=== PATIENT | female | born 1935 | race Caucasian/White ===

== ENCOUNTER → 2018-10-18 | Outpatient (CLI) | payer MEDICARE ==
[~2018-10-18] MED LIST: AML5T; AMLO10TA82 PO; ASP325T PO; ATRV10T; ATRV10T PO; FRSM40T; FURO40TA4 PO; HYDR-34 PO; HYDR-3583 PO; HYDR118S10 PO; LISI40TA PO; LSNP20T; LVT.05T; LVT.05T PO; MTF500T; MTF500T PO; MULT-608 PO; MULT1TAB63; NAPR-243 PO; OXYC-12 PO; POLY119P PO; SIMV20TA3 PO; VIT1TABL26 PO; WRF2.5T; WRF5T; [UNRECOGNIZED DRUG - OTHER]
== END ==
LOC: CARD 11:52
PROVIDERS: ATTEND Internal Medicine Cardiovascular Disease
DX: I25.10 Atherosclerotic heart disease of native coronary artery without angina pectoris (principal); I42.0 Dilated cardiomyopathy; E11.9 Type 2 diabetes mellitus without complications; R00.2 Palpitations; I10 Essential (primary) hypertension; I08.1 Rheumatic disorders of both mitral and tricuspid valves
CPT/HCPCS: 93306

== ENCOUNTER 2019-08-16 13:39 | Outpatient (RCR) | payer MEDICARE | END 2019-09-18 | disposition home or self-care (01) | PROVIDERS: ATTEND Family Medicine | DX: M51.36 Other intervertebral disc degeneration, lumbar region (principal); R29.898 Other symptoms and signs involving the musculoskeletal system ==

== ENCOUNTER 2020-03-29 12:17 | Emergency (ER) | payer MEDICARE ==
[~2020-03-29] VITALS: Ht 160 cm; Wt 87.5 kg
--- NOTE | 2020-03-29 12:36 | ED Back Pain ---
General Stated Complaint: BACK PAIN Source of Information: Patient Exam Limitations: No Limitations History of Present Illness Date Seen by Provider: Mar 29, 2020 Time Seen by Provider: 12:33 Initial Comments To ER with left flank pain sudden in onset about 3 or 4 hours ago while walking back from the bathroom. Pain is worsened by movement. Does not radiate down her legs. No history with bowel or bladder incontinence. Location: Paraspinous Muscles Timing/Duration: 1-3 Hours Severity: Moderate Pain/Injury Location: Back Method of Injury: Unknown Associated Symptoms: denies symptoms Allergies and Home Medications Allergies Coded Allergies: Erythromycin Base (Verified Allergy, Unknown, 07/06/07) Home Medications Amlodipine Besylate 10 Mg Tablet, 10 MG PO DAILY, (Reported) Aspirin 325 Mg Tab, 325 MG PO DAILY, (Reported) Furosemide 40 Mg Tablet, 40 MG PO DAILY, (Reported) Hydrocodone/Acetaminophen 1 Each Tablet, 3.75 MG PO HS, (Reported) 1/2 TAB AT HS Hydrocodone/Acetaminophen 1 Each Tablet, 1 EACH PO Q4H PRN for PAIN Prescribed by: YANE RASHEED on 01/25/14 1611 Levothyroxine Sodium 50 Mcg Tablet, 50 MG PO DAILY, (Reported) Lisinopril 40 Mg Tablet, 40 MG PO DAILY, (Reported) Metformin Hcl 500 Mg Tablet, 500 MG PO BID WITH MEALS RESUME IN AM ON 01/12/14 Prescribed by: SKIP LOPEZ on 01/09/14 1504 Multivitamins 1 Tab Tablet, 1 TAB PO DAILY, (Reported) Polyethylene Glycol 119 Gm Btl, 0 PO PRN, (Reported) 17 GM Simvastatin 20 Mg Tablet, 20 MG PO DAILY, (Reported) Vit A,C & E/Lutein/Minerals 1 Each Tablet, 1 EACH PO DAILY, (Reported) Patient Home Medication List Home Medication List Reviewed: Yes Review of Systems Constitutional: see HPI EENTM: see HPI Respiratory: no symptoms reported Cardiovascular: no symptoms reported Genitourinary: no symptoms reported Musculoskeletal: see HPI Skin: no symptoms reported Psychiatric/Neurological: No Symptoms Reported Past Htqphqe-Prljne-Vvunrq Hx Patient Social History 2nd Hand Smoke Exposure: No Recent Hopitalizations: Yes Immunizations Up To Date Date of Influenza Vaccine: Jun 06, 2011 Past Medical History Surgeries: Yes (KNEE REPLACEMENT X3, CATARACT, HEART CATH) Respiratory: No Cardiac: No Neurological: No Reproductive Disorders: No Sexually Transmitted Disease: No Gastrointestinal: Yes (constipation) Musculoskeletal: Yes (BILAT KNEES) Endocrine: Yes Cancer: No Psychosocial: No Blood Disorders: No Family Medical History No Pertinent Family Hx Physical Exam Vital Signs Vital Signs - First Documented 03/29/20 12:25 Temp 36.8 Pulse 78 Resp 19 B/P (MAP) 165/114 (131) Pulse Ox 96 O2 Delivery Room Air Capillary Refill : Height, Weight, BMI Height: 5'3.00" Weight: 205lbs. oz. 92.351470cg; 36.31 BMI Method:Stated General Appearance: No Apparent Distress, WD/WN Neck: Full Range of Motion, Normal Inspection Respiratory: Normal Breath Sounds, No Accessory Muscle Use, No Respiratory Distress Extremity: Normal Capillary Refill, Normal Inspection Neurologic/Psychiatric: Alert, Oriented x3 Skin: Normal Color, Warm/Dry Lymphatic: Other (tender to palpation posterior left lower ribs without overlying erythema or ecchymosis or rash.) Progress/Results/Core Measures Results/Orders Lab Results Laboratory Tests Test 03/29/20 12:50 Range/Units Urine Color YELLOW Urine Clarity CLEAR Urine pH 6.5 5-9 Urine Specific [place] 1.010 L 1.016-1.022 Urine Protein NEGATIVE NEGATIVE Urine Glucose (UA) NEGATIVE NEGATIVE Urine Ketones NEGATIVE NEGATIVE Urine Nitrite NEGATIVE NEGATIVE Urine Bilirubin NEGATIVE NEGATIVE Urine Urobilinogen 0.2 < = 1.0 MG/DL Urine Leukocyte Esterase TRACE H NEGATIVE Urine RBC (Auto) NEGATIVE NEGATIVE Urine RBC NONE /HPF Urine WBC NONE /HPF Urine Squamous Epithelial Cells RARE /HPF Urine Crystals NONE /LPF Urine Bacteria NEGATIVE /HPF Urine Casts NONE /LPF Urine Mucus NEGATIVE /LPF Urine Culture Indicated NO My Orders Orders - ИРИНА PECK APRN Ct Abd/Pelvis Wo(Kidney Stone) (03/29/20 12:31) Ua Culture If Indicated (03/29/20 12:31) Ketorolac Injection (Toradol Injection) (03/29/20 12:45) Orphenadrine Inj (Ed Only) (Norflex Inje (03/29/20 12:45) Medications Given in ED Current Medications Medications Dose Ordered Sig/Ziggy Route Start Time Stop Time Status Last Admin Dose Admin Ketorolac Tromethamine 30 mg ONCE ONCE IM 03/29/20 12:45 03/29/20 12:46 DC 03/29/20 12:45 30 MG Orphenadrine Citrate 60 mg ONCE ONCE IM 03/29/20 12:45 03/29/20 12:46 DC 03/29/20 12:48 60 MG Vital Signs/I&O 03/29/20 12:25 Temp 36.8 Pulse 78 Resp 19 B/P (MAP) 165/114 (131) Pulse Ox 96 O2 Delivery Room Air Departure Communication (Admissions) 1350-feeling better after IM toradol+norflex. Impression Primary Impression: Left flank pain Disposition: HOME, SELF-CARE Condition: Stable Departure-Patient Inst. Decision time for Depature: 13:49 Referrals: SAVANNAH PENA DO (PCP) Primary Care Physician Patient Instructions: Flank Pain (DC) Add. Discharge Instructions: 1. return to er for any concerns 2. Muscle relaxer as directed 3. follow up with dr pena next week Scripts Methocarbamol (Robaxin-750) 750 Mg Tablet 750 MG PO Q4H PRN for PAIN-MODERATE (5-7), #14 TAB Prov: ИРИНА PECK APRN 03/29/20 ИРИНА PECK APRN Mar 29, 2020 12:35
[2020-03-29] MEDS ORDERED: ORPHENADRINE 60 MG/2 ML (NORFLEX) AMP (ED ONLY) IM ONE (12:45)
[2020-03-29] MEDS ORDERED: KETOROLAC 30 MG/ML VIAL IM ONE (12:45)
[2020-03-29 13:00] LABS: BILIRUBIN,URINE NEGATIVE (NEGATIVE); CLARITY,URINE CLEAR; COLOR,URINE YELLOW; GLUCOSE, URINE (UA) NEGATIVE (NEGATIVE); KETONES,URINE NEGATIVE (NEGATIVE); LEUKOCYTE ESTERASE ,URINE TRACE (NEGATIVE); NITRITE,URINE NEGATIVE (NEGATIVE); PH,URINE 6.5 (5-9); PROTEIN,URINE NEGATIVE (NEGATIVE)
[2020-03-29 13:12] LABS: BACTERIA,URINE NEGATIVE /HPF; SQUAMOUS EPITHELIAL CELL,UR RARE /HPF
--- NOTE | 2020-03-29 13:33 | NUR ---
Pt reports pain relief after injections.
[2020-03-29] MEDS ORDERED: METH-313 PO (13:53)
--- NOTE | 2020-03-29 13:53 | Diagnostic Imaging Report ---
PROCEDURE: CT urinary tract, rule out kidney stone. TECHNIQUE: Multiple contiguous axial images were obtained through the abdomen and pelvis without the use of intravenous contrast. Auto Exposure Controls were utilized during the CT exam to meet ALARA standards for radiation dose reduction. INDICATION: Left flank pain. COMPARISON: There are no prior CT abdomen/pelvis exams available for comparison. FINDINGS: There is no evidence for nephrolithiasis or urolithiasis and the kidneys do not appear to be obstructed. The urinary bladder is only partially filled and consequently difficult to assess. There is no pelvic mass or free fluid collection evident. There is diverticulosis of the sigmoid and descending colon but there is no sign of acute diverticulitis. There is also a fair amount of fecal material throughout the colon. The appendix was visualized and is not abnormally thickened. The uterus does not appear to be enlarged. There are two calcifications within the uterus which may be related to uterine fibroids. These calcifications measure less than 1 cm. There is a defect in the anterior abdominal wall near the umbilicus. A portion of the mesenteric fat has extended through this defect but there is no incarceration or obstruction of the bowel. There is a 9 mm calculus in this area. The liver, pancreas, adrenals, aorta, and inferior vena cava show no sign of an acute abnormality. There are calcifications within the spleen. 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 The gallbladder is not well visualized and I suspect it is surgically absent. The stomach is not well distended and difficult to evaluate as well. The lung bases are generally clear. The heart is enlarged but stable. In the interval, since the prior study, a left-sided defibrillator device has been inserted. The bone windows show no evidence for a fracture or for a destructive lesion. 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 IMPRESSION: 1. There is no evidence for nephrolithiasis or urolithiasis and the kidneys do not appear to be obstructed. 2. There is no acute abnormality of the abdomen and pelvis noted, otherwise. 3. There is diverticulosis of the sigmoid and descending colon without evidence for acute diverticulitis. 4. There is a fair amount of fecal material throughout the colon. 5. There is a defect in the anterior abdominal wall near the umbilicus. Mesenteric fat has extended through this area but there is no incarceration or obstruction of the bowel. 6. 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 7. There has been interval insertion of a defibrillator device. 8. These results were discussed with Dr. Cong Pollard in the ER. Dictated by: Dictated on workstation # [id number]
[2020-03-29 13:59] VITALS: BP 186/113
== END 2020-03-29 14:00 | disposition home or self-care (01) ==
LOC: EDUNIT# 12:17 → ER 12:18
DX: R10.9 Unspecified abdominal pain (principal); Z88.1 Allergy status to other antibiotic agents; Z79.82 Long term (current) use of aspirin; Z79.84 Long term (current) use of oral hypoglycemic drugs; Z95.9 Presence of cardiac and vascular implant and graft, unspecified
CPT/HCPCS: 74176; 81000

== ENCOUNTER 2021-05-14 17:19 | Inpatient (IN) | payer MEDICARE ==
[~2021-05-14] VITALS: Ht 160 cm; Wt 92.2 kg
[~2021-05-14 17:19] MED LIST changes: +METH-313 PO
[2021-05-14] MEDS ORDERED: fentaNYL INJ 100 MCG/2 ML AMP IVP ONE (18:30)
--- NOTE | 2021-05-14 18:33 | ED Lower Extremity ---
General Chief Complaint: Trauma-Non Activation Stated Complaint: FALL Nursing Triage Note: PT TO ROOM 04 [facility] WITH C/O LEFT KNEE PAIN AFTER FALLING. PT STATES SHE WAS ATTEMPTING TO HAND SOME CLOTHES ON THE BACK OF A ROCKING CHAIR AND THE CHAIR MOVED AND SHE FELL. PT DENIES HEAD, NECK, BACK PAIN. PT DENIES LOC. PT REPORTS LEFT KNEE REPLACEMENT IN 1995. Source: patient, family (son) Exam Limitations: no limitations History of Present Illness Date Seen by Provider: May 14, 2021 Time Seen by Provider: 18:05 Initial Comments Patient to the ER by EMS from home with chief complaint of a fall just prior to arrival landing on her left side while twisting to the left and feeling a popping sensation and significant pain in the left knee. She had both knees replaced previously. She sees a metal pickling equipment operator Dr. Camejo and Dr. Berkowitz locally. Dr. Parker is her primary care doctor. 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 She has no loss of sensation. She denies loss of consciousness. She says she did strike the back of her head against the rocking chair she was playing some close over likely. She was using her cane at the time. She denied having any pain in her hips. She received some fentanyl on route by EMS which she said helped with her starting to wear off. No nausea fever chills cough shortness of air dysuria or diarrhea Allergies and Home Medications Allergies Coded Allergies: Erythromycin Base (Verified Allergy, Unknown, 07/06/07) Patient Home Medication List Home Medication List Reviewed: Yes Amlodipine Besylate (Norvasc Tablet) 10 Mg Tablet, 10 MG PO DAILY, (Reported) Entered as Reported by: GIANNI CONRAD on 03/12/11 0954 Aspirin (Aspirin 325 Mg Tab) 325 Mg Tab, 325 MG PO DAILY, (Reported) Entered as Reported by: GIANNI CONRAD on 03/12/11 0954 Furosemide (Furosemide) 40 Mg Tablet, 40 MG PO DAILY, (Reported) Entered as Reported by: GIANNI CONRAD on 03/12/11 0954 Hydrocodone/Acetaminophen (Hydrocodon-Acetamin 7.5-325/15) 1 Each Tablet, 3.75 MG PO HS, (Reported) Entered as Reported by: LEE BRODERICK on 12/07/13 1105 Hydrocodone/Acetaminophen (Hydrocodon-Acetamin 7.5-325/15) 1 Each Tablet, 1 EACH PO Q4H PRN for PAIN Prescribed by: YANE RASHEED on 01/25/14 1611 Levothyroxine Sodium (Levothyroxine 50 Mcg Tab) 50 Mcg Tablet, 50 MG PO DAILY, (Reported) Entered as Reported by: GIANNI CONRAD on 03/12/11 0954 Lisinopril (Zestril) 40 Mg Tablet, 40 MG PO DAILY, (Reported) Entered as Reported by: GIANNI CONRAD on 03/12/11 0954 Metformin Hcl (Metformin 500 Mg) 500 Mg Tablet, 500 MG PO BID WITH MEALS Prescribed by: SKIP LOPEZ on 01/09/14 1504 Methocarbamol (Robaxin-750) 750 Mg Tablet, 750 MG PO Q4H PRN for PAIN-MODERATE (5-7) Prescribed by: ИРИНА PECK on 03/29/20 1353 Multivitamins (Multiple Vitamin) 1 Tab Tablet, 1 TAB PO DAILY, (Reported) Entered as Reported by: GIANNI CONRAD on 03/12/11 0954 Polyethylene Glycol (Miralax Btl) 119 Gm Btl, 0 PO PRN, (Reported) Entered as Reported by: LEE BRODERICK on 11/11/11 1037 Simvastatin (Simvastatin) 20 Mg Tablet, 20 MG PO DAILY, (Reported) Entered as Reported by: LEE BRODERICK on 11/11/11 1037 Vit A,C & E/Lutein/Minerals (Ocuvite Tablet) 1 Each Tablet, 1 EACH PO DAILY, (Reported) Entered as Reported by: LEE BRODERICK on 12/07/13 1105 Review of Systems Constitutional: No chills, No diaphoresis EENTM: No ear discharge, No ear pain Respiratory: No cough, No short of breath Cardiovascular: No edema; other (Pacemaker) Gastrointestinal: No abdominal pain, No constipation, No diarrhea, No nausea, No vomiting Genitourinary: No dysuria, No frequency Musculoskeletal: No back pain, No joint pain All Other Systems Reviewed Negative Unless Noted: Yes Past Smxctcc-Rkgylp-Bnvqne Hx Patient Social History Tobacco Use?: No Smoking Status: Never a Smoker Substance use?: No Alcohol Use?: No Immunizations Up To Date First/Initial COVID19 Vaccinat: 09/2020 Second COVID19 Vaccination Bubba: 10/2020 COVID19 Vaccine Combination Technician: GEORGE Past Medical History Surgeries: Yes (KNEE REPLACEMENT X3, CATARACT, HEART CATH) Gallbladder Respiratory: No Cardiac: No Neurological: No Reproductive Disorders: No Sexually Transmitted Disease: No Gastrointestinal: Yes (constipation) 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 oz. 92.449695xk; 35.00 BMI Method:Stated General Appearance: WD/WN, mild distress HEENT: PERRL/EOMI, pharynx normal Neck: full range of motion, normal inspection Cardiovascular: normal peripheral pulses, regular rate, rhythm Respiratory: lungs clear, normal breath sounds, no respiratory distress, no accessory muscle use Gastrointestinal: normal bowel sounds, non tender, soft Legs: bilateral leg non-tender, bilateral leg normal range of motion, bilateral leg swelling (Chronic lymphedema with wounds on the posterior calf and heel) Knees: right knee non-tender; bilateral knee normal inspection; right knee normal range of motion Ankles: bilateral ankle non-tender, bilateral ankle normal range of motion, bilateral ankle swelling Neurologic/Tendon: normal sensation, normal motor functions, normal tendon functions, responds to pain, no evidence tendon injury Neurologic/Psychiatric: waistline joiner lockstitch II-XII nml as tested, no motor/sensory deficits, alert, normal mood/affect, oriented x 3 Skin: normal color, warm/dry Progress/Results/Core Measures Results/Orders Lab Results Laboratory Tests Test 05/14/21 18:36 05/14/21 18:57 Range/Units White Blood Count 9.8 4.3-11.0 10^3/uL Red Blood Count 3.18 L 3.80-5.11 10^6/uL Hemoglobin 10.0 L 11.5-16.0 g/dL Hematocrit 33 L 35-52 % Mean Corpuscular Volume 102 H 80-99 fL Mean Corpuscular Hemoglobin 31 25-34 pg Mean Corpuscular Hemoglobin Concent 31 L 32-36 g/dL Red Cell Distribution Width 12.5 10.0-14.5 % Platelet Count 210 130-400 10^3/uL Mean Platelet Volume 9.6 9.0-12.2 fL Immature Granulocyte % (Auto) 1 % Neutrophils (%) (Auto) 72 42-75 % Lymphocytes (%) (Auto) 16 12-44 % Monocytes (%) (Auto) 10 0-12 % Eosinophils (%) (Auto) 1 0-10 % Basophils (%) (Auto) 1 0-10 % Neutrophils # (Auto) 7.1 1.8-7.8 10^3/uL Lymphocytes # (Auto) 1.5 1.0-4.0 10^3/uL Monocytes # (Auto) 0.9 0.0-1.0 10^3/uL Eosinophils # (Auto) 0.1 0.0-0.3 10^3/uL Basophils # (Auto) 0.1 0.0-0.1 10^3/uL Immature Granulocyte # (Auto) 0.1 0.0-0.1 10^3/uL Sodium Level 138 135-145 MMOL/L Potassium Level 5.1 H 3.6-5.0 MMOL/L Chloride Level 101 98-107 MMOL/L Carbon Dioxide Level 26 21-32 MMOL/L Anion Gap 11 5-14 MMOL/L Blood Urea Nitrogen 31 H 7-18 MG/DL Creatinine 1.47 H 0.60-1.30 MG/DL Estimat Glomerular Filtration Rate 34 BUN/Creatinine Ratio 21 Glucose Level 149 H 70-105 MG/DL Calcium Level 9.3 8.5-10.1 MG/DL Corrected Calcium 9.5 8.5-10.1 MG/DL Total Bilirubin 1.1 H 0.1-1.0 MG/DL Aspartate Amino Transf (AST/SGOT) 23 5-34 U/L Alanine Aminotransferase (ALT/SGPT) 16 0-55 U/L Alkaline Phosphatase 55 40-136 U/L Total Protein 6.5 6.4-8.2 GM/DL Albumin 3.8 3.2-4.5 GM/DL Urine Color YELLOW Urine Clarity CLEAR Urine pH 7.0 5-9 Urine Specific [place] 1.015 L 1.016-1.022 Urine Protein NEGATIVE NEGATIVE Urine Glucose (UA) NEGATIVE NEGATIVE Urine Ketones TRACE H NEGATIVE Urine Nitrite NEGATIVE NEGATIVE Urine Bilirubin NEGATIVE NEGATIVE Urine Urobilinogen 0.2 < = 1.0 MG/DL Urine Leukocyte Esterase NEGATIVE NEGATIVE Urine RBC (Auto) NEGATIVE NEGATIVE Urine RBC NONE /HPF Urine WBC RARE /HPF Urine Crystals PRESENT H /LPF Urine Amorphous Sediment RARE MINE PHOSPHATE H /LPF Urine Bacteria NEGATIVE /HPF Urine Casts NONE /LPF Urine Mucus NEGATIVE /LPF Urine Culture Indicated NO My Orders Orders - WILL HO Ct Head/Cervical Spine Wo (05/14/21 18:17) Knee, Left, 3 Views (05/14/21 18:17) Hip, Left, 2 Views (05/14/21 18:17) Fentanyl Inj (Sublimaze Injection) (05/14/21 18:30) Cbc With Automated Diff (05/14/21 18:17) Comprehensive Metabolic Panel (05/14/21 18:17) Ua Culture If Indicated (05/14/21 18:17) Ed Iv/Invasive Line Start (05/14/21 19:16) Ns Iv 500 Ml (Sodium Chloride 0.9%) (05/14/21 19:30) Ct Extremity Lower Left Wo (05/14/21 19:53) Medications Given in ED Current Medications Medications Dose Ordered Sig/Ziggy Route Start Time Stop Time Status Last Admin Dose Admin Fentanyl Citrate 50 mcg ONCE ONCE IVP 05/14/21 18:30 05/14/21 18:31 DC 05/14/21 18:35 50 MCG Sodium Chloride 500 ml @ 0 mls/hr Q0M ONCE IV 05/14/21 19:30 05/14/21 19:31 DC 05/14/21 19:38 999 MLS/HR Vital Signs/I&O 05/14/21 17:23 Temp 37.1 Pulse 70 Resp 16 B/P (MAP) 144/75 (98) O2 Delivery Room Air Blood Pressure Mean: 98 Diagnostic Imaging Diagonstic Imaging: Xray Plain Films/CT/US/NM/MRI: knee (l) Comments [facility] [place] [place] NAME: HONGKALLI Linton MED REC#: [id number] PT STATUS: REG ER : 1935 PHYSICIAN: WILL HO MD ADMIT DATE: 05/14/21/ER Draft Date of Exam:05/14/21 KNEE, LEFT, 3 VIEWS EXAM: Knee, left, 3 views. INDICATION: Fall. Left knee pain. COMPARISON: None. FINDINGS: Left total knee arthroplasty. Components appear intact. Linear lucency in the anterior lateral tibial metaphysis suspicious for fracture. There is also a lucency seen in the lateral proximal fibular metaphysis suspicious for fracture. Demineralization. IMPRESSION: Linear lucencies in both the proximal left tibial and fibular metaphyses suspicious for fracture. Exam is limited by demineralization. Recommend further evaluation with CT. Dictated on workstation # [id number] Dict: 05/14/211926 Trans: 05/14/211931 [facility] [id number] Interpreted by: MARILYN FIGUEROA MD Electronically signed by: Reviewed: Reviewed by Az Diagonstic Imaging: Xray Plain Films/CT/US/NM/MRI: hip (left) Comments [facility] [place] [place] NAME: KALLI PITTS MED REC#: [id number] PT STATUS: REG ER : 1935 PHYSICIAN: WILL HO MD ADMIT DATE: 05/14/21/ER Draft Date of Exam:05/14/21 HIP, LEFT, 2 VIEWS EXAM: Hip, left, 2 views. INDICATION: Left hip pain. COMPARISON: None. FINDINGS/ IMPRESSION: No fracture or malalignment is identified. No suspicious radiopaque foreign body. The lateral view is obscured by overlapping tissues and demineralization. Dictated on workstation # [id number] Dict: 05/14/211929 Trans: 05/14/211933 [facility] [id number] Interpreted by: MARILYN FIGUEROA MD Electronically signed by: Reviewed: Reviewed by Az Diagonstic Imaging: CT Plain Films/CT/US/NM/MRI: c-spine, head Comments [facility] [place] [place] NAME: KALLI PITTS MED REC#: [id number] PT STATUS: REG ER : 1935 PHYSICIAN: WILL HO MD ADMIT DATE: 05/14/21/ER Draft Date of Exam:05/14/21 CT HEAD/CERVICAL SPINE WO PROCEDURE: CT head and CT cervical spine without contrast. TECHNIQUE: Multiple contiguous axial images were obtained through the brain and cervical spine without the use of intravenous contrast. Sagittal and coronal reformations through the cervical spine were then performed. Auto Exposure Controls were utilized during the CT exam to meet ALARA standards for radiation dose reduction. INDICATION: Fall. Trauma to head and neck. COMPARISON: None. FINDINGS: CT head: Advanced generalized parenchymal volume loss. Advanced leukoaraiosis. No CT evidence of a territorial infarction. Intracranial vascular calcifications. No intracranial hemorrhage, mass effect, hydrocephalus or extra-axial fluid collection. Osseous structures are intact. Visualized paranasal sinuses and mastoids are clear. CT cervical spine: Grade 1 anterolisthesis of C7 on T1. Vertebral body heights are preserved. No fracture is identified. Moderate diffuse degenerative endplate changes and facet arthropathy. No high-grade spinal canal stenosis is evident on soft tissue windows. Moderate atherosclerotic calcifications in the carotid bifurcation. IMPRESSION: No acute intracranial or cervical spine CT finding. Chronic findings as above. Dictated on workstation # [id number] Dict: 05/14/211909 Trans: 05/14/21[address] [facility] [id number] Interpreted by: MARILYN FIGUEROA MD Electronically signed by: Reviewed: Reviewed by Az Diagonstic Imaging: CT Comments [facility] [place] [place] NAME: HONGKALLI Royer [facility] REC#: [id number] PT STATUS: REG ER : 1935 PHYSICIAN: WILL HO MD ADMIT DATE: 05/14/21/ER Draft Date of Exam:05/14/21 CT EXTREMITY LOWER LEFT WO PROCEDURE: CT left lower extremity without contrast. TECHNIQUE: Multiple contiguous axial images were obtained through the left lower extremity without the use of intravenous contrast. Sagittal and coronal reformations were then performed. Auto Exposure Controls were utilized during the CT exam to meet ALARA standards for radiation dose reduction. INDICATION: Knee pain after fall. COMPARISON: Knee radiograph of earlier the same day. FINDINGS: CT confirms the presence of an acute periprosthetic fracture involving the proximal tibia. There are nondisplaced hairline fractures located in both the medial and lateral tibial plateaus. The fracture orientation is sagittal in both regards and there is no separation of the metaphysis from the tibial plateaus. No fracture in the distal femur. Lipohemarthrosis is present. A nondisplaced fracture of the proximal fibula head is also present. IMPRESSION: 1. CT confirms the presence of nondisplaced periprosthetic fractures in the medial and lateral tibial plateaus abutting the tibial tray. This results in moderate size lipohemarthrosis due to intra-articular nature of the fracture. 2. Nondisplaced fracture in the fibular head. Dictated on workstation # [id number] Dict: 05/14/212039 Trans: 05/14/212047 [facility] [id number] Interpreted by: LELA SCANLON MD Electronically signed by: Reviewed: Reviewed by Me Consults : Consulting Physician: BLAYNE CHOW MD Consults Notes Discussed the case with the orthopedic surgeon and he states he does not immediately need surgery and would likely do well with outpatient follow-up. He says he is willing to follow her as a [employer] consultant if she needs to be admitted for placement or pain management. He would recommend a knee immobilizer with toe- touch as tolerated weightbearing. Departure Communication (Admissions) Time/Spoke to Admitting Phy: 21:30 Discussed the case with Dr. Parker and she agrees to observe the patient with wound care, pain management, social service manager and immobilization of the left knee. 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 Referrals: SAVANNAH PARKER DO (PCP) Primary Care Physician WILL HO May 14, 2021 18:32
[2021-05-14 18:43] LABS: BASOPHILS # (AUTO) 0.1 10^3/uL (0.0-0.1); BASOPHILS % (AUTO) 1 % (0-10); EOSINOPHILS # (AUTO) 0.1 10^3/uL (0.0-0.3); EOSINOPHILS % (AUTO) 1 % (0-10); HEMATOCRIT 33 % (35-52); LYMPHOCYTES # (AUTO) 1.5 10^3/uL (1.0-4.0); LYMPHOCYTES % (AUTO) 16 % (12-44); MEAN CORPUSCULAR HEMOGLOBIN 31 pg (25-34); MEAN CORPUSCULAR HGB CONC 31 g/dL (32-36); MEAN CORPUSCULAR VOLUME 102 fL (80-99); MEAN PLATELET VOLUME 9.6 fL (9.0-12.2); MONOCYTES # (AUTO) 0.9 10^3/uL (0.0-1.0); MONOCYTES % (AUTO) 10 % (0-12); NEUTROPHILS # (AUTO) 7.1 10^3/uL (1.8-7.8); NEUTROPHILS % (AUTO) 72 % (42-75); PLATELET COUNT 210 10^3/uL (130-400); WHITE BLOOD COUNT 9.8 10^3/uL (4.3-11.0)
[2021-05-14 19:00] LABS: ALBUMIN 3.8 GM/DL (3.2-4.5); POTASSIUM 5.1 MMOL/L (3.6-5.0)
[2021-05-14 19:01] LABS: CALCIUM 9.3 MG/DL (8.5-10.1)
[2021-05-14 19:03] LABS: BILIRUBIN,URINE NEGATIVE (NEGATIVE); CLARITY,URINE CLEAR; COLOR,URINE YELLOW; GLUCOSE, URINE (UA) NEGATIVE (NEGATIVE); KETONES,URINE TRACE (NEGATIVE); LEUKOCYTE ESTERASE ,URINE NEGATIVE (NEGATIVE); NITRITE,URINE NEGATIVE (NEGATIVE); PROTEIN,URINE NEGATIVE (NEGATIVE)
[2021-05-14 19:03] LABS: TOTAL PROTEIN 6.5 GM/DL (6.4-8.2)
[2021-05-14 19:04] LABS: BILIRUBIN,TOTAL 1.1 MG/DL (0.1-1.0)
[2021-05-14 19:06] LABS: CREATININE SERUM 1.47 MG/DL (0.60-1.30)
[2021-05-14 19:17] LABS: BACTERIA,URINE NEGATIVE /HPF
[2021-05-14 19:18] LABS: AMORPHOUS SEDIMENT,UR RARE AMOR PHOSPHATE /LPF; WBC,URINE RARE /HPF
--- NOTE | 2021-05-14 19:27 | Diagnostic Imaging Report ---
PROCEDURE: CT head and CT cervical spine without contrast. TECHNIQUE: Multiple contiguous axial images were obtained through the brain and cervical spine without the use of intravenous contrast. Sagittal and coronal reformations through the cervical spine were then performed. Auto Exposure Controls were utilized during the CT exam to meet ALARA standards for radiation dose reduction. INDICATION: Fall. Trauma to head and neck. COMPARISON: None. FINDINGS: CT head: Advanced generalized parenchymal volume loss. Advanced leukoaraiosis. No CT evidence of a territorial infarction. Intracranial vascular calcifications. No intracranial hemorrhage, mass effect, hydrocephalus or extra-axial fluid collection. Osseous structures are intact. Visualized paranasal sinuses and mastoids are clear. CT cervical spine: Grade 1 anterolisthesis of C7 on T1. Vertebral body heights are preserved. No fracture is identified. Moderate diffuse degenerative endplate changes and facet arthropathy. No high-grade spinal canal stenosis is evident on soft tissue windows. Moderate atherosclerotic calcifications in the carotid bifurcation. IMPRESSION: No acute intracranial or cervical spine CT finding. Chronic findings as above. Dictated by: Dictated on workstation # [id number]
[2021-05-14] MEDS ORDERED: NS IV 500 ML 500 ML IV ONE (19:30)
--- NOTE | 2021-05-14 19:32 | Diagnostic Imaging Report ---
EXAM: Knee, left, 3 views. INDICATION: Fall. Left knee pain. COMPARISON: None. FINDINGS: Left total knee arthroplasty. Components appear intact. Linear lucency in the anterior lateral tibial metaphysis suspicious for fracture. There is also a lucency seen in the lateral proximal fibular metaphysis suspicious for fracture. Demineralization. IMPRESSION: Linear lucencies in both the proximal left tibial and fibular metaphyses suspicious for fracture. Exam is limited by demineralization. Recommend further evaluation with CT. Dictated by: Dictated on workstation # [id number]
--- NOTE | 2021-05-14 19:35 | Diagnostic Imaging Report ---
EXAM: Hip, left, 2 views. INDICATION: Left hip pain. COMPARISON: None. FINDINGS/ IMPRESSION: No fracture or malalignment is identified. No suspicious radiopaque foreign body. The lateral view is obscured by overlapping tissues and demineralization. Dictated by: Dictated on workstation # [id number]
--- NOTE | 2021-05-14 20:50 | Diagnostic Imaging Report ---
PROCEDURE: CT left lower extremity without contrast. TECHNIQUE: Multiple contiguous axial images were obtained through the left lower extremity without the use of intravenous contrast. Sagittal and coronal reformations were then performed. Auto Exposure Controls were utilized during the CT exam to meet ALARA standards for radiation dose reduction. INDICATION: Knee pain after fall. COMPARISON: Knee radiograph of earlier the same day. FINDINGS: CT confirms the presence of an acute periprosthetic fracture involving the proximal tibia. There are nondisplaced hairline fractures located in both the medial and lateral tibial plateaus. The fracture orientation is sagittal in both regards and there is no separation of the metaphysis from the tibial plateaus. No fracture in the distal femur. Lipohemarthrosis is present. A nondisplaced fracture of the proximal fibula head is also present. IMPRESSION: 1. CT confirms the presence of nondisplaced periprosthetic fractures in the medial and lateral tibial plateaus abutting the tibial tray. This results in moderate size lipohemarthrosis due to intra-articular nature of the fracture. 2. Nondisplaced fracture in the fibular head. Dictated by: Dictated on workstation # [id number]
[2021-05-14 22:55] VITALS: BP 150/71
[2021-05-14] MEDS ORDERED: fentaNYL INJ 100 MCG/2 ML AMP IVP PRN (23:00)
[2021-05-15] VITALS: BP 150/71
[2021-05-15 04:59] VITALS: BP 126/56
[2021-05-15 05:42] LABS: BASOPHILS # (AUTO) 0.1 10^3/uL (0.0-0.1); BASOPHILS % (AUTO) 1 % (0-10); EOSINOPHILS % (AUTO) 0 % (0-10); HEMATOCRIT 29 % (35-52); HEMOGLOBIN 8.9 g/dL (11.5-16.0); LYMPHOCYTES # (AUTO) 1.1 10^3/uL (1.0-4.0); LYMPHOCYTES % (AUTO) 14 % (12-44); MEAN CORPUSCULAR HEMOGLOBIN 31 pg (25-34); MEAN CORPUSCULAR HGB CONC 31 g/dL (32-36); MEAN CORPUSCULAR VOLUME 102 fL (80-99); MEAN PLATELET VOLUME 9.7 fL (9.0-12.2); MONOCYTES # (AUTO) 0.8 10^3/uL (0.0-1.0); MONOCYTES % (AUTO) 10 % (0-12); NEUTROPHILS % (AUTO) 75 % (42-75); PLATELET COUNT 179 10^3/uL (130-400)
[2021-05-15 05:55] LABS: POTASSIUM 4.4 MMOL/L (3.6-5.0)
[2021-05-15 05:56] LABS: CALCIUM 8.8 MG/DL (8.5-10.1)
[2021-05-15 06:00] LABS: CREATININE SERUM 1.1 MG/DL (0.60-1.30)
--- NOTE | 2021-05-15 07:51 | Progress Note ---
Standard Progress Note Progress Notes/Assess & Plan Date Seen by a Provider: May 15, 2021 Time Seen by a Provider: 07:50 Progress/Assessment & Plan patient seen and evaluated consult dictated 50% WB LLE and brace when ambulating Non op treatment BLAYNE CHOW MD May 15, 2021 07:51
[2021-05-15 08:00] VITALS: BP 134/63
--- NOTE | 2021-05-15 08:25 | CONSULTATION REPORT ---
DATE OF SERVICE: INPATIENT CONSULTATION REASON FOR CONSULTATION: Left tibia periprosthetic fracture. HISTORY OF PRESENT ILLNESS: The patient is an 85-year-old independently living female who underwent a left total knee arthroplasty in the mid 90s. She is being treated for chronic lymphedema of left lower extremity with weeping wound on her posterior calf. She fell last evening and ultimately was found to have a nondisplaced tibial metaphyseal fracture, which extended posteromedially and the periprosthetic region, but does not appear to extend beyond the prosthesis. This was seen on CT scan and is nondisplaced. The patient was placed in a knee immobilizer and admitted for pain management and physical therapy. PHYSICAL EXAMINATION: Her left lower extremity demonstrates diffuse lymphedema with weeping wound posteriorly at her distal calf. She is mildly tender along her proximal tibia. There is no gross varus or valgus laxity. Sensation is intact distally with intact dorsiflexion, plantar flexion, toes with symmetric pulses. IMPRESSION: Nondisplaced left tibia periprosthetic fracture. PLAN: Nonoperative conservative measures with knee immobilizer while ambulating. She can take the immobilizer off while at rest and in bed. I would recommend 50% weightbearing on the left lower extremity. The patient is a poor surgical candidate regardless due to her lymphedema. Thank you for the consultation. We will follow the patient as an outpatient in two weeks. Job ID: [id number] DocumentID: [id number] Dictated Date: 05/15/2021 07:49:31 Cellar Supervisor Date: 05/15/2021 08:24:42 Dictated By: BLAYNE CHOW MD
--- NOTE | 2021-05-15 09:05 | Physical Therapy Evaluation ---
PT Evaluation-General Medical Diagnosis Admission Date May 14, 2021 at 21:35 Medical Diagnosis: Left tibia periprosthetic fracture. Onset Date: May 14, 2021 Therapy Diagnosis Therapy Diagnosis: Gait deficit, strength deficit Height/Weight Height (Feet): 5 Height (Inches): 3.00 Weight (Pounds): 205 Precautions Precautions/Isolations: Fall Prevention, Standard Precautions Weight Bear Status Right Lower Extremity: Right Full Weight Bearing Left Lower Extremity: Left Partial Weight Bearing 50% with Left knee immobilizer donned Referral Physician: Dr. Mcknight Reason for Referral: Evaluation/Treatment Social History Home: Single Level Current Living Status: Alone Entry Into Home: Stairs With Railing PT Steps Into Home: 2 Prior Prior Level of Function SCALE: Activities may be completed with or without assistive devices. 9-Grxvkubttn-mzerwmg completes the activity by him/herself with no assistance from a helper. 5-Set-up or Clean-up Assistance-helper sets up or cleans up; patient completes activity. [place] assists only prior to or following the activity. 4-Supervision or Touching Assistance-helper provides verbal cues and/or touching/steadying and/or contact guard assistance as patient completes activity. Assistance may be provided throughout the activity or intermittently. 3-Partial/Moderate Assistance-helper does LESS THAN HALF the effort. [place] lifts, holds or supports trunk or limbs, but provides less than half the effort. 2-Substantial/Maximal Assistance-helper does MORE THAN HALF the effort. [place] lifts or holds trunk or limbs and provides more than half the effort. 6-Ebxktqcth-yjjzse does ALL the effort. Patient does none of the effort to complete the activity. Or, the assistance of 2 or more helpers is required for the patient to complete the activity. If activity was not attempted, code reason: 7-Patient Refused. 9-Not Applicable-not attempted and the patient did not perform the activity before the current illness, exacerbation or injury. 10-Not Attempted due to Environmental Limitations-(lack of equipment, weather restraints, etc.). 88-Not Attempted due to Medical Conditions or Safety Concerns. Bed Mobility: 6 Transfers (B,C,W/C): 6 Gait: 6 Stairs: 6 Indoor Mobility (Ambulation): Independent Stairs: Independent Prior Devices Use: Walker Prior Device Use: Cane, FWW PT Evaluation-Current Subjective Patient lying supine in bed upon PT arrival, agreeable to treatment. Patient rates pain at 0/10 currently at rest. Reports yesterday she was putting some clothes up and her left leg "just gave out." She experienced immediate pain and had to roll on her side to get her phone to call for help. Pt/Family Goals Get stronger and return home. Objective Patient Orientation: Person, Place, Time, Situation Attachments: Lopez Catheter ROM/Strength ROM Lower Extremities Left knee in immobilizer, all other left LE motions appear WFLs. Right LE WFLs all planes Strength Lower Extremities Right LE grossly 3/5, Left hip and left ankle Grossly 3/5; left knee N/A Sensory Sensation Right Lower Extremit: Intact Sensation Left Lower Extremity: Intact Transfers Roll Left to Right (QC): 3 Sit to Lying (QC): 3 Lying to Sitting/Side of Bed(Q: 3 Sit to Stand (QC): 3 Chair/Psg-xg-Zumrj Xfer(QC): 3 Gait Does the Patient Walk?: Yes Mode of Locomotion: Walk Anticipated Mode of Locomotion: Walk Walk 10 feet (QC): 88 Distance: 3 feet Gait Assistive Device: FWW Balance Sitting Static: Fair Sitting Dynamic: Fair Standing Static: Poor Standing Dynamic: Poor Assessment/Needs Patient lying supine in bed upon PT arrival, agreeable to treatment. Patient educated on 50% weight bearing in left knee immobilizer, proper transfers and use of FWW with appropriate gait pattern. Patient performs all bed mobility and transfers with mod A. Requires extra assistance with left LE due to pain and weakness. Patient able to perform sit to stand and maintain 50% weight bearing reasonably well. Patient ambulates 3 feet to the chair with mod A, verbal cues for posture, safety, performance and weight bearing. Patient in chair post treatment with all needs met, nursing notified, call light in reach. Patient will require post acute placement after D/C Rehab Potential: Fair PT Short Term Goals Short Term Goals Time Frame: May 29, 2021 Roll Left & Right: 4 Sit to lyin Lying to sitting on side of be: 4 Sit to stand: 4 Chair/aol-mf-dfrrf transfer: 4 Toilet transfer: 4 Walk 10 feet: 4 Walk 50 feet with two turns: 4 PT Correction Goals Senior Report Developer Goals PT Senior Report Developer Goals Time Frame: Jun 12, 2021 Roll Left & Right (QC): 5 Sit to Lying (QC): 5 Lying-Sitting on Side/Bed(QC): 5 Sit to Stand (QC): 5 Chair/Pvu-dd-Efkar Xfer(QC): 5 Toilet Transfer (QC): 5 Car Transfer (QC): 5 Does the Patient Walk: Yes Walk 10 feet (QC): 5 Walk 50ft with 2 Turns (QC): 5 Walk 150 ft (QC): 5 1 Step (curb) (QC): 4 4 Steps (QC): 4 PT Plan Problem List Problem List: Activity Tolerance, Functional Strength, Safety, Balance, Gait, Transfer, Bed Mobility, ROM Treatment/Plan Treatment Plan: Continue Plan of Care Treatment Plan: Bed Mobility, Education, Functional Activity Rehan, Functional Strength, Group Therapy, Gait, Safety, Therapeutic Exercise, Transfers Treatment Duration: Jul 30, 2021 Frequency: 6 times per week Estimated Hrs Per Day: .25 hour per day Patient and/or Family Agrees t: Yes Safety Risks/Education Patient Education: Gait Training, Transfer Techniques, Reviewed Precautions, Safety Issues Teaching Recipient: Patient Teaching Methods: Demonstration, Discussion Response to Teaching: Verbalize Understanding, Return Demonstration, Reinforcement Needed Time/GCodes Time In: 832 Time Out: 905 Total Billed Treatment Time: 33 Total Billed Treatment Visit, Camron Thompson JOHN A PT May 15, 2021 09:05
[2021-05-15] MEDS ORDERED: IBUP-2185 PO (11:02)
[2021-05-15] MEDS ORDERED: HYDR-3820 PO (11:02)
[2021-05-15] MEDS ORDERED: MULT-1136 PO (11:02)
[2021-05-15] MEDS ORDERED: METF-865 PO (11:02)
[2021-05-15] MEDS ORDERED: CHOL20002 PO (11:02)
[2021-05-15] MEDS ORDERED: SPIR25TA5 PO (11:02)
[2021-05-15] MEDS ORDERED: POTA10TA36 PO (11:02)
[2021-05-15] MEDS ORDERED: C,E,1CAP PO (11:02)
[2021-05-15] MEDS ORDERED: FOLI1TAB33 PO (11:02)
[2021-05-15] MEDS ORDERED: LEVO50TA6 PO (11:02)
[2021-05-15] MEDS ORDERED: GLIP5TAB13 PO (11:02)
[2021-05-15] MEDS ORDERED: ASPI-1238 PO (11:02)
[2021-05-15] MEDS ORDERED: SIMV20TA26 PO (11:02)
[2021-05-15] MEDS ORDERED: FURO80TA3 PO (11:02)
[2021-05-15] MEDS ORDERED: CARV25TA PO (11:02)
[2021-05-15] MEDS ORDERED: LISI40TA9 PO (11:02)
[2021-05-15] MEDS ORDERED: CYAN-23 PO (11:02)
[2021-05-15 12:00] VITALS: BP 121/78
[2021-05-15] MEDS: ENOXAPARIN 40 MG/0.4 ML (LOVENOX) SYR SC SCH (13:00)
--- NOTE | 2021-05-15 15:46 | Physical Therapy Daily Note ---
PT Daily Note-Current Subjective Patient sitting in chair upon PT arrival, agreeable to treatment. Rates pain at 0/10 while sitting. Transfers SCALE: Activities may be completed with or without assistive devices. 9-Opjysnpooi-wzdswwy completes the activity by him/herself with no assistance from a helper. 5-Set-up or Clean-up Assistance-helper sets up or cleans up; patient completes activity. [place] assists only prior to or following the activity. 4-Supervision or Touching Assistance-helper provides verbal cues and/or touching/steadying and/or contact guard assistance as patient completes activity. Assistance may be provided throughout the activity or intermittently. 3-Partial/Moderate Assistance-helper does LESS THAN HALF the effort. [place] lifts, holds or supports trunk or limbs, but provides less than half the effort. 2-Substantial/Maximal Assistance-helper does MORE THAN HALF the effort. [place] lifts or holds trunk or limbs and provides more than half the effort. 3-Yotgnuala-ghbzxs does ALL the effort. Patient does none of the effort to complete the activity. Or, the assistance of 2 or more helpers is required for the patient to complete the activity. If activity was not attempted, code reason: 7-Patient Refused. 9-Not Applicable-not attempted and the patient did not perform the activity before the current illness, exacerbation or injury. 10-Not Attempted due to Environmental Limitations-(lack of equipment, weather restraints, etc.). 88-Not Attempted due to Medical Conditions or Safety Concerns. Roll Left & Right (QC): 3 Sit to Lying (QC): 3 Lying to Sitting/Side of Bed(Q: 3 Sit to Stand (QC): 3 Chair/Ylv-av-Nlgej Xfer(QC): 3 Weight Bearing Right Lower Extremity: Right Full Weight Bearing Left Lower Extremity: Left Partial Weight Bearing 50% with Left knee immobilizer donned Gait Training Does the Patient Walk?: Yes Distance: 6 Walk 10 feet (QC): 88 Gait Persons Needed: 1 Gait Assistive Device: FWW Treatments Patient unable to fully ambulate around the bed, only ~ 6 feet. Patient required max A from PT to sit on the bed and max A for bed mobility and positioning. Upon transferring to supine in bed, patient was incontinent of BM. Patient required max assistance x 2 from PT and nurse for mobility and cleaning. Assessment Current Status: Fair Progress Patient tolerated treatment fair. Requires max A for gait training to the bed as at ~ 6 foot, patient reports, "I cant' go any further." Patient required max A for transfer to the bed and then max A for bed mobility. Upon transferring to supine in bed, patient was incontinent of BM. Patient required max assistance x 2 from PT and nurse for mobility and cleaning. Patient in bed post treatment with all needs met, nursing notified, call light in reach, nurse and family in the room. PT Short Term Goals Short Term Goals Time Frame: May 29, 2021 Roll Left & Right: 4 Sit to lyin Lying to sitting on side of be: 4 Sit to stand: 4 Chair/lyq-vk-qszsw transfer: 4 Toilet transfer: 4 Walk 10 feet: 4 Walk 50 feet with two turns: 4 PT Access Nurse Goals Mcc Goals PT Mcc Goals Time Frame: Jun 12, 2021 Roll Left & Right (QC): 5 Sit to Lying (QC): 5 Lying-Sitting on Side/Bed(QC): 5 Sit to Stand (QC): 5 Chair/Kfh-ji-Woiwz Xfer(QC): 5 Toilet Transfer (QC): 5 Car Transfer (QC): 5 Does the Patient Walk: Yes Walk 10 feet (QC): 5 Walk 50ft with 2 Turns (QC): 5 Walk 150 ft (QC): 5 1 Step (curb) (QC): 4 4 Steps (QC): 4 PT Plan Treatment/Plan Treatment Plan: Continue Plan of Care Treatment Plan: Bed Mobility, Education, Functional Activity Rehan, Functional Strength, Group Therapy, Gait, Safety, Therapeutic Exercise, Transfers Treatment Duration: Jul 30, 2021 Frequency: 6 times per week Estimated Hrs Per Day: .25 hour per day Patient and/or Family Agrees t: Yes Safety Risks/Education Patient Education: Gait Training, Transfer Techniques, Reviewed Precautions Teaching Recipient: Patient, Family Teaching Methods: Demonstration, Discussion Response to Teaching: Verbalize Understanding, Reinforcement Needed Time/GCodes Time In: 1500 Time Out: 1530 Total Billed Treatment Time: 30 Total Billed Treatment Visit, MART Lyon JOHN A PT May 15, 2021 15:46
[2021-05-15 15:53] VITALS: BP 136/65
--- NOTE | 2021-05-15 16:20 | Wound Care Assessment ---
Wound Care Assessment Date Seen by Provider: May 15, 2021 Time Seen by Provider: 16:00 Chief Complaint L calf ulcer. HPI The patient is an 85 year old female with L lower calf posterior ulcer, present before recent leg fracture, for which she has been placed in knee splint. The splint rubs on the ulcer. The patient has long-standing massive lymphedema from sedentary life-style and obesity. Will protect ulcer with ABD pad changed BID. The patient is urged to lelvate the leg to reduce the lymphedema. Smoking Status: Never a Smoker Review of Systems Musculoskeletal: leg pain Exam Vital Signs Date Time Temp Pulse Resp B/P (MAP) Pulse Ox O2 Delivery O2 Flow Rate FiO2 05/15/21 15:53 36.6 80 18 136/65 (88) 97 Room Air Capillary Refill : Less Than 3 Seconds Extremities: other (Ulcer L posterior calf.) Results Laboratory Tests 05/14/21 18:36: White Blood Count 9.8, Red Blood Count 3.18L, Hemoglobin 10.0L, Hematocrit 33L, Mean Corpuscular Volume 102H, Mean Corpuscular Hemoglobin 31, Mean Corpuscular Hemoglobin Concent 31L, Red Cell Distribution Width 12.5, Platelet Count 210, Mean Platelet Volume 9.6, Immature Granulocyte % (Auto) 1, Neutrophils (%) (Auto) 72, Lymphocytes (%) (Auto) 16, Monocytes (%) (Auto) 10, Eosinophils (%) (Auto) 1, Basophils (%) (Auto) 1, Neutrophils # (Auto) 7.1, Lymphocytes # (Auto) 1.5, Monocytes # (Auto) 0.9, Eosinophils # (Auto) 0.1, Basophils # (Auto) 0.1, Immature Granulocyte # (Auto) 0.1, Sodium Level 138, Potassium Level 5.1H, Chloride Level 101, Carbon Dioxide Level 26, Anion Gap 11, Blood Urea Nitrogen 31H, Creatinine 1.47H, Estimat Glomerular Filtration Rate 34, BUN/Creatinine Ratio 21, Glucose Level 149H, Calcium Level 9.3, Corrected Calcium 9.5, Total Bilirubin 1.1H, Aspartate Amino Transf (AST/SGOT) 23, Alanine Aminotransferase (ALT/SGPT) 16, Alkaline Phosphatase 55, Total Protein 6.5, Albumin 3.8 05/14/21 18:57: Urine Color YELLOW, Urine Clarity CLEAR, Urine pH 7.0, Urine Specific [place] 1.015L, Urine Protein NEGATIVE, Urine Glucose (UA) NEGATIVE, Urine Ketones TRACEH, Urine Nitrite NEGATIVE, Urine Bilirubin NEGATIVE, Urine Urobilinogen 0.2, Urine Leukocyte Esterase NEGATIVE, Urine RBC (Auto) NEGATIVE, Urine RBC NONE, Urine WBC RARE, Urine Crystals PRESENTH, Urine Amorphous Sediment RARE MINE PHOSPHATEH, Urine Bacteria NEGATIVE, Urine Casts NONE, Urine Mucus NEGATIVE, Urine Culture Indicated NO 05/15/21 05:20: White Blood Count 8.0, Red Blood Count 2.84L, Hemoglobin 8.9L, Hematocrit 29L, Mean Corpuscular Volume 102H, Mean Corpuscular Hemoglobin 31, Mean Corpuscular Hemoglobin Concent 31L, Red Cell Distribution Width 12.4, Platelet Count 179, Mean Platelet Volume 9.7, Immature Granulocyte % (Auto) 0, Neutrophils (%) (Auto) 75, Lymphocytes (%) (Auto) 14, Monocytes (%) (Auto) 10, Eosinophils (%) (Auto) 0, Basophils (%) (Auto) 1, Neutrophils # (Auto) 6.0, Lymphocytes # (Auto) 1.1, Monocytes # (Auto) 0.8, Eosinophils # (Auto) 0.0, Basophils # (Auto) 0.1, Immature Granulocyte # (Auto) 0.0, Sodium Level 140, Potassium Level 4.4, Chloride Level 106, Carbon Dioxide Level 24, Anion Gap 10, Blood Urea Nitrogen 23H, Creatinine 1.10, Estimat Glomerular Filtration Rate 47, BUN/Creatinine Ratio 21, Glucose Level 135H, Calcium Level 8.8 Assessment/Plan/Dx 1. Lymphedema. 2. L calf ulcer. Plan: As per orders. BLAYNE LICONA MD May 15, 2021 16:19
[2021-05-15] MEDS: metFORMIN XR 500 MG (GLUCOPHAGE XR) TAB PO SCH (18:13)
--- NOTE | 2021-05-15 18:17 | History & Physical ---
History of Present Illness History of Present Illness Reason for visit/HPI This is an 85 year old female with a history of limited mobility due to lumbar spinal stenosis and diabetic neuropathy who sustained a fall at home and felt a pop in her left leg and then had pain in her left knee. She was brought to the emergency room where she was found to have metaphyseal fractures of both of her proximal tibia and fibula. She will be placed in a knee immobilizer with only 50% weight beearing per ortho consult and pain control. She will need placement as she is already limited in her mobility and is a high fall risk. Date of Admission May 14, 2021 at 21:35 Date Seen by a Provider: May 15, 2021 Time Seen by a Provider: 12:45 I consulted on this patient on 05/15/21 18:12 Attending Physician Savannah Parker DO Admitting Physician Savannah Parker DO Consult BLAYNE CHOW MD Allergies and Home Medications Allergies Coded Allergies: erythromycin base (Verified Allergy, Unknown, 07/06/07) Patient Home Medication List Home Medication List Reviewed: Yes Aspirin (Aspirin EC) 81 Mg Tablet.dr, 81 MG PO HS, (Reported) Entered as Reported by: GINETTE RYAN on 05/15/211101 Last Action: Reviewed C,E,Zinc,Copper 11/Fliqq9b/Lut (Ocuvite Adult 50 Plus Softgel) 1 Each Capsule, 1 EACH PO 1200, (Reported) Entered as Reported by: GINETTE RYAN on 05/15/211101 Last Action: Reviewed Carvedilol (Carvedilol) 25 Mg Tablet, 25 MG PO BID, (Reported) Entered as Reported by: GINETTE RYAN on 05/15/211101 Last Action: Converted Cholecalciferol (Vitamin D3) (Vitamin D3) 50 Mcg Capsule, 50 MCG PO 1200, (Reported) Entered as Reported by: GINETTE RYAN on 05/15/211101 Last Action: Converted Cyanocobalamin (Vitamin B-12) (Vitamin B-12) 1,000 Mcg Capsule, 1,000 MCG PO 1200, (Reported) Entered as Reported by: GINETTE RYAN on 05/15/211101 Last Action: Reviewed Folic Acid (Folic Acid) 1 Mg Tablet, 1 MG PO 1200, (Reported) Entered as Reported by: GINETTE RYAN on 05/15/211101 Last Action: Reviewed Furosemide (Furosemide) 80 Mg Tablet, 80 MG PO DAILY, (Reported) Entered as Reported by: GINETTE RYAN on 05/15/211101 Last Action: Reviewed Glipizide (Glipizide) 5 Mg Tablet, 2.5 MG PO DAILY, (Reported) Entered as Reported by: GINETTE RYAN on 05/15/211101 Last Action: Reviewed Hydrocodone/Acetaminophen (Hydrocodone-Acetamin 10-325 mg) 1 Each Tablet, 1 EACH PO QID PRN for PAIN-MODERATE (5-7), (Reported) Entered as Reported by: GINETTE RYAN on 05/15/211101 Last Action: Reviewed Ibuprofen (Ibuprofen) 200 Mg Capsule, 400 MG PO Q8H PRN for PAIN-MILD (1-4), (Reported) Entered as Reported by: GINETTE RYAN on 05/15/211101 Last Action: Reviewed Levothyroxine Sodium (Levothyroxine Sodium) 50 Mcg Tablet, 50 MCG PO DAILY, (Reported) Entered as Reported by: GINETTE RYAN on 05/15/211101 Last Action: Continued Lisinopril (Lisinopril) 40 Mg Tablet, 40 MG PO HS, (Reported) Entered as Reported by: GINETTE RYAN on 05/15/211101 Last Action: Reviewed Metformin HCl (Metformin HCl ER) 500 Mg Tab.er.24h, 500 MG PO BID, (Reported) Entered as Reported by: GINETTE RYAN on 05/15/211101 Last Action: Continued Multivitamin (Multivitamin) 1 Each Tablet, 1 EACH PO 1200, (Reported) Entered as Reported by: GINETTE RYAN on 05/15/211101 Last Action: Reviewed Potassium Chloride (Potassium Chloride) 10 Meq Tab.er.prt, 10 MEQ PO DAILY, (Reported) Entered as Reported by: GINETTE RYAN on 05/15/211101 Last Action: Reviewed Simvastatin (Simvastatin) 20 Mg Tablet, 20 MG PO HS, (Reported) Entered as Reported by: GINETTE RYAN on 05/15/211101 Last Action: Continued Spironolactone (Spironolactone) 25 Mg Tablet, 25 MG PO DAILY, (Reported) Entered as Reported by: GINETTE RYAN on 05/15/21 1102 Last Action: Reviewed Discontinued Medications Amlodipine Besylate (Norvasc Tablet) 10 Mg Tablet, 10 MG PO DAILY, (Reported) Discontinued Reason: Duplicate Order Entered as Reported by: GIANNI CONRAD on 03/12/11953 Last Action: Discontinued Aspirin (Aspirin 325 Mg Tab) 325 Mg Tab, 325 MG PO DAILY, (Reported) Discontinued Reason: Duplicate Order Entered as Reported by: GIANNI CONRAD on 03/12/11953 Last Action: Discontinued Furosemide (Furosemide) 40 Mg Tablet, 40 MG PO DAILY, (Reported) Discontinued Reason: Duplicate Order Entered as Reported by: GIANNI CONRAD on 03/12/11953 Last Action: Discontinued Hydrocodone/Acetaminophen (Hydrocodon-Acetamin 7.5-325/15) 1 Each Tablet, 3.75 MG PO HS, (Reported) Discontinued Reason: Duplicate Order Entered as Reported by: LEE BRODERICK on 12/07/13 1105 Last Action: Discontinued Hydrocodone/Acetaminophen (Hydrocodon-Acetamin 7.5-325/15) 1 Each Tablet, 1 EACH PO Q4H PRN for PAIN Discontinued Reason: Duplicate Order Prescribed by: YANE RASHEED on 01/25/14 1611 Last Action: Discontinued Levothyroxine Sodium (Levothyroxine 50 Mcg Tab) 50 Mcg Tablet, 50 MG PO DAILY, (Reported) Discontinued Reason: Duplicate Order Entered as Reported by: GIANNI CONRAD on 03/12/11953 Last Action: Discontinued Lisinopril (Zestril) 40 Mg Tablet, 40 MG PO DAILY, (Reported) Discontinued Reason: Duplicate Order Entered as Reported by: GIANNI CONRAD on 03/12/11953 Last Action: Discontinued Metformin Hcl (Metformin 500 Mg) 500 Mg Tablet, 500 MG PO BID WITH MEALS Discontinued Reason: Duplicate Order Prescribed by: SKIP LOPEZ on 01/09/14 1504 Last Action: Discontinued Methocarbamol (Robaxin-750) 750 Mg Tablet, 750 MG PO Q4H PRN for PAIN-MODERATE (5-7) Discontinued Reason: Duplicate Order Prescribed by: ИРИНА PECK on 03/29/20 1353 Last Action: Discontinued Multivitamins (Multiple Vitamin) 1 Tab Tablet, 1 TAB PO DAILY, (Reported) Discontinued Reason: Duplicate Order Entered as Reported by: GIANNI CONRAD on 03/12/11 0954 Last Action: Discontinued Polyethylene Glycol (Miralax Btl) 119 Gm Btl, 0 PO PRN, (Reported) Discontinued Reason: Duplicate Order Entered as Reported by: LEE BRODERICK on 11/11/11 1037 Last Action: Discontinued Simvastatin (Simvastatin) 20 Mg Tablet, 20 MG PO DAILY, (Reported) Discontinued Reason: Duplicate Order Entered as Reported by: LEE BRODERICK on 11/11/11 1037 Last Action: Discontinued Vit A,C & E/Lutein/Minerals (Ocuvite Tablet) 1 Each Tablet, 1 EACH PO DAILY, (Reported) Discontinued Reason: Duplicate Order Entered as Reported by: LEE BRODERICK on 12/07/13 1105 Last Action: Discontinued Past Owwsocd-Dzdtrr-Sifugf Hx Patient Social History Employed/Student: retired Tobacco Use?: No Smoking Status: Never a Smoker Use of E-Cig and/or Vaping dev: No Substance use?: No Alcohol Use?: No Pt feels they are or have been: No Immunizations Up To Date Date of Influenza Vaccine: Jun 06, 2011 First/Initial COVID19 Vaccinat: 09/2020 Second COVID19 Vaccination Ubbba: 10/2020 Current Status status: No status: No Advance Directives: Yes Communicates: Verbally Primary Language: Cymraes Preferred Spoken Language: Cymraes Is interpretation needed?: No Sensory deficits: Vision impairment Implanted or Applied Medical D: Pacemaker Past Medical History Surgeries: Gallbladder Sexually Transmitted Disease: No Diabetes, Non-Insulin dep Blood Disorders: No Family Medical History No Pertinent Family Hx Review of Systems Constitutional: weakness EENTM: No see HPI, No no symptoms reported, No ear discharge, No hearing loss, No ear pain, No blurred vision, No double vision, No eye pain, No tearing, No vision loss, No dental problems, No hoarseness, No mouth pain, No mouth swelling, No epistaxis, No nose congestion, No nose pain, No throat pain, No throat swelling, No other Respiratory: No no symptoms reported, No see HPI, No cough, No dyspnea on ex ertion, No hemoptysis, No orthopnea, No phlegm, No short of breath, No stridor, No wheezing, No other Cardiovascular: edema Gastrointestinal: No RUQ, No LUQ, No RLQ, No LLQ, No no symptoms reported, No see HPI, No abdominal pain, No constipation, No diarrhea, No dysphagia, No hematemesis, No heartburn, No jaundice, No loss of appetite, No melena, No nausea, No vomiting, No other Genitourinary: No no symptoms reported, No see HPI, No decreased output, No discharge, No dysuria, No frequency, No hematuria, No hesitancy, No incontinence, No nocturia, No pain, No other Musculoskeletal: back pain, muscle weakness Skin: rash (lower legs) Psychiatric/Neurological: Paresthesia, Weakness Physical Exam Vital Signs Vital Signs - First Documented 05/14/21 05/14/21 17:23 22:06 Temp 37.1 Pulse 70 Resp 16 B/P (MAP) 144/75 (98) Pulse Ox 99 O2 Delivery Room Air Capillary Refill : Less Than 3 Seconds Height, Weight, BMI Height: 5'3.00" Weight: 205lbs. oz. 92.578676gm; 36.01 BMI Method:Stated General Appearance: No Apparent Distress Neck: Supple Respiratory: Lungs Clear Cardiovascular: Regular Rate, Rhythm, Systolic Murmur Gastrointestinal: Normal Bowel Sounds, Non Tender, Soft Rectal: Deferred Back: No CVA Tenderness Extremity: Inflammation (left ankle/lower leg), Pedal Edema Neurologic/Psychiatric: Alert, Oriented x3 Skin: Other (stasis dermatitis/ulcers to backs of both legs) Comments Laboratory Tests 05/14/21 18:36: White Blood Count 9.8, Red Blood Count 3.18L, Hemoglobin 10.0L, Hematocrit 33L, Mean Corpuscular Volume 102H, Mean Corpuscular Hemoglobin 31, Mean Corpuscular Hemoglobin Concent 31L, Red Cell Distribution Width 12.5, Platelet Count 210, Mean Platelet Volume 9.6, Immature Granulocyte % (Auto) 1, Neutrophils (%) (Auto) 72, Lymphocytes (%) (Auto) 16, Monocytes (%) (Auto) 10, Eosinophils (%) (Auto) 1, Basophils (%) (Auto) 1, Neutrophils # (Auto) 7.1, Lymphocytes # (Auto) 1.5, Monocytes # (Auto) 0.9, Eosinophils # (Auto) 0.1, Basophils # (Auto) 0.1, Immature Granulocyte # (Auto) 0.1, Sodium Level 138, Potassium Level 5.1H, Chloride Level 101, Carbon Dioxide Level 26, Anion Gap 11, Blood Urea Nitrogen 31H, Creatinine 1.47H, Estimat Glomerular Filtration Rate 34, BUN/Creatinine Ratio 21, Glucose Level 149H, Calcium Level 9.3, Corrected Calcium 9.5, Total Bilirubin 1.1H, Aspartate Amino Transf (AST/SGOT) 23, Alanine Aminotransferase (ALT/SGPT) 16, Alkaline Phosphatase 55, Total Protein 6.5, Albumin 3.8 05/14/21 18:57: Urine Color YELLOW, Urine Clarity CLEAR, Urine pH 7.0, Urine Specific [place] 1.015L, Urine Protein NEGATIVE, Urine Glucose (UA) NEGATIVE, Urine Ketones TRACEH, Urine Nitrite NEGATIVE, Urine Bilirubin NEGATIVE, Urine Urobilinogen 0.2, Urine Leukocyte Esterase NEGATIVE, Urine RBC (Auto) NEGATIVE, Urine RBC NONE, Urine WBC RARE, Urine Crystals PRESENTH, Urine Amorphous Sediment RARE MINE PHOSPHATEH, Urine Bacteria NEGATIVE, Urine Casts NONE, Urine Mucus NEGATIVE, Urine Culture Indicated NO 05/15/21 05:20: White Blood Count 8.0, Red Blood Count 2.84L, Hemoglobin 8.9L, Hematocrit 29L, Mean Corpuscular Volume 102H, Mean Corpuscular Hemoglobin 31, Mean Corpuscular Hemoglobin Concent 31L, Red Cell Distribution Width 12.4, Platelet Count 179, Mean Platelet Volume 9.7, Immature Granulocyte % (Auto) 0, Neutrophils (%) (Auto) 75, Lymphocytes (%) (Auto) 14, Monocytes (%) (Auto) 10, Eosinophils (%) (Auto) 0, Basophils (%) (Auto) 1, Neutrophils # (Auto) 6.0, Lymphocytes # (Auto) 1.1, Monocytes # (Auto) 0.8, Eosinophils # (Auto) 0.0, Basophils # (Auto) 0.1, Immature Granulocyte # (Auto) 0.0, Sodium Level 140, Potassium Level 4.4, Chloride Level 106, Carbon Dioxide Level 24, Anion Gap 10, Blood Urea Nitrogen 23H, Creatinine 1.10, Estimat Glomerular Filtration Rate 47, BUN/Creatinine Ratio 21, Glucose Level 135H, Calcium Level 8.8 Assessment/Plan Assessment and Plan 1. Fall with Left metaphyseal tib/fib fracture--immobilize leg with knee brace, partial weight bearing up to 50%, pain control, PT/OT, will need NH placement 2. Chronic Edema of LEs with venous stasis and stasis ulcers 3. Hypertension 4. DMII--start Accuchecks with SSI 5. History of nonischemic cardiomyopathy with defibrillator Admission Diagnosis Admission Status: Observation SAVANNAH PARKER DO May 15, 2021 18:17
[2021-05-15 20:02] VITALS: BP 113/69
[2021-05-15] MEDS: inSUlin ASPART (NovoLOG) 1 UNIT/0.01 ML (CHARGE PER UNIT) SC SCH (20:29)
[2021-05-15] MEDS: SIMvastatin 20 MG (ZOCOR) TAB PO SCH (20:53)
[2021-05-15] MEDS: FAMOTIDINE 20 MG (PEPCID) TABLET PO SCH (20:53)
[2021-05-15] MEDS ORDERED: NON-FORMULARY MEDICATION 1 EA EA (Carvedilol 25 MG) PO SCH (21:00)
[2021-05-15] MEDS ORDERED: FAMOTIDINE 20 MG (PEPCID) TABLET PO SCH (21:00)
[2021-05-16] VITALS (7 sets, daily range): BP systolic 110–150; BP diastolic 54–80
[2021-05-16 05:04] LABS: HEMATOCRIT 27 % (35-52); HEMOGLOBIN 8.3 g/dL (11.5-16.0); MEAN CORPUSCULAR HEMOGLOBIN 31 pg (25-34); MEAN CORPUSCULAR HGB CONC 30 g/dL (32-36); MEAN CORPUSCULAR VOLUME 104 fL (80-99); MEAN PLATELET VOLUME 9.9 fL (9.0-12.2); PLATELET COUNT 170 10^3/uL (130-400); WHITE BLOOD COUNT 7.5 10^3/uL (4.3-11.0)
[2021-05-16 05:18] LABS: POTASSIUM 4.4 MMOL/L (3.6-5.0)
[2021-05-16 05:20] LABS: CALCIUM 8.7 MG/DL (8.5-10.1)
[2021-05-16 05:24] LABS: CREATININE SERUM 1.01 MG/DL (0.60-1.30)
[2021-05-16] MEDS: LEVOTHYROXINE 50 MCG (LEVOTHROID) TAB PO SCH (06:01)
[2021-05-16] MEDS: inSUlin ASPART (NovoLOG) 1 UNIT/0.01 ML (CHARGE PER UNIT) SC SCH ×4 (06:02→20:24)
[2021-05-16] MEDS: metFORMIN XR 500 MG (GLUCOPHAGE XR) TAB PO SCH ×2 (08:34→18:06)
--- NOTE | 2021-05-16 09:36 | Physical Therapy Daily Note ---
PT Daily Note-Current Subjective Patient sitting upright in bed eating breakfast upon PT arrival, agreeable to treatment. Patient reports she is done with her breakfast, but she feels like she is going to vomit. Patient spit up some water into the emesis basin, but notes she still feels like she has to vomit. Mental Status Patient Orientation: Person, Place, Time, Situation Transfers SCALE: Activities may be completed with or without assistive devices. 5-Bjiqjvwqno-vionqvs completes the activity by him/herself with no assistance fr om a helper. 5-Set-up or Clean-up Assistance-helper sets up or cleans up; patient completes activity. [place] assists only prior to or following the activity. 4-Supervision or Touching Assistance-helper provides verbal cues and/or touching/steadying and/or contact guard assistance as patient completes activity. Assistance may be provided throughout the activity or intermittently. 3-Partial/Moderate Assistance-helper does LESS THAN HALF the effort. [place] lifts, holds or supports trunk or limbs, but provides less than half the effort. 2-Substantial/Maximal Assistance-helper does MORE THAN HALF the effort. [place] lifts or holds trunk or limbs and provides more than half the effort. 9-Sdbfttulw-dxkcxy does ALL the effort. Patient does none of the effort to complete the activity. Or, the assistance of 2 or more helpers is required for the patient to complete the activity. If activity was not attempted, code reason: 7-Patient Refused. 9-Not Applicable-not attempted and the patient did not perform the activity before the current illness, exacerbation or injury. 10-Not Attempted due to Environmental Limitations-(lack of equipment, weather restraints, etc.). 88-Not Attempted due to Medical Conditions or Safety Concerns. Roll Left & Right (QC): 3 Sit to Lying (QC): 3 Lying to Sitting/Side of Bed(Q: 3 Sit to Stand (QC): 3 Chair/Bhd-yd-Dfycd Xfer(QC): 3 Weight Bearing Right Lower Extremity: Right Full Weight Bearing Left Lower Extremity: Left Partial Weight Bearing 50% with Left knee immobilizer donned Gait Training Does the Patient Walk?: Yes Distance: 5 Walk 10 feet (QC): 88 Gait Persons Needed: 1 Gait Assistive Device: FWW Wheelchair Training Does the Pt Use a Wheelchair?: No Exercises Supine Ex: Ankle pumps, Quad Set, Glut sets Supine Reps: 20 Assessment Current Status: Fair Progress Patient performs all bed mobility and transfers with mod A and verbal cues for safety. Patient transfers to the chair with mod A. Patient is able to ambulate ~ 5 feet with FWW, with mod A, however due to strength deficit in UEs and right LE, patient demonstrates significant difficulty moving the FWW safely and maintaining 50% weight bearing in left LE. Patient request to transfer to the BSC and is transferred there with mod A. Patient on BSC post treatment with all needs met, nursing notified, call light in hand. PT Short Term Goals Short Term Goals Time Frame: May 29, 2021 Roll Left & Right: 4 Sit to lyin Lying to sitting on side of be: 4 Sit to stand: 4 Chair/vtz-qc-cvzug transfer: 4 Toilet transfer: 4 Walk 10 feet: 4 Walk 50 feet with two turns: 4 PT Jail Goals Jail Goals PT Jail Goals Time Frame: Jun 12, 2021 Roll Left & Right (QC): 5 Sit to Lying (QC): 5 Lying-Sitting on Side/Bed(QC): 5 Sit to Stand (QC): 5 Chair/Knk-kh-Lqabk Xfer(QC): 5 Toilet Transfer (QC): 5 Car Transfer (QC): 5 Does the Patient Walk: Yes Walk 10 feet (QC): 5 Walk 50ft with 2 Turns (QC): 5 Walk 150 ft (QC): 5 1 Step (curb) (QC): 4 4 Steps (QC): 4 PT Plan Treatment/Plan Treatment Plan: Continue Plan of Care Treatment Plan: Bed Mobility, Education, Functional Activity Rehan, Functional Strength, Group Therapy, Gait, Safety, Therapeutic Exercise, Transfers Treatment Duration: Jul 30, 2021 Frequency: 6 times per week Estimated Hrs Per Day: .25 hour per day Patient and/or Family Agrees t: Yes Safety Risks/Education Patient Education: Gait Training, Transfer Techniques Teaching Recipient: Patient Teaching Methods: Demonstration, Discussion Response to Teaching: Reinforcement Needed Time/GCodes Time In: 0843 Time Out: 906 Total Billed Treatment Time: 23 Total Billed Treatment Visit, MART Lyon JOHN A PT May 16, 2021 09:36
[2021-05-16] MEDS ORDERED: FUROSEMIDE 20 MG (LASIX) TAB PO ONE (10:45)
[2021-05-16] MEDS ORDERED: KCL 8 MEQ (MICRO K) TABLET PO ONE (10:45)
--- NOTE | 2021-05-16 10:46 | Progress Note ---
Subjective Date Seen by a Provider: May 16, 2021 Time Seen by a Provider: 10:40 Subjective/Events-last exam Fwup superior left metaphyseal Tib/Fib fracture, lumbar spinal stenosis, diabetic neuropathy, venous stasis with stasis ulcers, HTN, nonischemic cardiomyopathy. Pain controlled at rest. Patient states only hurts when moves leg. Objective Exam Vital Signs Date Time Temp Pulse Resp B/P (MAP) Pulse Ox O2 Delivery O2 Flow Rate FiO2 05/16/21 09:00 Room Air 05/16/21 07:44 37.0 65 18 145/78 (100) 96 Room Air 05/16/21 04:00 37.2 70 18 138/64 (88) 96 Room Air 05/16/21 00:00 37.0 74 20 112/54 (73) 96 Room Air 05/15/21 21:00 Room Air 05/15/21 20:02 37.1 80 18 113/69 (84) 96 Room Air 05/15/21 15:53 36.6 80 18 136/65 (88) 97 Room Air 05/15/21 12:00 36.8 77 18 121/78 (92) 96 Room Air I & O 05/16/21 06:59 Intake Total 1030 ml Output Total 1350 ml Balance -320 ml Capillary Refill : Less Than 3 Seconds General Appearance: No Apparent Distress Neck: Supple Respiratory: Lungs Clear Cardiovascular: Regular Rate, Rhythm, Systolic Murmur, Gallop/S4 Gastrointestinal: normal bowel sounds, non tender, soft Extremity: Inflammation (lower legs), Pedal Edema Neurologic/Psychiatric: Alert, Oriented x3 Skin: Erythema (lower legs/venous stasis) Results Lab Laboratory Tests 05/15/21 20:16: Glucometer 188H 05/16/21 04:20: White Blood Count 7.5, Red Blood Count 2.64L, Hemoglobin 8.3L, Hematocrit 27L, Mean Corpuscular Volume 104H, Mean Corpuscular Hemoglobin 31, Mean Corpuscular Hemoglobin Concent 30L, Red Cell Distribution Width 12.9, Platelet Count 170, Mean Platelet Volume 9.9, Sodium Level 139, Potassium Level 4.4, Chloride Level 107, Carbon Dioxide Level 26, Anion Gap 6, Blood Urea Nitrogen 19H, Creatinine 1.01, Estimat Glomerular Filtration Rate 52, BUN/Creatinine Ratio 19, Glucose Level 129H, Calcium Level 8.7 Assessment/Plan Assessment/Plan Assess & Plan/Chief Complaint 1. Left Superior Metaphyseal Tib/Fib Fracture--knee immobilizer with 50% weight bearing with PT/OT, pain control, DVT prophylaxis with lovenox, NH placement on Wednesday 2. Lumbar Spinal stenosis--pain control 3. Diabetic neuropathy--metformin restarted and on accuchecks with SSI A, add low dose cymbalta which may help mood as well 4. Hypertension--resumed coreg 5. Nonischemic cardiomyopathy--resume low dose lasix with potassium, has d efibrillator 6. Acute Anemia--on pepcid, will check iron studies and start iron if needed, is on lovenox so may need to hold if continues to drop but is high risk for blood clot due to edema and immobilizer 7. Chronic Venous Stasis of legs with stasis ulcers--using ABDs for protection as patient does not tolerate dressings or compression very well Clinical Quality Measures Admission Status Admission Dx 1. Fall with Left metaphyseal tib/fib fracture--immobilize leg with knee brace, partial weight bearing up to 50%, pain control, PT/OT, will need NH placement 2. Chronic Edema of LEs with venous stasis and stasis ulcers 3. Hypertension 4. DMII--start Accuchecks with SSI 5. History of nonischemic cardiomyopathy with defibrillator SAVANNAH DIAZ DO May 16, 2021 10:46
[2021-05-16] MEDS: VITAMIN D3 25 MCG (1,000 UNITS) TABLET PO SCH (11:07)
[2021-05-16] MEDS ORDERED: NON-FORMULARY MEDICATION 1 EA EA (Cholecalciferol (Vitamin D3) (Vitamin D3) 50 MCG) PO SCH (12:00)
[2021-05-16] MEDS: ENOXAPARIN 40 MG/0.4 ML (LOVENOX) SYR SC SCH (13:08)
--- NOTE | 2021-05-16 15:44 | Physical Therapy Daily Note ---
PT Daily Note-Current Subjective Pt in recliner upon arrival and agrees to tx. Pt states pain in L LE and that she doesn't think she can walk today. Pt expresses concern for advancing L LE into bed in sit to supine. Pain Location: Left Location Body Site: Knee Mental Status Patient Orientation: Person, Place, Situation Transfers SCALE: Activities may be completed with or without assistive devices. 9-Bhumkegikp-owuruhh completes the activity by him/herself with no assistance from a helper. 5-Set-up or Clean-up Assistance-helper sets up or cleans up; patient completes activity. [place] assists only prior to or following the activity. 4-Supervision or Touching Assistance-helper provides verbal cues and/or touch ing/steadying and/or contact guard assistance as patient completes activity. Assistance may be provided throughout the activity or intermittently. 3-Partial/Moderate Assistance-helper does LESS THAN HALF the effort. [place] lifts, holds or supports trunk or limbs, but provides less than half the effort. 2-Substantial/Maximal Assistance-helper does MORE THAN HALF the effort. [place] lifts or holds trunk or limbs and provides more than half the effort. 9-Iwdhloelv-vhmcdw does ALL the effort. Patient does none of the effort to complete the activity. Or, the assistance of 2 or more helpers is required for the patient to complete the activity. If activity was not attempted, code reason: 7-Patient Refused. 9-Not Applicable-not attempted and the patient did not perform the activity before the current illness, exacerbation or injury. 10-Not Attempted due to Environmental Limitations-(lack of equipment, weather restraints, etc.). 88-Not Attempted due to Medical Conditions or Safety Concerns. Weight Bearing Right Lower Extremity: Right Full Weight Bearing Left Lower Extremity: Left Partial Weight Bearing 50% with Left knee immobilizer donned Exercises Supine Ex: Ankle pumps, Heel Slides, Short Arc Quads, Straight leg raise Supine Reps: 10 Treatments Pt in recliner and completes supine ex w/ legs of chair up. Pt only completed ankle pumps on L LE d/t knee immobilizer. Pt then states she is concerned about getting in and out of bed. VAPOR COATER demonstrates use of other LE to lift L LE into bed, as well as using towel under foot to lift into bed. Pt states she will try them both later when she returns to bed. Pt left in recliner w/ all needs met, call light in hand. Assessment Current Status: Good Progress Pt limited d/t precautions,pain, and weakness. PT Short Term Goals Short Term Goals Time Frame: May 29, 2021 Roll Left & Right: 4 Sit to lyin Lying to sitting on side of be: 4 Sit to stand: 4 Chair/iue-ls-vgbbl transfer: 4 Toilet transfer: 4 Walk 10 feet: 4 Walk 50 feet with two turns: 4 PT Mold Burner Goals Mold Burner Goals PT Detention Goals Time Frame: Jun 12, 2021 Roll Left & Right (QC): 5 Sit to Lying (QC): 5 Lying-Sitting on Side/Bed(QC): 5 Sit to Stand (QC): 5 Chair/Jff-bt-Zdkik Xfer(QC): 5 Toilet Transfer (QC): 5 Car Transfer (QC): 5 Does the Patient Walk: Yes Walk 10 feet (QC): 5 Walk 50ft with 2 Turns (QC): 5 Walk 150 ft (QC): 5 1 Step (curb) (QC): 4 4 Steps (QC): 4 PT Plan Treatment/Plan Treatment Plan: Continue Plan of Care Treatment Plan: Bed Mobility, Education, Functional Activity Rehan, Functional Strength, Group Therapy, Gait, Safety, Therapeutic Exercise, Transfers Treatment Duration: Jul 30, 2021 Frequency: 6 times per week Estimated Hrs Per Day: .25 hour per day Patient and/or Family Agrees t: Yes Time/GCodes Time In: 1507 Time Out: 1520 Total Billed Treatment Time: 13 Total Billed Treatment 1, Ex RADHA VICTORIA VAPOR COATER May 16, 2021 15:44
[2021-05-16] MEDS: DULoxetine 30 MG (CYMBALTA) CAP PO SCH (20:13)
[2021-05-16] MEDS: SIMvastatin 20 MG (ZOCOR) TAB PO SCH (20:13)
[2021-05-16] MEDS: FAMOTIDINE 20 MG (PEPCID) TABLET PO SCH (20:13)
[2021-05-16] MEDS: SENNA W/DOCUSATE (SENOKOT S) TABLET PO SCH (20:13)
[2021-05-17 04:37] VITALS: BP 137/74
[2021-05-17] MEDS: KCL 8 MEQ (MICRO K) TABLET PO SCH (06:13)
[2021-05-17] MEDS: LEVOTHYROXINE 50 MCG (LEVOTHROID) TAB PO SCH (06:13)
[2021-05-17] MEDS: inSUlin ASPART (NovoLOG) 1 UNIT/0.01 ML (CHARGE PER UNIT) SC SCH ×4 (06:14→20:35)
[2021-05-17 06:26] LABS: HEMATOCRIT 27 % (35-52); HEMOGLOBIN 8.1 g/dL (11.5-16.0); MEAN CORPUSCULAR HEMOGLOBIN 31 pg (25-34); MEAN CORPUSCULAR HGB CONC 30 g/dL (32-36); MEAN CORPUSCULAR VOLUME 104 fL (80-99); MEAN PLATELET VOLUME 9.6 fL (9.0-12.2); PLATELET COUNT 153 10^3/uL (130-400); WHITE BLOOD COUNT 8.4 10^3/uL (4.3-11.0)
[2021-05-17 06:46] LABS: POTASSIUM 4.4 MMOL/L (3.6-5.0)
[2021-05-17 06:48] LABS: CALCIUM 8.6 MG/DL (8.5-10.1)
[2021-05-17 06:52] LABS: CREATININE SERUM 0.93 MG/DL (0.60-1.30)
[2021-05-17 08:00] VITALS: BP 126/67
[2021-05-17] MEDS: SENNA W/DOCUSATE (SENOKOT S) TABLET PO SCH ×2 (08:37→20:36)
[2021-05-17] MEDS: metFORMIN XR 500 MG (GLUCOPHAGE XR) TAB PO SCH ×2 (08:37→17:48)
[2021-05-17] MEDS: FUROSEMIDE 20 MG (LASIX) TAB PO SCH (08:37)
--- NOTE | 2021-05-17 11:19 | Progress Note - Hospitalist ---
Subjective HPI/CC On Admission Date Seen by Provider: May 17, 2021 Time Seen by Provider: 11:14 Subjective/Events-last exam pt reports doing ok. Pain controlled. NO complaints. RN states she is having some diarrhea. Objective Exam Vital Signs Vital Signs Date Time Temp Pulse Resp B/P (MAP) Pulse Ox O2 Delivery O2 Flow Rate FiO2 05/17/21 08:00 36.9 66 18 126/67 (86) 94 Room Air Capillary Refill : Less Than 3 Seconds General Appearance: No Apparent Distress, Chronically ill, Obese Respiratory: Lungs Clear, No Respiratory Distress Cardiovascular: Regular Rate, Rhythm, No Murmur Neurologic/Psychiatric: Alert, Oriented x3 Results/Procedures Lab Laboratory Tests 05/17/21 05:55 Patient resulted labs reviewed. Assessment/Plan Assessment and Plan Assess & Plan/Chief Complaint 1. Left Superior Metaphyseal Tib/Fib Fracture--knee immobilizer with 50% weight bearing with PT/OT, pain control, DVT prophylaxis with lovenox, NH placement on Wednesday 2. Lumbar Spinal stenosis--pain control, doing well 3. Diabetic neuropathy--metformin and on accuchecks with SSI A, continue low dose cymbalta which may help mood as well, BS relatively well controlled 4. Hypertension--continue coreg 5. Nonischemic cardiomyopathy--continue low dose lasix with potassium, has defibrillator 6. Acute Anemia--on pepcid, iron studies show iron deficiency, will replace with infed tomorrow prior to DC to NH, is on lovenox so may need to hold if continues to drop but is high risk for blood clot due to edema and immobilizer 7. Chronic Venous Stasis of legs with stasis ulcers--using ABDs for protection as patient does not tolerate dressings or compression very well 8. PADMA with hyperkalemia, POA,- resolved PRABHAKAR JIMENEZ MD May 17, 2021 11:19
--- NOTE | 2021-05-17 11:30 | Physical Therapy Daily Note ---
PT Daily Note-Current Subjective Pt. in bed, agrees to sit up in chair. At edge of bed, states she needs to use commode for BM. Pt. verbalizes understanding of WB on L. Mental Status Patient Orientation: Person, Place, Time, Situation Transfers SCALE: Activities may be completed with or without assistive devices. 9-Ordqpwhuaf-msfhopo completes the activity by him/herself with no assistance from a helper. 5-Set-up or Clean-up Assistance-helper sets up or cleans up; patient completes activity. [place] assists only prior to or following the activity. 4-Supervision or Touching Assistance-helper provides verbal cues and/or touching/steadying and/or contact guard assistance as patient completes activity. Assistance may be provided throughout the activity or intermittently. 3-Partial/Moderate Assistance-helper does LESS THAN HALF the effort. [place] lifts, holds or supports trunk or limbs, but provides less than half the effort. 2-Substantial/Maximal Assistance-helper does MORE THAN HALF the effort. [place] lifts or holds trunk or limbs and provides more than half the effort. 8-Ikfiamkit-ygpfzv does ALL the effort. Patient does none of the effort to complete the activity. Or, the assistance of 2 or more helpers is required for the patient to complete the activity. If activity was not attempted, code reason: 7-Patient Refused. 9-Not Applicable-not attempted and the patient did not perform the activity before the current illness, exacerbation or injury. 10-Not Attempted due to Environmental Limitations-(lack of equipment, weather restraints, etc.). 88-Not Attempted due to Medical Conditions or Safety Concerns. Lying to Sitting/Side of Bed(Q: 3 Sit to Stand (QC): 2 Chair/Nzy-zs-Tkous Xfer(QC): 2 Toilet Transfer (QC): 2 Weight Bearing Right Lower Extremity: Right Full Weight Bearing Left Lower Extremity: Left Partial Weight Bearing 50% with Left knee immobilizer donned Gait Training Does the Patient Walk?: No and Walking Goal IS indicated Treatments transfers bed to commode, commode to chair Assessment Current Status: Fair Progress Pt. remains max A with sit to stand and out of bed transfers using FWW. She is unable to maintain 50% WB on L during transfers, very poor ability to pivot LE's during transfers. Assisted from nursing with pericare. Pt. in bedside chair post session with LE's elevated all needs met. PT Short Term Goals Short Term Goals Time Frame: May 29, 2021 Roll Left & Right: 4 Sit to lyin Lying to sitting on side of be: 4 Sit to stand: 4 Chair/sgw-wy-cidcc transfer: 4 Toilet transfer: 4 Walk 10 feet: 4 Walk 50 feet with two turns: 4 PT Lining Machine Operator Goals Lining Machine Operator Goals PT [facility] Goals Time Frame: Jun 12, 2021 Roll Left & Right (QC): 5 Sit to Lying (QC): 5 Lying-Sitting on Side/Bed(QC): 5 Sit to Stand (QC): 5 Chair/Zse-pp-Spqmo Xfer(QC): 5 Toilet Transfer (QC): 5 Car Transfer (QC): 5 Does the Patient Walk: Yes Walk 10 feet (QC): 5 Walk 50ft with 2 Turns (QC): 5 Walk 150 ft (QC): 5 1 Step (curb) (QC): 4 4 Steps (QC): 4 PT Plan Treatment/Plan Treatment Plan: Continue Plan of Care Treatment Plan: Bed Mobility, Education, Functional Activity Rehan, Functional Strength, Group Therapy, Gait, Safety, Therapeutic Exercise, Transfers Treatment Duration: Jul 30, 2021 Frequency: 6 times per week Estimated Hrs Per Day: .25 hour per day Patient and/or Family Agrees t: Yes Time/GCodes Time In: 810 Time Out: 834 Total Billed Treatment Time: 24 Total Billed Treatment 1, FA 24' COLLEEN GUZMÁN PT May 17, 2021 11:30
[2021-05-17 12:00] VITALS: BP 92/57
[2021-05-17] MEDS: ENOXAPARIN 40 MG/0.4 ML (LOVENOX) SYR SC SCH (12:00)
[2021-05-17] MEDS: VITAMIN D3 25 MCG (1,000 UNITS) TABLET PO SCH (12:00)
[2021-05-17 15:40] VITALS: BP 131/58
[2021-05-17 19:49] VITALS: BP 133/62
[2021-05-17] MEDS: FAMOTIDINE 20 MG (PEPCID) TABLET PO SCH (20:35)
[2021-05-17] MEDS: DULoxetine 30 MG (CYMBALTA) CAP PO SCH (20:35)
[2021-05-17] MEDS: SIMvastatin 20 MG (ZOCOR) TAB PO SCH (20:35)
[2021-05-17 23:30] VITALS: BP 143/69
[2021-05-18 03:05] VITALS: BP 148/75
[2021-05-18] MEDS: inSUlin ASPART (NovoLOG) 1 UNIT/0.01 ML (CHARGE PER UNIT) SC SCH ×4 (05:08→21:05)
[2021-05-18] MEDS: LEVOTHYROXINE 50 MCG (LEVOTHROID) TAB PO SCH (05:45)
[2021-05-18] MEDS: KCL 8 MEQ (MICRO K) TABLET PO SCH (05:45)
[2021-05-18] MEDS: SENNA W/DOCUSATE (SENOKOT S) TABLET PO SCH ×2 (07:26→21:05)
[2021-05-18 07:30] VITALS: BP 152/75
[2021-05-18] MEDS: FUROSEMIDE 20 MG (LASIX) TAB PO SCH (09:03)
[2021-05-18] MEDS: metFORMIN XR 500 MG (GLUCOPHAGE XR) TAB PO SCH ×2 (09:03→18:06)
[2021-05-18] MEDS ORDERED: IRON DEXTRAN INJECTION 25 MG in NS (IVPB) 5.75 ML IV ONE (10:15)
[2021-05-18] MEDS ORDERED: IRON DEXTRAN INJECTION 1,000 MG in NS (IVPB) 250 ML IV ONE (10:15)
[2021-05-18] MEDS ORDERED: HYDROCORTISONE 100 MG/2 ML (Solu-CORTEF) VIAL IV PRN (10:15)
[2021-05-18] MEDS ORDERED: diphenhydrAMINE 50 MG/ML INJ (BENADRYL) IV PRN (10:15)
[2021-05-18] MEDS ORDERED: RT-ALBUTEROL SULF 2.5 MG/3 ML PRE-MIX VIAL IH PRN (10:15)
[2021-05-18] MEDS ORDERED: EPINEPHrine INJECTION 1 MG/ML AMP IM PRN (10:15)
--- NOTE | 2021-05-18 10:15 | Progress Note - Hospitalist ---
Subjective HPI/CC On Admission Date Seen by Provider: May 18, 2021 Time Seen by Provider: 10:12 Subjective/Events-last exam Pt reports doing ok today. Having pain since up in chair and requesting medication. No other complaints. Discussed plan to replace iron and she is agreeable. Objective Exam Vital Signs Vital Signs Date Time Temp Pulse Resp B/P (MAP) Pulse Ox O2 Delivery O2 Flow Rate FiO2 05/18/21 08:00 93 Room Air 05/18/21 07:30 37.2 69 20 152/75 (100) Capillary Refill : Less Than 3 Seconds General Appearance: No Apparent Distress, Chronically ill, Obese Respiratory: Lungs Clear, No Respiratory Distress Cardiovascular: Regular Rate, Rhythm, Systolic Murmur Neurologic/Psychiatric: Alert, Oriented x3 Results/Procedures Lab Patient resulted labs reviewed. Assessment/Plan Assessment and Plan Assess & Plan/Chief Complaint 1. Left Superior Metaphyseal Tib/Fib Fracture--knee immobilizer with 50% weight bearing with PT/OT, pain control, DVT prophylaxis with lovenox, NH placement on Wednesday at [facility] 2. Lumbar Spinal stenosis--pain control, doing well 3. Diabetic neuropathy--metformin and on accuchecks with SSI A, continue low dose cymbalta, BS relatively well controlled 4. Hypertension--continue coreg 5. Nonischemic cardiomyopathy--continue low dose lasix with potassium, has defibrillator 6. Acute Anemia--on pepcid, iron studies show iron deficiency, will replace with infed todaym, is on lovenox so may need to hold if continues to drop but is high risk for blood clot due to edema and immobilizer, so far Hgb stable, FOBT pending 7. Chronic Venous Stasis of legs with stasis ulcers--using ABDs for protection as patient does not tolerate dressings or compression very well 8. PADMA with hyperkalemia, POA,- resolved PRABHAKAR JIMENEZ MD May 18, 2021 10:15
[2021-05-18] MEDS: NS IV 500 ML 500 ML IV SCH (10:47)
[2021-05-18 11:37] VITALS: BP 130/77
[2021-05-18] MEDS: ENOXAPARIN 40 MG/0.4 ML (LOVENOX) SYR SC SCH (13:12)
[2021-05-18] MEDS: VITAMIN D3 25 MCG (1,000 UNITS) TABLET PO SCH (13:12)
[2021-05-18] MEDS: LOPERAMIDE 2 MG (IMODIUM) TABLET PO PRN (14:38)
[2021-05-18 15:43] VITALS: BP 142/65
[2021-05-18 19:35] VITALS: BP 141/63
[2021-05-18] MEDS: DULoxetine 30 MG (CYMBALTA) CAP PO SCH (21:05)
[2021-05-18] MEDS: SIMvastatin 20 MG (ZOCOR) TAB PO SCH (21:05)
[2021-05-18] MEDS: FAMOTIDINE 20 MG (PEPCID) TABLET PO SCH (21:05)
[2021-05-18 23:27] VITALS: BP 123/68
[2021-05-19] MEDS: NS IV 500 ML 500 ML IV SCH (02:31)
[2021-05-19 03:28] VITALS: BP 144/74
[2021-05-19] MEDS: inSUlin ASPART (NovoLOG) 1 UNIT/0.01 ML (CHARGE PER UNIT) SC SCH ×2 (05:09→11:29)
[2021-05-19] MEDS: LOPERAMIDE 2 MG (IMODIUM) TABLET PO PRN (05:37)
[2021-05-19] MEDS: LEVOTHYROXINE 50 MCG (LEVOTHROID) TAB PO SCH (05:38)
[2021-05-19] MEDS: KCL 8 MEQ (MICRO K) TABLET PO SCH (05:38)
[2021-05-19 06:38] LABS: HEMATOCRIT 27 % (35-52); HEMOGLOBIN 8.5 g/dL (11.5-16.0); MEAN CORPUSCULAR HEMOGLOBIN 31 pg (25-34); MEAN CORPUSCULAR HGB CONC 31 g/dL (32-36); MEAN CORPUSCULAR VOLUME 100 fL (80-99); MEAN PLATELET VOLUME 10.3 fL (9.0-12.2); PLATELET COUNT 193 10^3/uL (130-400); WHITE BLOOD COUNT 10.3 10^3/uL (4.3-11.0)
[2021-05-19 06:58] LABS: POTASSIUM 3.8 MMOL/L (3.6-5.0)
[2021-05-19 06:59] LABS: CALCIUM 9.1 MG/DL (8.5-10.1)
[2021-05-19 07:04] LABS: CREATININE SERUM 0.85 MG/DL (0.60-1.30)
[2021-05-19] MEDS: FUROSEMIDE 20 MG (LASIX) TAB PO SCH (07:39)
[2021-05-19] MEDS: metFORMIN XR 500 MG (GLUCOPHAGE XR) TAB PO SCH (07:39)
[2021-05-19 07:42] VITALS: BP 170/74
[2021-05-19] MEDS: SENNA W/DOCUSATE (SENOKOT S) TABLET PO SCH (07:52)
[2021-05-19 11:00] VITALS: BP 136/64
--- NOTE | 2021-05-19 11:10 | Physical Therapy Daily Note ---
PT Daily Note-Current Subjective Patient in recliner pre tx, agrees to PT, has 8/10 pain in left leg. Appearance Patient in recliner post tx with nurse call, phone, tray, legs elevated and left leg on pillow. Mental Status Patient Orientation: Person, Place, Situation Attachments: Lopez Catheter left knee immobilizer Transfers SCALE: Activities may be completed with or without assistive devices. 0-Cvsouihqdq-qvlxped completes the activity by him/herself with no assistance from a helper. 5-Set-up or Clean-up Assistance-helper sets up or cleans up; patient completes activity. [place] assists only prior to or following the activity. 4-Supervision or Touching Assistance-helper provides verbal cues and/or touching/steadying and/or contact guard assistance as patient completes activity. Assistance may be provided throughout the activity or intermittently. 3-Partial/Moderate Assistance-helper does LESS THAN HALF the effort. [place] lifts, holds or supports trunk or limbs, but provides less than half the effort. 2-Substantial/Maximal Assistance-helper does MORE THAN HALF the effort. [place] lifts or holds trunk or limbs and provides more than half the effort. 5-Wmfzihafb-rqjmoe does ALL the effort. Patient does none of the effort to complete the activity. Or, the assistance of 2 or more helpers is required for the patient to complete the activity. If activity was not attempted, code reason: 7-Patient Refused. 9-Not Applicable-not attempted and the patient did not perform the activity be fore the current illness, exacerbation or injury. 10-Not Attempted due to Environmental Limitations-(lack of equipment, weather restraints, etc.). 88-Not Attempted due to Medical Conditions or Safety Concerns. Sit to Stand (QC): 3 mod assist for sit to stand, patient was able to stand for a few minutes and perform LLE exercises but is not able to ambulate without putting too much weight through her left leg Weight Bearing Right Lower Extremity: Right Full Weight Bearing Left Lower Extremity: Left Partial Weight Bearing 50% with Left knee immobilizer donned Exercises Standin way Ex=Flex, Abd, Ext (not extension, LLE only) Treatments standing, LLE exercises Assessment Current Status: Fair Progress improved sit to stand PT Short Term Goals Short Term Goals Time Frame: May 29, 2021 Roll Left & Right: 4 Sit to lyin Lying to sitting on side of be: 4 Sit to stand: 4 Chair/fpr-cg-iyhzx transfer: 4 Toilet transfer: 4 Walk 10 feet: 4 Walk 50 feet with two turns: 4 PT Senior Living Goals House Rn Goals PT Senior Living Goals Time Frame: Jun 12, 2021 Roll Left & Right (QC): 5 Sit to Lying (QC): 5 Lying-Sitting on Side/Bed(QC): 5 Sit to Stand (QC): 5 Chair/Juz-ag-Dayiw Xfer(QC): 5 Toilet Transfer (QC): 5 Car Transfer (QC): 5 Does the Patient Walk: Yes Walk 10 feet (QC): 5 Walk 50ft with 2 Turns (QC): 5 Walk 150 ft (QC): 5 1 Step (curb) (QC): 4 4 Steps (QC): 4 PT Plan Problem List Problem List: Activity Tolerance, Functional Strength, Safety, Balance, Gait, Transfer, Bed Mobility, ROM Treatment/Plan Treatment Plan: Continue Plan of Care Treatment Plan: Bed Mobility, Education, Functional Activity Rehan, Functional Strength, Group Therapy, Gait, Safety, Therapeutic Exercise, Transfers Treatment Duration: Jul 30, 2021 Frequency: 6 times per week Estimated Hrs Per Day: .25 hour per day Patient and/or Family Agrees t: Yes Safety Risks/Education Patient Education: Reviewed Precautions, Correct Positioning, Safety Issues Teaching Recipient: Patient Teaching Methods: Demonstration, Discussion Response to Teaching: Reinforcement Needed Time/GCodes Time In: 1040 Time Out: 1054 Total Billed Treatment Time: 14 Total Billed Treatment 1 visit FA IVIS RUFFIN PT May 19, 2021 11:09
[2021-05-19] MEDS: VITAMIN D3 25 MCG (1,000 UNITS) TABLET PO SCH (11:29)
[2021-05-19] MEDS: ENOXAPARIN 40 MG/0.4 ML (LOVENOX) SYR SC SCH (11:30)
--- NOTE | 2021-05-19 12:46 | Discharge Inst-Skilled Nursing ---
Discharge Inst-Skilled NF Reconcile Patient Problems Problems Reviewed?: Yes Patient Instructions Patient Problems: Left Superior Metaphyseal Tib/Fib Fracture DMII HTN Chronic venous stasis Goal: Heal and then return to home once safely weight bearing Consult/Follow Up/Orders Follow Up Appt.: Fwup with Dr. Mcknight in 2 weeks and then fwup with me after sees Dr. Mcknight Skilled NF Admit to: [facility] Certification (SNF) I certify that SNF services are required to be given on an inpatient basis because of the above named patient's need for usp care on a continu ing basis for the conditions(s) for which he/she was receiving inpatient hospital services prior to his/her transfer to the SNF. Penitentiary Facility Order: Nursing Services, Patrol Captain-Evaluate & Treat, Physical Therapy-Evaluate & Treat, Wound Care-Eval/Treat Oxygen Delivery Method: Room Air Discharge Diet: Low Sodium Diet, ADA Diet Daily Activity as Tolerated: No (50 weight bearing to left leg) Resuscitation Status: Full Code New & Resume Previous Orders Other Instructions Left knee immobilizer in place when up Accuchecks daily CBC and Chem 7 in 1 week May leave schafer catheter in until fwup in 2weeks due to inability to get around Sydni Parker May 19, 2021 12:43 SYDNI PARKER DO May 19, 2021 12:46
[2021-05-19] MEDS ORDERED: FURO20TA4 PO (12:51)
[2021-05-19] MEDS ORDERED: SENN1TAB76 PO (12:51)
[2021-05-19] MEDS ORDERED: HYDR-3820 PO (12:51)
[2021-05-19] MEDS ORDERED: FAMO20TA5 PO (12:51)
[2021-05-19] MEDS ORDERED: POTA8CAP20 PO (12:51)
[2021-05-19] MEDS ORDERED: APIX2.5T PO (12:51)
== END 2021-05-19 14:35 | DRG 560 ==
LOC: EDUNIT# 17:19 → ER 17:21 → 4TH 21:35 → OBSVTOIN 05-16 10:40
PROVIDERS: ADMIT Family Medicine; ATTEND Family Medicine
DX: M97.12XA Periprosthetic fracture around internal prosthetic left knee joint, initial encounter (principal); L97.329 Non-pressure chronic ulcer of left ankle with unspecified severity; L97.229 Non-pressure chronic ulcer of left calf with unspecified severity; I42.9 Cardiomyopathy, unspecified; N17.9 Acute kidney failure, unspecified; I87.2 Venous insufficiency (chronic) (peripheral); E11.40 Type 2 diabetes mellitus with diabetic neuropathy, unspecified; I10 Essential (primary) hypertension; M48.061 Spinal stenosis, lumbar region without neurogenic claudication; E66.9 Obesity, unspecified; Z68.36 Body mass index [BMI] 36.0-36.9, adult; I89.0 Lymphedema, not elsewhere classified; E87.5 Hyperkalemia; Z96.653 Presence of artificial knee joint, bilateral; Z79.84 Long term (current) use of oral hypoglycemic drugs; Z79.82 Long term (current) use of aspirin; Z88.1 Allergy status to other antibiotic agents; W19.XXXA Unspecified fall, initial encounter
CPT/HCPCS: 36415; 51702; 70450; 72125; 73502; 73562; 73700; 80048; 80053; 81000; 82274; 82728; 82947; 83540; 83550; 85025; 85027; 87324; 87449; G0378

== ENCOUNTER 2021-08-03 10:08 | Emergency (ER) | payer MEDICARE ==
[~2021-08-03] VITALS: Ht 160 cm; Wt 92.2 kg
[~2021-08-03 10:08] MED LIST changes: +APIX2.5T PO; +ASPI-1238 PO; +C,E,1CAP PO; +CARV25TA PO; +CHOL20002 PO; +CYAN-23 PO; +FAMO20TA5 PO; +FOLI1TAB33 PO; +FURO20TA4 PO; +FURO80TA3 PO; +GLIP5TAB13 PO; +HYDR-3820 PO; +IBUP-2185 PO; +LEVO50TA6 PO; +LISI40TA9 PO; +METF-865 PO; +MULT-1136 PO; +POTA10TA37 PO; +POTA8CAP20 PO; +SENN1TAB76 PO; +SIMV20TA26 PO; +SPIR25TA5 PO
--- NOTE | 2021-08-03 10:36 | ED Integumentary General ---
General Chief Complaint: Lower Extremity Stated Complaint: SWELLING/PAIN IN LEFT HEEL Source: patient, family Exam Limitations: no limitations History of Present Illness Date Seen by Provider: Aug 03, 2021 Time Seen by Provider: 10:20 Initial Comments Patient is an 86-year-old female who presents to the emergency department today with a chief complaint of swelling, redness and wounds to her left posterior lower leg as well as some pain to her right heel. Patient was recently at [facility] for rehab after a knee fracture and was discharged the week prior to on Wednesday. Patient states that she has not had follow-up with her primary care physician, Dr. Parker yet. She does not have a scheduled appointment. Patient relates that she is a diabetic and has had some wounds previously. She states they got better while she was in rehab but over the last several days she has noticed some increased redness and drainage from the left lower extremity. She has a history of apparent lymphedema. She denies any trauma. She denies any fever. She got her Covid booster prior to discharge from rehab. No abdominal pain, nausea, vomiting, diarrhea, urinary complaints. She does have some "sores" on her bottom as well. She was given a cream to place on that and states that she feels like it is getting better. She states she is able to ambulate with a walker. She did not take any pain medications this morning before coming to the hospital. She does have hydrocodone at home for pain. All other review of systems reviewed and negative except as stated. Timing/Duration: getting worse Severity: moderate Location: extremities, genitalia (buttocks) Modifying Factors: improves with other (topical cream to buttocks) Associated Symptoms: edema Allergies and Home Medications Allergies Coded Allergies: erythromycin base (Verified Allergy, Unknown, 07/06/07) Patient Home Medication List Home Medication List Reviewed: Yes Apixaban (Eliquis) 2.5 Mg Tablet, 2.5 MG PO BID Prescribed by: SAVANNAH PARKER on 05/19/21 1251 Aspirin (Aspirin EC) 81 Mg Tablet., 81 MG PO HS, (Reported) Entered as Reported by: GINETTE RYAN on 05/15/21 1102 C,E,Zinc,Copper 11/Tenrs4p/Lut (Ocuvite Adult 50 Plus Softgel) 1 Each Capsule, 1 EACH PO 1200, (Reported) Entered as Reported by: GINETTE RYAN on 05/15/21 110 Carvedilol (Carvedilol) 25 Mg Tablet, 25 MG PO BID, (Reported) Entered as Reported by: GINETTE RYAN on 05/15/21 110 Cephalexin (Cephalexin) 500 Mg Tablet, 500 MG PO TID Prescribed by: TY BEY on 08/03/21 1147 Cholecalciferol (Vitamin D3) (Vitamin D3) 50 Mcg Capsule, 50 MCG PO 1200, (Reported) Entered as Reported by: GINETTE RYAN on 05/15/21 110 Cyanocobalamin (Vitamin B-12) (Vitamin B-12) 1,000 Mcg Capsule, 1,000 MCG PO 1200, (Reported) Entered as Reported by: GINETTE RYAN on 05/15/21 110 Famotidine (Famotidine) 20 Mg Tablet, 20 MG PO BID Prescribed by: SAVANNAH PARKER on 05/19/21 1251 Folic Acid (Folic Acid) 1 Mg Tablet, 1 MG PO 1200, (Reported) Entered as Reported by: GINETTE RYAN on 05/15/21 110 Furosemide (Furosemide) 20 Mg Tablet, 20 MG PO DAILY Prescribed by: SAVANNAH PARKER on 05/19/21 1251 Hydrocodone/Acetaminophen (Hydrocodone-Acetamin 10-325 mg) 1 Each Tablet, 1 EACH PO QID PRN for PAIN-MODERATE (5-7) Prescribed by: SAVANNAH PARKER on 05/19/21 1253 Levothyroxine Sodium (Levothyroxine Sodium) 50 Mcg Tablet, 50 MCG PO DAILY, (Reported) Entered as Reported by: GINETTE RYAN on 05/15/21 110 Lisinopril (Lisinopril) 40 Mg Tablet, 40 MG PO HS, (Reported) Entered as Reported by: GINETTE RYAN on 05/15/21 110 Metformin HCl (Metformin HCl ER) 500 Mg Tab.er.24h, 500 MG PO BID, (Reported) Entered as Reported by: GINETTE RYAN on 05/15/21 110 Multivitamin (Multivitamin) 1 Each Tablet, 1 EACH PO 1200, (Reported) Entered as Reported by: GINETTE RYAN on 05/15/21 1102 Potassium Chloride (Potassium Chloride) 8 Meq Capsule.er, 8 MEQ PO DAILY@0700 Prescribed by: SAVANNAH PARKER on 05/19/21 1251 Sennosides/Docusate Sodium (Stool Softener-Laxative Tablet) 1 Each Tablet, 1 EA PO BID Prescribed by: SAVANNAH PARKER on 05/19/21 1251 Simvastatin (Simvastatin) 20 Mg Tablet, 20 MG PO HS, (Reported) Entered as Reported by: GINETTE RYAN on 05/15/21 110 Spironolactone (Spironolactone) 25 Mg Tablet, 25 MG PO DAILY, (Reported) Entered as Reported by: GINETTE RYAN on 05/15/21 110 Review of Systems Review of Systems Constitutional: see HPI EENTM: no symptoms reported Respiratory: no symptoms reported Cardiovascular: no symptoms reported Gastrointestinal: no symptoms reported Genitourinary: no symptoms reported Musculoskeletal: joint swelling (left ankle; pain in right heel) Skin: other (erythema and wounds to posterior left ankle) All Other Systems Reviewed Negative Unless Noted: Yes Past Ywerrxc-Tlceqn-Lcashw Hx Patient Social History Tobacco Use?: No Use of E-Cig and/or Vaping dev: No Substance use?: No Alcohol Use?: No Pt feels they are or have been: No Immunizations Up To Date Influenza Vaccine Up-to-Date: Yes; Up-to-Date First/Initial COVID19 Vaccinat: 09/2020 Second COVID19 Vaccination Bubba: 10/2020 Third COVID19 Vaccination Date: 09/2020 Past Medical History Surgeries: Yes (KNEE REPLACEMENT X3, CATARACT, HEART CATH) Gallbladder Respiratory: No Cardiac: No Neurological: No Reproductive Disorders: No Sexually Transmitted Disease: No Gastrointestinal: Yes (constipation) Musculoskeletal: Yes (BILAT KNEES) Endocrine: Yes Diabetes, Non-Insulin dep Cancer: No Psychosocial: No Blood Disorders: No Family Medical History No Pertinent Family Hx Physical Exam Vital Signs Vital Signs - First Documented 08/03/21 10:17 Temp 36.7 Pulse 74 Resp 16 B/P (MAP) 148/80 (102) Pulse Ox 96 O2 Delivery Room Air Capillary Refill : General Appearance: WD/WN, no apparent distress HEENT: other (dry oral mucosa) Neck: normal inspection Cardiovascular: regular rate, rhythm (70's) Respiratory: lungs clear, normal breath sounds, no respiratory distress, no accessory muscle use Gastrointestinal: normal bowel sounds, non tender, soft Extremities: normal range of motion, inflammation (anterior lower left ankle), other (lymphedema bilateral LE's; tender to touch in the left ankle; distal NVI; right heel tender to touch. no edema. no erythema. no fluctuance.) Neurologic/Psychiatric: alert, normal mood/affect, oriented x 3 Skin: normal color, warm/dry, other (shallow stage 2 decubitus ulcers with a cream overlying; no drainage, mild erythema, slightly tender to touch. shallow ulcers, several small 1cm or less in diameter to the posterior left ankle. erythema over the anterior left ankle, tender to touch. no fluctuance. the foot is draining some clear yellow fluid in several areas. ) Skin Problem Location: lower extremities Skin Problem Character: erythema (left lower leg/anterior ankle) Progress/Results/Core Measures Results/Orders Lab Results Laboratory Tests Test 08/03/21 10:58 Range/Units White Blood Count 7.1 4.3-11.0 10^3/uL Red Blood Count 3.29 L 3.80-5.11 10^6/uL Hemoglobin 10.0 L 11.5-16.0 g/dL Hematocrit 33 L 35-52 % Mean Corpuscular Volume 99 80-99 fL Mean Corpuscular Hemoglobin 30 25-34 pg Mean Corpuscular Hemoglobin Concent 31 L 32-36 g/dL Red Cell Distribution Width 13.4 10.0-14.5 % Platelet Count 191 130-400 10^3/uL Mean Platelet Volume 10.2 9.0-12.2 fL Immature Granulocyte % (Auto) 0 % Neutrophils (%) (Auto) 66 42-75 % Lymphocytes (%) (Auto) 23 12-44 % Monocytes (%) (Auto) 8 0-12 % Eosinophils (%) (Auto) 2 0-10 % Basophils (%) (Auto) 1 0-10 % Neutrophils # (Auto) 4.7 1.8-7.8 10^3/uL Lymphocytes # (Auto) 1.6 1.0-4.0 10^3/uL Monocytes # (Auto) 0.6 0.0-1.0 10^3/uL Eosinophils # (Auto) 0.2 0.0-0.3 10^3/uL Basophils # (Auto) 0.1 0.0-0.1 10^3/uL Immature Granulocyte # (Auto) 0.0 0.0-0.1 10^3/uL Sodium Level 141 135-145 MMOL/L Potassium Level 4.9 3.6-5.0 MMOL/L Chloride Level 107 98-107 MMOL/L Carbon Dioxide Level 21 21-32 MMOL/L Anion Gap 13 5-14 MMOL/L Blood Urea Nitrogen 34 H 7-18 MG/DL Creatinine 1.50 H 0.60-1.30 MG/DL Estimat Glomerular Filtration Rate 33 BUN/Creatinine Ratio 23 Glucose Level 165 H 70-105 MG/DL Calcium Level 9.4 8.5-10.1 MG/DL C-Reactive Protein High Sensitivity 1.76 H 0.00-0.50 MG/DL My Orders Orders - TY BEY MD Ed Iv/Invasive Line Start (08/03/21 10:30) Cbc With Automated Diff (08/03/21 10:30) Basic Metabolic Panel (08/03/21 10:30) Hs C Reactive Protein (08/03/21 10:30) Hydrocodone/Apap 10/325 Tablet (Lortab 1 (08/03/21 11:45) Vital Signs/I&O 08/03/21 08/03/21 10:17 12:24 Temp 36.7 Pulse 74 72 Resp 16 16 B/P (MAP) 148/80 (102) 124/86 Pulse Ox 96 96 O2 Delivery Room Air Progress Progress Note : Time: 11:41 Progress Note Patient evaluated in the ED with basic labs, CBC and BMP with CRP. SHe has minimal elevation in CRP, no increased WBC, but a pretty significant drop in renal function; GFR down to 33 and at last measurement was above 60. This will need close follow up with Dr Lindsey. WIll put her on a round of Kelfex for the cellulitic changes to her left ankle. I have encouraged her to drink lots of water to stay well hydrated and check her blood sugars and keep track of them for Dr Lindsey. I have advised her to make a follow up appointment this week, and will send a copy of this chart to her office. Patient's VS are stable, no indicators for Sepsis. I have reviewed the findings with the patient; all questions are sought and answered. Patient is stable for discharge. Dressing was applied to the left ankle prior to discharge, she states that she has pain medications at home. Departure Impression Primary Impression: Cellulitis of left ankle Additional Impressions: Pain of right heel Acute kidney injury Disposition: 01 HOME, SELF-CARE Condition: Stable Departure-Patient Inst. Decision time for Depature: 11:45 Referrals: SAVANNAH PARKER DO (PCP/Family) Primary Care Physician Patient Instructions: Acute Kidney Injury, Cellulitis (Skin Infection), Adult ED Add. Discharge Instructions: PLease drink lots of water at home to stay well hydrated and check your blood sugars at home, keep a record for Dr Parker's office. Please call Dr Parker's office tomorrow for a follow up appointment this week. You will need your kidney function followed. Keflex 3 times a day for 7 days for the infection to your left ankle. Keep the open sores to your left ankle clean, dry and covered. Take your pain medications as needed/directed at home. Return to the ER for re-check if the redness is worsening, if you develop more swelling, or have fever at home. Scripts Cephalexin (Cephalexin) 500 Mg Tablet 500 MG PO TID, #21 TAB Prov: TY BEY MD 08/03/21 Copy Copies To 1: SAVANNAH PARKER KATHRYN M MD Aug 03, 2021 10:36
[2021-08-03 11:06] LABS: BASOPHILS # (AUTO) 0.1 10^3/uL (0.0-0.1); BASOPHILS % (AUTO) 1 % (0-10); EOSINOPHILS # (AUTO) 0.2 10^3/uL (0.0-0.3); EOSINOPHILS % (AUTO) 2 % (0-10); HEMATOCRIT 33 % (35-52); LYMPHOCYTES # (AUTO) 1.6 10^3/uL (1.0-4.0); LYMPHOCYTES % (AUTO) 23 % (12-44); MEAN CORPUSCULAR HEMOGLOBIN 30 pg (25-34); MEAN CORPUSCULAR HGB CONC 31 g/dL (32-36); MEAN CORPUSCULAR VOLUME 99 fL (80-99); MEAN PLATELET VOLUME 10.2 fL (9.0-12.2); MONOCYTES # (AUTO) 0.6 10^3/uL (0.0-1.0); MONOCYTES % (AUTO) 8 % (0-12); NEUTROPHILS # (AUTO) 4.7 10^3/uL (1.8-7.8); NEUTROPHILS % (AUTO) 66 % (42-75); PLATELET COUNT 191 10^3/uL (130-400); WHITE BLOOD COUNT 7.1 10^3/uL (4.3-11.0)
[2021-08-03 11:13] LABS: POTASSIUM 4.9 MMOL/L (3.6-5.0)
[2021-08-03 11:15] LABS: CALCIUM 9.4 MG/DL (8.5-10.1)
[2021-08-03 11:19] LABS: CREATININE SERUM 1.5 MG/DL (0.60-1.30)
[2021-08-03] MEDS ORDERED: CEPH500T PO (11:47)
[2021-08-03 12:24] VITALS: BP 124/86
== END 2021-08-03 12:24 | disposition home or self-care (01) ==
LOC: EDUNIT# 10:08 → ER 10:12
DX: L03.116 Cellulitis of left lower limb (principal); M79.661 Pain in right lower leg; N17.9 Acute kidney failure, unspecified; E11.9 Type 2 diabetes mellitus without complications; Z79.84 Long term (current) use of oral hypoglycemic drugs; Z79.01 Long term (current) use of anticoagulants; Z79.82 Long term (current) use of aspirin
CPT/HCPCS: 36415; 80048; 85025; 86141

== ENCOUNTER → 2021-09-12 | Outpatient (CLI) | payer MEDICARE ==
[~2021-09-12] MED LIST changes: +CEPH500T PO
== END ==
LOC: WOUNDCARE 09:01
PROVIDERS: ATTEND Family Medicine
DX: L97.212 Non-pressure chronic ulcer of right calf with fat layer exposed (principal); L97.222 Non-pressure chronic ulcer of left calf with fat layer exposed; L97.418 Non-pressure chronic ulcer of right heel and midfoot with other specified severity; E11.621 Type 2 diabetes mellitus with foot ulcer; L03.115 Cellulitis of right lower limb; L03.116 Cellulitis of left lower limb; I89.0 Lymphedema, not elsewhere classified; E66.01 Morbid (severe) obesity due to excess calories; E11.22 Type 2 diabetes mellitus with diabetic chronic kidney disease; N18.4 Chronic kidney disease, stage 4 (severe); E11.43 Type 2 diabetes mellitus with diabetic autonomic (poly)neuropathy; I87.331 Chronic venous hypertension (idiopathic) with ulcer and inflammation of right lower extremity; I87.332 Chronic venous hypertension (idiopathic) with ulcer and inflammation of left lower extremity
CPT/HCPCS: 87070; 87077; 87186; 87205; A4649; G0463; 99215

== ENCOUNTER 2021-09-19 08:56 | Inpatient (IN) | payer MEDICARE ==
[~2021-09-19] VITALS: Ht 152.4 cm; Wt 86.0 kg
[~2021-09-19 08:56] MED LIST changes: -C,E,1CAP2 PO; -CEFD300C3 PO; -DOCU100C37 PO; -DOXY100C5 PO; -FERR-65 PO; -LEVO-129 PO; -LISI10TA25 PO
[2021-09-19] MEDS ORDERED: NS IV 500 ML 500 ML ONE (09:43)
[2021-09-19 09:45] LABS: BASOPHILS # (AUTO) 0.1 10^3/uL (0.0-0.1); BASOPHILS % (AUTO) 1 % (0-10); EOSINOPHILS # (AUTO) 0.3 10^3/uL (0.0-0.3); EOSINOPHILS % (AUTO) 3 % (0-10); HEMATOCRIT 29 % (35-52); HEMOGLOBIN 8.6 g/dL (11.5-16.0); LYMPHOCYTES # (AUTO) 1.6 10^3/uL (1.0-4.0); LYMPHOCYTES % (AUTO) 18 % (12-44); MEAN CORPUSCULAR HEMOGLOBIN 30 pg (25-34); MEAN CORPUSCULAR HGB CONC 30 g/dL (32-36); MEAN CORPUSCULAR VOLUME 100 fL (80-99); MEAN PLATELET VOLUME 9.3 fL (9.0-12.2); MONOCYTES # (AUTO) 0.8 10^3/uL (0.0-1.0); MONOCYTES % (AUTO) 9 % (0-12); NEUTROPHILS # (AUTO) 5.8 10^3/uL (1.8-7.8); NEUTROPHILS % (AUTO) 69 % (42-75); PLATELET COUNT 249 10^3/uL (130-400); WHITE BLOOD COUNT 8.5 10^3/uL (4.3-11.0)
[2021-09-19] MEDS ORDERED: NS IV 500 ML 500 ML IV ONE (09:45)
[2021-09-19 09:56] LABS: ALBUMIN 3.6 GM/DL (3.2-4.5)
[2021-09-19 09:57] LABS: POTASSIUM 5.6 MMOL/L (3.6-5.0)
[2021-09-19 09:58] LABS: CALCIUM 9.1 MG/DL (8.5-10.1)
[2021-09-19 09:59] LABS: TOTAL PROTEIN 6.7 GM/DL (6.4-8.2)
[2021-09-19 10:01] LABS: BILIRUBIN,TOTAL 0.7 MG/DL (0.1-1.0)
[2021-09-19 10:03] LABS: CREATININE SERUM 2.53 MG/DL (0.60-1.30)
[2021-09-19 10:06] LABS: MAGNESIUM 2.1 MG/DL (1.6-2.4)
--- NOTE | 2021-09-19 10:14 | ED General ---
General Chief Complaint: Cardiac/General Problems Stated Complaint: WEAK,CONFUSED Source of Information: Patient, Family (Son at bedside) (ISI BAUTISTA MED STUDENT) History of Present Illness Date Seen by Provider: Sep 19, 2021 Time Seen by Provider: 10:09 Initial Comments Becka Ptits is a 86 yr old F presenting to ED [facility] due to confusion and lethargy. Pt is unable to answer more complex questions stating "I don't know." She is able to describe pain in the buttock region as her only complaint. She is AOx3 at this time. Son, Emmanuel, is at bedside and able to provide PMH including a pacemaker, HTN, and DM. Son notes occasional episodes of confusion primarily in the evenings, but not to this degree. Timing/Duration: 1-3 Hours (ISI BAUTISTA MED STUDENT) Initial Comments Report was received from Dr. Ochoa in the wound care clinic. Patient was found to be hypotensive with a blood pressure of 94/37 while receiving wound care which is a notable change from her prior. Her last known creatinine on file at wound care was 2.0 which was a declining renal function from prior. Patient is also noted to be fatigued and confused. She has been afebrile. She is presently receiving antibiotics for wounds on her lower extremities. She was also noted to have some early decubitus wounds on her sacral region. I also discussed the situation with Dr. Parker, her primary care provider. Patient was noted to have declining renal function and blood pressure in the outpatient setting. Medications were adjusted including cessation of MG/ARB medications and metformin. (RELL ARNOLD MD) Allergies and Home Medications Allergies Coded Allergies: erythromycin base (Verified Allergy, Unknown, 07/06/07) Patient Home Medication List Home Medication List Reviewed: Yes (RELL ARNOLD MD) Aspirin (Aspirin EC) 81 Mg Tablet., 81 MG PO HS, (Reported) Entered as Reported by: GINETTE RYAN on 05/15/21 1102 Last Action: Reviewed C,E,Zinc,Copper 24/Om3/Lut/Ramona (Ocuvite Adult 50 Plus Softgel) 1 Each Capsule, 1 EACH PO DAILY, (Reported) Entered as Reported by: GINETTE RYAN on 09/19/21 1520 Last Action: Reviewed Carvedilol (Carvedilol) 25 Mg Tablet, 12.5 MG PO BID, (Reported) Entered as Reported by: GINETTE RYAN on 05/15/211101 Last Action: Reviewed Cefdinir (Cefdinir) 300 Mg Capsule, 300 MG PO BID, (Reported) Entered as Reported by: GINETTE RYAN on 09/19/211519 Last Action: Reviewed Cholecalciferol (Vitamin D3) (Vitamin D3) 50 Mcg Capsule, 50 MCG PO DAILY, (Reported) Entered as Reported by: GINETTE RYAN on 05/15/211101 Last Action: Reviewed Doxycycline Hyclate (Doxycycline Hyclate) 100 Mg Capsule, 100 MG PO BID, (Reported) Entered as Reported by: GINETTE RYAN on 09/19/211519 Last Action: Reviewed Furosemide (Furosemide) 80 Mg Tablet, 40 MG PO DAILY, (Reported) Entered as Reported by: GINETTE RYAN on 09/19/211519 Last Action: Reviewed Glipizide (Glipizide) 5 Mg Tablet, 2.5 MG PO 0800,1200, (Reported) Entered as Reported by: GINETTE RYAN on 09/19/211519 Last Action: Reviewed Hydrocodone/Acetaminophen (Hydrocodone-Acetamin 10-325 mg) 1 Each Tablet, 1 EACH PO QID PRN for PAIN-MODERATE (5-7), (Reported) Entered as Reported by: GINETTE RYAN on 09/19/211519 Last Action: Reviewed Levothyroxine Sodium (Euthyrox) 50 Mcg Tablet, 50 MCG PO DAILY, (Reported) Entered as Reported by: GINETTE RYAN on 09/19/211519 Last Action: Reviewed Lisinopril (Lisinopril) 10 Mg Tablet, 10 MG PO HS, (Reported) Entered as Reported by: GINETTE RYAN on 09/19/211528 Last Action: Reviewed Multivitamin (Multivitamin) 1 Each Tablet, 1 EACH PO 1200, (Reported) Entered as Reported by: GINETTE RYAN on 05/15/211101 Last Action: Reviewed Simvastatin (Simvastatin) 20 Mg Tablet, 20 MG PO HS, (Reported) Entered as Reported by: GINETTE RYAN on 05/15/211101 Last Action: Reviewed Spironolactone (Spironolactone) 25 Mg Tablet, 25 MG PO DAILY, (Reported) Entered as Reported by: GINETTE RYAN on 05/15/211101 Last Action: Reviewed Discontinued Medications Apixaban (Eliquis) 2.5 Mg Tablet, 2.5 MG PO BID Discontinued Reason: No Longer Taking Prescribed by: SAVANNAH PARKER on 05/19/211250 Last Action: Discontinued C,E,Zinc,Copper 11/Tonpr9h/Lut (Ocuvite Adult 50 Plus Softgel) 1 Each Capsule, 1 EACH PO 1200, (Reported) Discontinued Reason: Duplicate Order Entered as Reported by: GINETTE RYAN on 05/15/211101 Last Action: Discontinued Cephalexin (Cephalexin) 500 Mg Tablet, 500 MG PO TID Discontinued Reason: Duplicate Order Prescribed by: TY BEY on 08/03/21 1147 Last Action: Discontinued Cyanocobalamin (Vitamin B-12) (Vitamin B-12) 1,000 Mcg Capsule, 1,000 MCG PO 1200, (Reported) Discontinued Reason: No Longer Taking Entered as Reported by: GINETTE RYAN on 05/15/211101 Last Action: Discontinued Famotidine (Famotidine) 20 Mg Tablet, 20 MG PO BID Discontinued Reason: No Longer Taking Prescribed by: SAVANNAH PARKER on 05/19/211250 Last Action: Discontinued Folic Acid (Folic Acid) 1 Mg Tablet, 1 MG PO 1200, (Reported) Discontinued Reason: No Longer Taking Entered as Reported by: GINETTE RYNA on 05/15/211101 Last Action: Discontinued Furosemide (Furosemide) 20 Mg Tablet, 20 MG PO DAILY Discontinued Reason: Duplicate Order Prescribed by: SAVANNAH PARKER on 05/19/211250 Last Action: Discontinued Hydrocodone/Acetaminophen (Hydrocodone-Acetamin 10-325 mg) 1 Each Tablet, 1 EACH PO QID PRN for PAIN-MODERATE (5-7) Discontinued Reason: Duplicate Order Prescribed by: SAVANNAH PARKER on 05/19/211252 Last Action: Discontinued Levothyroxine Sodium (Levothyroxine Sodium) 50 Mcg Tablet, 50 MCG PO DAILY, (Reported) Discontinued Reason: Duplicate Order Entered as Reported by: GINETTE RYAN on 05/15/211101 Last Action: Discontinued Metformin HCl (Metformin HCl ER) 500 Mg Tab.er.24h, 500 MG PO BID, (Reported) Discontinued Reason: No Longer Taking Entered as Reported by: GINETTE RYAN on 05/15/21 1102 Last Action: Discontinued Potassium Chloride (Potassium Chloride) 8 Meq Capsule.er, 8 MEQ PO DAILY@0700 Discontinued Reason: No Longer Taking Prescribed by: SAVANNAH PARKER on 05/19/21 1251 Last Action: Discontinued Sennosides/Docusate Sodium (Stool Softener-Laxative Tablet) 1 Each Tablet, 1 EA PO BID Discontinued Reason: No Longer Taking Prescribed by: SAVANNAH PARKER on 05/19/21 1251 Last Action: Discontinued Review of Systems Review of Systems Constitutional: weakness EENTM: see HPI Respiratory: no symptoms reported Cardiovascular: no symptoms reported Gastrointestinal: RUQ Genitourinary: no symptoms reported : No Musculoskeletal: other (Buttock pain) Skin: other (B/L DM Foot Ulcers) Psychiatric/Neurological: Weakness Hematologic/Lymphatic: No Symptoms Reported Immunological/Allergic: no symptoms reported (ISI BAUTISTA) Cardiovascular: edema Psychiatric/Neurological: Other (Confusion) (RELL ARNOLD MD) All Other Systems Reviewed Negative Unless Noted: Yes (ISI BAUTISTA) Past Xriuhxh-Pogdox-Alghbx Hx Immunizations Up To Date First/Initial COVID19 Vaccinat: 09/2020 Second COVID19 Vaccination Bubba: 10/2020 Third COVID19 Vaccination Date: 09/2020 (ISI BAUTISTA) Past Medical History Surgeries: Yes (KNEE REPLACEMENT X3, CATARACT, HEART CATH) Gallbladder, Pacemaker Respiratory: No Cardiac: No High Cholesterol, Hypertension Neurological: No : No Reproductive Disorders: No Sexually Transmitted Disease: No Gastrointestinal: Yes (constipation) Musculoskeletal: Yes (BILAT KNEES) Endocrine: Yes Diabetes, Non-Insulin dep Cancer: No Psychosocial: No Blood Disorders: No (ISI BAUTISTA) Integumentary: Yes (Chronic wounds of the lower extremities) (RELL ARNOLD MD) Family Medical History No Pertinent Family Hx (ISI BAUTISTA) Physical Exam Vital Signs Vital Signs - First Documented (RELL ARNOLD MD) Vital Signs Capillary Refill : (BAUTISTA,ISI MED STUDENT) Height, Weight, BMI Height: 5'3.00" Weight: 205lbs. oz. 92.817500bv; 36.00 BMI Method:Stated General Appearance: No Apparent Distress, WD/WN, Obese Respiratory: Chest Non Tender, Lungs Clear, Normal Breath Sounds, No Accessory Muscle Use, No Respiratory Distress Cardiovascular: Tachycardia, Other (B/L LE +2 pitting edema) Gastrointestinal: Soft, Tenderness (RUQ) Extremity: Pedal Edema, Swelling, Other (B/L DM Foot Ulcers) Neurologic/Psychiatric: Alert, Oriented x3, Disoriented Skin: Pallor, Other (Sacral Decubitus Ulcer) (ISI BAUTISTA MED STUDENT) Focused Exam Lactate Level 09/19/21 10:55: Lactic Acid Level 0.63 (RELL ARNOLD MD) Lactic Acid Level Laboratory Tests Test 09/19/21 10:55 Lactic Acid Level 0.63 MMOL/L (0.50-2.00) (RELL ARNOLD MD) Progress/Results/Core Measures Suspected Sepsis SIRS Temperature: Pulse: Respiratory Rate: Laboratory Tests 09/19/21 09:40: White Blood Count 8.5 Blood Pressure / Mean: Laboratory Tests 09/19/21 09:40: Creatinine 2.53H, Platelet Count 249, Total Bilirubin 0.7 (ISI BAUTISTA MED STUDENT) Results/Orders Lab Results Laboratory Tests Test 09/19/21 09:40 09/19/21 10:55 09/19/21 12:00 Range/Units White Blood Count 8.5 4.3-11.0 10^3/uL Red Blood Count 2.90 L 3.80-5.11 10^6/uL Hemoglobin 8.6 L 11.5-16.0 g/dL Hematocrit 29 L 35-52 % Mean Corpuscular Volume 100 H 80-99 fL Mean Corpuscular Hemoglobin 30 25-34 pg Mean Corpuscular Hemoglobin Concent 30 L 32-36 g/dL Red Cell Distribution Width 13.6 10.0-14.5 % Platelet Count 249 130-400 10^3/uL Mean Platelet Volume 9.3 9.0-12.2 fL Immature Granulocyte % (Auto) 0 % Neutrophils (%) (Auto) 69 42-75 % Lymphocytes (%) (Auto) 18 12-44 % Monocytes (%) (Auto) 9 0-12 % Eosinophils (%) (Auto) 3 0-10 % Basophils (%) (Auto) 1 0-10 % Neutrophils # (Auto) 5.8 1.8-7.8 10^3/uL Lymphocytes # (Auto) 1.6 1.0-4.0 10^3/uL Monocytes # (Auto) 0.8 0.0-1.0 10^3/uL Eosinophils # (Auto) 0.3 0.0-0.3 10^3/uL Basophils # (Auto) 0.1 0.0-0.1 10^3/uL Immature Granulocyte # (Auto) 0.0 0.0-0.1 10^3/uL Prothrombin Time 15.4 H 12.2-14.7 SEC INR Comment 1.2 0.8-1.4 Activated Partial Thromboplast Time 31 24-35 SEC Sodium Level 140 135-145 MMOL/L Potassium Level 5.6 H 3.6-5.0 MMOL/L Chloride Level 107 98-107 MMOL/L Carbon Dioxide Level 22 21-32 MMOL/L Anion Gap 11 5-14 MMOL/L Blood Urea Nitrogen 50 H 7-18 MG/DL Creatinine 2.53 H 0.60-1.30 MG/DL Estimat Glomerular Filtration Rate 18 BUN/Creatinine Ratio 20 Glucose Level 128 H 70-105 MG/DL Calcium Level 9.1 8.5-10.1 MG/DL Corrected Calcium 9.4 8.5-10.1 MG/DL Magnesium Level 2.1 1.6-2.4 MG/DL Total Bilirubin 0.7 0.1-1.0 MG/DL Aspartate Amino Transf (AST/SGOT) 15 5-34 U/L Alanine Aminotransferase (ALT/SGPT) 12 0-55 U/L Alkaline Phosphatase 63 40-136 U/L C-Reactive Protein High Sensitivity 1.40 H 0.00-0.50 MG/DL B-Type Natriuretic Peptide 94.5 <100.0 PG/ML Total Protein 6.7 6.4-8.2 GM/DL Albumin 3.6 3.2-4.5 GM/DL Thyroid Stimulating Hormone (TSH) 7.70 H 0.35-4.94 UIU/ML Free Thyroxine 1.21 0.70-1.48 NG/DL Lactic Acid Level 0.63 0.50-2.00 MMOL/L Urine Color YELLOW Urine Clarity CLEAR Urine pH 6.0 5-9 Urine Specific Tamiment 1.015 L 1.016-1.022 Urine Protein NEGATIVE NEGATIVE Urine Glucose (UA) NEGATIVE NEGATIVE Urine Ketones NEGATIVE NEGATIVE Urine Nitrite NEGATIVE NEGATIVE Urine Bilirubin NEGATIVE NEGATIVE Urine Urobilinogen 0.2 < = 1.0 MG/DL Urine Leukocyte Esterase NEGATIVE NEGATIVE Urine RBC (Auto) NEGATIVE NEGATIVE Urine RBC RARE /HPF Urine WBC 0-2 /HPF Urine Squamous Epithelial Cells RARE /HPF Urine Renal Epithelial Cells NONE /HPF Urine Crystals NONE /LPF Urine Bacteria NEGATIVE /HPF Urine Casts NONE /LPF Urine Mucus NEGATIVE /LPF Urine Culture Indicated NO (RELL ARNOLD MD) My Orders Orders - RELL ARNOLD MD Bnp Irion (09/19/21 08:59) Cbc With Automated Diff (09/19/21 08:59) Comprehensive Metabolic Panel (09/19/21 08:59) Magnesium (09/19/21 08:59) Ed Iv/Invasive Line Start (09/19/21 08:59) Ns Iv 500 Ml (Sodium Chloride 0.9%) (09/19/21 09:45) Ns Iv 500 Ml (Sodium Chloride 0.9%) (09/19/21 09:43) Ua Culture If Indicated (09/19/21 10:07) Lopez Cath (09/19/21 10:07) Hs C Reactive Protein (09/19/21 10:07) Ns Iv 1000 Ml (Sodium Chloride 0.9%) (09/19/21 10:30) Blood Culture (09/19/21 10:57) Sputum Culture (09/19/21 10:57) Protime With Inr (09/19/21 10:57) Partial Thromboplastin Time (09/19/21 10:57) Chest 1 View, Ap/Pa Only (09/19/21 10:57) Vital Signs Adult Sepsis Patie Q15M (09/19/21 10:57) O2 (09/19/21 10:57) Remove Rings In Anticipation O (09/19/21 10:57) Lactic Acid Analyzer (09/19/21 10:57) Thyroid Stimulating Hormone (09/19/21 12:24) Free T4 (Free Thyroxine) (09/19/21 12:24) Ed Admission (Communication) (09/19/21 13:04) (RELL ARNOLD MD) Medications Given in ED Current Medications Medications Dose Ordered Sig/Ziggy Route Start Time Stop Time Status Last Admin Dose Admin Sodium Chloride 500 ml @ 0 mls/hr Q0M ONCE IV 09/19/21 09:45 09/19/21 09:46 DC 09/19/21 09:48 500 MLS/HR (RELL ARNOLD MD) Vital Signs/I&O 09/19/21 09/19/21 09:40 09:40 Temp 35.6 Pulse 129 Resp 16 B/P (MAP) 91/63 (72) Pulse Ox 100 92 O2 Delivery Nasal Cannula Nasal Cannula O2 Flow Rate 1.00 1.00 (RELL ARNOLD MD) Vital Signs/I&O Capillary Refill : (ISI BAUTISTA MED STUDENT) Progress Note : Progress Note Patient was hypotensive in the ER and she received a 1500 mL normal saline bolus which resolved her hypotension. She was alert to person, place, and age but disoriented to month during my interview. She appeared to have no focal deficits. There is no evidence on her work-up of active infection contributing to her overall condition. Admission is deemed appropriate for prompt treatment of her acute kidney injury and weakness. Case was reviewed with Dr. Martinez who accepts admission. I discussed CODE STATUS with the patient and she request to be full code. (RELL ARNOLD MD) ECG Initial ECG Impression Date: Sep 19, 2021 Initial ECG Impression Time: 09:26 Initial ECG Rate: 70 Comment Ventricular paced rhythm. No further meaningful evaluation can be obtained. (RELL ARNOLD MD) Diagnostic Imaging Diagonstic Imaging: Xray Plain Films/CT/US/NM/MRI: chest Comments NAME: BECKA PITTS MED REC#: [id number] PT STATUS: REG ER : 1935 PHYSICIAN: RELL ARNOLD MD ADMIT DATE: 09/19/21/ER Signed Date of Exam:09/19/21 CHEST 1 VIEW, AP/PA ONLY EXAMINATION: Chest, one view. HISTORY: Hypotension. COMPARISON: 11/26/2014. FINDINGS: The lung volumes are normal. No focal consolidation is seen. Stable granulomas in the right lung base. No large pleural effusion or pneumothorax is seen. The cardiomediastinal silhouette is enlarged with left pectoral ICD in place. There is calcified aortic atherosclerotic plaque. No acute osseous abnormality is seen. IMPRESSION: 1. Cardiomegaly. No overt pulmonary edema. Dictated by: Dictated on workstation # [id number] Dict: 09/19/21 1131 Trans: 09/19/21 1134 [id number] Interpreted by: LISA RODRIGUEZ DO Electronically signed by: LISA RODRIGUEZ DO 09/19/21 1134 (RELL ARNOLD MD) Departure Impression Primary Impression: Acute kidney injury Additional Impressions: Hypotension Qualified Codes: I95.89 - Other hypotension; E86.1 - Hypovolemia Hypovolemia Generalized weakness Confusion Disposition: ADMITTED INPATIENT Condition: Improved Admissions Decision to Admit Reason: Admit from ER (General) Decision to Admit/Date: Sep 19, 2021 Time/Decision to Admit Time: 10:25 (RELL ARNOLD MD) Departure-Patient Inst. Referrals: SAVANNAH PARKER DO (PCP/Family) Primary Care Physician Medical Student Attestation and Attending Note: I have personally interviewed and examined this patient along with VALORIE Avalos. I have reviewed student documentation including history, physical, and assessments. I agree with the documentation except where otherwise noted. Exam: General: Alert, mildly confused, no acute distress, well developed, obese, ge nerally weak HEENT: Normocephalic and atraumatic, mucous membranes dry Heart: Regular rate and rhythm without murmur Lungs: Clear to auscultation bilaterally with normal effort Extremities: Marked edema with wounds wrapped Abdomen: Soft, nontender, nondistended, normal bowel sounds Neuropsych: Alert, oriented, no focal deficits Skin: Warm and dry without rashes, decubitus ulcers on the sacral region noted by nursing staff and medical student (RELL ARNOLD MD) ISI BAUTISTA MED STUDENT Sep 19, 2021 10:14 RELL ARNOLD MD Sep 19, 2021 12:56
[2021-09-19] MEDS ORDERED: NS IV 1000 ML 1,000 ML IV SCH ×2 (10:30→14:15)
[2021-09-19 11:12] LABS: INR 1.2 (0.8-1.4); PROTHROMBIN TIME PATIENT 15.4 SEC (12.2-14.7)
--- NOTE | 2021-09-19 11:33 | Diagnostic Imaging Report ---
EXAMINATION: Chest, one view. HISTORY: Hypotension. COMPARISON: 11/26/2014. FINDINGS: The lung volumes are normal. No focal consolidation is seen. Stable granulomas in the right lung base. No large pleural effusion or pneumothorax is seen. The cardiomediastinal silhouette is enlarged with left pectoral ICD in place. There is calcified aortic atherosclerotic plaque. No acute osseous abnormality is seen. IMPRESSION: 1. Cardiomegaly. No overt pulmonary edema. Dictated by: Dictated on workstation # [id number]
[2021-09-19 12:24] LABS: BILIRUBIN,URINE NEGATIVE (NEGATIVE); CLARITY,URINE CLEAR; COLOR,URINE YELLOW; GLUCOSE, URINE (UA) NEGATIVE (NEGATIVE); KETONES,URINE NEGATIVE (NEGATIVE); LEUKOCYTE ESTERASE ,URINE NEGATIVE (NEGATIVE); NITRITE,URINE NEGATIVE (NEGATIVE); PROTEIN,URINE NEGATIVE (NEGATIVE)
[2021-09-19 12:31] LABS: BACTERIA,URINE NEGATIVE /HPF; RBC,URINE RARE /HPF; SQUAMOUS EPITHELIAL CELL,UR RARE /HPF; WBC,URINE 0-2 /HPF
[2021-09-19 12:59] LABS: FREE T4 (FREE THYROXINE) 1.21 NG/DL (0.70-1.48)
[2021-09-19] MEDS ORDERED: polyethylene glycoL POWDER 17 GM (MIRALAX) PACK PO PRN (14:15)
[2021-09-19] MEDS ORDERED: MELATONIN 3 MG TABLET PO PRN (14:15)
[2021-09-19] MEDS ORDERED: NALOXONE 0.4 MG/ML 1 ML (NARCAN) VIAL IV PRN (14:15)
[2021-09-19] MEDS ORDERED: ACETAMINOPHEN 325 MG TABLET PO PRN (14:15)
[2021-09-19] MEDS ORDERED: LACTULOSE SYRUP 10GM/15ML (ENULOSE) 30ML UDC PO PRN (14:15)
[2021-09-19] MEDS ORDERED: ONDANSETRON 4 MG (ZOFRAN) ORAL DISSOLVE TAB PO PRN (14:15)
[2021-09-19] MEDS ORDERED: CALCIUM CARBONATE 500 MG (TUMS) TAB.CHEW PO PRN (14:15)
[2021-09-19] MEDS ORDERED: diphenhydrAMINE 25 MG TAB (BENADRYL) PO PRN (14:15)
[2021-09-19] MEDS ORDERED: MILK OF MAGNESIA 400 MG/5 ML 30 ML UDC PO PRN (14:15)
[2021-09-19] MEDS ORDERED: ONDANSETRON 4 MG/2 ML (SDV) Z0FRAN IV PRN (14:15)
[2021-09-19] MEDS ORDERED: ANTACID SUSP 30 ML UDC (MYLANTA) PO PRN (14:15)
[2021-09-19] MEDS ORDERED: HYDROmorphone 2 MG/ML VIAL (DILAUDID) IVP PRN (14:15)
[2021-09-19] MEDS ORDERED: BISACODYL 10 MG SUPP (DULCOLAX) PR PRN (14:15)
[2021-09-19] MEDS ORDERED: diphenhydrAMINE 50 MG/ML INJ (BENADRYL) IVP PRN (14:15)
[2021-09-19 14:19] VITALS: BP 114/55
--- NOTE | 2021-09-19 15:08 | Physical Therapy Evaluation ---
PT Evaluation-General Medical Diagnosis Admission Date Sep 19, 2021 at 13:15 Medical Diagnosis: PADMA Onset Date: Sep 19, 2021 Therapy Diagnosis Therapy Diagnosis: debility/weakness Height/Weight Height (Feet): 5 Height (Inches): 3.00 Weight (Pounds): 205 Precautions Precautions/Isolations: Fall Prevention, Standard Precautions Referral Physician: Michelle Reason for Referral: Evaluation/Treatment Medical History Pertinent Medical History: DM, HTN Current History ER from wound care due to confusion and lethargy Reviewed History: Yes Social History Home: Single Level Current Living Status: Alone Entry Into Home: Stairs Without Railing (platform steps) Prior Prior Level of Function SCALE: Activities may be completed with or without assistive devices. 9-Uwlubjfwgu-bwbduht completes the activity by him/herself with no assistance from a helper. 5-Set-up or Clean-up Assistance-helper sets up or cleans up; patient completes activity. [place] assists only prior to or following the activity. 4-Supervision or Touching Assistance-helper provides verbal cues and/or touching/steadying and/or contact guard assistance as patient completes activity. Assistance may be provided throughout the activity or intermittently. 3-Partial/Moderate Assistance-helper does LESS THAN HALF the effort. [place] lifts, holds or supports trunk or limbs, but provides less than half the effort. 2-Substantial/Maximal Assistance-helper does MORE THAN HALF the effort. [place] lifts or holds trunk or limbs and provides more than half the effort. 9-Hpuvoadjy-hwnvgw does ALL the effort. Patient does none of the effort to complete the activity. Or, the assistance of 2 or more helpers is required for the patient to complete the activity. If activity was not attempted, code reason: 7-Patient Refused. 9-Not Applicable-not attempted and the patient did not perform the activity before the current illness, exacerbation or injury. 10-Not Attempted due to Environmental Limitations-(lack of equipment, weather restraints, etc.). 88-Not Attempted due to Medical Conditions or Safety Concerns. Bed Mobility: 6 Transfers (B,C,W/C): 6 Gait: 6 Stairs: 6 Indoor Mobility (Ambulation): Independent Stairs: Independent Prior Devices Use: Walker PT Evaluation-Current Subjective Patient agrees to PT. Currently with OT Objective Patient Orientation: Normal For Age Attachments: Lopez Catheter, IV ROM/Strength ROM Lower Extremities bilateral LE WFL Strength Lower Extremities 3/5 grossly bilateral LE Integumentary/Posture Bladder Incontinence: Lopez Cath Posture WFL Neuromuscular (Tone, Coordination, Reflexes) grossly intact Sensory Vision: Wears Glasses Hearing: Functional Transfers Roll Left to Right (QC): 3 Sit to Lying (QC): 3 Lying to Sitting/Side of Bed(Q: 3 Sit to Stand (QC): 3 Gait Does the Patient Walk?: Yes Mode of Locomotion: Walk Anticipated Mode of Locomotion: Walk Walk 10 feet (QC): 3 Walk 50 ft with 2 Turns(QC): 3 Distance: 50' Gait Assistive Device: FWW Comments/Gait Description slow, steady gait sequence Balance Sitting Static: Normal Sitting Dynamic: Normal Standing Static: Fair Standing Dynamic: Fair Assessment/Needs 86 y.o. female, will benefit from skilled PT to address functional strength and mobility to improve current LOF. Rehab Potential: Fair PT Halfway Goals Halfway Goals PT Firmware Developer Goals Time Frame: Oct 04, 2021 Roll Left & Right (QC): 5 Sit to Lying (QC): 5 Lying-Sitting on Side/Bed(QC): 5 Sit to Stand (QC): 5 Chair/Oqd-ia-Pusca Xfer(QC): 5 Toilet Transfer (QC): 5 Walk 10 feet (QC): 5 Walk 50ft with 2 Turns (QC): 5 Walk 150 ft (QC): 5 PT Plan Problem List Problem List: Activity Tolerance, Functional Strength, Safety, Balance, Gait, Transfer, Bed Mobility Treatment/Plan Treatment Plan: Continue Plan of Care Treatment Plan: Bed Mobility, Education, Functional Activity Rehan, Functional Strength, Gait, Safety, Therapeutic Exercise, Transfers Treatment Duration: Oct 04, 2021 Frequency: 6 times per week Estimated Hrs Per Day: .25 hour per day Patient and/or Family Agrees t: Yes Time/GCodes Time In: 1450 Time Out: 1503 Total Billed Treatment Time: 13 Total Billed Treatment 1 visit EVMod 13 min TERRY RASHEED PT Sep 19, 2021 15:08
--- NOTE | 2021-09-19 15:09 | Occupational Therapy Eval ---
OT Evaluation-General/PLF Medical Diagnosis Admission Date Sep 19, 2021 at 13:15 Medical Diagnosis: acute kidney injury Onset Date: Sep 19, 2021 Therapy Diagnosis Therapy Diagnosis: decreased ADL status Height/Weight Height (Feet): 5 Height (Inches): 3.00 Weight (Pounds): 205 Precautions Precautions/Isolations: Fall Prevention, Standard Precautions Referral Physician: Michelle Referral Reason: Evaluation/Treatment Medical History Pertinent Medical History: DM, HTN Additional Medical History pacemaker Current History ED from wound care due to confusion, lethargy, and hypotension Social History Home: Single Level Current Living Status: Alone Entry Into Home: Stairs With Railing ADL-Prior Level of Function SCALE: Activities may be completed with or without assistive devices. 9-Ebtytlmecw-osvqxkh completes the activity by him/herself with no assistance from a helper. 5-Set-up or Clean-up Assistance-helper sets up or cleans up; patient completes activity. [place] assists only prior to or following the activity. 4-Supervision or Touching Assistance-helper provides verbal cues and/or touching/steadying and/or contact guard assistance as patient completes activity. Assistance may be provided throughout the activity or intermittently. 3-Partial/Moderate Assistance-helper does LESS THAN HALF the effort. [place] lifts, holds or supports trunk or limbs, but provides less than half the effort. 2-Substantial/Maximal Assistance-helper does MORE THAN HALF the effort. [place] lifts or holds trunk or limbs and provides more than half the effort. 6-Nbaocjjxv-kimmxs does ALL the effort. Patient does none of the effort to complete the activity. Or, the assistance of 2 or more helpers is required for the patient to complete the activity. If activity was not attempted, code reason: 7-Patient Refused. 9-Not Applicable-not attempted and the patient did not perform the activity before the current illness, exacerbation or injury. 10-Not Attempted due to Environmental Limitations-(lack of equipment, weather restraints, etc.). 88-Not Attempted due to Medical Conditions or Safety Concerns. ADL PLOF Comments Pt's son present, provided information about PLOF. Pt typically uses a FWW for functional mobility, is able to dress, toilet, and complete simple meals by herself. She has had increased difficulty with showering and "scared" feelings towards showering by herself. Pt's son reports they have been looking into having assistance with showering and some ADLs. Self Care: Needed Some Help Functional Cognition: Independent OT Current Status Subjective Pt laying in bed, son present. Pt agreeable to OT tx. Mental Status/Objective Patient Orientation: Person, Place, Situation Attachments: Lopez Catheter Current Hand Dominance: Right Upper Extremity ROM BUE Shoulder flexion WFL, approx 120 degrees Upper Extremity Coordination WFL Upper Extremity Sensation WFL Upper Extremity Strength grossly 3/5 ADL-Treatment On/Off Footwear (QC): 5 (set up with velcro surgical shoes.) Other Treatments Pt in bed, pt's son provided information about PLOF and home set up. Pt transferred supine to sit EOB, assistance BLEs. Pt able to don surgical shoes after set up assistance. Pt completed sit to stand (QC 3), walking to the door then back to bed using FWW (QC 3, 50'). Pt transferred EOB, then supine, assist BLEs. Post tx, pt in bed, call light in reach and all needs met. Education OT Patient Education: Correct positioning, Energy conservation, Exercise program, Modified ADL techniques, Progress toward Goal/Update tx plan, Purpose of tx/functional activities, Rehab process Teaching Recipient: Patient Teaching Methods: Discussion Response to Teaching: Verbalize Understanding OT Surgical Instrument Maker Goals Penitentiary Goals Time Frame: Sep 26, 2021 Eating (QC): 6 Oral Hygiene (QC): 6 Toileting Hygiene (QC): 6 Shower/Bathe Self (QC): 4 Upper Body Dressing (QC): 6 Lower Body Dressing (QC): 6 On/Off Footwear (QC): 6 Additional Goals: 1-Demonstrate ADL Tasks, 2-Verbalize Understanding, 3- ImproveStrength/Rehan 1=Demonstrate adherence to instructed precautions during ADL tasks. 2=Patient will verbalize/demonstrate understanding of assistive devices/modifications for ADL. 3=Patient will improve strength/tolerance for activity to enable patient to perform ADL's. OT Education/Plan Problem List/Assessment Assessment: Decreased Activ Tolerance, Decreased UE Strength, Impaired Funct Balance, Impaired I ADL's, Impaired Self-Care Skills Discharge Recommendations Plan/Recommendations: Continue POC Treatment Plan/Plan of Care Patient would benefit from OT for education, treatment and training to promote independence in ADL's, mobility, safety and/or upper extremity function for ADL's. Plan of Care: ADL Retraining, Functional Mobility, UE Funct Exercise/Act Treatment Duration: Sep 26, 2021 Frequency: 3 times per week (3-5 times per week) Estimated Hrs Per Day: .25 hour per day Rehab Potential: Fair Time/GCodes Start Time: 14:42 Stop Time: 14:58 Total Time Billed (hr/min): 16 Billed Treatment Time 1, HAMMAD HAQUE OT Sep 19, 2021 15:09
[2021-09-19] MEDS ORDERED: HYDR-3820 PO (15:20)
[2021-09-19] MEDS ORDERED: LEVO-129 PO (15:20)
[2021-09-19] MEDS ORDERED: FURO80TA3 PO (15:20)
[2021-09-19] MEDS ORDERED: CEFD300C3 PO (15:20)
[2021-09-19] MEDS ORDERED: GLIP5TAB13 PO (15:20)
[2021-09-19] MEDS ORDERED: DOXY100C5 PO (15:20)
[2021-09-19] MEDS ORDERED: C,E,1CAP2 PO (15:20)
[2021-09-19] MEDS ORDERED: LISI10TA25 PO (15:29)
[2021-09-19 15:41] VITALS: BP 114/55
[2021-09-19 16:00] VITALS: BP 91/55
[2021-09-19] MEDS: inSUlin ASPART (NovoLOG) 1 UNIT/0.01 ML (CHARGE PER UNIT) SC SCH ×2 (16:00→21:15)
[2021-09-19 19:43] VITALS: BP 106/53
[2021-09-19] MEDS: SENNOSIDES 8.6 MG (SENOKOT) TAB PO SCH (20:13)
[2021-09-19] MEDS: DOCUSATE SODIUM 100 MG (COLACE) CAP PO SCH (20:13)
[2021-09-19] MEDS ORDERED: DEXTROSE 50% 50 ML (IMS) SYR IV PRN (21:30)
[2021-09-19] MEDS: D5 1/2 NS 1000 ML IV SOLUTION 1,000 ML IV SCH (22:58)
[2021-09-19] MEDS: ASPIRIN E.C. 81 MG (ECOTRIN) TAB PO SCH (23:03)
[2021-09-19 23:18] VITALS: BP 102/52
[2021-09-20 03:48] VITALS: BP_SYST 105; BP_SYST 150; BP_DIAS 52
--- NOTE | 2021-09-20 05:58 | History & Physical-Hospitalist ---
History of Present Illness HPI/Chief Complaint Chief complaint: Weakness with acute kidney injury with hypotension History of present illness: This is an 86-year-old white female who was brought in from her home due to continued weak state. She was found to be hypertensive. She has been going to wound care for chronic wounds and came to the ER from wound care right Dr. Ochoa is treating lower extremity wounds and is maintained on doxycycline and cefdinir. She continued to do poorly and she was found to have elevated creatinine with dehydration and in need of inpatient treatment. Her potassium was elevated and blood sugars were low due to oral hypoglycemic agent in the setting of acute kidney injury. Anemia is noted. Source: patient Exam Limitations: no limitations Date Seen 09/20/21 Time Seen by a Provider: 10:00 Attending Physician Roula Martinez DO PCP Sydni Parker DO Referring Physician Date of Admission Sep 19, 2021 at 13:15 Home Medications & Allergies Home Medications Reviewed patient Home Medication Reconciliation performed by pharmacy medication reconciliations quick service technician and/or nursing. Patients Allergies have been reviewed. Allergies Allergies Coded Allergies erythromycin base (Verified Allergy, Unknown, 07/06/07) Past Kstvrko-Szqeqq-Icynhd Hx Patient Social History Marrital Status: single Employed/Student: retired Tobacco Use?: No Smoking Status: Never a Smoker Use of E-Cig and/or Vaping dev: No Substance use?: No Alcohol Use?: No Pt feels they are or have been: No Immunizations Up To Date Date of Influenza Vaccine: Jun 06, 2011 First/Initial COVID19 Vaccinat: has had Second COVID19 Vaccination Bubba: has had Tetanus Booster (TDap): Unknown Hepatitis A: No Hepatitis B: No Current Status status: No status: No Advance Directives: Unable to obtain Communicates: Verbally Primary Language: [place] Preferred Spoken Language: [place] Is interpretation needed?: No Sensory deficits: Vision impairment, Hearing impairment Implanted or Applied Medical D: Pacemaker Past Medical History Surgeries: Gallbladder, Pacemaker High Cholesterol, Hypertension Sexually Transmitted Disease: No Diabetes, Non-Insulin dep Blood Disorders: No Family Medical History No Pertinent Family Hx Review of Systems Constitutional: see HPI, malaise, weakness EENTM: no symptoms reported Respiratory: no symptoms reported Cardiovascular: no symptoms reported Gastrointestinal: no symptoms reported Genitourinary: no symptoms reported Musculoskeletal: no symptoms reported Skin: no symptoms reported Psychiatric/Neurological: No Symptoms Reported All Other Systems Reviewed Negative Unless Noted: Yes Physical Exam Physical Exam Vital Signs Vital Signs - First Documented Capillary Refill : Less Than 3 Seconds Height, Weight, BMI Height: 5'3.00" Weight: 205lbs. oz. [id number]; 37.02 BMI Method:Stated General Appearance: No Apparent Distress, Chronically ill, Other (Flat affect) Eyes: Right Eye Normal Inspection, Right Eye PERRL HEENT: PERRL/EOMI, Normal ENT Inspection, Pharynx Normal, Moist Mucous Membranes Neck: Full Range of Motion, Normal Inspection, Non Tender Respiratory: Chest Non Tender, Lungs Clear, Normal Breath Sounds, No Accessory Muscle Use, No Respiratory Distress Cardiovascular: Regular Rate, Rhythm, No Edema, No Gallop, No JVD, No Murmur, Normal Peripheral Pulses Gastrointestinal: Normal Bowel Sounds, No Organomegaly, No Pulsatile Mass, Non Tender, Soft Back: Normal Inspection, No CVA Tenderness, No Vertebral Tenderness Extremity: Normal Capillary Refill, Normal Inspection, Normal Range of Motion, Non Tender, No Calf Tenderness, No Pedal Edema Neurologic/Psychiatric: Alert, No Motor/Sensory Deficits, Depressed Affect, Disoriented Skin: Normal Color, Warm/Dry Lymphatic: No Adenopathy Results Results/Procedures Labs Laboratory Tests 09/19/21 09:40 09/20/21 06:06 Patient resulted labs reviewed. Assessment/Plan Admission Diagnosis Assessment: Hypotension without evidence of sepsis Hypovolemia Acute renal failure Hyperkalemia Anemia Chronic lower extremity wounds Advanced age Confusion Hypoglycemia in setting of OHA and renal failure Sacral decubitus ulcer Hypothyroidism History of pacemaker Plan: IV fluid Dextrose with IV fluid due to hypoglycemia and OHA dissipates Monitor potassium Monitor hemoglobin Continue home antibiotics for wounds May need placement PT and OT DVT prophylaxis Admission Status: Inpatient Order (span 2 midnights) Reason for Inpatient Admission: Acute renal failure with hyperglycemia Diagnosis/Problems Diagnosis/Problems (1) Hypotension Status: Acute Qualifiers: Hypotension type: hypotension due to hypovolemia Qualified Codes: I95.89 - Other hypotension; E86.1 - Hypovolemia (2) Acute kidney injury Status: Acute (3) Confusion Status: Acute (4) Generalized weakness Status: Acute (5) Hypovolemia Status: Acute (6) Stasis ulcer of left ankle Status: Acute Clinical Quality Measures AMI/AHF: ASA po Prior to arrival: No ROULA MARTINEZ DO Sep 20, 2021 05:58
[2021-09-20] MEDS: LEVOTHYROXINE 50 MCG (LEVOTHROID) TAB PO SCH (06:19)
[2021-09-20] MEDS: inSUlin ASPART (NovoLOG) 1 UNIT/0.01 ML (CHARGE PER UNIT) SC SCH ×4 (06:22→21:10)
[2021-09-20 07:11] LABS: BASOPHILS % (AUTO) 1 % (0-10); EOSINOPHILS # (AUTO) 0.2 10^3/uL (0.0-0.3); EOSINOPHILS % (AUTO) 3 % (0-10); HEMATOCRIT 26 % (35-52); HEMOGLOBIN 7.7 g/dL (11.5-16.0); LYMPHOCYTES # (AUTO) 1.4 10^3/uL (1.0-4.0); LYMPHOCYTES % (AUTO) 25 % (12-44); MEAN CORPUSCULAR HEMOGLOBIN 30 pg (25-34); MEAN CORPUSCULAR HGB CONC 30 g/dL (32-36); MEAN CORPUSCULAR VOLUME 99 fL (80-99); MEAN PLATELET VOLUME 10.2 fL (9.0-12.2); MONOCYTES # (AUTO) 0.5 10^3/uL (0.0-1.0); MONOCYTES % (AUTO) 9 % (0-12); NEUTROPHILS # (AUTO) 3.5 10^3/uL (1.8-7.8); NEUTROPHILS % (AUTO) 62 % (42-75); PLATELET COUNT 239 10^3/uL (130-400); WHITE BLOOD COUNT 5.6 10^3/uL (4.3-11.0)
[2021-09-20 07:28] LABS: ALBUMIN 2.8 GM/DL (3.2-4.5); POTASSIUM 4.8 MMOL/L (3.6-5.0)
[2021-09-20 07:29] LABS: CALCIUM 8.4 MG/DL (8.5-10.1)
[2021-09-20 07:31] LABS: TOTAL PROTEIN 5.2 GM/DL (6.4-8.2)
[2021-09-20 07:33] LABS: BILIRUBIN,TOTAL 0.6 MG/DL (0.1-1.0)
[2021-09-20 07:34] LABS: CREATININE SERUM 1.43 MG/DL (0.60-1.30)
[2021-09-20 08:00] VITALS: BP 115/55
[2021-09-20] MEDS: SENNOSIDES 8.6 MG (SENOKOT) TAB PO SCH ×2 (08:07→19:43)
[2021-09-20] MEDS: DOCUSATE SODIUM 100 MG (COLACE) CAP PO SCH ×2 (08:07→19:42)
[2021-09-20] MEDS: D5 1/2 NS 1000 ML IV SOLUTION 1,000 ML IV SCH (08:11)
[2021-09-20 12:00] VITALS: BP 113/54
--- NOTE | 2021-09-20 12:59 | Physical Therapy Daily Note ---
PT Daily Note-Current Subjective Pt reluctant to do therapy but was convinced. Transfers SCALE: Activities may be completed with or without assistive devices. 9-Hyqzofokyj-atkbqxf completes the activity by him/herself with no assistance from a helper. 5-Set-up or Clean-up Assistance-helper sets up or cleans up; patient completes activity. [place] assists only prior to or following the activity. 4-Supervision or Touching Assistance-helper provides verbal cues and/or touching/steadying and/or contact guard assistance as patient completes activity. Assistance may be provided throughout the activity or intermittently. 3-Partial/Moderate Assistance-helper does LESS THAN HALF the effort. [place] lifts, holds or supports trunk or limbs, but provides less than half the effort. 2-Substantial/Maximal Assistance-helper does MORE THAN HALF the effort. [place] lifts or holds trunk or limbs and provides more than half the effort. 4-Mcczwavqi-emlspp does ALL the effort. Patient does none of the effort to complete the activity. Or, the assistance of 2 or more helpers is required for the patient to complete the activity. If activity was not attempted, code reason: 7-Patient Refused. 9-Not Applicable-not attempted and the patient did not perform the activity before the current illness, exacerbation or injury. 10-Not Attempted due to Environmental Limitations-(lack of equipment, weather restraints, etc.). 88-Not Attempted due to Medical Conditions or Safety Concerns. Transferred in/out of bed with Min A of 2 Gait Training Gait Assistive Device: FWW Ambulate 40ft using FWW and CGA for steadying. Assist of 2nd person for attachments. Exercises Supine Ex: Ankle pumps, Quad Set, Glut sets, Heel Slides Supine Reps: 10 Assessment Reduced activity tolerance this session as compared to the previous day. PT Field Project Manager Goals Halfway Goals PT Field Project Manager Goals Time Frame: Oct 04, 2021 Roll Left & Right (QC): 5 Sit to Lying (QC): 5 Lying-Sitting on Side/Bed(QC): 5 Sit to Stand (QC): 5 Chair/Yfo-rq-Egnhe Xfer(QC): 5 Toilet Transfer (QC): 5 Walk 10 feet (QC): 5 Walk 50ft with 2 Turns (QC): 5 Walk 150 ft (QC): 5 PT Plan Treatment/Plan Treatment Plan: Continue Plan of Care Treatment Plan: Bed Mobility, Education, Functional Activity Rehan, Functional Strength, Gait, Safety, Therapeutic Exercise, Transfers Treatment Duration: Oct 04, 2021 Frequency: 6 times per week Estimated Hrs Per Day: .25 hour per day Patient and/or Family Agrees t: Yes Time/GCodes Time In: 809 Time Out: 829 Total Billed Treatment Time: 20 Total Billed Treatment visit, ex 5 min, gt 15min INES SEAMAN PT Sep 20, 2021 12:59
[2021-09-20] MEDS: 1/2 NS IV SOLUTION 1,000 ML IV SCH (16:14)
[2021-09-20 16:25] VITALS: BP 105/50
[2021-09-20 19:40] VITALS: BP 124/58
[2021-09-20] MEDS: ASPIRIN E.C. 81 MG (ECOTRIN) TAB PO SCH (19:42)
[2021-09-20] MEDS: CEFDINIR 300 MG (OMNICEF) CAP PO SCH (19:42)
[2021-09-20] MEDS: DOXYCYCLINE 100 MG (VIBRAMYCIN) TABLET PO SCH (19:42)
[2021-09-21 00:09] VITALS: BP 121/58
[2021-09-21 03:16] VITALS: BP 128/72
[2021-09-21] MEDS: 1/2 NS IV SOLUTION 1,000 ML IV SCH ×3 (05:09→20:55)
[2021-09-21 05:50] LABS: BASOPHILS % (AUTO) 1 % (0-10); EOSINOPHILS # (AUTO) 0.2 10^3/uL (0.0-0.3); EOSINOPHILS % (AUTO) 3 % (0-10); HEMATOCRIT 26 % (35-52); HEMOGLOBIN 7.7 g/dL (11.5-16.0); LYMPHOCYTES # (AUTO) 1.8 10^3/uL (1.0-4.0); LYMPHOCYTES % (AUTO) 29 % (12-44); MEAN CORPUSCULAR HEMOGLOBIN 30 pg (25-34); MEAN CORPUSCULAR HGB CONC 30 g/dL (32-36); MEAN CORPUSCULAR VOLUME 99 fL (80-99); MEAN PLATELET VOLUME 9.8 fL (9.0-12.2); MONOCYTES # (AUTO) 0.7 10^3/uL (0.0-1.0); MONOCYTES % (AUTO) 10 % (0-12); NEUTROPHILS # (AUTO) 3.6 10^3/uL (1.8-7.8); NEUTROPHILS % (AUTO) 57 % (42-75); PLATELET COUNT 211 10^3/uL (130-400); WHITE BLOOD COUNT 6.3 10^3/uL (4.3-11.0)
[2021-09-21 06:05] LABS: ALBUMIN 2.8 GM/DL (3.2-4.5); POTASSIUM 4.3 MMOL/L (3.6-5.0)
[2021-09-21 06:07] LABS: CALCIUM 8.3 MG/DL (8.5-10.1)
[2021-09-21 06:08] LABS: TOTAL PROTEIN 5.2 GM/DL (6.4-8.2)
[2021-09-21 06:10] LABS: BILIRUBIN,TOTAL 0.6 MG/DL (0.1-1.0)
[2021-09-21 06:11] LABS: CREATININE SERUM 0.98 MG/DL (0.60-1.30)
[2021-09-21] MEDS: LEVOTHYROXINE 50 MCG (LEVOTHROID) TAB PO SCH (06:14)
--- NOTE | 2021-09-21 06:15 | Progress Note - Hospitalist ---
Subjective HPI/CC On Admission Date Seen by Provider: Sep 21, 2021 Time Seen by Provider: 10:00 Chief complaint: Weakness with acute kidney injury with hypotension History of present illness: This is an 86-year-old white female who was brought in from her home due to continued weak state. She was found to be hypertensive. She has been going to wound care for chronic wounds and came to the ER from wound care right Dr. Ochoa is treating lower extremity wounds and is maintained on doxycycline and cefdinir. She continued to do poorly and she was found to have elevated creatinine with dehydration and in need of inpatient treatment. Her potassium was elevated and blood sugars were low due to oral hypoglycemic agent in the setting of acute kidney injury. Anemia is noted. Subjective/Events-last exam Patient doing better Sleeping most of the time Hemoglobin 7.7 Not eating or drinking well We will keep IV fluid at 80 cc an hour due to not eating or drinking well Kidney function good at 0.98 Bowels are moving Urinary output is good with Lopez catheter Needs placement in my opinion Review of Systems General: Fatigue, Malaise Focused Exam Lactate Level 09/19/21 10:55: Lactic Acid Level 0.63 Objective Exam Vital Signs Vital Signs Date Time Temp Pulse Resp B/P (MAP) Pulse Ox O2 Delivery O2 Flow Rate FiO2 09/22/21 03:20 36.9 69 16 134/70 (91) 97 Room Air 09/19/21 13:33 0 Capillary Refill : Less Than 3 Seconds General Appearance: No Apparent Distress, WD/WN, Chronically ill, Obese Respiratory: Lungs Clear, Normal Breath Sounds Cardiovascular: Regular Rate, Rhythm Neurologic/Psychiatric: Alert, Oriented x3, Depressed Affect Results/Procedures Lab Laboratory Tests 09/21/21 05:31 09/21/21 05:42 Patient resulted labs reviewed. Assessment/Plan Assessment and Plan Assess & Plan/Chief Complaint Assessment: Hypotension without evidence of sepsis Hypovolemia Acute renal failure Hyperkalemia Anemia Chronic lower extremity wounds Advanced age Confusion Hypoglycemia in setting of OHA and renal failure Sacral decubitus ulcer Hypothyroidism History of pacemaker Plan: IV fluid Dextrose with IV fluid due to hypoglycemia and OHA dissipates Monitor potassium Monitor hemoglobin Continue home antibiotics for wounds May need placement PT and OT DVT prophylaxis 09/21/2021: Continue IV fluids Continue antibiotics for wound care Needs placement PT and OT Diagnosis/Problems Diagnosis/Problems (1) Hypotension Status: Acute Qualifiers: Hypotension type: hypotension due to hypovolemia Qualified Codes: I95.89 - Other hypotension; E86.1 - Hypovolemia (2) Acute kidney injury Status: Acute (3) Confusion Status: Acute (4) Generalized weakness Status: Acute (5) Hypovolemia Status: Acute (6) Stasis ulcer of left ankle Status: Acute Clinical Quality Measures AMI/AHF: ASA po Prior to arrival: NITHIN Yates DO Sep 21, 2021 06:15
[2021-09-21] MEDS: inSUlin ASPART (NovoLOG) 1 UNIT/0.01 ML (CHARGE PER UNIT) SC SCH ×4 (06:20→20:37)
[2021-09-21 07:39] VITALS: BP 140/65
[2021-09-21] MEDS: CEFDINIR 300 MG (OMNICEF) CAP PO SCH ×2 (07:57→20:41)
[2021-09-21] MEDS: DOXYCYCLINE 100 MG (VIBRAMYCIN) TABLET PO SCH ×2 (07:57→20:40)
[2021-09-21] MEDS: DOCUSATE SODIUM 100 MG (COLACE) CAP PO SCH ×2 (09:00→20:41)
[2021-09-21] MEDS: SENNOSIDES 8.6 MG (SENOKOT) TAB PO SCH ×2 (10:54→20:41)
[2021-09-21 11:58] VITALS: BP 131/67
[2021-09-21 15:41] VITALS: BP 132/63
[2021-09-21 19:06] VITALS: BP 125/60
[2021-09-21] MEDS: ASPIRIN E.C. 81 MG (ECOTRIN) TAB PO SCH (20:41)
[2021-09-22] VITALS (8 sets, daily range): BP systolic 115–167; BP diastolic 58–72
[2021-09-22] MEDS: inSUlin ASPART (NovoLOG) 1 UNIT/0.01 ML (CHARGE PER UNIT) SC SCH ×4 (05:20→20:33)
[2021-09-22 06:19] LABS: BASOPHILS % (AUTO) 1 % (0-10); EOSINOPHILS # (AUTO) 0.2 10^3/uL (0.0-0.3); EOSINOPHILS % (AUTO) 3 % (0-10); HEMATOCRIT 25 % (35-52); HEMOGLOBIN 7.5 g/dL (11.5-16.0); LYMPHOCYTES % (AUTO) 27 % (12-44); MEAN CORPUSCULAR HEMOGLOBIN 29 pg (25-34); MEAN CORPUSCULAR HGB CONC 30 g/dL (32-36); MEAN CORPUSCULAR VOLUME 98 fL (80-99); MEAN PLATELET VOLUME 9.9 fL (9.0-12.2); MONOCYTES # (AUTO) 0.7 10^3/uL (0.0-1.0); MONOCYTES % (AUTO) 9 % (0-12); NEUTROPHILS # (AUTO) 4.4 10^3/uL (1.8-7.8); NEUTROPHILS % (AUTO) 60 % (42-75); PLATELET COUNT 214 10^3/uL (130-400); WHITE BLOOD COUNT 7.3 10^3/uL (4.3-11.0)
[2021-09-22 06:31] LABS: ALBUMIN 2.8 GM/DL (3.2-4.5)
[2021-09-22 06:32] LABS: CALCIUM 8.3 MG/DL (8.5-10.1)
[2021-09-22] MEDS: LEVOTHYROXINE 50 MCG (LEVOTHROID) TAB PO SCH (06:32)
[2021-09-22 06:33] LABS: TOTAL PROTEIN 5.2 GM/DL (6.4-8.2)
[2021-09-22 06:35] LABS: BILIRUBIN,TOTAL 0.7 MG/DL (0.1-1.0)
[2021-09-22 06:37] LABS: CREATININE SERUM 1.01 MG/DL (0.60-1.30)
[2021-09-22] MEDS: DOXYCYCLINE 100 MG (VIBRAMYCIN) TABLET PO SCH ×2 (08:10→21:17)
[2021-09-22] MEDS: CEFDINIR 300 MG (OMNICEF) CAP PO SCH ×2 (08:10→21:17)
[2021-09-22] MEDS: DOCUSATE SODIUM 100 MG (COLACE) CAP PO SCH ×2 (08:10→21:17)
[2021-09-22] MEDS: SENNOSIDES 8.6 MG (SENOKOT) TAB PO SCH ×2 (09:00→21:17)
--- NOTE | 2021-09-22 10:07 | Physical Therapy Daily Note ---
PT Daily Note-Current Subjective Patient agreed to participate in therapy but reported she had to use the bathroom. Upon standing patient had soiled the bed before therapy started. Mental Status Patient Orientation: Person, Situation Attachments: Lopez Catheter, IV Transfers SCALE: Activities may be completed with or without assistive devices. 9-Diwqiigzkq-zkbjefb completes the activity by him/herself with no assistance from a helper. 5-Set-up or Clean-up Assistance-helper sets up or cleans up; patient completes activity. [place] assists only prior to or following the activity. 4-Supervision or Touching Assistance-helper provides verbal cues and/or touching/steadying and/or contact guard assistance as patient completes activity. Assistance may be provided throughout the activity or intermittently. 3-Partial/Moderate Assistance-helper does LESS THAN HALF the effort. [place] lift s, holds or supports trunk or limbs, but provides less than half the effort. 2-Substantial/Maximal Assistance-helper does MORE THAN HALF the effort. [place] lifts or holds trunk or limbs and provides more than half the effort. 5-Xtyqixgtx-upczbo does ALL the effort. Patient does none of the effort to complete the activity. Or, the assistance of 2 or more helpers is required for the patient to complete the activity. If activity was not attempted, code reason: 7-Patient Refused. 9-Not Applicable-not attempted and the patient did not perform the activity before the current illness, exacerbation or injury. 10-Not Attempted due to Environmental Limitations-(lack of equipment, weather restraints, etc.). 88-Not Attempted due to Medical Conditions or Safety Concerns. Lying to Sitting/Side of Bed(Q: 5 Sit to Stand (QC): 4 Toilet Transfer (QC): 4 Gait Training Does the Patient Walk?: Yes Distance: 100' Walk 10 feet (QC): 4 Walk 50 ft with 2 Turns(QC): 4 Gait Assistive Device: FWW Patient ambulated 100' with FWW and CGA. Patient fatigued quickly with ambulation and required standing rest breaks to catch her breath. Assessment Patient ambulated to the toilet to get finish going to the bathroom after soiling the bed. Patient required assistance with toileting tasks. Patient reported that she did not know that she had soiled the bed. Patient fatigued quickly with ambulation and reported shortness of breath while ambulating causing her to take frequent rest breaks. PT Manufacturing Mechanic Goals Half-Way Goals PT Manufacturing Mechanic Goals Time Frame: Oct 04, 2021 Roll Left & Right (QC): 5 Sit to Lying (QC): 5 Lying-Sitting on Side/Bed(QC): 5 Sit to Stand (QC): 5 Chair/Zsp-je-Afmcb Xfer(QC): 5 Toilet Transfer (QC): 5 Walk 10 feet (QC): 5 Walk 50ft with 2 Turns (QC): 5 Walk 150 ft (QC): 5 PT Plan Treatment/Plan Treatment Plan: Continue Plan of Care Treatment Plan: Bed Mobility, Education, Functional Activity Rehan, Functional Strength, Gait, Safety, Therapeutic Exercise, Transfers Treatment Duration: Oct 04, 2021 Frequency: 6 times per week Estimated Hrs Per Day: .25 hour per day Patient and/or Family Agrees t: Yes Time/GCodes Time In: 835 Time Out: 850 Total Billed Treatment Time: 15 Total Billed Treatment 1 Visit FA 15 min TERRY RASHEED PT Sep 22, 2021 10:07
--- NOTE | 2021-09-22 12:05 | Occupational Ther Daily Note ---
OT Current Status-Daily Note Subjective Pt in recliner, states she is cold requesting warm blanket. Mental Status/Objective Patient Orientation: Person, Place, Situation ADL-Treatment Therapy Code Descriptions/Definitions Functional [place] Measure: 0=Not Assessed/NA 4=Minimal Assistance 1=Total Assistance 5=Supervision or Setup 2=Maximal Assistance 6=Modified [place] 3=Moderate Assistance 7=Complete IndependenceSCALE: Activities may be completed with or without assistive devices. 6-Zfqcqqfryd-amfngxj completes the activity by him/herself with no assistance from a helper. 5-Set-up or Clean-up Assistance-helper sets up or cleans up; patient completes activity. [place] assists only prior to or following the activity. 4-Supervision or Touching Assistance-helper provides verbal cues and/or touching/steadying and/or contact guard assistance as patient completes activity. Assistance may be provided throughout the activity or intermittently. 3-Partial/Moderate Assistance-helper does LESS THAN HALF the effort. [place] lifts, holds or supports trunk or limbs, but provides less than half the effort. 2-Substantial/Maximal Assistance-helper does MORE THAN HALF the effort. [place] lifts or holds trunk or limbs and provides more than half the effort. 3-Alfjlvmlu-afugok does ALL the effort. Patient does none of the effort to compl ete the activity. Or, the assistance of 2 or more helpers is required for the patient to complete the activity. If activity was not attempted, code reason: 7-Patient Refused. 9-Not Applicable-not attempted and the patient did not perform the activity before the current illness, exacerbation or injury. 10-Not Attempted due to Environmental Limitations-(lack of equipment, weather restraints, etc.). 88-Not Attempted due to Medical Conditions or Safety Concerns. Oral Hygiene (QC): 4 (SBA standing at sink.) Other Treatment Pt in recliner, transferred sit to stand, CGA, then used FWW to go into bathroom, CGA. Pt stood at sink to brush her teeth, SBA, then returned to recliner, SBA as OT managed IV lines. Pt transferred to recliner, warm blankets provided and pt positioned to comfort. Post tx, pt in recliner, call light in reach and all needs met. Education OT Patient Education: Correct positioning, Energy conservation, Exercise prog kim, Modified ADL techniques, Progress toward Goal/Update tx plan, Purpose of tx/functional activities, Rehab process Teaching Recipient: Patient Teaching Methods: Discussion Response to Teaching: Verbalize Understanding OT Tile Designer Goals Half-Way Goals Time Frame: Sep 26, 2021 Eating (QC): 6 Oral Hygiene (QC): 6 Toileting Hygiene (QC): 6 Shower/Bathe Self (QC): 4 Upper Body Dressing (QC): 6 Lower Body Dressing (QC): 6 On/Off Footwear (QC): 6 Additional Goals: 1-Demonstrate ADL Tasks, 2-Verbalize Understanding, 3- ImproveStrength/Rehan 1=Demonstrate adherence to instructed precautions during ADL tasks. 2=Patient will verbalize/demonstrate understanding of assistive devices/modifications for ADL. 3=Patient will improve strength/tolerance for activity to enable patient to perform ADL's. OT Education/Plan Problem List/Assessment Assessment: Decreased Activ Tolerance, Decreased UE Strength, Impaired I ADL's, Impaired Self-Care Skills Discharge Recommendations Plan/Recommendations: Continue POC Treatment Plan/Plan of Care Patient would benefit from OT for education, treatment and training to promote independence in ADL's, mobility, safety and/or upper extremity function for ADL's. Plan of Care: ADL Retraining, Functional Mobility, UE Funct Exercise/Act Treatment Duration: Sep 26, 2021 Frequency: 3 times per week (3-5 times per week) Estimated Hrs Per Day: .25 hour per day Rehab Potential: Fair Time/GCodes Start Time: 10:52 Stop Time: 11:02 Total Time Billed (hr/min): 10 Billed Treatment Time 1, ADL HAMMAD ZACARIAS OT Sep 22, 2021 12:05
--- NOTE | 2021-09-22 17:40 | Progress Note ---
Subjective Date Seen by a Provider: Sep 22, 2021 Time Seen by a Provider: 08:45 Subjective/Events-last exam Fwup acute renal failure, hypotension, acute on chronic anemia, hyperkalemia, DMII, chronic venous stasis with stasis dermatitis and venous stasis ulcers, diabetic foot ulcer, weakness/debility. Objective Exam Vital Signs Date Time Temp Pulse Resp B/P (MAP) Pulse Ox O2 Delivery O2 Flow Rate FiO2 09/22/21 16:00 36.6 67 20 167/65 (99) 96 Room Air 09/22/21 12:00 36.1 70 18 115/72 (86) 96 Room Air 09/22/21 08:00 35.8 69 18 122/58 (79) 97 Room Air 09/22/21 07:50 Room Air 09/22/21 07:45 94 Room Air 09/22/21 07:45 36.9 73 94 09/22/21 03:20 36.9 69 16 134/70 (91) 97 Room Air 09/22/21 00:46 36.8 70 20 142/65 (90) 96 Room Air 09/21/21 22:43 96 Room Air 09/21/21 20:45 Room Air 09/21/21 19:06 37.2 71 20 125/60 (81) 96 Room Air I & O 09/22/21 07:00 Intake Total 830 ml Output Total 1900 ml Balance -1070 ml Capillary Refill : Less Than 3 Seconds General Appearance: No Apparent Distress Respiratory: Lungs Clear Cardiovascular: Regular Rate, Rhythm, Systolic Murmur Gastrointestinal: normal bowel sounds, non tender, soft Extremity: Non Tender, No Calf Tenderness, Pedal Edema (with dressings in place) Neurologic/Psychiatric: Alert, Oriented x3 Results Lab Laboratory Tests 09/21/21 20:27: Glucometer 128H 09/22/21 04:49: Glucometer 110 09/22/21 05:59: White Blood Count 7.3, Red Blood Count 2.58L, Hemoglobin 7.5L, Hematocrit 25L, Mean Corpuscular Volume 98, Mean Corpuscular Hemoglobin 29, Mean Corpuscular Hemoglobin Concent 30L, Red Cell Distribution Width 13.8, Platelet Count 214, Mean Platelet Volume 9.9, Immature Granulocyte % (Auto) 1, Neutrophils (%) (Auto) 60, Lymphocytes (%) (Auto) 27, Monocytes (%) (Auto) 9, Eosinophils (%) (Auto) 3, Basophils (%) (Auto) 1, Neutrophils # (Auto) 4.4, Lymphocytes # (Auto) 2.0, Monocytes # (Auto) 0.7, Eosinophils # (Auto) 0.2, Basophils # (Auto) 0.0, Immature Granulocyte # (Auto) 0.1, Sodium Level 140, Potassium Level 4.0, Chloride Level 113H, Carbon Dioxide Level 20L, Anion Gap 7, Blood Urea Nitrogen 10, Creatinine 1.01, Estimat Glomerular Filtration Rate 55, BUN/Creatinine Ratio 10, Glucose Level 112H, Calcium Level 8.3L, Corrected Calcium 9.3, Total Bilir ubin 0.7, Aspartate Amino Transf (AST/SGOT) 17, Alanine Aminotransferase (ALT/SGPT) 12, Alkaline Phosphatase 54, Total Protein 5.2L, Albumin 2.8L 09/22/21 11:09: Glucometer 137H 09/22/21 16:10: Glucometer 137H Microbiology 09/19/21 Blood Culture - Preliminary, Resulted No growth Assessment/Plan Assessment/Plan Assess & Plan/Chief Complaint 1. Acute Renal Failure--improved with hydration 2. Acute Hypotension--improved 3. Acute on Chronic Renal Failure--start iron infusion and monitor H/H 4. DMII--on accuchecks with SSI 5. 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 Weakness/Debility--patient requires assistance to even ambulate to bathroom and has to take numerous breaks due to shortness of air and weakness, discussed that I have concern of her being able to take care of herself but she states she wants to go home Clinical Quality Measures AMI/AHF: ASA po Prior to arrival: SAVANNAH Aggarwal DO Sep 22, 2021 17:40
[2021-09-22] MEDS: 1/2 NS IV SOLUTION 1,000 ML IV SCH ×2 (18:57→21:22)
[2021-09-22] MEDS: ASPIRIN E.C. 81 MG (ECOTRIN) TAB PO SCH (21:17)
[2021-09-23 04:52] VITALS: BP 148/76
[2021-09-23] MEDS: inSUlin ASPART (NovoLOG) 1 UNIT/0.01 ML (CHARGE PER UNIT) SC SCH ×4 (06:32→20:57)
[2021-09-23] MEDS: LEVOTHYROXINE 50 MCG (LEVOTHROID) TAB PO SCH (06:33)
[2021-09-23 06:44] LABS: BASOPHILS % (AUTO) 1 % (0-10); EOSINOPHILS # (AUTO) 0.2 10^3/uL (0.0-0.3); EOSINOPHILS % (AUTO) 4 % (0-10); HEMATOCRIT 25 % (35-52); HEMOGLOBIN 7.5 g/dL (11.5-16.0); LYMPHOCYTES % (AUTO) 31 % (12-44); MEAN CORPUSCULAR HEMOGLOBIN 29 pg (25-34); MEAN CORPUSCULAR HGB CONC 30 g/dL (32-36); MEAN CORPUSCULAR VOLUME 98 fL (80-99); MEAN PLATELET VOLUME 9.8 fL (9.0-12.2); MONOCYTES # (AUTO) 0.6 10^3/uL (0.0-1.0); MONOCYTES % (AUTO) 10 % (0-12); NEUTROPHILS # (AUTO) 3.5 10^3/uL (1.8-7.8); NEUTROPHILS % (AUTO) 55 % (42-75); PLATELET COUNT 193 10^3/uL (130-400); WHITE BLOOD COUNT 6.4 10^3/uL (4.3-11.0)
[2021-09-23 07:07] LABS: ALBUMIN 2.8 GM/DL (3.2-4.5); BILIRUBIN,TOTAL 0.7 MG/DL (0.1-1.0); CALCIUM 8.3 MG/DL (8.5-10.1); CREATININE SERUM 0.87 MG/DL (0.60-1.30); POTASSIUM 3.7 MMOL/L (3.6-5.0); TOTAL PROTEIN 5.3 GM/DL (6.4-8.2)
[2021-09-23 08:00] VITALS: BP 168/71
[2021-09-23] MEDS: SENNOSIDES 8.6 MG (SENOKOT) TAB PO SCH ×2 (08:42→19:55)
[2021-09-23] MEDS: DOCUSATE SODIUM 100 MG (COLACE) CAP PO SCH ×2 (08:42→19:55)
[2021-09-23] MEDS: DOXYCYCLINE 100 MG (VIBRAMYCIN) TABLET PO SCH ×2 (08:43→19:54)
[2021-09-23] MEDS: CEFDINIR 300 MG (OMNICEF) CAP PO SCH ×2 (08:43→19:54)
[2021-09-23] MEDS: 1/2 NS IV SOLUTION 1,000 ML IV SCH (08:44)
--- NOTE | 2021-09-23 08:55 | Physical Therapy Daily Note ---
PT Daily Note-Current Subjective Patient was asleep but woke up and agreed to walk to the chair for breakfast with PT this morning. Mental Status Patient Orientation: Person Attachments: Lopez Catheter, IV Transfers SCALE: Activities may be completed with or without assistive devices. 8-Ivajkacpwg-zebelyg completes the activity by him/herself with no assistance from a helper. 5-Set-up or Clean-up Assistance-helper sets up or cleans up; patient completes activity. [place] assists only prior to or following the activity. 4-Supervision or Touching Assistance-helper provides verbal cues and/or touching/steadying and/or contact guard assistance as patient completes activity. Assistance may be provided throughout the activity or intermittently. 3-Partial/Moderate Assistance-helper does LESS THAN HALF the effort. [place] lifts, holds or supports trunk or limbs, but provides less than half the effort. 2-Substantial/Maximal Assistance-helper does MORE THAN HALF the effort. [place] lifts or holds trunk or limbs and provides more than half the effort. 8-Wewrcgcex-ajrnqu does ALL the effort. Patient does none of the effort to complete the activity. Or, the assistance of 2 or more helpers is required for the patient to complete the activity. If activity was not attempted, code reason: 7-Patient Refused. 9-Not Applicable-not attempted and the patient did not perform the activity before the current illness, exacerbation or injury. 10-Not Attempted due to Environmental Limitations-(lack of equipment, weather restraints, etc.). 88-Not Attempted due to Medical Conditions or Safety Concerns. Lying to Sitting/Side of Bed(Q: 5 Sit to Stand (QC): 3 (min) Chair/Mbm-fn-Zdxex Xfer(QC): 3 (min) Gait Training Does the Patient Walk?: Yes Distance: 100' Walk 10 feet (QC): 4 Walk 50 ft with 2 Turns(QC): 4 Gait Assistive Device: FWW Patient fatigues quickly with ambulation Assessment Patient ambulated for 100' with FWW and CGA. Patient fatigued quickly with ambulation and required rest breaks to catch her breath. Patient is unable to put her shoes on by herself and still requires assistance to stand. Patient requires cues to push from the bed when coming to a stand. Patient ambulated with slow short steps that turns into a shuffling gait pattern when she starts to fatigue. PT Stock Transfer Clerk Goals [facility] Goals PT Stock Transfer Clerk Goals Time Frame: Oct 04, 2021 Roll Left & Right (QC): 5 Sit to Lying (QC): 5 Lying-Sitting on Side/Bed(QC): 5 Sit to Stand (QC): 5 Chair/Enj-nh-Ryinp Xfer(QC): 5 Toilet Transfer (QC): 5 Walk 10 feet (QC): 5 Walk 50ft with 2 Turns (QC): 5 Walk 150 ft (QC): 5 PT Plan Treatment/Plan Treatment Plan: Continue Plan of Care Treatment Plan: Bed Mobility, Education, Functional Activity Rehan, Functional Strength, Gait, Safety, Therapeutic Exercise, Transfers Treatment Duration: Oct 04, 2021 Frequency: 6 times per week Estimated Hrs Per Day: .25 hour per day Patient and/or Family Agrees t: Yes Time/GCodes Time In: 750 Time Out: 802 Total Billed Treatment Time: 12 Total Billed Treatment 1 Visit FA 12 min TERRY RASHEED PT Sep 23, 2021 08:55
[2021-09-23] MEDS ORDERED: IRON SUCROSE 200 MG/10 ML (VENOFER) VIAL IV SCH (09:00)
--- NOTE | 2021-09-23 11:58 | Occupational Ther Daily Note ---
OT Current Status-Daily Note Subjective Pt alert, sitting in recliner. Pt agrees to therapy. No c/o pain. Mental Status/Objective Patient Orientation: Person, Place, Time, Situation Attachments: IV ADL-Treatment Sit to stand min A due to unsteadiness and need to stabilize. SBA for pt to ambulated to bathroom and CGA transfer on/off toilet. Pt attempted to cleanse buttocks, needed assistance for thoroughness. Pt able to cleanse katar[place]yna area by self. Independent with eating. After therapy, pt sitting in recliner eating yumiko pending sale to [facility]. Call light/phone in reach. All needs met in room. Notified nrsg of pt's position. Therapy Code Descriptions/Definitions Functional [place] Measure: 0=Not Assessed/NA 4=Minimal Assistance 1=Total Assistance 5=Supervision or Setup 2=Maximal Assistance 6=Modified [place] 3=Moderate Assistance 7=Complete IndependenceSCALE: Activities may be completed with or without assistive devices. 5-Dvccpkeagg-kumdwee completes the activity by him/herself with no assistance from a helper. 5-Set-up or Clean-up Assistance-helper sets up or cleans up; patient completes activity. [place] assists only prior to or following the activity. 4-Supervision or Touching Assistance-helper provides verbal cues and/or touching/steadying and/or contact guard assistance as patient completes activi ty. Assistance may be provided throughout the activity or intermittently. 3-Partial/Moderate Assistance-helper does LESS THAN HALF the effort. [place] lifts, holds or supports trunk or limbs, but provides less than half the effort. 2-Substantial/Maximal Assistance-helper does MORE THAN HALF the effort. [place] lifts or holds trunk or limbs and provides more than half the effort. 5-Thchcejgr-autemt does ALL the effort. Patient does none of the effort to complete the activity. Or, the assistance of 2 or more helpers is required for the patient to complete the activity. If activity was not attempted, code reason: 7-Patient Refused. 9-Not Applicable-not attempted and the patient did not perform the activity before the current illness, exacerbation or injury. 10-Not Attempted due to Environmental Limitations-(lack of equipment, weather restraints, etc.). 88-Not Attempted due to Medical Conditions or Safety Concerns. Eating (QC): 6 Toileting Hygiene (QC): 3 Toilet Transfer (QC): 4 OT Fpc Goals Customer Experience Associate Goals Time Frame: Sep 26, 2021 Eating (QC): 6 Oral Hygiene (QC): 6 Toileting Hygiene (QC): 6 Shower/Bathe Self (QC): 4 Upper Body Dressing (QC): 6 Lower Body Dressing (QC): 6 On/Off Footwear (QC): 6 Additional Goals: 1-Demonstrate ADL Tasks, 2-Verbalize Understanding, 3- ImproveStrength/Rehan 1=Demonstrate adherence to instructed precautions during ADL tasks. 2=Patient will verbalize/demonstrate understanding of assistive devices/modifications for ADL. 3=Patient will improve strength/tolerance for activity to enable patient to perform ADL's. OT Education/Plan Problem List/Assessment Assessment: Decreased Activ Tolerance, Impaired Funct Balance, Impaired Self- Care Skills Discharge Recommendations Plan/Recommendations: Continue POC Treatment Plan/Plan of Care Patient would benefit from OT for education, treatment and training to promote independence in ADL's, mobility, safety and/or upper extremity function for ADL's. Plan of Care: ADL Retraining, Functional Mobility, UE Funct Exercise/Act Treatment Duration: Sep 26, 2021 Frequency: 3 times per week (3-5 times per week) Estimated Hrs Per Day: .25 hour per day Rehab Potential: Fair Time/GCodes Start Time: 11:30 Stop Time: 11:50 Total Time Billed (hr/min): 20 Billed Treatment Time 1 visit-ADL 1 (20 min) GRACIELA AVILA Sep 23, 2021 11:57
[2021-09-23 12:00] VITALS: BP 166/74
[2021-09-23 16:39] VITALS: BP 181/92
--- NOTE | 2021-09-23 17:04 | Progress Note ---
Subjective Date Seen by a Provider: Sep 23, 2021 Time Seen by a Provider: 08:45 Subjective/Events-last exam Fwup acute renal failure, hypotension, acute on chronic anemia, hyperkalemia, DMII, chronic venous stasis with stasis dermatitis and venous stasis ulcers, diabetic foot ulcer, weakness/debility. Sitting up in chair. Son at bedside. Discussed with both patient and son that I don't feel she is able to go home and take care of herself unless she has 24hr care. PT and OT report still needing assistance with standing, walking, bathing, toileting. Patient became defensive and said the therapy was not pushing her. I told her that they could only push to the point that the patient allowed and that they can only push to the extent that she is physically able to tolerate. Objective Exam Vital Signs Date Time Temp Pulse Resp B/P (MAP) Pulse Ox O2 Delivery O2 Flow Rate FiO2 09/23/21 16:39 37.1 70 18 181/92 (121) 97 Room Air 09/23/21 12:00 36.7 69 18 166/74 (104) 97 Room Air 09/23/21 08:00 37.0 67 20 168/71 (103) 96 Room Air 09/23/21 08:00 97 Room Air 0.00 09/23/21 04:52 36.6 69 20 148/76 (100) 96 Room Air 09/22/21 23:24 36.0 70 18 135/63 (87) 95 Room Air 09/22/21 20:54 38.0 75 20 126/61 (82) 95 Room Air 09/22/21 20:20 Room Air I & O 09/23/21 07:00 Intake Total 1540 ml Output Total 1600 ml Balance -60 ml Capillary Refill : Less Than 3 Seconds General Appearance: No Apparent Distress Respiratory: Lungs Clear Cardiovascular: Regular Rate, Rhythm, Systolic Murmur Gastrointestinal: normal bowel sounds, non tender, soft Extremity: No Calf Tenderness, Pedal Edema (improved) Skin: Warm/Dry Results Lab Laboratory Tests 09/22/21 20:26: Glucometer 140H 09/23/21 06:30: White Blood Count 6.4, Red Blood Count 2.55L, Hemoglobin 7.5L, Hematocrit 25L, Mean Corpuscular Volume 98, Mean Corpuscular Hemoglobin 29, Mean Corpuscular H emoglobin Concent 30L, Red Cell Distribution Width 13.9, Platelet Count 193, Mean Platelet Volume 9.8, Immature Granulocyte % (Auto) 1, Neutrophils (%) (Auto) 55, Lymphocytes (%) (Auto) 31, Monocytes (%) (Auto) 10, Eosinophils (%) (Auto) 4, Basophils (%) (Auto) 1, Neutrophils # (Auto) 3.5, Lymphocytes # (Auto) 2.0, Monocytes # (Auto) 0.6, Eosinophils # (Auto) 0.2, Basophils # (Auto) 0.0, Immature Granulocyte # (Auto) 0.0, Sodium Level 141, Potassium Level 3.7, Chloride Level 114H, Carbon Dioxide Level 19L, Anion Gap 8, Blood Urea Nitrogen 9, Creatinine 0.87, Estimat Glomerular Filtration Rate 65, BUN/Creatinine Ratio 10, Glucose Level 102, Calcium Level 8.3L, Corrected Calcium 9.3, Total Bilirubin 0.7, Aspartate Amino Transf (AST/SGOT) 15, Alanine Aminotransferase (ALT/SGPT) 12, Alkaline Phosphatase 47, Total Protein 5.3L, Albumin 2.8L 09/23/21 06:31: Glucometer 94 09/23/21 11:03: Glucometer 142H 09/23/21 16:36: Glucometer 160H Microbiology 09/19/21 Blood Culture - Preliminary, Resulted No growth Assessment/Plan Assessment/Plan Assess & Plan/Chief Complaint 1. Acute Renal Failure--improved with hydration, DC IVFs 2. Acute Hypotension--improved 3. Acute on Chronic Anemia--start iron infusion and monitor H/H 4. DMII--on accuchecks with SSI 5. 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 Weakness/Debility--patient requires assistance to even ambulate to bathroom and has to take numerous breaks due to shortness of air and weakness, discussed my concerns of her going home without 24hr care, patient is adamant she does not want SNF so will look into [place] Clinical Quality Measures AMI/AHF: ASA po Prior to arrival: SAVANNAH Aggarwal DO Sep 23, 2021 17:04
[2021-09-23] MEDS: ASPIRIN E.C. 81 MG (ECOTRIN) TAB PO SCH (19:54)
[2021-09-23 20:40] VITALS: BP 151/70
[2021-09-23 23:34] VITALS: BP 113/56
[2021-09-24 03:11] VITALS: BP 149/72
[2021-09-24] MEDS: LEVOTHYROXINE 50 MCG (LEVOTHROID) TAB PO SCH (05:36)
[2021-09-24] MEDS: inSUlin ASPART (NovoLOG) 1 UNIT/0.01 ML (CHARGE PER UNIT) SC SCH ×2 (05:36→12:14)
[2021-09-24 06:45] LABS: BASOPHILS % (AUTO) 0 % (0-10); EOSINOPHILS # (AUTO) 0.2 10^3/uL (0.0-0.3); EOSINOPHILS % (AUTO) 3 % (0-10); HEMATOCRIT 25 % (35-52); HEMOGLOBIN 7.6 g/dL (11.5-16.0); LYMPHOCYTES # (AUTO) 1.9 10^3/uL (1.0-4.0); LYMPHOCYTES % (AUTO) 28 % (12-44); MEAN CORPUSCULAR HEMOGLOBIN 30 pg (25-34); MEAN CORPUSCULAR HGB CONC 31 g/dL (32-36); MEAN CORPUSCULAR VOLUME 98 fL (80-99); MEAN PLATELET VOLUME 9.9 fL (9.0-12.2); MONOCYTES # (AUTO) 0.7 10^3/uL (0.0-1.0); MONOCYTES % (AUTO) 10 % (0-12); NEUTROPHILS # (AUTO) 3.8 10^3/uL (1.8-7.8); NEUTROPHILS % (AUTO) 57 % (42-75); PLATELET COUNT 194 10^3/uL (130-400); WHITE BLOOD COUNT 6.8 10^3/uL (4.3-11.0)
[2021-09-24 07:09] LABS: ALBUMIN 2.7 GM/DL (3.2-4.5); BILIRUBIN,TOTAL 0.6 MG/DL (0.1-1.0); CALCIUM 8.4 MG/DL (8.5-10.1); CREATININE SERUM 0.81 MG/DL (0.60-1.30); POTASSIUM 3.6 MMOL/L (3.6-5.0); TOTAL PROTEIN 4.9 GM/DL (6.4-8.2)
[2021-09-24] MEDS: DOCUSATE SODIUM 100 MG (COLACE) CAP PO SCH (07:30)
[2021-09-24] MEDS: SENNOSIDES 8.6 MG (SENOKOT) TAB PO SCH (07:31)
[2021-09-24 07:34] VITALS: BP 162/68
[2021-09-24] MEDS: DOXYCYCLINE 100 MG (VIBRAMYCIN) TABLET PO SCH (08:52)
[2021-09-24] MEDS: CEFDINIR 300 MG (OMNICEF) CAP PO SCH (08:52)
--- NOTE | 2021-09-24 09:51 | Occupational Ther Daily Note ---
OT Current Status-Daily Note Subjective Pt alert, sitting in recliner. Son present in room. Pt agrees to therapy. No c/o pain. Mental Status/Objective Patient Orientation: Person, Place, Time, Situation Attachments: IV ADL-Treatment Pt declines any ADLs. Attempted to educate pt on lower body dressing equipment, pt declined. When asked how she is donning/doffing footwear pt states that she bends over and just puts them on. Also stated that [facility] tried to give her one and she did not take it. GRACE attempted to explain how beneficial AE could be and pt continued to decline. Therapy Code Descriptions/Definitions Functional [place] Measure: 0=Not Assessed/NA 4=Minimal Assistance 1=Total Assistance 5=Supervision or Setup 2=Maximal Assistance 6=Modified [place] 3=Moderate Assistance 7=Complete IndependenceSCALE: Activities may be completed with or without assistive devices. 1-Wkzsaalokv-upojybd completes the activity by him/herself with no assistance from a helper. 5-Set-up or Clean-up Assistance-helper sets up or cleans up; patient completes activity. [place] assists only prior to or following the activity. 4-Supervision or Touching Assistance-helper provides verbal cues and/or touching/steadying and/or contact guard assistance as patient completes activity. Assistance may be provided throughout the activity or intermittently. 3-Partial/Moderate Assistance-helper does LESS THAN HALF the effort. [place] lifts, holds or supports trunk or limbs, but provides less than half the effort. 2-Substantial/Maximal Assistance-helper does MORE THAN HALF the effort. [place] lifts or holds trunk or limbs and provides more than half the effort. 5-Czzpdilpx-yyufoo does ALL the effort. Patient does none of the effort to complete the activity. Or, the assistance of 2 or more helpers is required for the patient to complete the activity. If activity was not attempted, code reason: 7-Patient Refused. 9-Not Applicable-not attempted and the patient did not perform the activity before the current illness, exacerbation or injury. 10-Not Attempted due to Environmental Limitations-(lack of equipment, weather restraints, etc.). 88-Not Attempted due to Medical Conditions or Safety Concerns. Other Treatment Pt given light resistance theraband and HEP to use for B UE exercises in room. Skilled instruction given for correct technique. 5 exercises completed with verbal cues for technique and to slow down, 2 sets 10 reps. Pt then completed 5 sit to stands without any LOB or SOA. After session, pt sitting in recliner with call light/phone in reach. All needs met in room. OT Senior Care Goals Regional Climate Change Analyst Goals Time Frame: Sep 26, 2021 Eating (QC): 6 Oral Hygiene (QC): 6 Toileting Hygiene (QC): 6 Shower/Bathe Self (QC): 4 Upper Body Dressing (QC): 6 Lower Body Dressing (QC): 6 On/Off Footwear (QC): 6 Additional Goals: 1-Demonstrate ADL Tasks, 2-Verbalize Understanding, 3- ImproveStrength/Rehan 1=Demonstrate adherence to instructed precautions during ADL tasks. 2=Patient will verbalize/demonstrate understanding of assistive devices/modifications for ADL. 3=Patient will improve strength/tolerance for activity to enable patient to perform ADL's. OT Education/Plan Problem List/Assessment Assessment: Decreased Activ Tolerance, Decreased UE Strength, Impaired Self- Care Skills Discharge Recommendations Plan/Recommendations: Continue POC Treatment Plan/Plan of Care Patient would benefit from OT for education, treatment and training to promote independence in ADL's, mobility, safety and/or upper extremity function for ADL's. Plan of Care: ADL Retraining, Functional Mobility, UE Funct Exercise/Act Treatment Duration: Sep 26, 2021 Frequency: 3 times per week (3-5 times per week) Estimated Hrs Per Day: .25 hour per day Rehab Potential: Fair Time/GCodes Start Time: 09:17 Stop Time: 09:40 Total Time Billed (hr/min): 23 Billed Treatment Time 1 visit-ADL 1 (8 min) EX 1 (15 min) GRACIELA AVILA Sep 24, 2021 09:51
--- NOTE | 2021-09-24 10:21 | Physical Therapy Daily Note ---
PT Daily Note-Current Subjective Pt sitting in recliner waiting for breakfast. Pt agreeable to PT. Pt denies pain prior to and post treatment. Pain Numeric Pain Scale: 0-No Pain Mental Status Patient Orientation: Person, Place, Situation Transfers SCALE: Activities may be completed with or without assistive devices. 7-Gdrlxtfyef-onjyyim completes the activity by him/herself with no assistance from a helper. 5-Set-up or Clean-up Assistance-helper sets up or cleans up; patient completes activity. [place] assists only prior to or following the activity. 4-Supervision or Touching Assistance-helper provides verbal cues and/or touching/steadying and/or contact guard assistance as patient completes activity. Assistance may be provided throughout the activity or intermittently. 3-Partial/Moderate Assistance-helper does LESS THAN HALF the effort. [place] lifts, holds or supports trunk or limbs, but provides less than half the effort. 2-Substantial/Maximal Assistance-helper does MORE THAN HALF the effort. [place] lifts or holds trunk or limbs and provides more than half the effort. 5-Uxkggcxlt-gqlqho does ALL the effort. Patient does none of the effort to complete the activity. Or, the assistance of 2 or more helpers is required for the patient to complete the activity. If activity was not attempted, code reason: 7-Patient Refused. 9-Not Applicable-not attempted and the patient did not perform the activity before the current illness, exacerbation or injury. 10-Not Attempted due to Environmental Limitations-(lack of equipment, weather restraints, etc.). 88-Not Attempted due to Medical Conditions or Safety Concerns. Transfers mod (I) Gait Training Gait Assistive Device: FWW Pt amb with FWW and CGA x 120ft at slow and short stride pattern. Assessment Current Status: Good Progress Pt did fatigue with ambulation, able to stand and recover x 1 as needed. Pt up in recliner with call light and breakfast set up in front of her. Son and Nurse present. PT Jailor Goals Care Home Goals PT Care Home Goals Time Frame: Oct 04, 2021 Roll Left & Right (QC): 5 Sit to Lying (QC): 5 Lying-Sitting on Side/Bed(QC): 5 Sit to Stand (QC): 5 Chair/Wcd-af-Lkqnm Xfer(QC): 5 Toilet Transfer (QC): 5 Walk 10 feet (QC): 5 Walk 50ft with 2 Turns (QC): 5 Walk 150 ft (QC): 5 PT Plan Treatment/Plan Treatment Plan: Continue Plan of Care Treatment Plan: Bed Mobility, Education, Functional Activity Rehan, Functional Strength, Gait, Safety, Therapeutic Exercise, Transfers Treatment Duration: Oct 04, 2021 Frequency: 6 times per week Estimated Hrs Per Day: .25 hour per day Patient and/or Family Agrees t: Yes Time/GCodes Time In: 846 Time Out: 900 Total Billed Treatment Time: 14 Total Billed Treatment 1, gait 14' ADITI ENGLISH CPTA Sep 24, 2021 10:21
[2021-09-24 12:02] VITALS: BP 169/76
[2021-09-24] MEDS ORDERED: FERR-65 PO (12:47)
[2021-09-24] MEDS ORDERED: DOCU100C37 PO (12:47)
--- NOTE | 2021-09-24 12:52 | D/C HH Face to Face Order ---
D/C Face to Face Orders Reconcile Patient Problems Problems Reviewed?: Yes Instructions for Patient [facility], Patient Instructions/FollowUp: Fwup 2 weeks Physician to follow Patient: Keith Discharge Diet for Home: ADA Diet, Low Sodium Diet Patient Problems: Weakness/Debility DMII Chronic Venous Stasis with Stasis Ulcers of Lower Legs Right Diabetic Foot Ulcer Hypertension Anemia Patient Data-Allergies,Ht & Wt Patient Allergies: Coded Allergies: erythromycin base (Verified Allergy, Unknown, 07/06/07) Height (Feet): 5 Height (Inches): 3.00 Weight (Pounds): 205 Home Health Need/Face to Face Date of Face to Face: Sep 24, 2021 Clinical Findings: Generalized weakness and fatigue, Instability, Muscle weakness, Non or partial weight bearing, Shortness of breath, Wound infection, Non-healing wound I have seen Pt eyqc-dz-faof: Yes Discharged To: Other Diagnosis/Conditions: Weakness/Debility DMII Chronic Venous Stasis with Stasis Ulcers of Lower Legs Right Diabetic Foot Ulcer Hypertension Patient is Homebound due to: [place] fall risk due to instabilty, Muscle weakness, Shortness of breath/distress Homebound Status Due to the above stated illness, injury or surgical procedure (medical condition or diagnosis) and associated clinical findings, the patient is homebound because of his/her inability to leave home except with aid of a supportive device and/or person AND leaving the home requires a considerable and taxing effort or is medically contraindicated. Pt req the following assistanc: Aid of another person, Walker Home Health Nursing Orders Home Health Services Order: Environmental Services Technician-Evaluate & Treat, Physical Th erapy-Evaluate & Treat, Wound Care-Eval/Treat Accuchecks daily BP check weekly Continue current dressing changes Keep legs elevated Fwup with [facility] [place] [facility] in next 1-2 weeks Home Health Infusion Therapy Line Start Date: Sep 19, 2021 Home Health Lab Orders Labs (specify type/freq): CBC and Chem 7 in 2 weeks Certify Stmt I certify that this patient is under my care and that I, a nurse practitioner or a physician; a veterinary technician assistant working with me, had a face to face encounter that - meets the physician face to face encounter requirements with this patient as dated. SAVANNAH DIAZ DO Sep 24, 2021 12:52
[2021-09-24 15:15] VITALS: BP 169/76
--- NOTE | 2021-09-24 17:25 | Discharge Summary ---
Diagnosis/Chief Complaint Date of Admission Sep 19, 2021 at 13:15 Date of Discharge Sep 24, 2021 at 15:45 Discharge Date: Sep 24, 2021 Discharge Diagnosis 1. Acute Renal Failure--resolved 2. Acute Hypotension--resolved 3. Acute on Chronic Anemia--H/H stable 4. DMII--stable 5. 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 Weakness/Debility--to AL with home PT/OT and wound care 7. Hyperkalemia--resolved Discharge Summary Hospital Course Was the Problem List Reviewed?: Yes Hospital Course This is a 86 year old female who was being seen at wound care and was noted to be lethargic and confused. She was sent to the emergency room where she was found to be hypotensive with acute renal failure adn hypovolemia. She was admitted to the medical floor and given IVF rehydration. Her blood pressure meds were initially held. Her BUN and Cr improved from 50 and 2.53 respectively on admit to 9 and 0.81 on discharge. Her blood pressure stabilized and her coreg was restarted but her lasix, spironolactone and lisinopril were not resumed. She was continued on cefdinir and doxycycline which she was on per wound care and her dressing changes with leg elevation were continued. Her hemoglobin and hematocrit were 8.6 and 29 on admit. They dropped to 7.5 and 25 after hydration and stabilized at that level until discharge. She was given IV venofer the day prior to discharge. PT and OT were started and the patient was requiring assistance with ambulation and with toileting and bathing. I discussed with both the patient and her son that it was not safe for her to go home unless she had 24hr care. She was not interested in going back to a SNF but was agreeable to AL options. She will be discharged to [facility] with PT and OT and wound care. She will fwup with me in 2 weeks and have repeat Chemistry and CBC in 2 weeks. She can resume outpatient wound care as well. Labs Laboratory Tests 09/21/21 20:27: Glucometer 128H 09/22/21 04:49: 09/22/21 05:59: Red Blood Count 2.58L, Hemoglobin 7.5L, Hematocrit 25L, Mean Corpuscular Hemoglobin Concent 30L, Chloride Level 113H, Carbon Dioxide Level 20L, Glucose Level 112H, Calcium Level 8.3L, Total Protein 5.2L, Albumin 2.8L 09/22/21 11:09: Glucometer 137H 09/22/21 16:10: Glucometer 137H 09/22/21 20:26: Glucometer 140H 09/23/21 06:30: Red Blood Count 2.55L, Hemoglobin 7.5L, Hematocrit 25L, Mean Corpuscular Hemoglobin Concent 30L, Chloride Level 114H, Carbon Dioxide Level 19L, Calcium Level 8.3L, Total Protein 5.3L, Albumin 2.8L 09/23/21 06:31: 09/23/21 11:03: Glucometer 142H 09/23/21 16:36: Glucometer 160H 09/23/21 20:54: Glucometer 118H 09/24/21 05:35: 09/24/21 06:20: Red Blood Count 2.54L, Hemoglobin 7.6L, Hematocrit 25L, Mean Corpuscular Hemoglobin Concent 31L, Chloride Level 115H, Carbon Dioxide Level 19L, Glucose Level 108H, Calcium Level 8.4L, Total Protein 4.9L, Albumin 2.7L 09/24/21 10:57: Glucometer 160H Procedures None. Discharge Physical Examination Allergies: Coded Allergies: erythromycin base (Verified Allergy, Unknown, 07/06/07) Vitals & I&Os Vital Signs Date Time Temp Pulse Resp B/P (MAP) Pulse Ox O2 Delivery O2 Flow Rate FiO2 09/24/21 15:15 37.4 70 18 169/76 97 Room Air 0.00 General Appearance: Alert, Oriented X3, No Acute Distress Respiratory: Clear to Auscultation Cardiovascular: Regular Rate Abdominal: Normal Bowel Sounds, Soft, No Tenderness Extremities: No Clubbing, No Cyanosis, Other Skin: Other (legs with dressings in place) Psych/Mental Status: Mental Status NL, Mood NL Discharge Home Medications Reviewed and agree with Discharge Medication list on patient's Discharge Instruction sheet Instructions to Patient/Family Please see electronic discharge instructions given to patient. Clinical Quality Measures AMI/AHF: ASA po Prior to arrival: SAVANNAH Aggarwal DO Sep 24, 2021 17:25
== END 2021-09-24 15:45 | DRG 315 ==
LOC: EDUNIT# 08:56 → ER 08:58 → 4TH 13:15
PROVIDERS: ADMIT Internal Medicine; ATTEND Family Medicine
DX: I95.89 Other hypotension (principal); N17.9 Acute kidney failure, unspecified; E86.1 Hypovolemia; R53.1 Weakness; R53.81 Other malaise; I87.8 Other specified disorders of veins; E87.5 Hyperkalemia; E11.621 Type 2 diabetes mellitus with foot ulcer; D64.9 Anemia, unspecified; L89.159 Pressure ulcer of sacral region, unspecified stage; L97.509 Non-pressure chronic ulcer of other part of unspecified foot with unspecified severity; I87.2 Venous insufficiency (chronic) (peripheral); I10 Essential (primary) hypertension; E86.0 Dehydration; Z95.0 Presence of cardiac pacemaker; E03.9 Hypothyroidism, unspecified; E11.649 Type 2 diabetes mellitus with hypoglycemia without coma; E78.00 Pure hypercholesterolemia, unspecified; R41.0 Disorientation, unspecified
CPT/HCPCS: 36415; 51702; 71045; 80053; 81000; 82607; 82947; 83540; 83605; 83735; 83880; 84439; 84443; 85025; 85610; 85730; 86141; 87040; 93005; 94760

== ENCOUNTER → 2021-09-19 | Outpatient (CLI) | payer MEDICARE ==
[~2021-09-19] MED LIST changes: +C,E,1CAP2 PO; +CEFD300C3 PO; +DOCU100C37 PO; +DOXY100C5 PO; +FERR-65 PO; +LEVO-129 PO; +LISI10TA25 PO
== END ==
LOC: WOUNDCARE 08:15
PROVIDERS: ATTEND Family Medicine
DX: E11.621 Type 2 diabetes mellitus with foot ulcer (principal); E11.52 Type 2 diabetes mellitus with diabetic peripheral angiopathy with gangrene; L97.212 Non-pressure chronic ulcer of right calf with fat layer exposed; L97.222 Non-pressure chronic ulcer of left calf with fat layer exposed; L97.418 Non-pressure chronic ulcer of right heel and midfoot with other specified severity; L03.116 Cellulitis of left lower limb; L03.115 Cellulitis of right lower limb; I89.0 Lymphedema, not elsewhere classified; E66.01 Morbid (severe) obesity due to excess calories; N18.4 Chronic kidney disease, stage 4 (severe); E11.43 Type 2 diabetes mellitus with diabetic autonomic (poly)neuropathy; I87.333 Chronic venous hypertension (idiopathic) with ulcer and inflammation of bilateral lower extremity; I95.0 Idiopathic hypotension; Z68.34 Body mass index [BMI] 34.0-34.9, adult
CPT/HCPCS: A6197; G0463; 99214

== ENCOUNTER → 2021-09-26 | Outpatient (CLI) | payer MEDICARE ==
[~2021-09-26] MED LIST changes: +C,E,1CAP2 PO; +CEFD300C3 PO; +DOCU100C37 PO; +DOXY100C5 PO; +FERR-65 PO; +LEVO-129 PO; +LISI10TA25 PO
== END ==
LOC: WOUNDCARE 08:03
PROVIDERS: ATTEND Family Medicine
DX: L97.212 Non-pressure chronic ulcer of right calf with fat layer exposed (principal); L97.222 Non-pressure chronic ulcer of left calf with fat layer exposed; L97.418 Non-pressure chronic ulcer of right heel and midfoot with other specified severity; E11.621 Type 2 diabetes mellitus with foot ulcer; L03.115 Cellulitis of right lower limb; L03.116 Cellulitis of left lower limb; I89.0 Lymphedema, not elsewhere classified; E66.01 Morbid (severe) obesity due to excess calories; E11.22 Type 2 diabetes mellitus with diabetic chronic kidney disease; N18.4 Chronic kidney disease, stage 4 (severe); E11.43 Type 2 diabetes mellitus with diabetic autonomic (poly)neuropathy; I87.333 Chronic venous hypertension (idiopathic) with ulcer and inflammation of bilateral lower extremity; E44.0 Moderate protein-calorie malnutrition; A49.01 Methicillin susceptible Staphylococcus aureus infection, unspecified site; E11.52 Type 2 diabetes mellitus with diabetic peripheral angiopathy with gangrene
CPT/HCPCS: 11042; A6207; G0463

== ENCOUNTER → 2021-09-30 | Outpatient (CLI) | payer MEDICARE | LOC: WOUNDCARE 07:59 | PROVIDERS: ATTEND Family Medicine | DX: I89.0 Lymphedema, not elsewhere classified (principal); E11.621 Type 2 diabetes mellitus with foot ulcer; I87.333 Chronic venous hypertension (idiopathic) with ulcer and inflammation of bilateral lower extremity; I96 Gangrene, not elsewhere classified | CPT/HCPCS: 29581; A6197; A6207; G0463 ==

== ENCOUNTER → 2021-10-03 | Outpatient (CLI) | payer MEDICARE | LOC: WOUNDCARE 08:03 | PROVIDERS: ATTEND Family Medicine | DX: E11.621 Type 2 diabetes mellitus with foot ulcer (principal); L97.222 Non-pressure chronic ulcer of left calf with fat layer exposed; L97.418 Non-pressure chronic ulcer of right heel and midfoot with other specified severity; E11.52 Type 2 diabetes mellitus with diabetic peripheral angiopathy with gangrene; L03.116 Cellulitis of left lower limb; L03.115 Cellulitis of right lower limb; I89.0 Lymphedema, not elsewhere classified; E66.01 Morbid (severe) obesity due to excess calories; N18.4 Chronic kidney disease, stage 4 (severe); E11.43 Type 2 diabetes mellitus with diabetic autonomic (poly)neuropathy; I87.333 Chronic venous hypertension (idiopathic) with ulcer and inflammation of bilateral lower extremity; E44.1 Mild protein-calorie malnutrition; A49.01 Methicillin susceptible Staphylococcus aureus infection, unspecified site; Z68.34 Body mass index [BMI] 34.0-34.9, adult | CPT/HCPCS: 11042; 29581; G0463 ==

== ENCOUNTER → 2021-10-10 | Outpatient (CLI) | payer MEDICARE | LOC: WOUNDCARE 08:02 | PROVIDERS: ATTEND Family Medicine | DX: E11.621 Type 2 diabetes mellitus with foot ulcer (principal); L97.222 Non-pressure chronic ulcer of left calf with fat layer exposed; L97.418 Non-pressure chronic ulcer of right heel and midfoot with other specified severity; E11.52 Type 2 diabetes mellitus with diabetic peripheral angiopathy with gangrene; I89.0 Lymphedema, not elsewhere classified; E66.01 Morbid (severe) obesity due to excess calories; N18.4 Chronic kidney disease, stage 4 (severe); E11.43 Type 2 diabetes mellitus with diabetic autonomic (poly)neuropathy; I87.333 Chronic venous hypertension (idiopathic) with ulcer and inflammation of bilateral lower extremity; E44.0 Moderate protein-calorie malnutrition; L97.211 Non-pressure chronic ulcer of right calf limited to breakdown of skin; Z68.34 Body mass index [BMI] 34.0-34.9, adult | CPT/HCPCS: 11042; 29581; A6197; G0463 ==

== ENCOUNTER → 2021-10-17 | Outpatient (CLI) | payer MEDICARE | LOC: WOUNDCARE 08:05 | PROVIDERS: ATTEND Family Medicine | DX: E11.621 Type 2 diabetes mellitus with foot ulcer (principal); E11.22 Type 2 diabetes mellitus with diabetic chronic kidney disease; E11.43 Type 2 diabetes mellitus with diabetic autonomic (poly)neuropathy; I87.333 Chronic venous hypertension (idiopathic) with ulcer and inflammation of bilateral lower extremity; L97.222 Non-pressure chronic ulcer of left calf with fat layer exposed; L97.211 Non-pressure chronic ulcer of right calf limited to breakdown of skin; N18.4 Chronic kidney disease, stage 4 (severe); L97.418 Non-pressure chronic ulcer of right heel and midfoot with other specified severity; I89.0 Lymphedema, not elsewhere classified; E66.01 Morbid (severe) obesity due to excess calories; E44.0 Moderate protein-calorie malnutrition; Z68.34 Body mass index [BMI] 34.0-34.9, adult | CPT/HCPCS: 29581; G0463; 99212 ==

== ENCOUNTER 2021-10-18 06:50 | Emergency (ER) | payer MEDICARE ==
[~2021-10-18] VITALS: Ht 152.4 cm; Wt 87.0 kg
--- NOTE | 2021-10-18 07:22 | ED Fall/Injury ---
General Chief Complaint: Trauma-Non Activation Stated Complaint: FALL,HEAD BUMP,BACK PAIN Nursing Triage Note: TO ED PER W/C ACCOMPIED BY SON PATIENT LIVES AT [facility] WAS GETTING OUT OF CHAIR THIS AM LOST BALANCE AND FELL HITTING L SIDE OF HEAD. Source: patient Exam Limitations: no limitations History of Present Illness Date Seen by Provider: Oct 18, 2021 Time Seen by Provider: 07:00 Initial Comments Patient presents the ER with her son with chief complaint that she was against him states getting up out of her recliner and she turned to look at something that she heard which caused her lose balance and she fell backwards onto her left parietal scalp. She did not lose consciousness or have any nausea or vomiting. She is on aspirin but no blood thinners. She is not having any significant pain in her neck but has a little achiness in her back but nothing specific. She is not having any weakness numbness tingling fevers chills cough. Allergies and Home Medications Allergies Coded Allergies: erythromycin base (Verified Allergy, Unknown, 07/06/07) Patient Home Medication List Home Medication List Reviewed: Yes Aspirin (Aspirin EC) 81 Mg Tablet.dr, 81 MG PO HS, (Reported) Entered as Reported by: GINETTE RYAN on 05/15/21 110 C,E,Zinc,Copper 24/Om3/Lut/Ramona (Ocuvite Adult 50 Plus Softgel) 1 Each Capsule, 1 EACH PO DAILY, (Reported) Entered as Reported by: GINETTE RYAN on 09/19/21 1520 Carvedilol (Carvedilol) 25 Mg Tablet, 12.5 MG PO BID, (Reported) Entered as Reported by: GINETTE RYAN on 05/15/21 1102 Cefdinir (Cefdinir) 300 Mg Capsule, 300 MG PO BID, (Reported) Entered as Reported by: GINETTE RYAN on 09/19/21 1520 Cholecalciferol (Vitamin D3) (Vitamin D3) 50 Mcg Capsule, 50 MCG PO DAILY, ( Reported) Entered as Reported by: GINETTE RYAN on 05/15/21 110 Docusate Sodium (Docusate Sodium) 100 Mg Capsule, 100 MG PO BID Prescribed by: SAVANNAH DIAZ on 09/24/21 1247 Doxycycline Hyclate (Doxycycline Hyclate) 100 Mg Capsule, 100 MG PO BID, (Reported) Entered as Reported by: GINETTE RYAN on 09/19/21 1520 Ferrous Sulfate (Feosol) 325 Mg Tablet, 325 MG PO Q48H Prescribed by: SAVANNAH DIAZ on 09/24/21 1247 Glipizide (Glipizide) 5 Mg Tablet, 2.5 MG PO 0800,1200, (Reported) Entered as Reported by: GINETTE RYAN on 09/19/21 1520 Hydrocodone/Acetaminophen (Hydrocodone-Acetamin 10-325 mg) 1 Each Tablet, 1 EACH PO QID PRN for PAIN-MODERATE (5-7), (Reported) Entered as Reported by: GINETTE RYAN on 09/19/21 1520 Levothyroxine Sodium (Euthyrox) 50 Mcg Tablet, 50 MCG PO DAILY, (Reported) Entered as Reported by: GINETTE RYAN on 09/19/21 1520 Multivitamin (Multivitamin) 1 Each Tablet, 1 EACH PO 1200, (Reported) Entered as Reported by: GINETTE RYAN on 05/15/21 1102 Simvastatin (Simvastatin) 20 Mg Tablet, 20 MG PO HS, (Reported) Entered as Reported by: GINETTE RYAN on 05/15/21 1102 Review of Systems Review of Systems Constitutional: No chills, No diaphoresis Eyes: Denies Blindness, Denies Blurred Vision Ears, Nose, Mouth, Throat: denies ear pain, denies ear discharge Respiratory: No cough, No short of breath Cardiovascular: No edema, No palpitations Gastrointestinal: No abdominal pain, No dysphagia, No nausea, No vomiting Genitourinary: No discharge, No dysuria Musculoskeletal: see HPI, back pain; No joint pain All Other Systems Reviewed Negative Unless Noted: Yes Past Suvbxkt-Wvenke-Zhdfut Hx Patient Social History Tobacco Use?: No Substance use?: No Alcohol Use?: No Pt feels they are or have been: No Immunizations Up To Date First/Initial COVID19 Vaccinat: has had Second COVID19 Vaccination Bubba: has had Third COVID19 Vaccination Date: 09/2020 Past Medical History Surgeries: Yes (KNEE REPLACEMENT X3, CATARACT, HEART CATH) Gallbladder, Pacemaker Respiratory: No Cardiac: No High Cholesterol, Hypertension Neurological: No Reproductive Disorders: No Sexually Transmitted Disease: No Gastrointestinal: Yes (constipation) Musculoskeletal: Yes (BILAT KNEES) Endocrine: Yes Diabetes, Non-Insulin dep Cancer: No Psychosocial: No Integumentary: Yes (Chronic wounds of the lower extremities) Blood Disorders: No Family Medical History No Pertinent Family Hx Physical Exam Vital Signs Vital Signs - First Documented 10/18/21 06:58 Pulse 78 Resp 18 B/P (MAP) 182/80 (114) Pulse Ox 92 O2 Delivery Room Air Capillary Refill : Less Than 3 Seconds Height, Weight, BMI Height: 5'3.00" Weight: 205lbs. oz. 92.170976ll; 37.00 BMI Method:Stated General Appearance: WD/WN, no apparent distress HEENT: PERRL/EOMI, pharynx normal Neck: full range of motion, normal inspection Cardiovascular: normal peripheral pulses, regular rate, rhythm Respiratory: lungs clear, normal breath sounds, no respiratory distress, no accessory muscle use Peripheral Pulses: 2+ Radial Pulses (R), 2+ Radial Pulses (L) Gastrointestinal: normal bowel sounds, non tender, soft Neurologic/Psychiatric: alert, normal mood/affect, oriented x 3 Linda Coma Score Best Eye Response: (4) Open Spontaneously Best Verbal Response: (5) Oriented Best Motor Response: (6) Obeys Commands Mellott Total: 15 Progress/Results/Core Measures Results/Orders My Orders Orders - WILL HO Ct Head/Cervical Spine Wo (10/18/21 07:16) Vital Signs/I&O 10/18/21 06:58 Pulse 78 Resp 18 B/P (MAP) 182/80 (114) Pulse Ox 92 O2 Delivery Room Air Blood Pressure Mean: 114 Progress Progress Note : Time: 07:21 Progress Note Neurologically intact plan to get a CT of her head and C-spine. Her back spine is nontender and she has good range of motion and strength and does not need nor want any imaging of her back at this time Diagnostic Imaging Diagonstic Imaging: CT Plain Films/CT/US/NM/MRI: c-spine, head Comments [facility] [place], [place] NAME: KALLI PITTS MED REC#: [id number] PT STATUS: REG ER : 1935 PHYSICIAN: WILL HO MD ADMIT DATE: 10/18/21/ER Draft Date of Exam:10/18/21 CT HEAD/CERVICAL SPINE WO PROCEDURE: CT head and CT cervical spine without contrast. TECHNIQUE: Multiple contiguous axial images were obtained through the brain and cervical spine without the use of intravenous contrast. Sagittal and coronal reformations through the cervical spine were then performed. Auto Exposure Controls were utilized during the CT exam to meet ALARA standards for radiation dose reduction. INDICATION: Trauma, fall, pain COMPARISON: 05/14/2021 FINDINGS: Mild atrophy. No intracranial hemorrhage. No intracranial mass, mass effect, midline shift, herniation, hydrocephalus, or extra-axial fluid collection. Periventricular and subcortical white matter hypodensities are present, most consistent with mild background chronic small vessel white matter ischemic disease. Mild calcifications at the bilateral basal ganglia. No CT evidence of an acute ischemic infarction. The bilateral ocular lenses are absent. Mild background vascular calcifications. The paranasal sinuses are clear. The calvarium and extracalvarial soft tissues are unremarkable. Minimal grade 1 anterolisthesis of C7 on T1, stable from the prior examination. No new anterolisthesis or retrolisthesis. Alignment of the atlantooccipital joint is well maintained. Besides endplate degenerative changes, vertebral body heights are well-maintained. Moderate disc space height loss at C2/C3, C6/C7 and C7/T1. Additional mild scattered disc space height loss is present. No acute fracture or dislocation. No destructive osseous process. Scattered facet joint degenerative changes and uncovertebral joint hypertrophy. Multilevel neural foraminal stenosis is present, including moderate right greater than left neural foraminal stenosis at C4/C5 and moderate left neural foraminal stenosis at C6/C7. No severe osseous central canal stenosis. No apical pneumothorax. Pacer leads are partially visualized. Scattered vascular calcifications. Paraspinal soft tissues are otherwise unremarkable. IMPRESSION: No acute intracranial abnormality with mild atrophy and mild background chronic small vessel white matter ischemic disease. No acute osseous abnormality with multilevel degenerative changes within the cervical spine, as described. Dictated on workstation # [id number] Dict: 10/18/21 0738 Trans: 10/18/21 0750 [facility] [id number] Interpreted by: AYLIN LAWRENCE MD Electronically signed by: Reviewed: Reviewed by Me Departure Impression Primary Impression: Fall Qualified Codes: W19.XXXA - Unspecified fall, initial encounter Additional Impression: Left parietal scalp hematoma Qualified Codes: S00.03XA - Contusion of scalp, initial encounter Disposition: 01 HOME, SELF-CARE Condition: Stable Departure-Patient Inst. Decision time for Depature: 07:58 Referrals: SAVANNAH DIAZ DO (PCP/Family) Primary Care Physician Patient Instructions: Contusion (DC) Add. Discharge Instructions: Ice pack to the head 20 minutes on every 2 hours for the first day as necessary for pain. Tylenol Motrin. Return to the ER for confusion, or other worrisome symptoms. All discharge instructions reviewed with patient and/or family. Voiced understanding. WILL HO Oct 18, 2021 07:22
--- NOTE | 2021-10-18 07:51 | Diagnostic Imaging Report ---
PROCEDURE: CT head and CT cervical spine without contrast. TECHNIQUE: Multiple contiguous axial images were obtained through the brain and cervical spine without the use of intravenous contrast. Sagittal and coronal reformations through the cervical spine were then performed. Auto Exposure Controls were utilized during the CT exam to meet ALARA standards for radiation dose reduction. INDICATION: Trauma, fall, pain COMPARISON: 05/14/2021 FINDINGS: Mild atrophy. No intracranial hemorrhage. No intracranial mass, mass effect, midline shift, herniation, hydrocephalus, or extra-axial fluid collection. Periventricular and subcortical white matter hypodensities are present, most consistent with mild background chronic small vessel white matter ischemic disease. Mild calcifications at the bilateral basal ganglia. No CT evidence of an acute ischemic infarction. The bilateral ocular lenses are absent. Mild background vascular calcifications. The paranasal sinuses are clear. The calvarium and extracalvarial soft tissues are unremarkable. Minimal grade 1 anterolisthesis of C7 on T1, stable from the prior examination. No new anterolisthesis or retrolisthesis. Alignment of the atlantooccipital joint is well maintained. Besides endplate degenerative changes, vertebral body heights are well-maintained. Moderate disc space height loss at C2/C3, C6/C7 and C7/T1. Additional mild scattered disc space height loss is present. No acute fracture or dislocation. No destructive osseous process. Scattered facet joint degenerative changes and uncovertebral joint hypertrophy. Multilevel neural foraminal stenosis is present, including moderate right greater than left neural foraminal stenosis at C4/C5 and moderate left neural foraminal stenosis at C6/C7. No severe osseous central canal stenosis. No apical pneumothorax. Pacer leads are partially visualized. Scattered vascular calcifications. Paraspinal soft tissues are otherwise unremarkable. IMPRESSION: No acute intracranial abnormality with mild atrophy and mild background chronic small vessel white matter ischemic disease. No acute osseous abnormality with multilevel degenerative changes within the cervical spine, as described. Dictated by: Dictated on workstation # [id number]
[2021-10-18 08:06] VITALS: BP 195/101
== END 2021-10-18 08:06 | disposition home or self-care (01) ==
LOC: EDUNIT# 06:50 → ER 06:54
DX: S00.03XA Contusion of scalp, initial encounter (principal); I10 Essential (primary) hypertension; E78.00 Pure hypercholesterolemia, unspecified; E11.9 Type 2 diabetes mellitus without complications; Z95.0 Presence of cardiac pacemaker; Z79.84 Long term (current) use of oral hypoglycemic drugs; Z79.82 Long term (current) use of aspirin; Z79.899 Other long term (current) drug therapy; W08.XXXA Fall from other furniture, initial encounter
CPT/HCPCS: 70450; 72125

== ENCOUNTER → 2021-10-24 | Outpatient (CLI) | payer MEDICARE | LOC: WOUNDCARE 08:04 | PROVIDERS: ATTEND Family Medicine | DX: L97.222 Non-pressure chronic ulcer of left calf with fat layer exposed (principal); L97.418 Non-pressure chronic ulcer of right heel and midfoot with other specified severity; E11.621 Type 2 diabetes mellitus with foot ulcer; I89.0 Lymphedema, not elsewhere classified; E66.01 Morbid (severe) obesity due to excess calories; E11.22 Type 2 diabetes mellitus with diabetic chronic kidney disease; N18.4 Chronic kidney disease, stage 4 (severe); E11.43 Type 2 diabetes mellitus with diabetic autonomic (poly)neuropathy; I87.333 Chronic venous hypertension (idiopathic) with ulcer and inflammation of bilateral lower extremity; E44.0 Moderate protein-calorie malnutrition; L97.211 Non-pressure chronic ulcer of right calf limited to breakdown of skin; E11.52 Type 2 diabetes mellitus with diabetic peripheral angiopathy with gangrene | CPT/HCPCS: 29581; A6197; A6253; G0463 ==

== ENCOUNTER 2021-10-29 06:48 | Emergency (ER) | payer MEDICARE ==
[~2021-10-29] VITALS: Ht 154 cm; Wt 87.0 kg
--- NOTE | 2021-10-29 07:42 | ED Fall/Injury ---
General Chief Complaint: Trauma-Non Activation Stated Complaint: FALL,HEAD BUMP,BACK PAIN Nursing Triage Note: ARRIVED VIA WC TO ROOM 03. STATES SHE FELL THIS MORNING GETTING CLOTHES OUT OF HER CLOSET. STATES SHE HIT HER HEAD. DENIES NECK PAIN. COMPLAINS OF PAIN ALL OVER BUT MAINLY IN HER BACK. Source: patient Exam Limitations: no limitations (HUGO MORRELL MED STUDENT) History of Present Illness Date Seen by Provider: Oct 29, 2021 Time Seen by Provider: 07:37 Initial Comments Mrs. Pitts is an 86 yo female with PMH of Diabetes and HTN who presents this morning after a fall. She states that she normally walks with a walker at home. This morning she was taking some clothes out of the dryer and fell backwards hitting her head. She did not have LOC. She last fell 2 weeks ago and has a history of multiple falls. She states she has pain in her low back and tailbone. She does not complain of any head, cervical, or thoracic pain. She states its kind of hard to tell what exactly hurts though without being able to get up and walk. She does take asprin at home. ROS + Low back pain, diabteic wounds on legs, hematoma on head - Fever, Chills, ALMANZAR, Vision changes, CP, Palpatations, SOB, Abdominal pain, Changes in bowels or bladder, rashes (HUGO MORRELL MED STUDENT) Initial Comments Patient denies any prodrome to her fall such as lightheadedness, shortness of breath, chest pain, etc. She does usually walk with a walker. She is a resident of [facility] assisted living. Her primary care provider is Dr. DIAZ. She does have peripheral neuropathy, chronic edema, and chronic wounds of the lower extremities which may be contributing to her falls. She does receive wound care services. (RELL ARNOLD MD) Allergies and Home Medications Allergies Coded Allergies: erythromycin base (Verified Allergy, Unknown, 07/06/07) Patient Home Medication List Home Medication List Reviewed: Yes (RELL ARNOLD MD) Aspirin (Aspirin EC) 81 Mg Tablet., 81 MG PO HS, (Reported) Entered as Reported by: GINETTE RYAN on 05/15/21 1102 C,E,Zinc,Copper 24/Om3/Lut/Ramona (Ocuvite Adult 50 Plus Softgel) 1 Each Capsule, 1 EACH PO DAILY, (Reported) Entered as Reported by: GINETTE RYAN on 09/19/21 152 Carvedilol (Carvedilol) 25 Mg Tablet, 12.5 MG PO BID, (Reported) Entered as Reported by: GINETTE RYAN on 05/15/21 110 Cefdinir (Cefdinir) 300 Mg Capsule, 300 MG PO BID, (Reported) Entered as Reported by: GINETTE RYAN on 09/19/21 152 Cholecalciferol (Vitamin D3) (Vitamin D3) 50 Mcg Capsule, 50 MCG PO DAILY, (Reported) Entered as Reported by: GINETTE RYNA on 05/15/21 110 Docusate Sodium (Docusate Sodium) 100 Mg Capsule, 100 MG PO BID Prescribed by: SAVANNAH DIAZ on 09/24/21 1247 Doxycycline Hyclate (Doxycycline Hyclate) 100 Mg Capsule, 100 MG PO BID, (Reported) Entered as Reported by: GINETTE RYAN on 09/19/21 152 Ferrous Sulfate (Feosol) 325 Mg Tablet, 325 MG PO Q48H Prescribed by: SAVANNAH DIAZ on 09/24/21 1247 Glipizide (Glipizide) 5 Mg Tablet, 2.5 MG PO 0800,1200, (Reported) Entered as Reported by: GINETTE RYAN on 09/19/21 152 Hydrocodone/Acetaminophen (Hydrocodone-Acetamin 10-325 mg) 1 Each Tablet, 1 EACH PO QID PRN for PAIN-MODERATE (5-7), (Reported) Entered as Reported by: GINETTE RYAN on 09/19/21 152 Levothyroxine Sodium (Euthyrox) 50 Mcg Tablet, 50 MCG PO DAILY, (Reported) Entered as Reported by: GINETTE RYAN on 09/19/21 152 Multivitamin (Multivitamin) 1 Each Tablet, 1 EACH PO 1200, (Reported) Entered as Reported by: GINETTE RYAN on 05/15/21 110 Simvastatin (Simvastatin) 20 Mg Tablet, 20 MG PO HS, (Reported) Entered as Reported by: GINETTE RYAN on 05/15/21 110 Review of Systems Review of Systems Constitutional: see HPI Eyes: See HPI Ears, Nose, Mouth, Throat: see HPI Respiratory: see HPI Cardiovascular: see HPI Gastrointestinal: see HPI Genitourinary: see HPI Musculoskeletal: see HPI Skin: see HPI Psychiatric/Neurological: See HPI (HUGO MORRELL) Past Vzxatjm-Lmpnpx-Jptpte Hx Patient Social History Tobacco Use?: No Substance use?: No Alcohol Frequency: Rarely (HUGO MORRELL) Immunizations Up To Date First/Initial COVID19 Vaccinat: has had Second COVID19 Vaccination Bubba: has had Third COVID19 Vaccination Date: 09/2020 COVID19 Vaccine Fish Cake Maker: MODERNA (HUGO MORRELL) Past Medical History Surgeries: Yes (KNEE REPLACEMENT X3, CATARACT, HEART CATH) Gallbladder, Pacemaker Respiratory: No Cardiac: No High Cholesterol, Hypertension Neurological: No Reproductive Disorders: No Sexually Transmitted Disease: No Gastrointestinal: Yes (constipation) Musculoskeletal: Yes (BILAT KNEES) Endocrine: Yes Diabetes, Non-Insulin dep Cancer: No Psychosocial: No Integumentary: Yes (Chronic wounds of the lower extremities) Blood Disorders: No (HUGO MORRELL) Cardiac: Yes (Possible arrhythmia) Cardiomyopathy, Coronary Artery Disease Endocrine: Yes Hypothyroidsim (RELL ARNOLD MD) Family Medical History No Pertinent Family Hx (HUGO MORRELL) Physical Exam Vital Signs Vital Signs - First Documented 10/29/21 06:58 Temp 36.3 Pulse 72 Resp 16 B/P (MAP) 155/81 (105) Pulse Ox 92 O2 Delivery Room Air (RELL ARNOLD MD) Vital Signs Capillary Refill : Less Than 3 Seconds (HUGO MORRELL) Height, Weight, BMI Height: 5'3.00" Weight: 205lbs. oz. 92.819088co; 36.00 BMI Method:Stated General Appearance: WD/WN, no apparent distress, obese HEENT: PERRL/EOMI Neck: non-tender, full range of motion, normal inspection Cardiovascular: regular rate, rhythm, no edema, no murmur Respiratory: chest non-tender, lungs clear, normal breath sounds, no respiratory distress, no accessory muscle use Peripheral Pulses: 2+ Radial Pulses (R), 2+ Radial Pulses (L) Gastrointestinal: normal bowel sounds, non tender, soft Back: other (No cervical or thoracic tenderness on exam. Pt states that lumbar and tailbone area is a bit more tender on exam.) Extremities: other (No tenderness in shoulders, arms, hips, knees or feet on palpation) Neurologic/Psychiatric: alert, normal mood/affect, oriented x 3 Skin: normal color, warm/dry, other (Legs wrapped with chroinic diabetic wounds) (HUGO MORRELL MED STUDENT) Linda Coma Score Best Eye Response: (4) Open Spontaneously Best Verbal Response: (5) Oriented Best Motor Response: (6) Obeys Commands (HUGO MORRELL MED STUDENT) Progress/Results/Core Measures Results/Orders Lab Results Laboratory Tests Test 10/29/21 08:03 10/29/21 08:10 Range/Units White Blood Count 7.2 4.3-11.0 10^3/uL Red Blood Count 3.13 L 3.80-5.11 10^6/uL Hemoglobin 10.0 L 11.5-16.0 g/dL Hematocrit 33 L 35-52 % Mean Corpuscular Volume 106 H 80-99 fL Mean Corpuscular Hemoglobin 32 25-34 pg Mean Corpuscular Hemoglobin Concent 30 L 32-36 g/dL Red Cell Distribution Width 16.1 H 10.0-14.5 % Platelet Count 220 130-400 10^3/uL Mean Platelet Volume 9.5 9.0-12.2 fL Immature Granulocyte % (Auto) 1 % Neutrophils (%) (Auto) 70 42-75 % Lymphocytes (%) (Auto) 15 12-44 % Monocytes (%) (Auto) 8 0-12 % Eosinophils (%) (Auto) 5 0-10 % Basophils (%) (Auto) 1 0-10 % Neutrophils # (Auto) 5.0 1.8-7.8 10^3/uL Lymphocytes # (Auto) 1.1 1.0-4.0 10^3/uL Monocytes # (Auto) 0.6 0.0-1.0 10^3/uL Eosinophils # (Auto) 0.3 0.0-0.3 10^3/uL Basophils # (Auto) 0.1 0.0-0.1 10^3/uL Immature Granulocyte # (Auto) 0.1 0.0-0.1 10^3/uL Sodium Level 141 135-145 MMOL/L Potassium Level 4.0 3.6-5.0 MMOL/L Chloride Level 107 98-107 MMOL/L Carbon Dioxide Level 25 21-32 MMOL/L Anion Gap 9 5-14 MMOL/L Blood Urea Nitrogen 15 7-18 MG/DL Creatinine 0.81 0.60-1.30 MG/DL Estimat Glomerular Filtration Rate 71 BUN/Creatinine Ratio 19 Glucose Level 138 H 70-105 MG/DL Calcium Level 9.0 8.5-10.1 MG/DL Corrected Calcium 9.4 8.5-10.1 MG/DL Magnesium Level 2.1 1.6-2.4 MG/DL Total Bilirubin 1.6 H 0.1-1.0 MG/DL Aspartate Amino Transf (AST/SGOT) 34 5-34 U/L Alanine Aminotransferase (ALT/SGPT) 37 0-55 U/L Alkaline Phosphatase 79 40-136 U/L Total Protein 6.1 L 6.4-8.2 GM/DL Albumin 3.5 3.2-4.5 GM/DL Thyroid Stimulating Hormone (TSH) 4.86 0.35-4.94 UIU/ML Free Thyroxine 1.23 0.70-1.48 NG/DL Urine Color YELLOW Urine Clarity CLEAR Urine pH 6.0 5-9 Urine Specific [place] 1.020 1.016-1.022 Urine Protein NEGATIVE NEGATIVE Urine Glucose (UA) NEGATIVE NEGATIVE Urine Ketones TRACE H NEGATIVE Urine Nitrite NEGATIVE NEGATIVE Urine Bilirubin NEGATIVE NEGATIVE Urine Urobilinogen 0.2 < = 1.0 MG/DL Urine Leukocyte Esterase NEGATIVE NEGATIVE Urine RBC (Auto) NEGATIVE NEGATIVE Urine RBC RARE /HPF Urine WBC RARE /HPF Urine Squamous Epithelial Cells 2-5 /HPF Urine Crystals PRESENT H /LPF Urine Amorphous Sediment RARE MINE URATES H /LPF Urine Bacteria NEGATIVE /HPF Urine Casts NONE /LPF Urine Mucus NEGATIVE /LPF Urine Culture Indicated NO (RELL ARNOLD MD) My Orders Orders - RELL ARNOLD MD Ct Head/Cervical Spine Wo (10/29/21 07:41) Ct Lumbar Spine Wo (10/29/21 07:41) Ct Pelvis Wo (10/29/21 07:41) Cbc With Automated Diff (10/29/21 07:41) Comprehensive Metabolic Panel (10/29/21 07:41) Magnesium (10/29/21 07:41) Ua Culture If Indicated (10/29/21 07:41) Thyroid Stimulating Hormone (10/29/21 07:44) Free T4 (Free Thyroxine) (10/29/21 07:44) Ed Iv/Invasive Line Start (10/29/21 07:44) Monitor-Rhythm Ecg Trace Only (10/29/21 07:44) Schafer Cath (10/29/21 10:04) (RELL ARNOLD MD) Vital Signs/I&O 10/29/21 10/29/21 06:58 11:59 Temp 36.3 Pulse 72 78 Resp 16 16 B/P (MAP) 155/81 (105) 188/99 Pulse Ox 92 98 O2 Delivery Room Air Room Air (RELL ARNOLD MD) Blood Pressure Mean: 105 Progress Progress Note : Time: 08:30 Progress Note Due to pts recent history of multiple falls will work up possible cause of the falls including possible UTI or other infection, electrolytes, thyroid, and arrhythmia. Will get CT scan of pts head and entire spine to rule out any injury to the spinal column. Also started pt on telemetry. Report of lumbar CT completed showing "Acute slightly retropulsed L1 superior endplate two column fracture with adjacent paraspinal hematoma." Negative for intercranial abnormalities, cervical, thoracic, or pelvic fractures. Lab work does not show any UTI, electrolyte abnormalities, or abnormal TSH. She is a little anemic at 10.0 She appears to be anemic at baseline and she is on the higher side of her normal values. Spoke with patient regarding next steps. She states she would prefer to go to [facility] if she was to be transferred since thats where she got her pacemaker. She is unsure at this time that if some sort of surgical or procedural interve ntion was indicated she would be open to considering it but unsure for certain if she would like to do that and be transferred. Also placing schafer due to not wanting her to get up to urinate. Spoke with pt and she is only taking asprin right now, no other blood thinners. (HUGO MORRELL MED STUDENT) Progress Note #1: Time: 10:34 Progress Note Patient appears neurologically intact at this time. She retains sensation and movement of her feet. Schafer catheter was placed so she did not have to get up to urinate. A 2 column fracture of L1 was identified on the CT scan. There was suspicion of small hematoma and slight retropulsion. Because this is a 2 column fracture, I am seeking consultation with neurosurgery. Patient requested [facility]. I have reviewed the case with Dr. Mcnair. Images have been clouded, and he will review the films. Disposition will be determined after his review of films. We did discuss patient's medications with her son. He called the assisted living facility and confirmed she is not presently on any anticoagulation, only aspirin. Progress Note #2: Time: 11:[address] images were reviewed by Dr. Mcnair. He believes there is some potential for interventions that may help such as kyphoplasty. He recommends transferring to the [facility] for further evaluation. I have discussed this with the patient and her son. Both are agreeable to transfer. In my prior discussion with the patient, she stated her consent for procedures would just depend on the particular procedure and how she was doing at the time. She was open to discussion for a variety of therapies. Patient did inform us she has a pacemaker. She is uncertain if it is MRI compatible. She states the pacemaker was placed at [facility] [place]. Dr. Camejo is her boat designer/electroph ysiologist. (RELL ARNOLD MD) Diagnostic Imaging Diagonstic Imaging: CT Plain Films/CT/US/NM/MRI: c-spine, head Comments NAME: [facility] REC#: [id number] PT STATUS: REG ER : 1935 PHYSICIAN: RELL ARNOLD MD ADMIT DATE: 10/29/21/ER Draft Date of Exam:10/29/21 CT HEAD/CERVICAL SPINE WO EXAMINATION: CT head and CT cervical spine without contrast. TECHNIQUE: Multiple contiguous axial images were obtained through the brain and cervical spine without the use of intravenous contrast. Sagittal and coronal reformations through the cervical spine were then performed. All CT scans use one or more of the following dose optimizing techniques: automated exposure control, MA and/or KvP adjustment based on patient size and exam type or iterative reconstruction. HISTORY: Head and neck injury COMPARISON: 10/18/2021 FINDINGS: The diallo-white matter differentiation is normal. No mass effect or midline shift. The ventricles are normal in size and configuration. Basilar cisterns are patent. There are no intra- or extra-axial fluid collections. There is no intracranial hemorrhage. The orbits are normal. Paranasal sinuses are normal. Mastoid air cells are clear. No soft tissue abnormality is seen. No osseus lesions or fractures are seen. There is mild anterolisthesis of C3 on C4 and C7 on T1. There is no traumatic malalignment. No fracture is seen. Vertebral body heights are normal. The craniocervical junction is normal. There is severe degenerative disease in the cervical spine. There is no spinal canal stenosis. No soft tissue abnormality is seen in the neck. Limited views of the superior thorax are normal. IMPRESSION: 1. No acute intracranial abnormality. 2. No cervical spine fracture. Dictated on workstation # [id number] Dict: 10/29/21 0853 Trans: 10/29/21 0911 [id number] Interpreted by: MIRIAM HARPER MD Diagonstic Imaging: CT Plain Films/CT/US/NM/MRI: other (Lumbar spine) Comments NAME: [facility] REC#: [id number] PT STATUS: REG ER : 1935 PHYSICIAN: RELL ARNOLD MD ADMIT DATE: 10/29/21/ER Signed Date of Exam:10/29/21 CT LUMBAR SPINE WO PROCEDURE: CT lumbar spine without contrast. TECHNIQUE: Multiple contiguous axial images were obtained through the lumbar spine without the use of intravenous contrast. Sagittal and coronal reformations were then performed. Auto Exposure Controls were utilized during the CT exam to meet ALARA standards for radiation dose reduction. INDICATION: Fall. Back pain. COMPARISON: CT abdomen and pelvis performed on 03/29/2020. FINDINGS: There is an acute L1 superior endplate fracture at its middle third resulting in about a 10 to 15% stature loss. The posterior cortex of its superior endplate is slightly retropulsed at 1 to 2 mm but no substantial canal stenosis. The pedicles and lamina are intact. There is no evidence for involvement of the bony third column. The remaining lumbar statures are normal. No additional fracture in the lumbar spine. There is a paraspinal hematoma associated with the L1 fracture. No appreciable epidural hematoma. The visualized intra and retroperitoneal compartments of the abdomen show no obvious hemorrhage. There is chronic degenerative grade 1 anterolisthesis of L4 on L5 with severe lower lumbar spondylosis. L5-S1: There is severe spondylosis with disc desiccation, stature loss, and vacuum gas with endplate sclerosis, osteophytes, and facet disease. The findings, however, result in moderate canal and mild to moderate biforaminal stenosis. At L4-L5, grade 1 degenerative anterolisthesis persists. There is disc bulge, endplate osteophytes, facet arthrosis, and buckled thickened ligamenta flava resulting in very severe central canal stenosis which may have increased. There is also severe biforaminal narrowing. At L3-L4, there is moderate to severe canal stenosis owing to facet arthrosis, disc bulge, and endplate osteophytes. There is moderate biforaminal narrowing. At L2-L3, buckled thickened ligamenta flava is largely accounting for severe canal stenosis with moderate right and mild left foraminal narrowing. At L1-L2, disc bulge, endplate osteophytes, and facet arthrosis result in moderate to severe canal stenosis. There is moderate biforaminal narrowing. At the T12-L1 level, the retropulsed endplate, disc bulge, and facet arthrosis result in mild to moderate canal and mild biforaminal stenosis. IMPRESSION: 1. Acute slightly retropulsed L1 superior endplate two column fracture with adjacent paraspinal hematoma. No acute epidural fluid collection. 2. There are superimposed chronic advanced degenerative changes throughout the lumbar spine resulting in multilevel substantial degrees of spinal canal and chronic neuroforaminal stenoses with chronic degenerative L4 and L5 listhesis. No additional fracture. 3. The report was called to TANNER Jin, in the [facility] by [email or web address]@9:07 AM. Dictated by: Dictated on workstation # [id number] Dict: 10/29/21 0848 Trans: 10/29/21929 [id number] Interpreted by: MARY BUCKLEY Electronically signed by: MARY BUCKLEY 10/29/21929 Diagonstic Imaging: CT Plain Films/CT/US/NM/MRI: pelvis Comments NAME: [facility] REC#: [id number] PT STATUS: REG ER : 1935 PHYSICIAN: RELL ARNOLD MD ADMIT DATE: 10/29/21/ER Signed Date of Exam:10/29/21 CT PELVIS WO PROCEDURE: CT pelvis without contrast. TECHNIQUE: Multiple contiguous axial images were obtained through the pelvis without the use of intravenous contrast. Sagittal and coronal reformations were performed. Auto Exposure Controls were utilized during the CT exam to meet ALARA standards for radiation dose reduction. INDICATION: Trauma with back and pelvic pain. COMPARISON: Abdominal/pelvic CT dated 03/29/2020. FINDINGS: The superior and inferior pubic rami are intact. No symphyseal or SI joint diastasis. No pelvic intra or extraperitoneal hemorrhage. No findings of intramuscular hematoma. The femoral heads are directed into the acetabula bilaterally. No acetabular injury. The proximal femurs appear intact. No pelvic fracture or dislocation. Incidental periumbilical fatty abdominal wall hernias and noninflamed diverticulosis as well as chronic uterine calcifications, likely old fibroid residua. IMPRESSION: No pelvic fracture or hematoma is demonstrated. Dictated by: Dictated on workstation # [id number] Dict: 10/29/21 0855 Trans: 10/29/21 0930 [id number] Interpreted by: MARY BUCKLEY Electronically signed by: MARY BUCKLEY 10/29/2130 (RELL ARNOLD MD) Departure Impression Primary Impression: Closed L1 vertebral fracture Qualified Codes: S32.018A - Other fracture of first lumbar vertebra, initial encounter for closed fracture Additional Impressions: Fall on same level Qualified Codes: W18.30XA - Fall on same level, unspecified, initial encounter Frequent falls Disposition: XF [facility]-TRM HOSP Condition: Stable Transfer Transfer Reason: Exceeds level of care Time Spoke to Accepting Phy: 10:34 Transfer Progress Notes Transfer accepted by Dr. Gann (neurosurgeon) and Dr. Styles (ER provider). Transfer Time: 11:59 Transfer Facility: [facility] (RELL ARNOLD MD) Departure-Patient Inst. Referrals: SAVANNAH DIAZ DO (PCP/Family) Primary Care Physician Medical Student Attestation and Attending Note: I have personally interviewed and examined this patient along with Hugo Crellin, MS4. I have reviewed student documentation including history, physical, and assessments. I agree with the documentation except where otherwise noted. Exam: General: Alert, oriented, no acute distress, well developed HEENT: Normocephalic and atraumatic Neck: Nontender, normal to inspection Heart: Regular rate and rhythm with subtle murmur, significant lower extremity edema Lungs: Clear to auscultation bilaterally with normal effort Abdomen: Soft, nontender, nondistended, normal bowel sounds Neuropsych: Alert, oriented, no focal deficits Extremities: Lower extremity edema with wound dressings in place Skin: Warm and dry without rashes (RELL ARNOLD MD) [facility] STUDENT Oct 29, 2021 07:42 RELL ARNOLD MD Oct 29, 2021 10:35
[2021-10-29 08:09] LABS: BASOPHILS # (AUTO) 0.1 10^3/uL (0.0-0.1); BASOPHILS % (AUTO) 1 % (0-10); EOSINOPHILS # (AUTO) 0.3 10^3/uL (0.0-0.3); EOSINOPHILS % (AUTO) 5 % (0-10); HEMATOCRIT 33 % (35-52); LYMPHOCYTES # (AUTO) 1.1 10^3/uL (1.0-4.0); LYMPHOCYTES % (AUTO) 15 % (12-44); MEAN CORPUSCULAR HEMOGLOBIN 32 pg (25-34); MEAN CORPUSCULAR HGB CONC 30 g/dL (32-36); MEAN CORPUSCULAR VOLUME 106 fL (80-99); MEAN PLATELET VOLUME 9.5 fL (9.0-12.2); MONOCYTES # (AUTO) 0.6 10^3/uL (0.0-1.0); MONOCYTES % (AUTO) 8 % (0-12); NEUTROPHILS % (AUTO) 70 % (42-75); PLATELET COUNT 220 10^3/uL (130-400); WHITE BLOOD COUNT 7.2 10^3/uL (4.3-11.0)
[2021-10-29 08:34] LABS: ALBUMIN 3.5 GM/DL (3.2-4.5)
[2021-10-29 08:37] LABS: TOTAL PROTEIN 6.1 GM/DL (6.4-8.2)
[2021-10-29 08:37] LABS: BILIRUBIN,URINE NEGATIVE (NEGATIVE); CLARITY,URINE CLEAR; COLOR,URINE YELLOW; GLUCOSE, URINE (UA) NEGATIVE (NEGATIVE); KETONES,URINE TRACE (NEGATIVE); LEUKOCYTE ESTERASE ,URINE NEGATIVE (NEGATIVE); NITRITE,URINE NEGATIVE (NEGATIVE); PROTEIN,URINE NEGATIVE (NEGATIVE)
[2021-10-29 08:39] LABS: BILIRUBIN,TOTAL 1.6 MG/DL (0.1-1.0)
[2021-10-29 08:40] LABS: CREATININE SERUM 0.81 MG/DL (0.60-1.30)
[2021-10-29 08:44] LABS: MAGNESIUM 2.1 MG/DL (1.6-2.4)
[2021-10-29 08:51] LABS: AMORPHOUS SEDIMENT,UR RARE AMOR URATES /LPF; BACTERIA,URINE NEGATIVE /HPF; RBC,URINE RARE /HPF; WBC,URINE RARE /HPF
[2021-10-29 09:06] LABS: FREE T4 (FREE THYROXINE) 1.23 NG/DL (0.70-1.48)
--- NOTE | 2021-10-29 09:09 | Diagnostic Imaging Report ---
PROCEDURE: CT lumbar spine without contrast. TECHNIQUE: Multiple contiguous axial images were obtained through the lumbar spine without the use of intravenous contrast. Sagittal and coronal reformations were then performed. Auto Exposure Controls were utilized during the CT exam to meet ALARA standards for radiation dose reduction. INDICATION: Fall. Back pain. COMPARISON: CT abdomen and pelvis performed on 03/29/2020. FINDINGS: There is an acute L1 superior endplate fracture at its middle third resulting in about a 10 to 15% stature loss. The posterior cortex of its superior endplate is slightly retropulsed at 1 to 2 mm but no substantial canal stenosis. The pedicles and lamina are intact. There is no evidence for involvement of the bony third column. The remaining lumbar statures are normal. No additional fracture in the lumbar spine. There is a paraspinal hematoma associated with the L1 fracture. No appreciable epidural hematoma. The visualized intra and retroperitoneal compartments of the abdomen show no obvious hemorrhage. There is chronic degenerative grade 1 anterolisthesis of L4 on L5 with severe lower lumbar spondylosis. L5-S1: There is severe spondylosis with disc desiccation, stature loss, and vacuum gas with endplate sclerosis, osteophytes, and facet disease. The findings, however, result in moderate canal and mild to moderate biforaminal stenosis. At L4-L5, grade 1 degenerative anterolisthesis persists. There is disc bulge, endplate osteophytes, facet arthrosis, and buckled thickened ligamenta flava resulting in very severe central canal stenosis which may have increased. There is also severe biforaminal narrowing. At L3-L4, there is moderate to severe canal stenosis owing to facet arthrosis, disc bulge, and endplate osteophytes. There is moderate biforaminal narrowing. At L2-L3, buckled thickened ligamenta flava is largely accounting for severe canal stenosis with moderate right and mild left foraminal narrowing. At L1-L2, disc bulge, endplate osteophytes, and facet arthrosis result in moderate to severe canal stenosis. There is moderate biforaminal narrowing. At the T12-L1 level, the retropulsed endplate, disc bulge, and facet arthrosis result in mild to moderate canal and mild biforaminal stenosis. IMPRESSION: 1. Acute slightly retropulsed L1 superior endplate two column fracture with adjacent paraspinal hematoma. No acute epidural fluid collection. 2. There are superimposed chronic advanced degenerative changes throughout the lumbar spine resulting in multilevel substantial degrees of spinal canal and chronic neuroforaminal stenoses with chronic degenerative L4 and L5 listhesis. No additional fracture. 3. The report was called to TANNER Jin, in the [facility] by [email or web address]@9:07 AM. Dictated by: Dictated on workstation # [id number]
--- NOTE | 2021-10-29 09:10 | Diagnostic Imaging Report ---
PROCEDURE: CT pelvis without contrast. TECHNIQUE: Multiple contiguous axial images were obtained through the pelvis without the use of intravenous contrast. Sagittal and coronal reformations were performed. Auto Exposure Controls were utilized during the CT exam to meet ALARA standards for radiation dose reduction. INDICATION: Trauma with back and pelvic pain. COMPARISON: Abdominal/pelvic CT dated 03/29/2020. FINDINGS: The superior and inferior pubic rami are intact. No symphyseal or SI joint diastasis. No pelvic intra or extraperitoneal hemorrhage. No findings of intramuscular hematoma. The femoral heads are directed into the acetabula bilaterally. No acetabular injury. The proximal femurs appear intact. No pelvic fracture or dislocation. Incidental periumbilical fatty abdominal wall hernias and noninflamed diverticulosis as well as chronic uterine calcifications, likely old fibroid residua. IMPRESSION: No pelvic fracture or hematoma is demonstrated. Dictated by: Dictated on workstation # [id number]
--- NOTE | 2021-10-29 09:11 | Diagnostic Imaging Report ---
EXAMINATION: CT head and CT cervical spine without contrast. TECHNIQUE: Multiple contiguous axial images were obtained through the brain and cervical spine without the use of intravenous contrast. Sagittal and coronal reformations through the cervical spine were then performed. All CT scans use one or more of the following dose optimizing techniques: automated exposure control, MA and/or KvP adjustment based on patient size and exam type or iterative reconstruction. HISTORY: Head and neck injury COMPARISON: 10/18/2021 FINDINGS: The diallo-white matter differentiation is normal. No mass effect or midline shift. The ventricles are normal in size and configuration. Basilar cisterns are patent. There are no intra- or extra-axial fluid collections. There is no intracranial hemorrhage. The orbits are normal. Paranasal sinuses are normal. Mastoid air cells are clear. No soft tissue abnormality is seen. No osseus lesions or fractures are seen. There is mild anterolisthesis of C3 on C4 and C7 on T1. There is no traumatic malalignment. No fracture is seen. Vertebral body heights are normal. The craniocervical junction is normal. There is severe degenerative disease in the cervical spine. There is no spinal canal stenosis. No soft tissue abnormality is seen in the neck. Limited views of the superior thorax are normal. IMPRESSION: 1. No acute intracranial abnormality. 2. No cervical spine fracture. Dictated by: Dictated on workstation # [id number]
[2021-10-29 11:59] VITALS: BP 188/99
== END 2021-10-29 11:59 | disposition short-term general hospital (02) ==
LOC: EDUNIT# 06:48 → ER 06:50
DX: S32.018A Other fracture of first lumbar vertebra, initial encounter for closed fracture (principal); R29.6 Repeated falls; E66.9 Obesity, unspecified; Z68.36 Body mass index [BMI] 36.0-36.9, adult; W18.30XA Fall on same level, unspecified, initial encounter
CPT/HCPCS: 36415; 51702; 70450; 72125; 72131; 72192; 80053; 81000; 83735; 84439; 84443; 85025; 93041

== ENCOUNTER → 2021-11-07 | Outpatient (CLI) | payer MEDICARE | LOC: WOUNDCARE 09:40 | PROVIDERS: ATTEND Family Medicine | DX: L97.222 Non-pressure chronic ulcer of left calf with fat layer exposed (principal); E11.621 Type 2 diabetes mellitus with foot ulcer; I89.0 Lymphedema, not elsewhere classified; E66.01 Morbid (severe) obesity due to excess calories; E11.22 Type 2 diabetes mellitus with diabetic chronic kidney disease; N18.4 Chronic kidney disease, stage 4 (severe); E11.43 Type 2 diabetes mellitus with diabetic autonomic (poly)neuropathy; I87.332 Chronic venous hypertension (idiopathic) with ulcer and inflammation of left lower extremity; E44.0 Moderate protein-calorie malnutrition; E11.52 Type 2 diabetes mellitus with diabetic peripheral angiopathy with gangrene | CPT/HCPCS: A6197; A6253; G0463; 99212 ==

== ENCOUNTER → 2021-11-18 | Outpatient (CLI) | payer MEDICARE | LOC: WOUNDCARE 10:18 | PROVIDERS: ATTEND Family Medicine | DX: L97.222 Non-pressure chronic ulcer of left calf with fat layer exposed (principal); E11.621 Type 2 diabetes mellitus with foot ulcer; I89.0 Lymphedema, not elsewhere classified; E66.01 Morbid (severe) obesity due to excess calories; E11.22 Type 2 diabetes mellitus with diabetic chronic kidney disease; N18.4 Chronic kidney disease, stage 4 (severe); E11.43 Type 2 diabetes mellitus with diabetic autonomic (poly)neuropathy; I87.332 Chronic venous hypertension (idiopathic) with ulcer and inflammation of left lower extremity; E44.0 Moderate protein-calorie malnutrition | CPT/HCPCS: 99212 ==

== ENCOUNTER 2022-01-31 12:40 | Observation (INO) | payer MEDICARE ==
[~2022-01-31] VITALS: Ht 152.4 cm; Wt 98.7 kg
--- NOTE | 2022-01-31 12:54 | ED Respiratory ---
General Chief Complaint: Respiratory Problems Stated Complaint: SOB Source: patient Exam Limitations: no limitations History of Present Illness Date Seen by Provider: January 31, 2022 Time Seen by Provider: 12:41 Initial Comments Patient is an 86-year-old female who presents to the emergency department by ambulance today with a chief complaint of shortness of breath. She states she has been feeling short of breath over the last several days. She does not note that her legs are any more swollen than usual however on examination they are quite swollen. She does not have productive cough. She does not have chest pain. She feels a little generally weak. She is on Lasix daily currently. No reported fevers or chills. She is COVID vaccinated with a booster. She did not get a fourth shot. No burning with urination but she does have increased frequency related to Lasix. No diarrhea she actually states that she is a little constipated. No runny nose, sore throat or nasal congestion. She does not wear oxygen. She does have a cardiac history, has had angiogram by Dr. Berkowitz. She also has seen the silk opener at [place] and has a defibrillator in place. Room air saturations per EMS 94/95% prior to arrival. All other review of systems reviewed and negative except as stated. Timing/Duration: week Severity: moderate Prior Episodes/Possible Cause: occasional episodes Modifying Factors: Worse With Lying Down Associated Symptoms: shortness of breath Allergies and Home Medications Allergies Coded Allergies: erythromycin base (Verified Allergy, Unknown, 07/06/07) Patient Home Medication List Home Medication List Reviewed: Yes Aspirin (Aspirin EC) 81 Mg Tablet.dr, 81 MG PO HS, (Reported) Entered as Reported by: GINETTE RYAN on 05/15/211101 C,E,Zinc,Copper 24/Om3/Lut/Ramona (Ocuvite Adult 50 Plus Softgel) 1 Each Capsule, 1 EACH PO DAILY, (Reported) Entered as Reported by: GINETTE RYAN on 09/19/21 1520 Carvedilol (Carvedilol) 25 Mg Tablet, 12.5 MG PO BID, (Reported) Entered as Reported by: GINETTE RYAN on 05/15/21 110 Cefdinir (Cefdinir) 300 Mg Capsule, 300 MG PO BID, (Reported) Entered as Reported by: GINETTE RYAN on 09/19/21 1520 Cholecalciferol (Vitamin D3) (Vitamin D3) 50 Mcg Capsule, 50 MCG PO DAILY, (Reported) Entered as Reported by: GINETTE RYAN on 05/15/21 110 Docusate Sodium (Docusate Sodium) 100 Mg Capsule, 100 MG PO BID Prescribed by: SAVANNAH DIAZ on 09/24/21 1247 Doxycycline Hyclate (Doxycycline Hyclate) 100 Mg Capsule, 100 MG PO BID, (Reported) Entered as Reported by: GINETTE RYAN on 09/19/21 1520 Ferrous Sulfate (Feosol) 325 Mg Tablet, 325 MG PO Q48H Prescribed by: SAVANNAH DIAZ on 09/24/21 1247 Glipizide (Glipizide) 5 Mg Tablet, 2.5 MG PO 0800,1200, (Reported) Entered as Reported by: GINETTE RYAN on 09/19/21 1520 Hydrocodone/Acetaminophen (Hydrocodone-Acetamin 10-325 mg) 1 Each Tablet, 1 EACH PO QID PRN for PAIN-MODERATE (5-7), (Reported) Entered as Reported by: GINETTE RYAN on 09/19/21 1520 Levothyroxine Sodium (Euthyrox) 50 Mcg Tablet, 50 MCG PO DAILY, (Reported) Entered as Reported by: GINETTE RYAN on 09/19/21 1520 Multivitamin (Multivitamin) 1 Each Tablet, 1 EACH PO 1200, (Reported) Entered as Reported by: GINETTE RYAN on 05/15/21 110 Simvastatin (Simvastatin) 20 Mg Tablet, 20 MG PO HS, (Reported) Entered as Reported by: GINETTE RYAN on 05/15/21 110 Review of Systems Review of Systems Constitutional: see HPI EENTM: no symptoms reported Respiratory: orthopnea, short of breath Cardiovascular: no symptoms reported Gastrointestinal: no symptoms reported Genitourinary: no symptoms reported Musculoskeletal: no symptoms reported Skin: no symptoms reported All Other Systems Reviewed Negative Unless Noted: Yes Past Jkcugcg-Hvjqia-Qnnyyb Hx Immunizations Up To Date First/Initial COVID19 Vaccinat: has had Second COVID19 Vaccination Bubba: has had Third COVID19 Vaccination Date: 09/2020 Past Medical History Surgeries: Yes (KNEE REPLACEMENT X3, CATARACT, HEART CATH) Gallbladder, Pacemaker Respiratory: No Cardiac: Yes (Possible arrhythmia) Cardiomyopathy, Coronary Artery Disease Neurological: No Reproductive Disorders: No Sexually Transmitted Disease: No Gastrointestinal: Yes (constipation) Musculoskeletal: Yes (BILAT KNEES) Endocrine: Yes Hypothyroidsim Cancer: No Psychosocial: No Integumentary: Yes (Chronic wounds of the lower extremities) Blood Disorders: No Family Medical History No Pertinent Family Hx Physical Exam Vital Signs - First Documented 01/31/22 12:47 Temp 35.0 Pulse 77 Resp 22 B/P (MAP) 143/91 (108) Pulse Ox 98 O2 Delivery Room Air Capillary Refill : Height: 5'3.00" Weight: 205lbs. oz. 92.944425qc; 36.00 BMI Method:Stated General Appearance: WD/WN, no apparent distress Eyes: Bilateral Eye Normal Inspection, Bilateral Eye PERRL, Bilateral Eye EOMI HEENT: PERRL/EOMI Neck: normal inspection Respiratory: no respiratory distress, no accessory muscle use, crackles (left base anteriorly; no distress noted; RA sats 94-95%) Cardiovascular: regular rate, rhythm Gastrointestinal: non tender, soft Extremities: pedal edema Neurologic/Psychiatric: alert, normal mood/affect, oriented x 3 Skin: normal color, warm/dry Progress/Results/Core Measures Suspected Sepsis SIRS Temperature: Pulse: Respiratory Rate: Laboratory Tests 01/31/22 12:49: White Blood Count 5.8 Blood Pressure / Mean: Laboratory Tests 01/31/22 12:49: Creatinine 0.83, Platelet Count 161 Results/Orders Lab Results Laboratory Tests Test 01/31/22 12:49 01/31/22 13:20 Range/Units White Blood Count 5.8 4.3-11.0 10^3/uL Red Blood Count 3.77 L 3.80-5.11 10^6/uL Hemoglobin 11.1 L 11.5-16.0 g/dL Hematocrit 37 35-52 % Mean Corpuscular Volume 98 80-99 fL Mean Corpuscular Hemoglobin 29 25-34 pg Mean Corpuscular Hemoglobin Concent 30 L 32-36 g/dL Red Cell Distribution Width 15.5 H 10.0-14.5 % Platelet Count 161 130-400 10^3/uL Mean Platelet Volume 10.3 9.0-12.2 fL Immature Granulocyte % (Auto) 0 % Neutrophils (%) (Auto) 66 42-75 % Lymphocytes (%) (Auto) 21 12-44 % Monocytes (%) (Auto) 10 0-12 % Eosinophils (%) (Auto) 3 0-10 % Basophils (%) (Auto) 1 0-10 % Neutrophils # (Auto) 3.8 1.8-7.8 10^3/uL Lymphocytes # (Auto) 1.2 1.0-4.0 10^3/uL Monocytes # (Auto) 0.6 0.0-1.0 10^3/uL Eosinophils # (Auto) 0.2 0.0-0.3 10^3/uL Basophils # (Auto) 0.0 0.0-0.1 10^3/uL Immature Granulocyte # (Auto) 0.0 0.0-0.1 10^3/uL Sodium Level 141 135-145 MMOL/L Potassium Level 4.7 3.6-5.0 MMOL/L Chloride Level 105 98-107 MMOL/L Carbon Dioxide Level 25 21-32 MMOL/L Anion Gap 11 5-14 MMOL/L Blood Urea Nitrogen 18 7-18 MG/DL Creatinine 0.83 0.60-1.30 MG/DL Estimat Glomerular Filtration Rate 69 BUN/Creatinine Ratio 22 Glucose Level 157 H 70-105 MG/DL Calcium Level 8.9 8.5-10.1 MG/DL B-Type Natriuretic Peptide 2263.1 H <100.0 PG/ML Urine Color YELLOW Urine Clarity CLEAR Urine pH 5.5 5-9 Urine Specific Hoffman 1.025 H 1.016-1.022 Urine Protein NEGATIVE NEGATIVE Urine Glucose (UA) NEGATIVE NEGATIVE Urine Ketones NEGATIVE NEGATIVE Urine Nitrite NEGATIVE NEGATIVE Urine Bilirubin NEGATIVE NEGATIVE Urine Urobilinogen 1.0 < = 1.0 MG/DL Urine Leukocyte Esterase TRACE H NEGATIVE Urine RBC (Auto) TRACE-I H NEGATIVE Urine RBC 0-2 /HPF Urine WBC 2-5 /HPF Urine Squamous Epithelial Cells 0-2 /HPF Urine Crystals PRESENT H /LPF Urine Amorphous Sediment RARE MINE URATES H /LPF Urine Bacteria FEW H /HPF Urine Casts NONE /LPF Urine Mucus RARE /LPF Urine Culture Indicated YES My Orders Orders - TY BEY MD Ed Iv/Invasive Line Start (01/31/22 12:50) Cbc With Automated Diff (01/31/22 12:50) Basic Metabolic Panel (01/31/22 12:50) Bnp No (01/31/22 12:50) Chest 1 View, Ap/Pa Only (01/31/22 12:50) Ekg Tracing (01/31/22 12:50) Ua Culture If Indicated (01/31/22 12:50) Urine Culture (01/31/22 13:20) Furosemide Injection (Lasix Injection) (01/31/22 14:45) Furosemide Injection (Lasix Injection) (01/31/22 15:00) Vital Signs/I&O 01/31/22 01/31/22 12:47 13:06 Temp 35.0 Pulse 77 Resp 22 B/P (MAP) 143/91 (108) Pulse Ox 98 O2 Delivery Room Air Room Air Capillary Refill : Progress Note : Time: 14:59 Progress Note Discussed with both Dr. Ward and Dr. Miner. In light of her's symptoms of dyspnea as well as her pre-existing nonischemic cardiomyopathy and elevated BNP and cardiomegaly on her chest x-ray we will put her in the hospital to further diurese her. She actually looks pretty good sitting up at about 60 degrees in the hospital bed satting 96 to 97%. She is exhibiting no increased work of breathing. Dr. Ward indicated he would like her to have [address] Parry states that she will reevaluate in the morning. Patient is comfortable with plan of care ECG Initial ECG Impression Date: January 31, 2022 Initial ECG Impression Time: 13:00 Initial ECG Rate: 76 Comment paced rhythm NV interval 77 QRS 122 QTc 462 Diagnostic Imaging Diagonstic Imaging: Xray Plain Films/CT/US/NM/MRI: chest Comments [facility] [employer] [facility] [place], [place] NAME: KALLI PITTS [facility] REC#: [id number] PT STATUS: REG ER : 1935 PHYSICIAN: TY BEY MD ADMIT DATE: 01/31/22/ER Draft Date of Exam:01/31/22 CHEST 1 VIEW, AP/PA ONLY CLINICAL INDICATIONS: Patient with shortness of breath. EXAM: Portable chest x-ray upright view. COMPARISON: Chest x-ray dated 09/19/2021. FINDINGS: Lungs/pleura: Calcified granuloma in the right lung bases again seen. Otherwise, lungs are clear. There is no pneumothorax. There is no pleural effusion. Mediastinum: Unremarkable. Pulmonary vasculature: Unremarkable. Heart: There is interval enlargement of the cardiac silhouette. Again seen cardiac pacemaker/AICD, stable. Bones/extrathoracic soft tissue: There are degenerative spurs involving the thoracic spine. IMPRESSION: 1: There is interval development of moderate cardiomegaly. Pericardial effusion may also be considered. There is no significant pulmonary vascular congestion. 2: There is no lung infiltrate. Dictated on workstation # [id number] Dict: 01/31/22 1317 Trans: 01/31/22 1327 CVB [id number] Interpreted by: GERALD MCNEIL MD Electronically signed by: Departure Communication (Admissions) Time/Spoke to Admitting Phy: 14:[address] Miner - med surg; obs Time/Spoke to Consulting Phy: 14:[address] Ward - 40mg lasix now Impression Primary Impression: CHF exacerbation Qualified Codes: I50.9 - Heart failure, unspecified Disposition: ADMITTED INPATIENT Condition: Stable Admissions Decision to Admit Reason: Admit from ER (General) Decision to Admit/Date: January 31, 2022 Time/Decision to Admit Time: 14:58 Departure-Patient Inst. Referrals: SAVANNAH DIAZ DO (PCP/Family) Primary Care Physician TY BEY MD January 31, 2022 12:54
[2022-01-31 12:57] LABS: BASOPHILS % (AUTO) 1 % (0-10); EOSINOPHILS # (AUTO) 0.2 10^3/uL (0.0-0.3); EOSINOPHILS % (AUTO) 3 % (0-10); HEMATOCRIT 37 % (35-52); HEMOGLOBIN 11.1 g/dL (11.5-16.0); LYMPHOCYTES # (AUTO) 1.2 10^3/uL (1.0-4.0); LYMPHOCYTES % (AUTO) 21 % (12-44); MEAN CORPUSCULAR HEMOGLOBIN 29 pg (25-34); MEAN CORPUSCULAR HGB CONC 30 g/dL (32-36); MEAN CORPUSCULAR VOLUME 98 fL (80-99); MEAN PLATELET VOLUME 10.3 fL (9.0-12.2); MONOCYTES # (AUTO) 0.6 10^3/uL (0.0-1.0); MONOCYTES % (AUTO) 10 % (0-12); NEUTROPHILS # (AUTO) 3.8 10^3/uL (1.8-7.8); NEUTROPHILS % (AUTO) 66 % (42-75); PLATELET COUNT 161 10^3/uL (130-400); WHITE BLOOD COUNT 5.8 10^3/uL (4.3-11.0)
[2022-01-31 13:05] LABS: POTASSIUM 4.7 MMOL/L (3.6-5.0)
[2022-01-31 13:07] LABS: CALCIUM 8.9 MG/DL (8.5-10.1)
[2022-01-31 13:11] LABS: CREATININE SERUM 0.83 MG/DL (0.60-1.30)
[2022-01-31 13:27] LABS: BILIRUBIN,URINE NEGATIVE (NEGATIVE); CLARITY,URINE CLEAR; COLOR,URINE YELLOW; GLUCOSE, URINE (UA) NEGATIVE (NEGATIVE); KETONES,URINE NEGATIVE (NEGATIVE); LEUKOCYTE ESTERASE ,URINE TRACE (NEGATIVE); NITRITE,URINE NEGATIVE (NEGATIVE); PH,URINE 5.5 (5-9); PROTEIN,URINE NEGATIVE (NEGATIVE)
--- NOTE | 2022-01-31 13:29 | Diagnostic Imaging Report ---
CLINICAL INDICATIONS: Patient with shortness of breath. EXAM: Portable chest x-ray upright view. COMPARISON: Chest x-ray dated 09/19/2021. FINDINGS: Lungs/pleura: Calcified granuloma in the right lung bases again seen. Otherwise, lungs are clear. There is no pneumothorax. There is no pleural effusion. Mediastinum: Unremarkable. Pulmonary vasculature: Unremarkable. Heart: There is interval enlargement of the cardiac silhouette. Again seen cardiac pacemaker/AICD, stable. Bones/extrathoracic soft tissue: There are degenerative spurs involving the thoracic spine. IMPRESSION: 1: There is interval development of moderate cardiomegaly. Pericardial effusion may also be considered. There is no significant pulmonary vascular congestion. 2: There is no lung infiltrate. Dictated by: Dictated on workstation # [id number]
[2022-01-31 13:49] LABS: BACTERIA,URINE FEW /HPF; RBC,URINE 0-2 /HPF
[2022-01-31 13:50] LABS: AMORPHOUS SEDIMENT,UR RARE AMOR URATES /LPF; SQUAMOUS EPITHELIAL CELL,UR 0-2 /HPF
[2022-01-31] MEDS ORDERED: FUROSEMIDE 40 MG/4 ML INJ (LASIX) IVP ONE ×2 (14:45→15:00)
[2022-01-31 16:00] VITALS: BP 150/80
[2022-01-31 17:02] VITALS: BP 156/91
[2022-01-31] MEDS ORDERED: RT-ALBUTEROL SULF 2.5 MG/3 ML PRE-MIX VIAL INH PRN ×2 (17:15→21:45)
[2022-01-31] MEDS ORDERED: FURO20TA4 PO (17:22)
[2022-01-31] MEDS ORDERED: POTA10CA43 PO (17:22)
[2022-01-31] MEDS ORDERED: CYAN-23 PO (17:22)
[2022-01-31] MEDS ORDERED: GLIP5TAB13 PO (17:22)
[2022-01-31] MEDS: glipiZIDE 5 MG (GLUCOTROL) TAB PO SCH (18:13)
[2022-01-31] MEDS: AtorvaSTATin TABLET 10 MG TABLET PO SCH (19:44)
[2022-01-31 19:49] VITALS: BP 181/77
[2022-01-31] MEDS ORDERED: RT-ALBUTEROL SULF 2.5 MG/3 ML PRE-MIX VIAL INH SCH (21:00)
[2022-01-31 21:21] VITALS: BP 181/77
[2022-01-31] MEDS: CATHETER FLUSH 10 ML SYR IVP SCH (22:24)
[2022-02-01 00:08] VITALS: BP 139/75
[2022-02-01 04:05] VITALS: BP 152/70
[2022-02-01] MEDS: MULTIVIT W/MINERALS TAB (THERAGRAN M) PO SCH (06:37)
[2022-02-01] MEDS: CATHETER FLUSH 10 ML SYR IVP SCH ×2 (06:37→12:58)
[2022-02-01 07:29] VITALS: BP 185/83
[2022-02-01 08:58] LABS: TRIGLYCERIDES 78 MG/DL (<150); VLDL CHOLESTEROL 16 MG/DL (5-40)
[2022-02-01] MEDS: ASPIRIN 81 MG CHEW (CHILDREN'S ASA) PO SCH (09:02)
[2022-02-01] MEDS: glipiZIDE 5 MG (GLUCOTROL) TAB PO SCH ×2 (09:02→17:49)
[2022-02-01] MEDS: KCL 10 MEQ TAB (MICRO K) PO SCH (09:02)
[2022-02-01 09:03] LABS: CHOLESTEROL 100 MG/DL (< 200)
[2022-02-01] MEDS: CATHETER FLUSH 10 ML SYR IVP PRN (09:03)
[2022-02-01 09:04] LABS: HDL CHOLESTEROL 36 MG/DL (40-60)
--- NOTE | 2022-02-01 09:40 | Diagnostic Imaging Report ---
INDICATION: Dyspnea 2 views of the chest are obtained with comparison made to study of 12/07/2013. In the interval there has been placement of internal cardiac defibrillator. There is moderate cardiomegaly. Pulmonary vascularity is at the upper limits of normal. No pneumothorax is seen. IMPRESSION: Development of cardiomegaly and borderline pulmonary venous congestion. Dictated by: Dictated on workstation # [id number]
[2022-02-01 11:34] VITALS: BP 174/80
--- NOTE | 2022-02-01 11:52 | History & Physical-Hospitalist ---
History of Present Illness HPI/Chief Complaint Patient is an 86-year-old female with past medical history of CHF, CAD, hypertension, hyperlipidemia, swx-kfolyfw-zvfgeexwl diabetes who presented to the emergency department due to shortness of breath. She reports that her shortness of breath has been going on for at least a month. She was recently restarted on her Lasix every other day and she actually thinks that that has made her swelling worse. Yesterday her symptoms worsened prompting her to seek evaluation in the emergency department. She was found to have elevated BNP and cardiomegaly on her chest x-ray and was admitted for CHF exacerbation. This morning she reports feeling better though believes she had a rough night. Despite this she is asking about being able to be discharged home. Discussed plan for cardiology evaluation and echo and continue diuresis and she is agreeable to another day in the hospital. Date Seen 02/01/22 Time Seen by a Provider: 11:00 Attending Physician Sydni Parker DO PCP Admitting Physician: Prabhakar Miner MD Attending Physician: Prabhakar Miner MD Referring Physician Date of Admission January 31, 2022 at 14:57 Home Medications & Allergies Home Medications Reviewed patient Home Medication Reconciliation performed by pharmacy medication reconciliations electrical assembly technician and/or nursing. Patients Allergies have been reviewed. Allergies Allergies Coded Allergies erythromycin base (Verified Allergy, Unknown, 07/06/07) Past Ygppjoz-Skadfm-Bvdlhr Hx Patient Social History Employed/Student: retired Tobacco Use?: No Substance use?: No Alcohol Use?: No Pt feels they are or have been: No Immunizations Up To Date Date of Influenza Vaccine: Jun 06, 2011 First/Initial COVID19 Vaccinat: 07/27 Second COVID19 Vaccination Bubba: 07/27 Tetanus Booster (TDap): Unknown Hepatitis A: No Hepatitis B: No Current Status status: No Advance Directives: Yes Advance Directive Location: Copy placed in chart Communicates: Verbally Primary Language: Persian Preferred Spoken Language: Persian Is interpretation needed?: No Sensory deficits: Vision impairment, Hearing impairment Implanted or Applied Medical D: Pacemaker Past Medical History Surgeries: Gallbladder, Pacemaker Cardiomyopathy, Coronary Artery Disease Sexually Transmitted Disease: No Hypothyroidsim Blood Disorders: No Family Medical History No Pertinent Family Hx Review of Systems Constitutional: No chills, No fever; malaise Respiratory: No cough; orthopnea, short of breath Cardiovascular: No chest pain; edema, Hx of Intervention Gastrointestinal: no symptoms reported Genitourinary: no symptoms reported Musculoskeletal: no symptoms reported Skin: no symptoms reported Psychiatric/Neurological: No Symptoms Reported Physical Exam Physical Exam Vital Signs Vital Signs - First Documented 01/31/22 01/31/22 02/01/22 12:47 21:21 08:52 Temp 35.0 Pulse 77 Resp 22 B/P (MAP) 143/91 (108) Pulse Ox 98 O2 Delivery Room Air O2 Flow Rate 0.00 FiO2 21 Capillary Refill : Height, Weight, BMI Height: 5'3.00" Weight: 205lbs. oz. 92.753257mr; 43.95 BMI Method:Stated General Appearance: No Apparent Distress, WD/WN, Obese HEENT: PERRL/EOMI, Moist Mucous Membranes Neck: Normal Inspection, Supple Respiratory: Lungs Clear, No Accessory Muscle Use, No Respiratory Distress Cardiovascular: Regular Rate, Rhythm, No Murmur Gastrointestinal: Normal Bowel Sounds, Non Tender, Soft Genital/Rectal: Other (catheter in place) Extremity: No Calf Tenderness, Pedal Edema, Swelling (2+ pitting edema of bilateral LE) Neurologic/Psychiatric: Alert, Oriented x3, Normal Mood/Affect Results Results/Procedures Labs Laboratory Tests 01/31/22 12:49 Patient resulted labs reviewed. Imaging: Reviewed Imaging Report Imaging [facility] [place], [place] NAME: KALLI PITTS [facility] REC#: [id number] PT STATUS: ADM Haja : 1935 PHYSICIAN: TY BEY MD ADMIT DATE: 01/31/22 Signed Date of Exam:01/31/22 CHEST 1 VIEW, AP/PA ONLY CLINICAL INDICATIONS: Patient with shortness of breath. EXAM: Portable chest x-ray upright view. COMPARISON: Chest x-ray dated 09/19/2021. FINDINGS: Lungs/pleura: Calcified granuloma in the right lung bases again seen. Otherwise, lungs are clear. There is no pneumothorax. There is no pleural effusion. Mediastinum: Unremarkable. Pulmonary vasculature: Unremarkable. Heart: There is interval enlargement of the cardiac silhouette. Again seen cardiac pacemaker/AICD, stable. Bones/extrathoracic soft tissue: There are degenerative spurs involving the thoracic spine. IMPRESSION: 1: There is interval development of moderate cardiomegaly. Pericardial effusion may also be considered. There is no significant pulmonary vascular congestion. 2: There is no lung infiltrate. Dictated by: Dictated on workstation # [id number] Dict: 01/31/22 1317 Trans: 01/31/22 1823 CV [id number] Interpreted by: GERALD MCNEIL MD Electronically signed by: GERALD MCNEIL MD 01/31/22 1827 Assessment/Plan Admission Diagnosis Acutely decompensated heart failure Admission Status: Observation Assessment and Plan Acutely decompensated heart failure Not recovering oxygen but worsening CXR this AM Continue lasix Cardiology consulted, appreciate recs Echo ordered HTN HLD BP slightly elevated this AM, consider added lisinopril pending echo results if another agent needed NIDDMII Continue home meds Hypothryoidism Continue Synthroid TSH slightly elevated at 5 PRABHAKAR MINER MD February 01, 2022 11:52
[2022-02-01] MEDS ORDERED: FUROSEMIDE 40 MG/4 ML INJ (LASIX) IVP ONE (12:00)
--- NOTE | 2022-02-01 12:23 | Consultation-Cardiology ---
HPI-Cardiology Cardiology Consultation: Date of Consultation 02/01/22 Date of Admission 01/31/22 Attending Physician Savannah Parker DO Admitting Physician Admitting Physician: Zoe Miner MD Attending Physician: Zoe Miner MD Consulting Physician JUAN J BOSS JR, MD HPI: Time Seen by a Provider: 12:19 Chief Complaint: REASON FOR CONSULTATION: Heart failure. I had the pleasure of seeing Becka on the medical unit at [facility] in [place], [place] today. She has a history of nonischemic cardiomyopathy that improved and chronic heart failure with preserved ejection fraction. She currently lives in an assisted living here in [place]. She has chronic dyspnea on exertion and peripheral edema but she states over the past 3 days this is gotten worse. When her breathing was difficult, her chest would feel tight. Yesterday she felt more short of breath and rescue was called and she was brought to the hospital for further evaluation. She was felt to be in heart failure and was given 1 dose of intravenous furosemide in the emergency room and admitted to the hospital. Overnight, her breathing has started to improve. Her chest discomfort resolved. She denies paroxysmal nocturnal dyspnea, orthopnea, palpitations, lightheadedness, or syncope. Because of the heart failure, a cardiology consultation was requested. Certain portions of this document may have been dictated utilizing voice recognition technology. Inherent to this technology, typographical and grammatical errors may exist. As much as I am diligent to identify and correct these mistakes, some errors may remain in the document. Review of Systems-Cardiology Review of Systems Other comments Review of 10 organ systems is as per the history of present illness, otherwise negative. All Other Systems Reviewed Negative Unless Noted: Yes FIQ-Fyqsky-Grbmzm Hx Patient Social History Employed/Student: retired [employer] Smoke Exposure: No Have you traveled recently?: No Alcohol Use?: No Pt feels they are or have been: No Immunizations Up To Date Date of Influenza Vaccine: Jun 06, 2011 Past Medical History PMH As described under Assessment. Family Medical History Family Medical History: She does not report a family history of premature coronary artery disease. Allergies and Home Medications Allergies Coded Allergies: erythromycin base (Verified Allergy, Unknown, 07/06/07) Patient Home Medication List Home Medication List Reviewed: Yes Aspirin (Aspirin EC) 81 Mg Tablet.dr, 81 MG PO HS, (Reported) Entered as Reported by: GINETTE RYAN on 05/15/211101 Last Action: Reviewed C,E,Zinc,Copper 24/Om3/Lut/Ramona (Ocuvite Adult 50 Plus Softgel) 1 Each Capsule, 1 EACH PO DAILY, (Reported) Entered as Reported by: GINETTE RYAN on 09/19/211519 Last Action: Reviewed Carvedilol (Carvedilol) 25 Mg Tablet, 12.5 MG PO BID, (Reported) Entered as Reported by: GINETTE RYAN on 05/15/211101 Last Action: Reviewed Cholecalciferol (Vitamin D3) (Vitamin D3) 50 Mcg Capsule, 50 MCG PO DAILY, (Reported) Entered as Reported by: GINETTE RYAN on 05/15/211101 Last Action: Reviewed Cyanocobalamin (Vitamin B-12) (Vitamin B-12) 1,000 Mcg Capsule, 1,000 MCG PO DAILY, (Reported) Entered as Reported by: MARYELLEN HERRING on 01/31/221721 Last Action: New Order Docusate Sodium (Docusate Sodium) 100 Mg Capsule, 100 MG PO BID Prescribed by: SAVANNAH PARKER on 09/24/211246 Last Action: Reviewed Ferrous Sulfate (Feosol) 325 Mg Tablet, 325 MG PO Q48H Prescribed by: SAVANNAH PARKER on 09/24/211246 Last Action: Reviewed Furosemide (Furosemide) 20 Mg Tablet, 10 MG PO DAILY, (Reported) Entered as Reported by: MARYELLEN HERRING on 01/31/221721 Last Action: New Order Glipizide (Glipizide) 5 Mg Tablet, 5 MG PO BID, (Reported) Entered as Reported by: MARYELLEN HERRING on 01/31/221721 Last Action: New Order Hydrocodone/Acetaminophen (Hydrocodone-Acetamin 10-325 mg) 1 Each Tablet, 1 EACH PO QID PRN for PAIN-MODERATE (5-7), (Reported) Entered as Reported by: GINETTE RYAN on 09/19/211519 Last Action: Reviewed Levothyroxine Sodium (Euthyrox) 50 Mcg Tablet, 50 MCG PO DAILY, (Reported) Entered as Reported by: GINETTE RYAN on 1/14/22 1520 Last Action: Reviewed Multivitamin (Multivitamin) 1 Each Tablet, 1 EACH PO 1200, (Reported) Entered as Reported by: GINETTE RYAN on 05/15/21 110 Last Action: Reviewed Potassium Chloride (Potassium Chloride) 10 Meq Capsule.er, 10 MEQ PO DAILY, (Reported) Entered as Reported by: MARYELLEN HERRING on 01/31/22 1722 Last Action: New Order Simvastatin (Simvastatin) 20 Mg Tablet, 20 MG PO HS, (Reported) Entered as Reported by: GINETTE RYAN on 05/15/21 110 Last Action: Reviewed Discontinued Medications Cefdinir (Cefdinir) 300 Mg Capsule, 300 MG PO BID, (Reported) Discontinued Reason: No Longer Taking Entered as Reported by: GINETTE RYAN on 09/19/211519 Last Action: Discontinued Doxycycline Hyclate (Doxycycline Hyclate) 100 Mg Capsule, 100 MG PO BID, (Reported) Discontinued Reason: No Longer Taking Entered as Reported by: GINETTE RYAN on 09/19/21 152 Last Action: Discontinued Glipizide (Glipizide) 5 Mg Tablet, 2.5 MG PO 0800,1200, (Reported) Discontinued Reason: No Longer Taking Entered as Reported by: GINETTE RYAN on 09/19/211519 Last Action: Discontinued Exam Vital Signs Vital Signs Date Time Temp Pulse Resp B/P (MAP) Pulse Ox O2 Delivery O2 Flow Rate FiO2 02/01/22 15:44 35.9 72 18 138/71 (93) 93 Room Air 02/01/22 14:51 0.00 01/31/22 21:21 21 Physical Exam General: Alert. No acute distress. Well nourished and appears stated age. She is morbidly obese. Eye: Extraocular movements are intact. Conjunctivae are clear. There are no xanthelasma. HENT: Normocephalic. Atraumatic. Carotid pulsations 2/2 without bruits. Neck: Jugular venous pressure does not appear elevated. No thyromegaly appreciated. Respiratory: Lungs are clear to auscultation. Respirations are non-labored. Breath sounds are equal. Symmetrical chest wall expansion. Cardiovascular: Normal rate. Regular rhythm. 2/6 systolic ejection murmur. No gallop. Point of maximal impulse is not appear displaced. Good pulses equal in all extremities. 1-2+ bilateral pretibial edema. Gastrointestinal: Soft. Normal bowel sounds. Skin: Skin turgor is normal. There is no pallor. Musculoskeletal: No kyphosis or scoliosis appreciated. Neurologic: Alert and oriented to person, place, time. Cranial nerves 3-12 appear grossly intact. The patient has good motor tone strength in the upper and lower extremities bilaterally. Psychiatric: Cooperative. Appropriate mood & affect. Labs Laboratory Tests Test 01/31/22 20:00 02/01/22 05:22 02/01/22 08:32 02/01/22 10:58 Range/Units Glucometer 144 H 97 150 H 70-110 MG/DL Troponin I < 0.028 <0.028 NG/ML Triglycerides Level 78 <150 MG/DL Cholesterol Level 100 < 200 MG/DL LDL Cholesterol Direct 56 1-129 MG/DL VLDL Cholesterol 16 5-40 MG/DL HDL Cholesterol 36 L 40-60 MG/DL Thyroid Stimulating Hormone (TSH) 5.46 H 0.35-4.94 UIU/ML Test 02/01/22 15:13 Range/Units Glucometer 165 H 70-110 MG/DL Radiology ECHOCARDIOGRAM (02/01/2022): 1. Left ventricle: The cavity size is normal. There is mild concentric hypertrophy. Systolic function is moderately reduced. The estimated ejection fraction is 35-40%. There is global hypokinesis with minor regional variation. The left ventricular diastolic function is indeterminate. 2. Right ventricle: Device wire noted in the right ventricle. 3. Left atrium: The left atrium is severely dilated with a volume index of 55 mL/m. 4. Right atrium: The right atrium is severely dilated at 37 cm. 5. Mitral valve: There is severe mitral regurgitation. 6. Aortic valve: There is trivial aortic regurgitation. 7. Tricuspid valve: There is severe tricuspid regurgitation. 8. Aortic root: The aortic root is dilated at 3.7 cm. 9. Pericardium, extracardiac: There is a moderate sized, circumferential pericardial effusion without evidence of pericardial tamponade. 10. Inferior vena cava: The vessel is dilated. The respirophasic diameter changes are blunted (less than 50%). These findings are consistent with markedly elevated right atrial pressure (15 mmHg). 11. Pulmonary arteries: The estimated pulmonary artery systolic pressure is 78 mmHg assuming a right atrial pressure of 15 mmHg. ECG Impression ECG Comment Electrocardiogram from 01/31 shows dual-chamber pacing. Diagnosis/Problems Diagnosis/Problems (1) Acute on chronic combined systolic and diastolic congestive heart failure Assessment & Plan: She again seems to have a decline in her ejection fraction. She received intravenous Lasix in the emergency room and again on the medical floor today. Her symptoms are starting to improve. She was on carvedilol at home. I also started her on spironolactone but this was before I had the results of the echocardiogram. We may also want to consider adding Entresto as well. (2) Pericardial effusion Assessment & Plan: She has a moderate sized pericardial effusion without evidence of pericardial tamponade. This may be due to the heart failure. We may want to consider a follow-up echocardiogram in 1-2 months following discharge. (3) Cardiomyopathy Assessment & Plan: As above, her ejection fraction had previously improved but now again appears depressed. We will need to make some adjustments to her medication accordingly. She has a prophylactic defibrillator in place. (4) Mitral regurgitation Assessment & Plan: She had mild mitral regurgitation in the past and this is now severe. Some of this may be functional mitral regurgitation due to the decompensated heart failure. This will need to be followed longitudinally. (5) Coronary artery disease without angina pectoris Assessment & Plan: She is not having any angina at this point in time. We will continue guideline directed medical therapy. (6) Pulmonary hypertension Assessment & Plan: She has severe pulmonary hypertension. I suspect some of this could be related to the decompensated heart failure. This will need to be followed longitudinally. (7) Primary hypertension Assessment & Plan: Continue outpatient antihypertensive medication. I have also added spironolactone for the heart failure. (8) Mixed hyperlipidemia Assessment & Plan: Continue statin medication. (9) Type 2 diabetes mellitus with complication Assessment & Plan: This will be managed by the hospitalist. (10) Anemia Assessment & Plan: Unclear whether or not this may be contributing to her c urrent symptoms. Her hemoglobin is actually better than it was earlier in the year. (11) Acquired hypothyroidism Assessment & Plan: Her TSH level was slightly elevated. I would not suspect this to be contributing to the heart failure but her dose of thyroid medication may need to be adjusted. (12) Morbidly obese Assessment & Plan: She needs to work on weight loss. JUAN J BOSS JR, MD February 01, 2022 12:23
[2022-02-01] MEDS ORDERED: SPIRONOLACTONE 25 MG (ALDACTONE) TAB PO ONE (12:30)
[2022-02-01 15:44] VITALS: BP 138/71
[2022-02-01 19:49] VITALS: BP 151/80
[2022-02-01] MEDS ORDERED: NON-FORMULARY MEDICATION 1 EA EA (Simvastatin 20 MG) PO SCH (21:00)
[2022-02-01] MEDS: AtorvaSTATin TABLET 10 MG TABLET PO SCH (21:22)
[2022-02-02] VITALS (7 sets, daily range): BP systolic 109–147; BP diastolic 55–84
[2022-02-02] MEDS: CATHETER FLUSH 10 ML SYR IVP SCH ×4 (04:38→19:44)
[2022-02-02] MEDS: LEVOTHYROXINE 50 MCG (LEVOTHROID) TAB PO SCH (04:39)
[2022-02-02] MEDS: CATHETER FLUSH 10 ML SYR IVP PRN (04:39)
[2022-02-02] MEDS: MULTIVIT W/MINERALS TAB (THERAGRAN M) PO SCH (04:39)
[2022-02-02 05:36] LABS: HEMATOCRIT 35 % (35-52); HEMOGLOBIN 10.7 g/dL (11.5-16.0); MEAN CORPUSCULAR HEMOGLOBIN 29 pg (25-34); MEAN CORPUSCULAR HGB CONC 30 g/dL (32-36); MEAN CORPUSCULAR VOLUME 96 fL (80-99); MEAN PLATELET VOLUME 10.5 fL (9.0-12.2); PLATELET COUNT 144 10^3/uL (130-400); WHITE BLOOD COUNT 8.4 10^3/uL (4.3-11.0)
[2022-02-02 05:47] LABS: POTASSIUM 3.7 MMOL/L (3.6-5.0)
[2022-02-02 05:48] LABS: CALCIUM 8.4 MG/DL (8.5-10.1)
[2022-02-02 05:52] LABS: CREATININE SERUM 0.99 MG/DL (0.60-1.30)
--- NOTE | 2022-02-02 09:06 | Diagnostic Imaging Report ---
Indication: Shortness of air. Time of Exam: 8:21 AM Correlation is made with prior chest from one day earlier. The heart is enlarged. Cardiac defibrillator remains in place. No infiltrate or failure is detected. There is no effusion or pneumothorax. IMPRESSION: Stable cardiomegaly. No acute feature is detected. Dictated by: Dictated on workstation # [id number]
[2022-02-02] MEDS: ASPIRIN 81 MG CHEW (CHILDREN'S ASA) PO SCH (09:20)
[2022-02-02] MEDS: SPIRONOLACTONE 25 MG (ALDACTONE) TAB PO SCH (09:21)
[2022-02-02] MEDS: KCL 10 MEQ TAB (MICRO K) PO SCH (09:21)
[2022-02-02] MEDS: glipiZIDE 5 MG (GLUCOTROL) TAB PO SCH ×2 (09:21→17:57)
--- NOTE | 2022-02-02 11:22 | Physical Therapy Evaluation ---
PT Evaluation-General Medical Diagnosis Admission Date January 31, 2022 at 14:57 Medical Diagnosis: cardiomyopathy Onset Date: February 02, 2022 Therapy Diagnosis Therapy Diagnosis: debility Height/Weight Height (Feet): 5 Height (Inches): 3.00 Weight (Pounds): 205 Precautions Precautions/Isolations: Fall Prevention, Standard Precautions Weight Bear Status Full Weight Bearing Full Weight Bearing Referral Physician: Areli Reason for Referral: Evaluation/Treatment Medical History Pertinent Medical History: DM, HTN Social History Home: Assisted Living Prior Prior Level of Function SCALE: Activities may be completed with or without assistive devices. 6-Itcjetkvgk-ybjiulj completes the activity by him/herself with no assistance from a helper. 5-Set-up or Clean-up Assistance-helper sets up or cleans up; patient completes activity. Wall assists only prior to or following the activity. 4-Supervision or Touching Assistance-helper provides verbal cues and/or touching/steadying and/or contact guard assistance as patient completes activity. Assistance may be provided throughout the activity or intermittently. 3-Partial/Moderate Assistance-helper does LESS THAN HALF the effort. Wall lifts, holds or supports trunk or limbs, but provides less than half the effort. 2-Substantial/Maximal Assistance-helper does MORE THAN HALF the effort. Wall lifts or holds trunk or limbs and provides more than half the effort. 3-Diuipphdo-gjsoxo does ALL the effort. Patient does none of the effort to complete the activity. Or, the assistance of 2 or more helpers is required for the patient to complete the activity. If activity was not attempted, code reason: 7-Patient Refused. 9-Not Applicable-not attempted and the patient did not perform the activity before the current illness, exacerbation or injury. 10-Not Attempted due to Environmental Limitations-(lack of equipment, weather restraints, etc.). 88-Not Attempted due to Medical Conditions or Safety Concerns. Transfers (B,C,W/C): 5 Gait: 5 Indoor Mobility (Ambulation): Independent Stairs: Not Applicalbe Prior Devices Use: Walker Prior Device Use: Patient was sleeping in a recliner PT Evaluation-Current Subjective States that she is feeling okay but she hasn't been out of bed for a few days. Objective Patient Orientation: Person, Place, Time, Situation ROM/Strength Strength Lower Extremities 3+/5 grossly Transfers Sit to Lying (QC): 4 Lying to Sitting/Side of Bed(Q: 4 Sit to Stand (QC): 4 Gait Does the Patient Walk?: Yes Mode of Locomotion: Walk Anticipated Mode of Locomotion: Walk Walk 10 feet (QC): 5 Walk 50 ft with 2 Turns(QC): 88 Walk 150 ft (QC): 88 Walking 10ft/uneven surface-QC: 88 Distance: 10' Gait Assistive Device: FWW Balance Sitting Static: Good Sitting Dynamic: Fair Standing Static: Poor Standing Dynamic: Poor Picking up an Object (QC): 88 Assessment/Needs The patient has considerable functional mobility limitations secondary to debility. She should do well with skilled therapy to address her limitations. Rehab Potential: Good PT Short Term Goals Short Term Goals Time Frame: Feb 09, 2022 Roll Left & Right: 5 Sit to lyin Lying to sitting on side of be: 5 Sit to stand: 5 Chair/ofx-kb-zfslc transfer: 5 Toilet transfer: 5 Car transfer: 5 Walk 10 feet: 5 Walk 50 feet with two turns: 5 Walk 150 feet: 5 PT Customer Program Specialist Goals Retirement Goals PT Retirement Goals Time Frame: Feb 16, 2022 Roll Left & Right (QC): 6 Sit to Lying (QC): 6 Lying-Sitting on Side/Bed(QC): 6 Sit to Stand (QC): 6 Chair/Rag-kj-Hlepq Xfer(QC): 6 Toilet Transfer (QC): 6 Walk 10 feet (QC): 6 Walk 50ft with 2 Turns (QC): 6 Walk 150 ft (QC): 6 PT Plan Problem List Problem List: Activity Tolerance, Functional Strength, Safety, Balance, Gait, Transfer, Bed Mobility, ROM Treatment/Plan Treatment Plan: Continue Plan of Care Treatment Plan: Bed Mobility, Education, Functional Activity Rehan, Functional Strength, Group Therapy, Gait, Safety, Therapeutic Exercise, Transfers Treatment Duration: Feb 16, 2022 Frequency: 6 times per week Estimated Hrs Per Day: .5 hour per day Time/GCodes Time In: 1055 Time Out: 1115 Total Billed Treatment Time: 20 Total Billed Treatment 1, EV low complexity x 20' BIJU PAZ PT February 02, 2022 11:22
--- NOTE | 2022-02-02 12:11 | Progress Note - Hospitalist ---
Subjective HPI/CC On Admission Date Seen by Provider: February 02, 2022 Time Seen by Provider: 12:08 Patient is an 86-year-old female with past medical history of CHF, CAD, hypertension, hyperlipidemia, cfu-wohbidr-dkitzwspt diabetes who presented to the emergency department due to shortness of breath. She reports that her sh ortness of breath has been going on for at least a month. She was recently restarted on her Lasix every other day and she actually thinks that that has made her swelling worse. Yesterday her symptoms worsened prompting her to seek evaluation in the emergency department. She was found to have elevated BNP and cardiomegaly on her chest x-ray and was admitted for CHF exacerbation. This morning she reports feeling better though believes she had a rough night. Despite this she is asking about being able to be discharged home. Discussed plan for cardiology evaluation and echo and continue diuresis and she is agreeable to another day in the hospital. Subjective/Events-last exam Patient reports feeling better today has no complaints and is requesting discharge home. She does live [facility] and has not been up ambulating here at the hospital. Reported need to work with physical therapy and follow-up with cardiology prior to discharge. Informed her that it would likely be tomorrow before discharge. Objective Exam Vital Signs Vital Signs Date Time Temp Pulse Resp B/P (MAP) Pulse Ox O2 Delivery O2 Flow Rate FiO2 02/02/22 11:57 37.0 76 18 144/80 (101) 94 Room Air 02/01/22 14:51 0.00 01/31/22 21:21 21 Capillary Refill : General Appearance: No Apparent Distress, Chronically ill, Obese Respiratory: Lungs Clear, No Respiratory Distress Cardiovascular: Regular Rate, Rhythm, No Murmur Neurologic/Psychiatric: Alert, Oriented x3 Results/Procedures Lab Laboratory Tests 02/02/22 05:12 Patient resulted labs reviewed. Imaging: Reviewed Imaging Report Assessment/Plan Assessment and Plan Assess & Plan/Chief Complaint Acutely decompensated heart failure Not recovering oxygen but worsening CXR this AM Continue lasix Cardiology consulted, appreciate recs Echo with EF now down to 35% and a pericardial effusion (recommended outpatient follow up as no tamponade) Spironolactone added by cardiology HTN HLD BP improved, trend NIDDMII Continue home meds BS well controlled Hypothryoidism Continue Synthroid TSH slightly elevated at 5 BARBARA,PRABHAKAR M MD February 02, 2022 12:11
[2022-02-02] MEDS ORDERED: FUROSEMIDE 20 MG (LASIX) TAB PO ONE (12:15)
--- NOTE | 2022-02-02 12:27 | Occupational Therapy Eval ---
OT Evaluation-General/PLF Medical Diagnosis Admission Date January 31, 2022 at 14:57 Medical Diagnosis: cardiomyopathy Onset Date: January 31, 2022 Therapy Diagnosis Therapy Diagnosis: Weakness, Decreased ADL skills Height/Weight Height (Feet): 5 Height (Inches): 3.00 Weight (Pounds): 205 Precautions Precautions/Isolations: Fall Prevention, Standard Precautions Weight Bear Status Weight Bearing Restriction: Weight Bearing/Tolerated Referral Physician: Kristofer Referral Reason: Activity Tolerance, Self Care, Evaluation/Treatment, Strengthening/ROM Medical History Pertinent Medical History: DM, HTN Additional Medical History CHF, hyperlipidemia Reviewed History: Yes Social History Home: Assisted Living ADL-Prior Level of Function SCALE: Activities may be completed with or without assistive devices. 8-Zkacbyhoif-nwitmxy completes the activity by him/herself with no assistance from a helper. 5-Set-up or Clean-up Assistance-helper sets up or cleans up; patient completes activity. [place] assists only prior to or following the activity. 4-Supervision or Touching Assistance-helper provides verbal cues and/or touching/steadying and/or contact guard assistance as patient completes activity. Assistance may be provided throughout the activity or intermittently. 3-Partial/Moderate Assistance-helper does LESS THAN HALF the effort. [place] lifts, holds or supports trunk or limbs, but provides less than half the effort. 2-Substantial/Maximal Assistance-helper does MORE THAN HALF the effort. [place] lifts or holds trunk or limbs and provides more than half the effort. 0-Jjolrbcqo-trnkgw does ALL the effort. Patient does none of the effort to complete the activity. Or, the assistance of 2 or more helpers is required for the patient to complete the activity. If activity was not attempted, code reason: 7-Patient Refused. 9-Not Applicable-not attempted and the patient did not perform the activity before the current illness, exacerbation or injury. 10-Not Attempted due to Environmental Limitations-(lack of equipment, weather restraints, etc.). 88-Not Attempted due to Medical Conditions or Safety Concerns. ADL PLOF Comments Pt. reports that she lives in an assisted living. She requires assistance only with washing her back. Otherwise, she washes herself in the shower and dresses herself. She uses a walker to ambulate, and ambulates to the dining room for all of her meals. Self Care: Needed Some Help Functional Cognition: Independent DME/Equipment: Bath Bench DME/Equipment Comments Walker OT Current Status Subjective No pain reported but pt. states that she is weak as she has not been out of bed recently. Appearance Pt. in bed. Alert and oriented. Agrees to work with OT. Mental Status/Objective Patient Orientation: Person, Place, Time, Situation Attachments: Lopez Catheter Current Hand Dominance: Right Upper Extremity ROM Right- WFL Left- Pt. able to lift right UE to approximately 100*. States, "this is my bad shoulder." ADL-Treatment Eating (QC): 5 Oral Hygiene (QC): 7 (Pt. declines brushing her teeth, even if OT will bring to her.) On/Off Footwear (QC): 3 (Min assist to don slippers.) Toileting Hygiene (QC): 2 (Pt. declines using commode for BM. Clinical judgement suggests pt. would need max assist. Pt. has catheter otherwise.) Pt. transfers supine-sit with SBA and increased time needed. Transfers to EOB. Becomes SOA but regains breath with rest. Declines standing or using commode. Declines brushing teeth. OT hands pt. warm washcloth and pt. washes face. OT brushes hair to decrease tangles. Pt. would like to transfer back supine. Requires min assist for sit-supine and increased time needed. Education OT Patient Education: Correct positioning, Modified ADL techniques, Progress toward Goal/Update tx plan, Purpose of tx/functional activities, Reviewed precautions, Rehab process, Transfer techniques Teaching Recipient: Patient Teaching Methods: Demonstration, Discussion Response to Teaching: Verbalize Understanding, Return Demonstration OT Factorer Goals Longterm Goals Time Frame: Feb 16, 2022 Eating (QC): 6 Oral Hygiene (QC): 5 Toileting Hygiene (QC): 5 Shower/Bathe Self (QC): 4 Upper Body Dressing (QC): 4 On/Off Footwear (QC): 5 Additional Goals: 1-Demonstrate ADL Tasks, 2-Verbalize Understanding, 3- ImproveStrength/Rehan 1=Demonstrate adherence to instructed precautions during ADL tasks. 2=Patient will verbalize/demonstrate understanding of assistive devices/modifications for ADL. 3=Patient will improve strength/tolerance for activity to enable patient to perform ADL's. OT Education/Plan Problem List/Assessment Assessment: Decreased Activ Tolerance, Decreased UE Strength, Dependent Transfers, Impaired Bed Mobility, Impaired Funct Balance, Impaired I ADL's, Impaired Self-Care Skills Discharge Recommendations Plan/Recommendations: Continue POC Therapy Discharge Recommendati: Assisted Living, Post Acute OT Treatment Plan/Plan of Care Treatment,Training & Education: Yes Patient would benefit from OT for education, treatment and training to promote independence in ADL's, mobility, safety and/or upper extremity function for ADL's. Plan of Care: ADL Retraining, Functional Mobility, UE Funct Exercise/Act Treatment Duration: Feb 16, 2022 Frequency: 3 times per week Estimated Hrs Per Day: .25 hour per day Agreement: Yes Rehab Potential: Good Pt. would benefit from OT services 3-5x per week to increase overall ADL skills and strength for return to prior level. Time/GCodes Start Time: 11:28 Stop Time: 11:50 Total Time Billed (hr/min): 22 Billed Treatment Time 1, STEPHANIE PEREZ OT February 02, 2022 12:27
[2022-02-02] MEDS ORDERED: SACUBITRIL/VALSARTAN 24/26 MG (ENTRESTO) TABLET PO ONE (12:30)
--- NOTE | 2022-02-02 12:32 | Cardiology Progress Note ---
Progress Note-Cardiology Events since last exam Date Seen by Provider: February 02, 2022 Time Seen by Provider: 12:27 Events since last exam I am following her due to heart failure. Her breathing is improved but not quite back to her baseline. She also feels weak. She denies chest discomfort, palpitations, or syncope. She has persistent, chronic mild ankle edema. Certain portions of this document may have been dictated utilizing voice recognition technology. Inherent to this technology, typographical and g rammatical errors may exist. As much as I am diligent to identify and correct these mistakes, some errors may remain in the document. Vitals Last set of Vitals Signs Vital Signs 01/31/22 02/01/22 02/02/22 21:21 14:51 11:57 Temp 37.0 Pulse 76 Resp 18 B/P (MAP) 144/80 (101) Pulse Ox 94 O2 Delivery Room Air O2 Flow Rate 0.00 FiO2 21 Labs Labs Laboratory Tests 02/02/22 05:12 Exam Vital Signs Vital Signs Date Time Temp Pulse Resp B/P (MAP) Pulse Ox O2 Delivery O2 Flow Rate FiO2 02/02/22 11:57 37.0 76 18 144/80 (101) 94 Room Air 02/01/22 14:51 0.00 01/31/22 21:21 21 Physical Exam General: Alert. No acute distress. She is morbidly obese. Eye: No xanthelasma. HENT: Normocephalic. Neck: Jugular venous pressure does not appear elevated. Respiratory: Lungs are clear to auscultation. Respirations are non-labored. Breath sounds are equal. Symmetrical chest wall expansion. Cardiovascular: Normal rate. Regular rhythm. No murmur. No gallop. Trace bilateral pretibial edema with chronic venous stasis changes. Gastrointestinal: Soft. Normal bowel sounds. Skin: Warm. Dry. Neurologic: Alert and oriented to person, place, time. Cranial nerves 3-11 grossly intact. Psychiatric: Cooperative. Appropriate mood & affect. Labs Laboratory Tests Test 02/01/22 15:13 02/01/22 20:17 02/02/22 05:12 02/02/22 05:13 Range/Units Glucometer 165 H 174 H 125 H 70-110 MG/DL White Blood Count 8.4 4.3-11.0 10^3/uL Red Blood Count 3.67 L 3.80-5.11 10^6/uL Hemoglobin 10.7 L 11.5-16.0 g/dL Hematocrit 35 35-52 % Mean Corpuscular Volume 96 80-99 fL Mean Corpuscular Hemoglobin 29 25-34 pg Mean Corpuscular Hemoglobin Concent 30 L 32-36 g/dL Red Cell Distribution Width 15.5 H 10.0-14.5 % Platelet Count 144 130-400 10^3/uL Mean Platelet Volume 10.5 9.0-12.2 fL Sodium Level 142 135-145 MMOL/L Potassium Level 3.7 3.6-5.0 MMOL/L Chloride Level 104 98-107 MMOL/L Carbon Dioxide Level 26 21-32 MMOL/L Anion Gap 12 5-14 MMOL/L Blood Urea Nitrogen 18 7-18 MG/DL Creatinine 0.99 0.60-1.30 MG/DL Estimat Glomerular Filtration Rate 56 BUN/Creatinine Ratio 18 Glucose Level 138 H 70-105 MG/DL Calcium Level 8.4 L 8.5-10.1 MG/DL Test 02/02/22 11:17 Range/Units Glucometer 198 H 70-110 MG/DL Diagnosis/Problems Diagnosis/Problems (1) Acute on chronic combined systolic and diastolic congestive heart failure Assessment & Plan: She again seems to have a decline in her ejection fraction. She received intravenous Lasix in the emergency room and again on the medical floor today. Her symptoms are starting to improve. She was on carvedilol at home. I also started her on spironolactone but this was before I had the res ults of the echocardiogram. I will add Entresto and obtain a follow-up metabolic panel in the morning. We will need to watch her blood pressure closely. Entresto has a tendency to cause hypotension. (2) Pericardial effusion Assessment & Plan: She has a moderate sized pericardial effusion without evidence of pericardial tamponade. This may be due to the heart failure. We may want to consider a follow-up echocardiogram in 1-2 months following discha rge. There are no indications for pericardiocentesis at this time. (3) Cardiomyopathy Assessment & Plan: As above, her ejection fraction had previously improved but now again appears depressed. We will need to make some adjustments to her medication accordingly. She has a prophylactic defibrillator in place. (4) Mitral regurgitation Assessment & Plan: She had mild mitral regurgitation in the past and this is now severe. Some of this may be functional mitral regurgitation due to the decompensated heart failure. This will need to be followed longitudinally. (5) Coronary artery disease without angina pectoris Assessment & Plan: She is not having any angina at this point in time. We will continue guideline directed medical therapy. (6) Pulmonary hypertension Assessment & Plan: She has severe pulmonary hypertension. I suspect some of this could be related to the decompensated heart failure. This will need to be followed longitudinally. (7) Primary hypertension Assessment & Plan: Continue outpatient antihypertensive medication. I have also added spironolactone and Entresto for the heart failure. Both of these will help lower her blood pressure although Entresto is not indicated for the treatment of hypertension. (8) Mixed hyperlipidemia Assessment & Plan: Continue statin medication. (9) Type 2 diabetes mellitus with complication Assessment & Plan: This will be managed by the hospitalist. (10) Anemia Assessment & Plan: Unclear whether or not this may be contributing to her current symptoms. Her hemoglobin is actually better than it was earlier in the year. (11) Acquired hypothyroidism Assessment & Plan: Her TSH level was slightly elevated. I would not suspect this to be contributing to the heart failure but her dose of thyroid medication may need to be adjusted. (12) Morbidly obese Assessment & Plan: She needs to work on weight loss. JUAN J BOSS JR, MD February 02, 2022 12:32
[2022-02-02] MEDS: SACUBITRIL/VALSARTAN 24/26 MG (ENTRESTO) TABLET PO SCH (19:44)
[2022-02-02] MEDS: AtorvaSTATin TABLET 10 MG TABLET PO SCH (19:44)
[2022-02-03 03:26] VITALS: BP 140/88
[2022-02-03] MEDS: LEVOTHYROXINE 50 MCG (LEVOTHROID) TAB PO SCH (05:43)
[2022-02-03] MEDS: MULTIVIT W/MINERALS TAB (THERAGRAN M) PO SCH (05:43)
[2022-02-03] MEDS: CATHETER FLUSH 10 ML SYR IVP SCH ×3 (05:43→19:42)
[2022-02-03 05:57] LABS: POTASSIUM 3.8 MMOL/L (3.6-5.0)
[2022-02-03 05:58] LABS: CALCIUM 8.3 MG/DL (8.5-10.1)
[2022-02-03 06:02] LABS: CREATININE SERUM 0.84 MG/DL (0.60-1.30)
[2022-02-03 07:50] VITALS: BP 130/84
--- NOTE | 2022-02-03 08:07 | Progress Note - Cardiology ---
Cardiology SOAP Progress Note Subjective: Sitting up in recliner at the bedside States she is feeling much better today Wants to go home Objective: I&O/Vital Signs 02/02/22 02/03/22 02/03/22 02/03/22 23:29 01:00 03:26 07:00 Temp 36.8 36.8 Pulse 71 73 72 79 Resp 18 20 B/P (MAP) 132/62 (85) 140/88 (105) Pulse Ox 92 93 O2 Delivery Room Air Room Air 02/03/22 02/03/22 07:50 08:00 Temp 36.7 Pulse 74 Resp 18 B/P (MAP) 130/84 (99) Pulse Ox 92 O2 Delivery Room Air Room Air 02/02/22 23:59 Intake Total 970 ml Output Total 1500 ml Balance -530 ml Weight (Pounds): 205 Weight (Calculated Kilograms): 92.267556 Constitutional: AAO x 3, well-developed, well-nourished Respiratory: No accessory muscle use, No respiratory distress; chest expansion is symmetric, chest is bilaterally symmetric, other (diminished bases bilat) Cardiovascular: regular rate-rhythm; No JVD; S1 and S2 Gastrointestional: No tender; soft, round, audible bowel sounds Extremities: other (mod bilat LE swelling) Neurologic/Psychiatric: grossly intact Skin: No rash on exposed areas, No ulcerations on exposed areas Results/Procedures: Labs Laboratory Tests 02/02/22 11:17: Glucometer 198H 02/02/22 15:21: Glucometer 145H 02/02/22 19:52: Glucometer 148H 02/03/22 05:28: Sodium Level 141, Potassium Level 3.8, Chloride Level 105, Carbon Dioxide Level 26, Anion Gap 10, Blood Urea Nitrogen 14, Creatinine 0.84, Estimat Glomerular Filtration Rate 68, BUN/Creatinine Ratio 17, Glucose Level 159H, Calcium Level 8.3L Microbiology 01/31/22 Urine Culture - Final, Complete Strep, Beta Hemolytic Group B Escherichia coli Laboratory Tests 02/02/22 05:12 02/03/22 05:28 A/P: Assessment: Nonischemic cardiomyopathy - Cardiomyopathy diagnosed in January 2015. - S/P dual chamber bi-ventricular defib 05-21-[address] Goins. It is a [employer] model [id number] Viva Quad. He is following her device. - Echocardiogram from Jan 22 2015 showed LVEF 20%. - Echo of Oct 18, 2018 showed LVEF 50-55%. Grade 1 diastolic dysfunction. Mild calcified mitral valve annulus with mild regurg. Trivial AoR. Mod TR. PASP approx 45mmHg - Echocardiogram of 02-01-[address] Ward showed LVEF 35-40%. LA and RA is severely dilated. Severe MR. Trivial AoR. Severe TR. Mod sized, circumferential pericardial effusion without evidence of tamponade. PASP 78 mmHg CAD - Cardiac cath of 01/09/14 showed mild CAD (LMCA 30% angiographically and 22% by IVUS) and LVEF 45%: nonischemic cardiomyopathy Carotid u/s of Sep 2018 showed minimal carotid plaque LBBB, chronic Hypertension, including white-coat hypertension Hyperlipidemia Type II DM Hypothyroidism being treated with thyroid replacement therapy H/o osteoarthritis. S/p bilat TKR Obesity with BMI 37 Chronic bilat leg swelling, worst after she has been on her feet, unchanged in the recent past, probably venous insuff and lymphedema Suspected sleep apnea syndrome but pt refuses work up Chronic back pain CT of the chest from November 2014 showed granulomatous changes with granulomas in the right lung, right hilum and spleen H/O non-compliance with f/u Plan: Continue current medication regimen Dilated cardiomyopathy with recent worsening of LVEF - continue tx with Coreg, Aldactone and Entresto - titrate as BP will allow - continue diuretic tx Pericardial effusion - repeat echo tomorrow Monitor lab closely Dr. Ward notes have been reviewed in detail YANE VILLAR February 03, 2022 08:07
[2022-02-03] MEDS: ASPIRIN 81 MG CHEW (CHILDREN'S ASA) PO SCH (08:41)
[2022-02-03] MEDS: SACUBITRIL/VALSARTAN 24/26 MG (ENTRESTO) TABLET PO SCH ×2 (08:41→19:42)
[2022-02-03] MEDS: FUROSEMIDE 20 MG (LASIX) TAB PO SCH (08:41)
[2022-02-03] MEDS: SPIRONOLACTONE 25 MG (ALDACTONE) TAB PO SCH (08:41)
[2022-02-03] MEDS: glipiZIDE 5 MG (GLUCOTROL) TAB PO SCH ×2 (08:41→18:04)
[2022-02-03] MEDS: KCL 10 MEQ TAB (MICRO K) PO SCH (08:41)
--- NOTE | 2022-02-03 08:56 | Occupational Ther Daily Note ---
OT Current Status-Daily Note Subjective Pt alert, lying in bed. Pt agrees to therapy. No c/o pain only fatigue. Mental Status/Objective Patient Orientation: Person, Place, Time, Situation Attachments: Lopez Catheter ADL-Treatment Pt does not wear socks due to size of calves, only wears slip on shoes. Pt able to slip shoe on R foot then bend over to use finger to slip heel in shoe, assist to don L shoe due to inability to manipulate foot into shoe. Pt then is able to ambulate with FWW around bed to recliner with SBA. Breakfast came for pt. Pt able to set up own meal and use regular utensils to eat. After session, pt sitting in recliner with call light/phone in reach. All needs met in room. Therapy Code Descriptions/Definitions Functional [place] Measure: 0=Not Assessed/NA 4=Minimal Assistance 1=Total Assistance 5=Supervision or Setup 2=Maximal Assistance 6=Modified [place] 3=Moderate Assistance 7=Complete IndependenceSCALE: Activities may be completed with or without assistive devices. 1-Jgvselecry-umxbuut completes the activity by him/herself with no assistance from a helper. 5-Set-up or Clean-up Assistance-helper sets up or cleans up; patient completes activity. [place] assists only prior to or following the activity. 4-Supervision or Touching Assistance-helper provides verbal cues and/or touching/steadying and/or contact guard assistance as patient completes activity. Assistance may be provided throughout the activity or intermittently. 3-Partial/Moderate Assistance-helper does LESS THAN HALF the effort. [place] lifts, holds or supports trunk or limbs, but provides less than half the effort. 2-Substantial/Maximal Assistance-helper does MORE THAN HALF the effort. [place] lifts or holds trunk or limbs and provides more than half the effort. 7-Pvnqxprfq-lyrqyk does ALL the effort. Patient does none of the effort to complete the activity. Or, the assistance of 2 or more helpers is required for the patient to complete the activity. If activity was not attempted, code reason: 7-Patient Refused. 9-Not Applicable-not attempted and the patient did not perform the activity before the current illness, exacerbation or injury. 10-Not Attempted due to Environmental Limitations-(lack of equipment, weather restraints, etc.). 88-Not Attempted due to Medical Conditions or Safety Concerns. Eating (QC): 6 Oral Hygiene (QC): 7 On/Off Footwear: 3 (mod A) OT Hand Hide Stretcher Goals Care Home Goals Time Frame: Feb 16, 2022 Eating (QC): 6 Oral Hygiene (QC): 5 Toileting Hygiene (QC): 5 Shower/Bathe Self (QC): 4 Upper Body Dressing (QC): 4 On/Off Footwear (QC): 5 Additional Goals: 1-Demonstrate ADL Tasks, 2-Verbalize Understanding, 3- ImproveStrength/Rehan 1=Demonstrate adherence to instructed precautions during ADL tasks. 2=Patient will verbalize/demonstrate understanding of assistive devices/modifi cations for ADL. 3=Patient will improve strength/tolerance for activity to enable patient to perform ADL's. OT Education/Plan Problem List/Assessment Assessment: Decreased Activ Tolerance, Impaired Self-Care Skills Discharge Recommendations Plan/Recommendations: Continue POC Treatment Plan/Plan of Care Patient would benefit from OT for education, treatment and training to promote independence in ADL's, mobility, safety and/or upper extremity function for ADL's. Plan of Care: ADL Retraining, Functional Mobility, UE Funct Exercise/Act Treatment Duration: Feb 16, 2022 Frequency: 3 times per week Estimated Hrs Per Day: .25 hour per day Agreement: Yes Rehab Potential: Good Time/GCodes Start Time: 08:13 Stop Time: 08:24 Total Time Billed (hr/min): 11 Billed Treatment Time 1 visit-ADL 1 (11 min) GRACIELA AVILA February 03, 2022 08:56
--- NOTE | 2022-02-03 09:17 | Physical Therapy Daily Note ---
PT Daily Note-Current Subjective Patient agrees to PT. No c/o at this time. Mental Status Patient Orientation: Normal For Age Attachments: Lopez Catheter Transfers SCALE: Activities may be completed with or without assistive devices. 0-Gczgzhcipv-mwdjvli completes the activity by him/herself with no assistance from a helper. 5-Set-up or Clean-up Assistance-helper sets up or cleans up; patient completes activity. [place] assists only prior to or following the activity. 4-Supervision or Touching Assistance-helper provides verbal cues and/or touching/steadying and/or contact guard assistance as patient completes activity. Assistance may be provided throughout the activity or intermittently. 3-Partial/Moderate Assistance-helper does LESS THAN HALF the effort. [place] lifts, holds or supports trunk or limbs, but provides less than half the effort. 2-Substantial/Maximal Assistance-helper does MORE THAN HALF the effort. [place] lifts or holds trunk or limbs and provides more than half the effort. 0-Wzfeybzne-ybxydn does ALL the effort. Patient does none of the effort to complete the activity. Or, the assistance of 2 or more helpers is required for the patient to complete the activity. If activity was not attempted, code reason: 7-Patient Refused. 9-Not Applicable-not attempted and the patient did not perform the activity before the current illness, exacerbation or injury. 10-Not Attempted due to Environmental Limitations-(lack of equipment, weather restraints, etc.). 88-Not Attempted due to Medical Conditions or Safety Concerns. Lying to Sitting/Side of Bed(Q: 6 Sit to Stand (QC): 4 Chair/Sxr-wl-Txxid Xfer(QC): 4 Weight Bearing Full Weight Bearing Full Weight Bearing Gait Training Distance: 25' Walk 10 feet (QC): 4 Gait Assistive Device: FWW slow, steady gait sequence Assessment Patient requires time to complete all functional tasks. Patient appears to self limit. Up in recliner with needs met. PT Short Term Goals Short Term Goals Time Frame: Feb 09, 2022 Roll Left & Right: 5 Sit to lyin Lying to sitting on side of be: 5 Sit to stand: 5 Chair/zqq-gw-torpz transfer: 5 Toilet transfer: 5 Car transfer: 5 Walk 10 feet: 5 Walk 50 feet with two turns: 5 Walk 150 feet: 5 PT Gymnastics Coach Goals Gymnastics Coach Goals PT Gymnastics Coach Goals Time Frame: Feb 16, 2022 Roll Left & Right (QC): 6 Sit to Lying (QC): 6 Lying-Sitting on Side/Bed(QC): 6 Sit to Stand (QC): 6 Chair/Wbv-ra-Enxzm Xfer(QC): 6 Toilet Transfer (QC): 6 Walk 10 feet (QC): 6 Walk 50ft with 2 Turns (QC): 6 Walk 150 ft (QC): 6 PT Plan Treatment/Plan Treatment Plan: Continue Plan of Care Treatment Plan: Bed Mobility, Education, Functional Activity Rehan, Functional Strength, Group Therapy, Gait, Safety, Therapeutic Exercise, Transfers Treatment Duration: Feb 16, 2022 Frequency: 6 times per week Estimated Hrs Per Day: .5 hour per day Time/GCodes Time In: 814 Time Out: 824 Total Billed Treatment Time: 10 Total Billed Treatment 1 visit FA 10 min TERRY RASHEED PT February 03, 2022 09:17
[2022-02-03 11:19] VITALS: BP 146/85
[2022-02-03] MEDS ORDERED: POLY17PO6 PO (13:29)
[2022-02-03] MEDS ORDERED: FERR325T18 PO (13:29)
[2022-02-03] MEDS ORDERED: DOCU100C37 PO (13:29)
--- NOTE | 2022-02-03 14:11 | Progress Note - Cardiology ---
Cardiology SOAP Progress Note Subjective: Still considerably short of breath Denies cp or palp or syncope Bilat leg swelling No n/v/d Gen malaise and weakness present Notes discomfort of joints and carlos Objective: I&O/Vital Signs 02/03/22 02/03/22 02/03/22 02/03/22 03:26 07:00 07:50 08:00 Temp 36.8 36.7 Pulse 72 79 74 Resp 20 18 B/P (MAP) 140/88 (105) 130/84 (99) Pulse Ox 93 92 O2 Delivery Room Air Room Air Room Air 02/03/22 02/03/22 02/03/22 11:19 13:00 13:00 Temp 36.9 Pulse 83 70 70 Resp 18 B/P (MAP) 146/85 (105) Pulse Ox 95 O2 Delivery Room Air 02/03/22 00:00 Intake Total 970 ml Output Total 1500 ml Balance -530 ml Weight (Pounds): 205 Weight (Calculated Kilograms): 92.697777 Constitutional: AAO x 3, well-developed, well-nourished Respiratory: No accessory muscle use, No respiratory distress; chest expansion is symmetric, chest is bilaterally symmetric, other (diminished bases bilat) Cardiovascular: regular rate-rhythm; No JVD; S1 and S2 Gastrointestional: No tender; soft, round, audible bowel sounds Extremities: other (mod bilat LE swelling) Neurologic/Psychiatric: grossly intact Skin: No rash on exposed areas, No ulcerations on exposed areas Results/Procedures: Labs Laboratory Tests 02/02/22 15:21: Glucometer 145H 02/02/22 19:52: Glucometer 148H 02/03/22 05:28: Sodium Level 141, Potassium Level 3.8, Chloride Level 105, Carbon Dioxide Level 26, Anion Gap 10, Blood Urea Nitrogen 14, Creatinine 0.84, Estimat Glomerular Filtration Rate 68, BUN/Creatinine Ratio 17, Glucose Level 159H, Calcium Level 8.3L Microbiology 01/31/22 Urine Culture - Final, Complete Strep, Beta Hemolytic Group B Escherichia coli Laboratory Tests 02/02/22 05:12 02/03/22 05:28 A/P: Assessment: Acute, decompensated systolic CHF and moderate pericardial effusion w/o tamponade Nonischemic cardiomyopathy - Cardiomyopathy diagnosed in January 2015. - S/P dual chamber bi-ventricular defib 9-15-[address] Goins. It is a [employer] model [id number] Viva Quad. He is following her device. - Echocardiogram from Jan 22 2015 showed LVEF 20%. - Echo of Oct 18, 2018 showed LVEF 50-55%. Grade 1 diastolic dysfunction. Mild calcified mitral valve annulus with mild regurg. Trivial AoR. Mod TR. PASP approx 45mmHg - Echocardiogram of 02-01-[address] Ward showed LVEF 35-40%. LA and RA is severely dilated. Severe MR. Trivial AoR. Severe TR. Mod sized, circumfe rential pericardial effusion without evidence of tamponade. PASP 78 mmHg CAD - Cardiac cath of 01/09/14 showed mild CAD (LMCA 30% angiographically and 22% by IVUS) and LVEF 45%: nonischemic cardiomyopathy Carotid u/s of Sep 2018 showed minimal carotid plaque LBBB, chronic Hypertension, including white-coat hypertension Hyperlipidemia Type II DM Hypothyroidism being treated with thyroid replacement therapy H/o osteoarthritis. S/p bilat TKR Obesity with BMI 37 Chronic bilat leg swelling, worst after she has been on her feet, unchanged in the recent past, probably venous insuff and lymphedema Suspected sleep apnea syndrome but pt refuses work up Chronic back pain CT of the chest from November 2014 showed granulomatous changes with granulomas in the right lung, right hilum and spleen H/O non-compliance with f/u Plan: I interviewed and examined the patient and reviewed her records I discussed her case with Dr Ward Dilated cardiomyopathy with recent worsening of LVEF - continue tx with Coreg, Aldactone and Entresto - titrate as BP will allow - continue diuretic tx Pericardial effusion - repeat echo tomorrow Monitor lab closely SONNY KRISHNAMURTHY MD FACP FAC CCDS February 03, 2022 14:11
[2022-02-03 16:00] VITALS: BP 155/93
--- NOTE | 2022-02-03 17:47 | Progress Note ---
Subjective Date Seen by a Provider: February 03, 2022 Time Seen by a Provider: 12:30 Subjective/Events-last exam Fwup nonischemic cardiomyopathy with worsening EF, pericardial effusion, decompensated systolic CHF, chronic lymphedema of legs with chronic venous stasis, DMII, HTN, weakness. Sitting up in chair. States wants to go home tomorrow. Objective Exam Vital Signs Date Time Temp Pulse Resp B/P (MAP) Pulse Ox O2 Delivery O2 Flow Rate FiO2 02/03/22 16:00 35.9 90 20 155/93 (113) 97 Room Air 02/03/22 14:31 Room Air 02/03/22 13:00 70 02/03/22 13:00 70 02/03/22 11:19 36.9 83 18 146/85 (105) 95 Room Air 02/03/22 08:00 Room Air 02/03/22 07:50 36.7 74 18 130/84 (99) 92 Room Air 02/03/22 07:00 79 02/03/22 03:26 36.8 72 20 140/88 (105) 93 Room Air 02/03/22 01:00 73 02/02/22 23:29 36.8 71 18 132/62 (85) 92 Room Air 02/02/22 19:49 Room Air 02/02/22 19:20 37.4 72 20 109/55 (73) 91 Room Air 02/02/22 19:00 71 I & O0 02/03/22 07:00 Intake Total 1170 ml Output Total 1850 ml Balance -680 ml Capillary Refill : General Appearance: No Apparent Distress Neck: Supple Respiratory: Lungs Clear, Decreased Breath Sounds Cardiovascular: Regular Rate, Rhythm, Gallop/S4 Gastrointestinal: normal bowel sounds, non tender, soft Extremity: Pedal Edema (chronic, brawny) Neurologic/Psychiatric: Alert, Oriented x3 Results Lab Laboratory Tests 02/02/22 19:52: Glucometer 148H 02/03/22 05:28: Sodium Level 141, Potassium Level 3.8, Chloride Level 105, Carbon Dioxide Level 26, Anion Gap 10, Blood Urea Nitrogen 14, Creatinine 0.84, Estimat Glomerular Filtration Rate 68, BUN/Creatinine Ratio 17, Glucose Level 159H, Calcium Level 8.3L 02/03/22 16:31: Glucometer 207H Microbiology 01/31/22 Urine Culture - Final, Complete Strep, Beta Hemolytic Group B Escherichia coli Assessment/Plan Assessment/Plan Assess & Plan/Chief Complaint 1. Nonischemic Cardiomyopathy with worsening EF and decompensated systolic CHF--started on aldactone, entresto and coreg 2. Pericardial Effusion without cardiac tamponade--repeat ECHO tomorrow 3. Hypertension--stable 4. Chronic Lymphedema of legs/chronic venous stasis--refuses compression socks or MG wraps, refuses higher dose of lasix due to having to urinate more frequently, refuses to elevate legs 5. DMII--on accuchecks with SSI 6. Weakness--multifactorial, PT started SAVANNAH DIAZ DO February 03, 2022 17:47
[2022-02-03] MEDS: AtorvaSTATin TABLET 10 MG TABLET PO SCH (19:42)
[2022-02-03 20:00] VITALS: BP 147/62
[2022-02-03 23:24] VITALS: BP 135/61
[2022-02-04 03:59] VITALS: BP 136/71
[2022-02-04] MEDS: LEVOTHYROXINE 50 MCG (LEVOTHROID) TAB PO SCH (05:23)
[2022-02-04] MEDS: MULTIVIT W/MINERALS TAB (THERAGRAN M) PO SCH (05:23)
[2022-02-04] MEDS: CATHETER FLUSH 10 ML SYR IVP SCH ×2 (05:23→14:09)
[2022-02-04 07:35] VITALS: BP 144/75
[2022-02-04] MEDS: glipiZIDE 5 MG (GLUCOTROL) TAB PO SCH (08:49)
[2022-02-04] MEDS: FUROSEMIDE 20 MG (LASIX) TAB PO SCH (08:49)
[2022-02-04] MEDS: SACUBITRIL/VALSARTAN 24/26 MG (ENTRESTO) TABLET PO SCH (08:49)
[2022-02-04] MEDS: KCL 10 MEQ TAB (MICRO K) PO SCH (08:49)
[2022-02-04] MEDS: ASPIRIN 81 MG CHEW (CHILDREN'S ASA) PO SCH (08:49)
[2022-02-04] MEDS: SPIRONOLACTONE 25 MG (ALDACTONE) TAB PO SCH (08:49)
--- NOTE | 2022-02-04 09:47 | Occupational Ther Daily Note ---
OT Current Status-Daily Note Subjective Pt alert, lying in bed. Pt agrees to therapy. No c/o pain. Mental Status/Objective Patient Orientation: Person, Place, Time, Situation Attachments: IV ADL-Treatment Supine to EOB independent. Mod A for slipping on shoes, pt able to bend over to thread heel in with fingers. Pt then ambulated to bathroom and transfer to toilet with SBA for safety. Pt able to manipulate clothing and cleanse self with SBA for safety. Nrsg in room to assist pt with shower. After therapy, pt left in care of nrsg. All needs met. Therapy Code Descriptions/Definitions Functional Yates Measure: 0=Not Assessed/NA 4=Minimal Assistance 1=Total Assistance 5=Supervision or Setup 2=Maximal Assistance 6=Modified Yates 3=Moderate Assistance 7=Complete IndependenceSCALE: Activities may be completed with or without assistive devices. 2-Uanbdqnbhe-qmvjjfn completes the activity by him/herself with no assistance from a helper. 5-Set-up or Clean-up Assistance-helper sets up or cleans up; patient completes activity. Horton assists only prior to or following the activity. 4-Supervision or Touching Assistance-helper provides verbal cues and/or touching/steadying and/or contact guard assistance as patient completes activity. Assistance may be provided throughout the activity or intermittently. 3-Partial/Moderate Assistance-helper does LESS THAN HALF the effort. Horton lifts, holds or supports trunk or limbs, but provides less than half the effort. 2-Substantial/Maximal Assistance-helper does MORE THAN HALF the effort. Horton lifts or holds trunk or limbs and provides more than half the effort. 5-Afupeqlxh-abfkno does ALL the effort. Patient does none of the effort to complete the activity. Or, the assistance of 2 or more helpers is required for the patient to complete the activity. If activity was not attempted, code reason: 7-Patient Refused. 9-Not Applicable-not attempted and the patient did not perform the activity before the current illness, exacerbation or injury. 10-Not Attempted due to Environmental Limitations-(lack of equipment, weather restraints, etc.). 88-Not Attempted due to Medical Conditions or Safety Concerns. On/Off Footwear: 3 Toileting Hygiene (QC): 4 Toilet Transfer (QC): 4 OT Assisted Goals Lead Software Test Engineer Goals Time Frame: Feb 16, 2022 Eating (QC): 6 Oral Hygiene (QC): 5 Toileting Hygiene (QC): 5 Shower/Bathe Self (QC): 4 Upper Body Dressing (QC): 4 On/Off Footwear (QC): 5 Additional Goals: 1-Demonstrate ADL Tasks, 2-Verbalize Understanding, 3- ImproveStrength/Rehan 1=Demonstrate adherence to instructed precautions during ADL tasks. 2=Patient will verbalize/demonstrate understanding of assistive devices/modifications for ADL. 3=Patient will improve strength/tolerance for activity to enable patient to perform ADL's. OT Education/Plan Problem List/Assessment Assessment: Decreased Activ Tolerance, Impaired Self-Care Skills Discharge Recommendations Plan/Recommendations: Continue POC Treatment Plan/Plan of Care Patient would benefit from OT for education, treatment and training to promote independence in ADL's, mobility, safety and/or upper extremity function for ADL's. Plan of Care: ADL Retraining, Functional Mobility, UE Funct Exercise/Act Treatment Duration: Feb 16, 2022 Frequency: 3 times per week Estimated Hrs Per Day: .25 hour per day Agreement: Yes Rehab Potential: Good Time/GCodes Start Time: 08:20 Stop Time: 08:35 Total Time Billed (hr/min): 15 Billed Treatment Time 1 visit-ADL 1 (15 min) GRACIELA AVILA Feb 04, 2022 09:47
--- NOTE | 2022-02-04 10:16 | Physical Therapy Daily Note ---
PT Daily Note-Current Subjective Pt. up in recliner and agrees to Rx. No c/o pain. Pain Location: No Pain Reported Mental Status Patient Orientation: Normal For Age Attachments: Lopez Catheter Transfers SCALE: Activities may be completed with or without assistive devices. 9-Ltkasywupf-wlbogmd completes the activity by him/herself with no assistance from a helper. 5-Set-up or Clean-up Assistance-helper sets up or cleans up; patient completes activity. Stephens assists only prior to or following the activity. 4-Supervision or Touching Assistance-helper provides verbal cues and/or touching /steadying and/or contact guard assistance as patient completes activity. Assistance may be provided throughout the activity or intermittently. 3-Partial/Moderate Assistance-helper does LESS THAN HALF the effort. Stephens lifts, holds or supports trunk or limbs, but provides less than half the effort. 2-Substantial/Maximal Assistance-helper does MORE THAN HALF the effort. Stephens lifts or holds trunk or limbs and provides more than half the effort. 2-Kvmlqeryk-zzbyve does ALL the effort. Patient does none of the effort to complete the activity. Or, the assistance of 2 or more helpers is required for the patient to complete the activity. If activity was not attempted, code reason: 7-Patient Refused. 9-Not Applicable-not attempted and the patient did not perform the activity before the current illness, exacerbation or injury. 10-Not Attempted due to Environmental Limitations-(lack of equipment, weather restraints, etc.). 88-Not Attempted due to Medical Conditions or Safety Concerns. Sit to Stand (QC): 4 instructed in use of hands at arms of chair, mod effort for pt. with CGA to SBA only Weight Bearing Full Weight Bearing Full Weight Bearing Gait Training Does the Patient Walk?: Yes Gait Assistive Device: FWW 85 ft x 1, 20 t x 1, FWW CGA, slow, small small step length, toe in gait , head down with cue for alignment etc Exercises Seated Therapy Exercises: Ankle pumps, Sit to stand, Long arc quads, Hip flexion, Hip abd/add Seated Reps: 12 Treatments sit to stand to sit TRF training, gait training with FWW, seated LE ex, up in recliner after Rx with laura at hand Assessment Current Status: Good Progress PT Short Term Goals Short Term Goals Time Frame: Feb 09, 2022 Roll Left & Right: 5 Sit to lyin Lying to sitting on side of be: 5 Sit to stand: 5 Chair/zex-io-avlup transfer: 5 Toilet transfer: 5 Car transfer: 5 Walk 10 feet: 5 Walk 50 feet with two turns: 5 Walk 150 feet: 5 PT Otr Company Driver Goals Otr Company Driver Goals PT Nursing Home Goals Time Frame: Feb 16, 2022 Roll Left & Right (QC): 6 Sit to Lying (QC): 6 Lying-Sitting on Side/Bed(QC): 6 Sit to Stand (QC): 6 Chair/Pjl-ip-Okyqg Xfer(QC): 6 Toilet Transfer (QC): 6 Walk 10 feet (QC): 6 Walk 50ft with 2 Turns (QC): 6 Walk 150 ft (QC): 6 PT Plan Treatment/Plan Treatment Plan: Continue Plan of Care Treatment Plan: Bed Mobility, Education, Functional Activity Rehan, Functional Strength, Group Therapy, Gait, Safety, Therapeutic Exercise, Transfers Treatment Duration: Feb 16, 2022 Frequency: 6 times per week Estimated Hrs Per Day: .5 hour per day Safety Risks/Education Patient Education: Gait Training, Transfer Techniques, Correct Positioning, Disease Process, Safety Issues Teaching Recipient: Patient Teaching Methods: Demonstration, Discussion Response to Teaching: Verbalize Understanding, Return Demonstration, Reinforcement Needed Time/GCodes Time In: 920 Time Out: 942 Total Billed Treatment Time: 22 Total Billed Treatment 1,GT22m SILVIA AMES RUBBER GOODS ASSEMBLER Feb 04, 2022 10:16
[2022-02-04] MEDS ORDERED: ASPI81TA64 PO (11:00)
[2022-02-04] MEDS ORDERED: FURO20TA4 PO (11:00)
[2022-02-04] MEDS ORDERED: CARV6.252 PO (11:00)
[2022-02-04] MEDS ORDERED: SPIR25TA5 PO (11:00)
[2022-02-04] MEDS ORDERED: SACU1TAB2 PO (11:00)
[2022-02-04 11:20] VITALS: BP 136/65
--- NOTE | 2022-02-04 13:56 | Progress Note - Cardiology ---
Cardiology SOAP Progress Note Subjective: She states she feels well and insist on going back home Denies cp or palp or syncope Swelling is better Does not report any shortness of breath at rest Objective: I&O/Vital Signs 02/04/22 02/04/22 02/04/22 02/04/22 03:59 07:00 07:35 08:00 Temp 36.8 36.8 Pulse 88 70 88 Resp 18 20 B/P (MAP) 136/71 (92) 144/75 (98) Pulse Ox 93 92 O2 Delivery Room Air Room Air Room Air 02/04/22 11:20 Temp 36.6 Pulse 69 Resp 20 B/P (MAP) 136/65 (88) Pulse Ox 92 O2 Delivery Room Air 02/04/22 00:00 Intake Total 1190 ml Output Total 2800 ml Balance -1610 ml Weight (Pounds): 205 Weight (Calculated Kilograms): 92.721208 Constitutional: AAO x 3, well-developed, well-nourished Respiratory: No accessory muscle use, No respiratory distress; chest expansion is symmetric, chest is bilaterally symmetric, other (diminished bases bilat) Cardiovascular: regular rate-rhythm; No JVD; S1 and S2 Gastrointestional: No tender; soft, round, audible bowel sounds Extremities: other (mod bilat LE swelling) Neurologic/Psychiatric: other (moves all limbs equally) Skin: No rash on exposed areas, No ulcerations on exposed areas Results/Procedures: Labs Laboratory Tests 02/03/22 16:31: Glucometer 207H 02/04/22 05:22: Glucometer 126H 02/04/22 10:12: Glucometer 170H Microbiology 01/31/22 Urine Culture - Final, Complete Strep, Beta Hemolytic Group B Escherichia coli Laboratory Tests 02/03/22 05:28 A/P: Assessment: Acute, decompensated systolic CHF and moderate pericardial effusion w/o tamponade Nonischemic cardiomyopathy - Cardiomyopathy diagnosed in January 2015. - S/P dual chamber bi-ventricular defib 05-21-[address] Goins. It is a [employer]onic model [id number] Viva Quad. He is following her device. - Echocardiogram from Jan 22 2015 showed LVEF 20%. - Echo of Oct 18, 2018 showed LVEF 50-55%. Grade 1 diastolic dysfunction. Mild calcified mitral valve annulus with mild regurg. Trivial AoR. Mod TR. PASP approx 45mmHg - Echocardiogram of 02-01-[address] Ward showed LVEF 35-40%. LA and RA is severely dilated. Severe MR. Trivial AoR. Severe TR. Mod sized, circumferential pericardial effusion without evidence of tamponade. PASP 78 mmHg - F/u echo n 02/04/22: small to mod pericard eff, unchanged compared the study of 02/01/22 CAD - Cardiac cath of 01/09/14 showed mild CAD (LMCA 30% angiographically and 22% by IVUS) and LVEF 45%: nonischemic cardiomyopathy Carotid u/s of Sep 2018 showed minimal carotid plaque LBBB, chronic Hypertension, including white-coat hypertension Hyperlipidemia Type II DM Hypothyroidism being treated with thyroid replacement therapy H/o osteoarthritis. S/p bilat TKR Obesity with BMI 37 Chronic bilat leg swelling, worst after she has been on her feet, unchanged in the recent past, probably venous insuff and lymphedema Suspected sleep apnea syndrome but pt refuses work up Chronic back pain CT of the chest from November 2014 showed granulomatous changes with granulomas in the right lung, right hilum and spleen H/O non-compliance with f/u Plan: I had a long and detailed discussion with her. She feels well and insists on going home. Her pericard eff is relatively small and without any signs of any hemodynamic significance. Accordingly, it appears reasonable to continue current regimen. We have advised f/u at our office in a week. I also discussed her case with SONNY Larry MD FACP [facility] Feb 04, 2022 13:56
--- NOTE | 2022-02-04 14:44 | D/C HH Face to Face Order ---
D/C Face to Face Orders Reconcile Patient Problems Problems Reviewed?: Yes Instructions for Patient Via [facility] [employer], Patient Instructions/FollowUp: Fwup 2 weeks Physician to follow Patient: Keith Discharge Diet for Home: ADA Diet, Cardiac Diet Patient Data-Allergies,Ht & Wt Patient Allergies: Coded Allergies: erythromycin base (Verified Allergy, Unknown, 07/06/07) Height (Feet): 5 Height (Inches): 3.00 Weight (Pounds): 205 Home Health Need/Face to Face Date of Face to Face: Feb 04, 2022 Clinical Findings: Generalized weakness and fatigue, Muscle weakness, Shortness of breath, Unsteady gait I have seen Pt bobu-md-zqvb: Yes Discharged To: Other (Assisted Living) Diagnosis/Conditions: Pericardial Effusion Nonischemic Cardiomyopathy Chronic Lymphedema of Legs/Chronic Venous Stasis DMII Hypertension Patient is Homebound due to: Muscle weakness, Shortness of breath/distress Homebound Status Due to the above stated illness, injury or surgical procedure (medical condition or diagnosis) and associated clinical findings, the patient is homebound because of his/her inability to leave home except with aid of a supportive device and/or person AND leaving the home requires a considerable and taxing effort or is medically contraindicated. Pt req the following assistanc: Walker, Wheelchair Home Health Nursing Orders Home Health Services Order: Nursing Services, Elevated Motorman-Evaluate & Treat, Physical Therapy-Evaluate & Treat, Wound Care-Eval/Treat (legs) Home Health Infusion Therapy Line Start Date: January 31, 2022 Certify Stmt I certify that this patient is under my care and that I, a nurse practitioner or a physician; a assistant clinical director working with me, had a face to face encounter that - meets the physician face to face encounter requirements with this patient as dated. SAVANNAH DIAZ DO Feb 04, 2022 14:43
[2022-02-04 16:04] VITALS: BP 136/65
== END 2022-02-04 16:05 | disposition home health service (06) ==
LOC: EDUNIT# 12:40 → ER 12:41 → 4TH 14:57
PROVIDERS: ADMIT Family Medicine; ATTEND Family Medicine
DX: I11.0 Hypertensive heart disease with heart failure (principal); I50.21 Acute systolic (congestive) heart failure; I42.0 Dilated cardiomyopathy; I42.8 Other cardiomyopathies; I25.10 Atherosclerotic heart disease of native coronary artery without angina pectoris; I44.7 Left bundle-branch block, unspecified; I31.3 Pericardial effusion (noninflammatory); E78.5 Hyperlipidemia, unspecified; E11.9 Type 2 diabetes mellitus without complications; E03.9 Hypothyroidism, unspecified; M19.90 Unspecified osteoarthritis, unspecified site; E66.9 Obesity, unspecified; M54.9 Dorsalgia, unspecified; G89.29 Other chronic pain; Z79.899 Other long term (current) drug therapy; Z79.84 Long term (current) use of oral hypoglycemic drugs; Z79.890 Hormone replacement therapy; Z96.653 Presence of artificial knee joint, bilateral; Z68.37 Body mass index [BMI] 37.0-37.9, adult; Z91.19 Patient's noncompliance with other medical treatment and regimen
CPT/HCPCS: 36415; 51702; 71045; 71046; 80048; 80061; 81000; 82947; 83036; 83880; 84443; 84484; 85025; 85027; 87088; 87186; 93005; 93306; 93308; 94640; 94760; 96376; G0378

== ENCOUNTER 2022-02-11 07:49 | Emergency (ER) | payer MEDICARE ==
[~2022-02-11] VITALS: Ht 152 cm; Wt 95.0 kg
[~2022-02-11 07:49] MED LIST changes: +ASPI81TA64 PO; +CARV6.252 PO; +FERR325T18 PO; +POLY17PO6 PO; +POTA10CA43 PO; +SACU1TAB2 PO
[2022-02-11] MEDS ORDERED: HYDROcodone/APAP 7.5 MG/325 MG (LORTAB, LORCET PLUS) TABLET PO ONE (09:00)
--- NOTE | 2022-02-11 09:00 | ED Lower Extremity ---
General Chief Complaint: Lower Extremity Stated Complaint: L LEG PAIN Nursing Triage Note: Pt c/o pain to L [place] x2-3 days. Pt reports knee fracture a few months ago. No new injury. Source: patient Exam Limitations: no limitations History of Present Illness Date Seen by Provider: Feb 11, 2022 Time Seen by Provider: 08:40 Initial Comments Patient to the ER by private conveyance from assisted living home with chief complaint that since early last night she started experiencing some increasing pain and swelling along the lateral anterior portion of her left leg. No inciting injury. 9 months ago she had a fracture of her leg in May. She has also had her knee replaced on the ipsilateral side. She denies any inciting fracture today and is not on blood thinners but does take an aspirin daily. She is concerned about a blood clot. She does not have history of DVTs or blood clots. She does have a history of coronary disease. She took hydrocodone about 3 in the morning and that seemed to work somewhat but her pain continued amount after it wore off. No shortness of air or chest pain. Allergies and Home Medications Allergies Coded Allergies: erythromycin base (Verified Allergy, Unknown, 07/06/07) Patient Home Medication List Home Medication List Reviewed: Yes Aspirin (Children's Aspirin) 81 Mg Tab.chew, 81 MG PO DAILY@0900 Prescribed by: YANE VILLAR on 02/04/22 1100 C,E,Zinc,Copper 24/Om3/Lut/Ramona (Ocuvite Adult 50 Plus Softgel) 1 Each Capsule, 1 EACH PO DAILY, (Reported) Entered as Reported by: GINETTE RYAN on 09/19/21 1520 Carvedilol (Carvedilol) 6.25 Mg Tablet, 6.25 MG PO BID WITH MEALS Prescribed by: YANE VILLAR on 02/04/22 1100 Cholecalciferol (Vitamin D3) (Vitamin D3) 50 Mcg Capsule, 50 MCG PO DAILY, (Reported) Entered as Reported by: GINETTE RYAN on 05/15/21 1102 Cyanocobalamin (Vitamin B-12) (Vitamin B-12) 1,000 Mcg Capsule, 1,000 MCG PO DAILY, (Reported) Entered as Reported by: MARYELLEN HERRING on 01/31/22 1722 Docusate Sodium (Docusate Sodium) 100 Mg Capsule, 100 MG PO BID, (Reported) Entered as Reported by: TRISTON SANCHES on 02/03/22 1329 Ferrous Sulfate (Ferrous Sulfate) 325 Mg (65 Mg Iron) Tablet, 325 MG PO BID, (Reported) Entered as Reported by: TRISTON SANCHES on 02/03/22 1329 Furosemide (Furosemide) 20 Mg Tablet, 20 MG PO DAILY Prescribed by: YANE VILLAR on 02/04/22 1100 Glipizide (Glipizide) 5 Mg Tablet, 5 MG PO BID, (Reported) Entered as Reported by: MARYELLEN HERRING on 01/31/22 1722 Hydrocodone/Acetaminophen (Hydrocodone-Acetamin 10-325 mg) 1 Each Tablet, 1 EACH PO QID PRN for PAIN-MODERATE (5-7), (Reported) Entered as Reported by: GINETTE RYAN on 09/19/21 1520 Levothyroxine Sodium (Euthyrox) 50 Mcg Tablet, 50 MCG PO DAILY, (Reported) Entered as Reported by: GINETTE RYAN on 09/19/21 1520 Multivitamin (Multivitamin) 1 Each Tablet, 1 EACH PO 1200, (Reported) Entered as Reported by: GINETTE RYAN on 05/15/21 1102 Polyethylene Glycol 3350 (Miralax) 17 Gram Powd.pack, 17 GM PO DAILY PRN for CONSTIPATION-2ND LINE, (Reported) Entered as Reported by: TRISTON SANCHES on 02/03/22 1329 Potassium Chloride (Potassium Chloride) 10 Meq Capsule.er, 10 MEQ PO DAILY, (Reported) Entered as Reported by: MARYELLEN HERRING on 01/31/22 1722 Sacubitril/Valsartan (Entresto 24 mg-26 mg Tablet) 24 Mg-26 Mg Tablet, 1 TAB PO BID Prescribed by: YANE VILLAR on 02/04/22 1100 Simvastatin (Simvastatin) 20 Mg Tablet, 20 MG PO HS, (Reported) Entered as Reported by: GINETTE RYAN on 05/15/21 1102 Spironolactone (Spironolactone) 25 Mg Tablet, 25 MG PO DAILY Prescribed by: YANE VILLAR on 02/04/22 1100 Discontinued Medications Aspirin (Aspirin EC) 81 Mg Tablet.dr, 81 MG PO DAILY, (Reported) Entered as Reported by: GINETTE RYAN on 05/15/21 1102 Carvedilol (Carvedilol) 25 Mg Tablet, 12.5 MG PO BID, (Reported) Entered as Reported by: GINETTE RYAN on 05/15/21 1102 Furosemide (Furosemide) 20 Mg Tablet, 10 MG PO DAILY, (Reported) Entered as Reported by: MARYELLEN HERRING on 01/31/22 1722 Review of Systems Constitutional: No chills, No diaphoresis EENTM: No ear discharge, No ear pain Respiratory: No cough, No short of breath Cardiovascular: No chest pain, No palpitations Gastrointestinal: No abdominal pain, No nausea, No vomiting Genitourinary: No discharge, No dysuria Musculoskeletal: see HPI All Other Systems Reviewed Negative Unless Noted: Yes Past Sudpihw-Ecmhiq-Aossga Hx Patient Social History Tobacco Use?: No Substance use?: No Alcohol Use?: No Immunizations Up To Date First/Initial COVID19 Vaccinat: 07/27 Second COVID19 Vaccination Bubba: 07/27 Third COVID19 Vaccination Date: 07/27 COVID19 Vaccine 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: [employer] Past Medical History Surgery/Hospitalization HX: Recent knee fracture a few months ago, here for "heart issues" 2-3 days ago Surgeries: Yes (KNEE REPLACEMENT X3, CATARACT, HEART CATH) Gallbladder, Pacemaker Respiratory: No Cardiac: Yes (Possible arrhythmia) Cardiomyopathy, Coronary Artery Disease Neurological: No Reproductive Disorders: No Sexually Transmitted Disease: No Gastrointestinal: Yes (constipation) Musculoskeletal: Yes (BILAT KNEES) Endocrine: Yes Hypothyroidsim Cancer: No Psychosocial: No Integumentary: Yes (Chronic wounds of the lower extremities) Blood Disorders: No Family Medical History No Pertinent Family Hx Physical Exam Vital Signs Vital Signs - First Documented 02/11/22 08:17 Pulse 86 Resp 18 B/P (MAP) 162/92 (115) Pulse Ox 95 O2 Delivery Room Air Capillary Refill : Less Than 3 Seconds Height, Weight, BMI Height: 5'3.00" Weight: 205lbs. oz. 92.011089zk; 41.00 BMI Method:Stated General Appearance: WD/WN, mild distress HEENT: PERRL/EOMI, pharynx normal Neck: full range of motion, normal inspection Cardiovascular: normal peripheral pulses, regular rate, rhythm Respiratory: no respiratory distress, no accessory muscle use Legs: right leg non-tender, right leg normal inspection (Bilateral chronic edema with some hemosiderin staining on the lower half of the legs bilaterally); bilateral leg normal range of motion, bilateral leg no evidence of injury; left leg pain (Anterior lateral portion), left leg soft tissue tenderness, left leg swelling (Slightly enlarged compared to right), left leg other (Mild erythema and induration noted anterior laterally) Knees: bilateral knee non-tender, bilateral knee normal inspection, bilateral knee normal range of motion Ankles: bilateral ankle non-tender, bilateral ankle normal inspection, bilateral ankle normal range of motion Neurologic/Tendon: normal sensation, normal motor functions Neurologic/Psychiatric: alert, normal mood/affect, oriented x 3 Skin: normal color, warm/dry, other (Mild erythema to the left lateral and anterior portion of her leg over the tibia/fibula) Progress/Results/Core Measures Results/Orders My Orders Orders - WILL HO Venous Lower Ext Lt (02/11/22 08:49) Hydrocodone/Apap 7.5/325 Tab (Lortab 7. (02/11/22 09:00) Cephalexin Capsule (Keflex Capsule) (02/11/22 10:00) Vital Signs/I&O 02/11/22 08:17 Pulse 86 Resp 18 B/P (MAP) 162/92 (115) Pulse Ox 95 O2 Delivery Room Air Blood Pressure Mean: 115 Progress Progress Note #1: Time: 08:59 Progress Note Cellulitis versus DVT. She does have some dry peeling skin over her hemosiderin stained lower halves of her legs. Nontraumatic leg pain. Plan to get an ultrasound to rule out DVT and if that is the case we will put her on Keflex 4 times daily with follow-up. She would like something for pain but declined anything parenteral so we will give her hydrocodone. Progress Note #2: Time: 09:58 Progress Note Patient is snoozing softly easily arousable. Pain medicine appears to be helping. Keflex 500 mg for cellulitis. Diagnostic Imaging Diagonstic Imaging: Ultrasound Plain Films/CT/US/NM/MRI: leg (l) Comments [facility] [place], [place] NAME: KALLI PITTS MED REC#: [id number] PT STATUS: REG ER : 1935 PHYSICIAN: WILL HO MD ADMIT DATE: 02/11/22/ER Draft Date of Exam:02/11/22 US VENOUS LOWER EXT LT PROCEDURE: US left lower extremity venous. TECHNIQUE: Multiple real-time grayscale images were obtained over the left lower extremity in various projections. Additional duplex Doppler and color Doppler images were also obtained. INDICATION: Left leg pain and swelling. There is no evidence of left lower extremity DVT. Left lower extremity deep venous system shows normal compressibility with normal response to augmentation and Valsalva. No fluid collection or mass is detected. IMPRESSION: No evidence of left lower extremity DVT. Dictated on workstation # [id number] Dict: 02/11/2236 Trans: 02/11/22 0940 [facility] [id number] Interpreted by: FRANCISCO FLORES MD Electronically signed by: Reviewed: Reviewed by Me Departure Impression Primary Impression: Cellulitis of left ankle Disposition: HOME, SELF-CARE Condition: Stable Departure-Patient Inst. Decision time for Depature: 09:58 Referrals: SAVANNAH DIAZ DO (PCP/Family) Primary Care Physician Patient Instructions: Cellulitis (Skin Infection), Adult (DC) Add. Discharge Instructions: Cephalexin 500 mg 4 times a day for 1 week. Follow-up with your primary care doctor if you not seeing improvement in a week. Warm heat can be helpful for pain. Tylenol and or hydrocodone can also be helpful for pain. All discharge instructions reviewed with patient and/or family. Voiced understanding. Scripts Cephalexin (Cephalexin) 500 Mg Tablet 500 MG PO QID for 7 Days, #21 TAB 0 Refills Prov: WILL HO 02/11/22 Copy Copies To 1: SAVANNAH DIAZ TITUS J Feb 11, 2022 09:00
--- NOTE | 2022-02-11 09:41 | Diagnostic Imaging Report ---
PROCEDURE: US left lower extremity venous. TECHNIQUE: Multiple real-time grayscale images were obtained over the left lower extremity in various projections. Additional duplex Doppler and color Doppler images were also obtained. INDICATION: Left leg pain and swelling. There is no evidence of left lower extremity DVT. Left lower extremity deep venous system shows normal compressibility with normal response to augmentation and Valsalva. No fluid collection or mass is detected. IMPRESSION: No evidence of left lower extremity DVT. Dictated by: Dictated on workstation # [id number]
[2022-02-11] MEDS ORDERED: CEPH500T PO (09:59)
[2022-02-11] MEDS ORDERED: CEPHALEXIN 250 MG (KEFLEX) CAP PO ONE (10:00)
[2022-02-11 10:25] VITALS: BP 155/89
== END 2022-02-11 10:27 | disposition home or self-care (01) ==
LOC: ER 07:49 → EDUNIT# 07:49 → ER 10:27
DX: L03.116 Cellulitis of left lower limb (principal)

== ENCOUNTER 2022-08-11 07:52 | Emergency (ER) | payer MEDICARE ==
[~2022-08-11] VITALS: Ht 157 cm; Wt 95.0 kg
[~2022-08-11 07:52] MED LIST changes: +POTA-177 PO; -POTA10TA37 PO
--- NOTE | 2022-08-11 08:09 | ED Fall/Injury ---
General Chief Complaint: Trauma-Non Activation Stated Complaint: FALL Nursing Triage Note: PT TO [facility] BY [facility] WITH CC OF A FALL WITH LOW BACK PAIN, DENIES LOC, PT AMBULATED TO THE BATHROOM AFTER THE FALL AT THE FACILITY [employer] History of Present Illness Date Seen by Provider: Aug 11, 2022 Time Seen by Provider: 08:00 Initial Comments Patient is an 87yo female who presents to the ED by EMS from local [facility] ([facility]). She was ambulating with a walker to the bathroom when she states her feet just "gave out". She states she fell backwards and hit her head. No LOC. SHe states she was not able to get back up on her own. Per policy she was transported to the ED for evaluation. She denies any antecedent symptoms of ALMANZAR, lightheadedness, dizziness, nausea, pain, SOB or chest pain. She states she rolled over onto her side because she has chronic back pain. She denies numbness, weakness or tingling anywhere. No loss of bowel or bladder function. She is alert and knows where she is and the year. She was able to get up off the floor with the help of EMS and ambulate to the bathroom. She is not on blood thinners. All other ROS reviewed and neg except as stated. Occurred: just prior to arrival Injuries/Pain Location: no injury Context: other Loss of Consciousness: no loss of consciousness Associated Symptoms (Fall): Denies Symptoms Allergies and Home Medications Allergies Coded Allergies: erythromycin base (Verified Allergy, Unknown, 07/06/07) Patient Home Medication List Home Medication List Reviewed: Yes Aspirin (Children's Aspirin) 81 Mg Tab.chew, 81 MG PO DAILY@0900 Prescribed by: YANE VILLAR on 02/04/22 1100 C,E,Zinc,Copper 24/Om3/Lut/Ramona (Ocuvite Adult 50 Plus Softgel) 1 Each Capsule, 1 EACH PO DAILY, (Reported) Entered as Reported by: GINETTE RYAN on 09/19/21 1520 Carvedilol (Carvedilol) 6.25 Mg Tablet, 6.25 MG PO BID WITH MEALS Prescribed by: YANE VILLAR on 02/04/22 1100 Cephalexin (Cephalexin) 500 Mg Tablet, 500 MG PO QID Prescribed by: WILL HO on 02/11/22 0959 Cholecalciferol (Vitamin D3) (Vitamin D3) 50 Mcg Capsule, 50 MCG PO DAILY, (Reported) Entered as Reported by: GINETTE RYAN on 05/15/21 1102 Cyanocobalamin (Vitamin B-12) (Vitamin B-12) 1,000 Mcg Capsule, 1,000 MCG PO DAILY, (Reported) Entered as Reported by: MARYELLEN HERRING on 01/31/22 172 Docusate Sodium (Docusate Sodium) 100 Mg Capsule, 100 MG PO BID, (Reported) Entered as Reported by: TRISTON SANCHES on 02/03/22 1329 Ferrous Sulfate (Ferrous Sulfate) 325 Mg (65 Mg Iron) Tablet, 325 MG PO BID, (Reported) Entered as Reported by: TRISTON SANCHES on 02/03/22 132 Furosemide (Furosemide) 20 Mg Tablet, 20 MG PO DAILY Prescribed by: YANE VILLAR on 02/04/22 1100 Glipizide (Glipizide) 5 Mg Tablet, 5 MG PO BID, (Reported) Entered as Reported by: MARYELLEN HERRING on 01/31/22 172 Hydrocodone/Acetaminophen (Hydrocodone-Acetamin 10-325 mg) 1 Each Tablet, 1 EACH PO QID PRN for PAIN-MODERATE (5-7), (Reported) Entered as Reported by: GINETTE RYAN on 09/19/21 1520 Levothyroxine Sodium (Euthyrox) 50 Mcg Tablet, 50 MCG PO DAILY, (Reported) Entered as Reported by: GINETTE RYAN on 09/19/21 1520 Multivitamin (Multivitamin) 1 Each Tablet, 1 EACH PO 1200, (Reported) Entered as Reported by: GINETTE RYAN on 05/15/21 1102 Polyethylene Glycol 3350 (Miralax) 17 Gram Powd.pack, 17 GM PO DAILY PRN for CONSTIPATION-2ND LINE, (Reported) Entered as Reported by: TRISTON SANCHES on 02/03/22 132 Potassium Chloride (Potassium Chloride) 10 Meq Capsule.er, 10 MEQ PO DAILY, (Reported) Entered as Reported by: MARYELLEN HERRING on 01/31/22 1722 Sacubitril/Valsartan (Entresto 24 mg-26 mg Tablet) 24 Mg-26 Mg Tablet, 1 TAB PO BID Prescribed by: YANE VILLAR on 02/04/22 1100 Simvastatin (Simvastatin) 20 Mg Tablet, 20 MG PO HS, (Reported) Entered as Reported by: GINETTE RYAN on 05/15/21 1102 Spironolactone (Spironolactone) 25 Mg Tablet, 25 MG PO DAILY Prescribed by: YANE VILLAR on 02/04/22 1100 Review of Systems Review of Systems Constitutional: see HPI Eyes: No Symptoms Reported Respiratory: no symptoms reported Cardiovascular: no symptoms reported Gastrointestinal: no symptoms reported Genitourinary: no symptoms reported : No Musculoskeletal: back pain (chronic), other (chronic low back pain; chronic issues with numbness to her feet (recently started gabapentin)) Skin: no symptoms reported Psychiatric/Neurological: No Symptoms Reported All Other Systems Reviewed Negative Unless Noted: Yes Past Tvuufcc-Zjqbhd-Ggngtc Hx Patient Social History Tobacco Use?: No Substance use?: No Alcohol Use?: No Immunizations Up To Date First/Initial COVID19 Vaccinat: 07/27 Second COVID19 Vaccination Bubba: 07/27 Third COVID19 Vaccination Date: 07/27 Past Medical History Surgery/Hospitalization HX: KNEE REPLACEMENT BI LAT, CHF, PACEMAKER Surgeries: Yes (KNEE REPLACEMENT X3, CATARACT, HEART CATH) Gallbladder, Pacemaker Respiratory: No Cardiac: Yes (Possible arrhythmia) Cardiomyopathy, Coronary Artery Disease Neurological: No Reproductive Disorders: No Sexually Transmitted Disease: No Gastrointestinal: Yes (constipation) Musculoskeletal: Yes (BILAT KNEES) Endocrine: Yes Hypothyroidsim Cancer: No Psychosocial: No Integumentary: Yes (Chronic wounds of the lower extremities) Blood Disorders: No Family Medical History No Pertinent Family Hx Physical Exam Vital Signs Vital Signs - First Documented 08/11/22 07:55 Temp 36.4 Pulse 78 Resp 18 B/P (MAP) 154/94 (114) Pulse Ox 99 O2 Delivery Room Air Capillary Refill : Less Than 3 Seconds Height, Weight, BMI Height: 5'3.00" Weight: 205lbs. oz. 92.840221mx; 38.00 BMI Method:Stated General Appearance: WD/WN, no apparent distress HEENT: PERRL/EOMI, normal ENT inspection, TMs normal, other (no battles sign, no raccoon eyes; no rhinorrhea/otorrhea) Neck: non-tender, full range of motion, normal inspection Cardiovascular: regular rate, rhythm Respiratory: lungs clear, normal breath sounds, no respiratory distress, no accessory muscle use Gastrointestinal: non tender, soft Back: normal inspection; No vertebral tenderness Extremities: normal range of motion, non-tender, normal inspection Neurologic/Psychiatric: alert, normal mood/affect, oriented x 3 Skin: normal color, warm/dry Progress/Results/Core Measures Results/Orders My Orders Orders - TY BEY MD Hydrocodone/Apap 10/325 Tablet (Lortab 1 (08/11/22 08:15) Vital Signs/I&O 08/11/22 07:55 Temp 36.4 Pulse 78 Resp 18 B/P (MAP) 154/94 (114) Pulse Ox 99 O2 Delivery Room Air Blood Pressure Mean: 114 Progress Progress Note : Time: 08:15 Progress Note Patient seen and examined after fall at [place]. No complaints of injury or illness. She is awake, oriented and without complaints. VSS. No blood thinners. Consideration for cervical spine trauma/ intracranial injury and need for advanced imaging (CT cspine and head) howver, history and PE do not support the need. Patient has no complaints. Looks well. It's about time for her chronic pain pill, so we will give her one of those. No clinical or objective findings to warrant further testing. Patient is comfortable with the plan of care - all q uestions are sought and answered. Departure Impression Primary Impression: Fall on same level Qualified Codes: W18.30XA - Fall on same level, unspecified, initial encounter Additional Impression: Advanced age Disposition: 01 HOME, SELF-CARE Condition: Stable Departure-Patient Inst. Decision time for Depature: 08:07 Referrals: SAVANNAH DIAZ DO (PCP/Family) Primary Care Physician Patient Instructions: Minor Head Injury (DC) Add. Discharge Instructions: Continue pain medications as needed/prescribed. Monitor for change in behavior, worsening headache, vomiting; if any of these please return to the Emergency Department for re-evaluation. Copy Copies To 1: SAVANNAH DIAZ KATHRYN M MD Aug 11, 2022 08:08
[2022-08-11 08:30] VITALS: BP 130/88
== END 2022-08-11 08:30 | disposition home or self-care (01) ==
LOC: EDUNIT# 07:52 → ER 07:53
DX: Z04.3 Encounter for examination and observation following other accident (principal); W18.30XA Fall on same level, unspecified, initial encounter
CPT/HCPCS: 99283

== ENCOUNTER 2022-09-28 09:37 | Emergency (ER) | payer MEDICARE ==
[~2022-09-28] VITALS: Ht 152 cm; Wt 91.1 kg
[~2022-09-28 09:37] MED LIST changes: -POTA10CA43 PO; +POTA10CA44 PO
--- NOTE | 2022-09-28 09:58 | ED General ---
General Chief Complaint: Abdominal/GI Problems Stated Complaint: JAUNDICED | INDIGESTION Source of Information: Patient, Family Exam Limitations: No Limitations History of Present Illness Date Seen by Provider: Sep 28, 2022 Time Seen by Provider: 09:44 Initial Comments 87-year-old female presents to the emergency department today for jaundice. She is from a nursing facility. When asked why she is here she states "because I am yellow." Her is here with her and states that the nursing staff first told him about a month ago that they thought she was slightly yellow in color. This is dramatically worsened over the last couple of days. She states she does not feel particularly bad. She denies any abdominal pain but does have some occasional "indigestion." She does have dark urine and light stools. She denies any fevers or chills. She does have a history of jaundice as a child when she was 8 or 9 years old but none since that time. She does still have her gallbladder. Allergies and Home Medications Allergies Coded Allergies: erythromycin base (Verified Allergy, Unknown, 07/06/07) Patient Home Medication List Home Medication List Reviewed: Yes Aspirin (Children's Aspirin) 81 Mg Tab.chew, 81 MG PO DAILY@0900 Prescribed by: YANE VILLAR on 02/04/22 1100 C,E,Zinc,Copper 24/Om3/Lut/Ramona (Ocuvite Adult 50 Plus Softgel) 1 Each Capsule, 1 EACH PO DAILY, (Reported) Entered as Reported by: GINETTE RYAN on 09/19/21 1520 Carvedilol (Carvedilol) 6.25 Mg Tablet, 6.25 MG PO BID WITH MEALS Prescribed by: YANE VILLAR on 02/04/22 1100 Cephalexin (Cephalexin) 500 Mg Tablet, 500 MG PO QID Prescribed by: WILL HO on 02/11/22 0959 Cholecalciferol (Vitamin D3) (Vitamin D3) 50 Mcg Capsule, 50 MCG PO DAILY, (Reported) Entered as Reported by: GINETTE RYAN on 05/15/21 1102 Cyanocobalamin (Vitamin B-12) (Vitamin B-12) 1,000 Mcg Capsule, 1,000 MCG PO DAILY, (Reported) Entered as Reported by: MARYELLEN HERRING on 01/31/22 1722 Docusate Sodium (Docusate Sodium) 100 Mg Capsule, 100 MG PO BID, (Reported) Entered as Reported by: RTISTON SANCHES on 02/03/22 1329 Ferrous Sulfate (Ferrous Sulfate) 325 Mg (65 Mg Iron) Tablet, 325 MG PO BID, (Reported) Entered as Reported by: TRISTON SANCHES on 02/03/22 1329 Furosemide (Furosemide) 20 Mg Tablet, 20 MG PO DAILY Prescribed by: YANE VILLAR on 02/04/22 1100 Glipizide (Glipizide) 5 Mg Tablet, 5 MG PO BID, (Reported) Entered as Reported by: MARYELLEN HERRING on 01/31/22 1722 Hydrocodone/Acetaminophen (Hydrocodone-Acetamin 10-325 mg) 1 Each Tablet, 1 EACH PO QID PRN for PAIN-MODERATE (5-7), (Reported) Entered as Reported by: GINETTE RYAN on 09/19/21 1520 Levothyroxine Sodium (Euthyrox) 50 Mcg Tablet, 50 MCG PO DAILY, (Reported) Entered as Reported by: GINETTE RYAN on 09/19/21 1520 Multivitamin (Multivitamin) 1 Each Tablet, 1 EACH PO 1200, (Reported) Entered as Reported by: GINETTE RYAN on 05/15/21 1102 Polyethylene Glycol 3350 (Miralax) 17 Gram Powd.pack, 17 GM PO DAILY PRN for CONSTIPATION-2ND LINE, (Reported) Entered as Reported by: TRISTON SANCHES on 02/03/22 1329 Potassium Chloride (Potassium Chloride) 10 Meq Capsule.er, 10 MEQ PO DAILY, (Reported) Entered as Reported by: MARYELLEN HERRING on 01/31/22 1722 Sacubitril/Valsartan (Entresto 24 mg-26 mg Tablet) 24 Mg-26 Mg Tablet, 1 TAB PO BID Prescribed by: YANE VILLAR on 02/04/22 1100 Simvastatin (Simvastatin) 20 Mg Tablet, 20 MG PO HS, (Reported) Entered as Reported by: GINETTE RYAN on 05/15/21 1102 Spironolactone (Spironolactone) 25 Mg Tablet, 25 MG PO DAILY Prescribed by: YANE VILLAR on 02/04/22 1100 Review of Systems Review of Systems Constitutional: no symptoms reported EENTM: no symptoms reported Respiratory: no symptoms reported Cardiovascular: no symptoms reported Gastrointestinal: other Genitourinary: other (White stool dark urine) Musculoskeletal: no symptoms reported Skin: change in color Psychiatric/Neurological: No Symptoms Reported Hematologic/Lymphatic: No Symptoms Reported Immunological/Allergic: no symptoms reported Past Socbfmy-Ggshsc-Wggqzt Hx Patient Social History Tobacco Use?: No Substance use?: No Alcohol Use?: No Pt feels they are or have been: No Immunizations Up To Date First/Initial COVID19 Vaccinat: 07/27 Second COVID19 Vaccination Bubba: 07/27 Third COVID19 Vaccination Date: 07/27 Past Medical History Surgery/Hospitalization HX: KNEE REPLACEMENT BI LAT, CHF, PACEMAKER, dm2, hyperlipidemia, hypothyroidism, edema, anemia Surgeries: Yes (KNEE REPLACEMENT X3, CATARACT, HEART CATH) Gallbladder, Pacemaker Respiratory: No Cardiac: Yes (Possible arrhythmia) Cardiomyopathy, Coronary Artery Disease Neurological: No Reproductive Disorders: No Sexually Transmitted Disease: No Gastrointestinal: Yes (constipation) Musculoskeletal: Yes (BILAT KNEES) Endocrine: Yes Hypothyroidsim Cancer: No Psychosocial: No Integumentary: Yes (Chronic wounds of the lower extremities) Blood Disorders: No Family Medical History Reviewed Nursing Family Hx No Pertinent Family Hx Physical Exam Vital Signs Vital Signs - First Documented 09/28/22 09:50 Temp 36.3 Pulse 70 Resp 16 B/P (MAP) 146/76 (99) Pulse Ox 99 Capillary Refill : Height, Weight, BMI Height: 5'3.00" Weight: 205lbs. oz. 92.193210nv; 38.00 BMI Method:Stated General Appearance: No Apparent Distress, WD/WN Eyes: Bilateral Eye Scleral Icterus HEENT: Normal ENT Inspection, Pharynx Normal Neck: Full Range of Motion, Normal Inspection, Non Tender, Supple Respiratory: Chest Non Tender, Lungs Clear, Normal Breath Sounds, No Accessory Muscle Use, No Respiratory Distress Cardiovascular: Regular Rate, Rhythm, No Murmur, Normal Peripheral Pulses Gastrointestinal: Normal Bowel Sounds, Soft Back: Normal Inspection, No Vertebral Tenderness Extremity: Normal Capillary Refill, Normal Inspection, Non Tender Neurologic/Psychiatric: Alert, Oriented x3, No Motor/Sensory Deficits Skin: Other (The patient has profound jaundice with scleral icterus) Progress/Results/Core Measures Suspected Sepsis SIRS Temperature: Pulse: Respiratory Rate: Laboratory Tests 09/28/22 10:02: White Blood Count 4.3 Blood Pressure / Mean: Laboratory Tests 09/28/22 10:02: Creatinine 1.22, Platelet Count 197, Total Bilirubin 15.8*H Results/Orders Lab Results Laboratory Tests Test 09/28/22 10:02 Range/Units White Blood Count 4.3 4.3-11.0 10^3/uL Red Blood Count 3.47 L 3.80-5.11 10^6/uL Hemoglobin 11.4 L 11.5-16.0 g/dL Hematocrit 35 35-52 % Mean Corpuscular Volume 100 H 80-99 fL Mean Corpuscular Hemoglobin 33 25-34 pg Mean Corpuscular Hemoglobin Concent 33 32-36 g/dL Red Cell Distribution Width 17.5 H 10.0-14.5 % Platelet Count 197 130-400 10^3/uL Mean Platelet Volume 10.6 9.0-12.2 fL Immature Granulocyte % (Auto) 0 % Neutrophils (%) (Auto) 66 42-75 % Lymphocytes (%) (Auto) 20 12-44 % Monocytes (%) (Auto) 13 H 0-12 % Eosinophils (%) (Auto) 1 0-10 % Basophils (%) (Auto) 1 0-10 % Neutrophils # (Auto) 2.8 1.8-7.8 10^3/uL Lymphocytes # (Auto) 0.8 L 1.0-4.0 10^3/uL Monocytes # (Auto) 0.5 0.0-1.0 10^3/uL Eosinophils # (Auto) 0.0 0.0-0.3 10^3/uL Basophils # (Auto) 0.0 0.0-0.1 10^3/uL Immature Granulocyte # (Auto) 0.0 0.0-0.1 10^3/uL Sodium Level 140 135-145 MMOL/L Potassium Level 4.2 3.6-5.0 MMOL/L Chloride Level 106 98-107 MMOL/L Carbon Dioxide Level 22 21-32 MMOL/L Anion Gap 12 5-14 MMOL/L Blood Urea Nitrogen 28 H 7-18 MG/DL Creatinine 1.22 0.60-1.30 MG/DL Estimat Glomerular Filtration Rate 43 BUN/Creatinine Ratio 23 Glucose Level 188 H 70-105 MG/DL Calcium Level 9.5 8.5-10.1 MG/DL Corrected Calcium 9.7 8.5-10.1 MG/DL Total Bilirubin 15.8 *H 0.1-1.0 MG/DL Direct Bilirubin 10.1 H 0.0-0.3 MG/DL Indirect Bilirubin 5.7 MG/DL Aspartate Amino Transf (AST/SGOT) 82 H 5-34 U/L Alanine Aminotransferase (ALT/SGPT) 123 H 0-55 U/L Alkaline Phosphatase 419 H 40-136 U/L Total Protein 6.6 6.4-8.2 GM/DL Albumin 3.7 3.2-4.5 GM/DL Lipase 17 8-78 U/L My Orders Orders - JCARLOS DALY DO Comprehensive Metabolic Panel (09/28/22 09:53) Lipase (09/28/22 09:53) Ct Abdomen/Pelvis W (09/28/22 09:53) Bilirubin, Total And Direct (09/28/22 09:53) Cbc With Automated Diff (09/28/22 09:53) Iohexol Injection (Omnipaque 350 Mg/Ml 1 (09/28/22 10:45) Received Contrast (Hold Metformin- Contr (09/28/22 10:45) Ns (Ivpb) (Sodium Chloride 0.9% Ivpb Bag (09/28/22 10:45) Medications Given in ED Current Medications Medications Dose Ordered Sig/Ziggy Route Start Time Stop Time Status Last Admin Dose Admin Iohexol 75 ml ONCE ONCE IV 09/28/22 10:45 09/28/22 10:46 DC 09/28/22 10:47 75 ML Sodium Chloride 100 ml ONCE ONCE IV 09/28/22 10:45 09/28/22 10:46 DC 09/28/22 10:47 80 ML Vital Signs/I&O 09/28/22 09:50 Temp 36.3 Pulse 70 Resp 16 B/P (MAP) 146/76 (99) Pulse Ox 99 Capillary Refill : Departure Communication (Admissions) Patient is profoundly jaundiced but really relatively asymptomatic otherwise. She has no pain. Labs reveal markedly elevated bilirubin, also elevated AST ALT and alk phos. Lipase is surprisingly normal. CT scan obtained for concern initially of cancer. Painless jaundice. This does confirm a pancreatic head tenderness. Labs are otherwise reassuring. No evidence for an infectious type process at this time. She is not confused and having no pain whatsoever. I spoke with Dr. Cruzito, [facility]. Unfortunate they are at capacity otherwise he would have transferred her now for ERCP and possible palliative stenting and biopsy. Given that there is no availability he request we fax a facesheet to his office and request that they schedule an ERCP BO. Does believe that she is stable for outpatient treatment at this time. Patient is comfortable agreeable current plan of care. I did discuss with her the nature of pancreatic head masses especially in her age with the jaundice. She does understand that is a very poor prognosis and states she does not wish to have aggressive treatment going forward. She would be interested in palliative stenting and biopsy if deemed necessary by GI. Impression Primary Impression: Obstructive jaundice Additional Impression: Pancreatic mass Disposition: HOME, SELF-CARE Condition: Stable Departure-Patient Inst. Referrals: SAVANNAH DIAZ DO (PCP/Family) Primary Care Physician Add. Discharge Instructions: We hadve found a mass in the head of your pancreas today. This is causing a blockage which is allowing bilirubin to build up causing yellowing of your skin. This will require further treatment. I spoke with [facility]. He has requested his office reach out to you to schedule a procedure. If they dont reach out to you by mid morning tomorrow, please call them at the number below to ask about this. Return to the ER if you develop any abdominal pain that is severe, confusion, or with any symptoms that are concerning to you. I do recommend you make a follow up with your primary doctor so that they can help guide you through this process going forward. [facility] Address: [id number], [place] [address] All discharge instructions reviewed with patient and/or family. Voiced understanding. JCARLOS DALY DO Sep 28, 2022 09:58
[2022-09-28 10:10] LABS: BASOPHILS % (AUTO) 1 % (0-10); EOSINOPHILS % (AUTO) 1 % (0-10); HEMATOCRIT 35 % (35-52); HEMOGLOBIN 11.4 g/dL (11.5-16.0); LYMPHOCYTES # (AUTO) 0.8 10^3/uL (1.0-4.0); LYMPHOCYTES % (AUTO) 20 % (12-44); MEAN CORPUSCULAR HEMOGLOBIN 33 pg (25-34); MEAN CORPUSCULAR HGB CONC 33 g/dL (32-36); MEAN CORPUSCULAR VOLUME 100 fL (80-99); MEAN PLATELET VOLUME 10.6 fL (9.0-12.2); MONOCYTES # (AUTO) 0.5 10^3/uL (0.0-1.0); MONOCYTES % (AUTO) 13 % (0-12); NEUTROPHILS # (AUTO) 2.8 10^3/uL (1.8-7.8); NEUTROPHILS % (AUTO) 66 % (42-75); PLATELET COUNT 197 10^3/uL (130-400); WHITE BLOOD COUNT 4.3 10^3/uL (4.3-11.0)
[2022-09-28 10:22] LABS: ALBUMIN 3.7 GM/DL (3.2-4.5); POTASSIUM 4.2 MMOL/L (3.6-5.0)
[2022-09-28 10:23] LABS: CALCIUM 9.5 MG/DL (8.5-10.1)
[2022-09-28 10:25] LABS: TOTAL PROTEIN 6.6 GM/DL (6.4-8.2)
[2022-09-28 10:28] LABS: CREATININE SERUM 1.22 MG/DL (0.60-1.30)
[2022-09-28 10:30] LABS: BILIRUBIN,DIRECT 10.1 MG/DL (0.0-0.3); BILIRUBIN,INDIRECT 5.7 MG/DL
[2022-09-28 10:32] LABS: BILIRUBIN,TOTAL 15.8 MG/DL (0.1-1.0)
[2022-09-28] MEDS ORDERED: NS 100 ML (IVPB) BAG IV ONE (10:45)
[2022-09-28] MEDS ORDERED: HOLD METFORMIN - RECEIVED CONTRAST 20 ML VIAL IV SCH (10:45)
[2022-09-28] MEDS ORDERED: IOHEXOL 350 MG/ML 100 ML (OMNIPAQUE 350) VIAL IV ONE (10:45)
--- NOTE | 2022-09-28 11:13 | Diagnostic Imaging Report ---
PROCEDURE: CT abdomen and pelvis with contrast. TECHNIQUE: Multiple contiguous axial images were obtained through the abdomen and pelvis after administration of intravenous contrast. Auto Exposure Controls were utilized during the CT exam to meet ALARA standards for radiation dose reduction. All CT scans use one or more of the following dose optimizing techniques: automated exposure control, MA and/or KvP adjustment based on patient size and exam type or iterative reconstruction. INDICATION: Painless jaundice. COMPARISON: 03/29/2020. FINDINGS: Calcified granuloma is present in the lower lobe of the right lung. Cardiac defibrillator device is in place. Extensive granulomatous residua is again noted in the spleen. There has been development of moderately severe intra and extrahepatic biliary ductal dilatation. Common bile duct reaches approximately 1.8 cm in diameter and tapers into the ampulla of Vater. No definite calcification is appreciated although there is an approximately 2.0 x 2.5 cm soft tissue nodular structure along the anterior pancreatic head which was not seen on the previous study. This is inseparable from the unopacified duodenum. Adrenal glands are unremarkable. There is mild renal atrophy without evidence of focal renal abnormality. Herniation of fat in the midline of the anterior abdominal wall near the umbilicus is again noted, however there is no bowel herniation. Moderate amount of stool throughout colon. Unopacified bladder is unremarkable. There is no evidence organized fluid collection. Lower lumbar degenerative disc disease noted with grade 1 anterolisthesis of L4 on L5. There has been interval compression fracture of superior endplate at L1. IMPRESSION: 1. Development of significant biliary ductal dilatation with new masslike lesion along the anterior pancreatic head inseparable from duodenum. Neoplasm is not excluded. This could be further evaluated with MRCP or possible direct visualization with MRCP. 2. Otherwise there has been development of L1 compression fracture without significant retropulsion and clinical correlation would be of use. Dictated by: Dictated on workstation # [id number]
[2022-09-28 13:34] VITALS: BP 128/68
== END 2022-09-28 13:34 | disposition home or self-care (01) ==
LOC: EDUNIT# 09:37 → ER 09:40
DX: K83.1 Obstruction of bile duct (principal); K86.9 Disease of pancreas, unspecified; R74.8 Abnormal levels of other serum enzymes; R74.01 Elevation of levels of liver transaminase levels
CPT/HCPCS: 36415; 74177; 80053; 82247; 82248; 83690; 85025